=== PATIENT | female | born 1945 | race Caucasian/White ===

== ENCOUNTER 2023-03-08 10:12 | Inpatient (IN) | payer MEDICARE, SELFPAY ==
[2023-03-08] VITALS (10 sets, daily range): BP systolic 118–140; BP diastolic 66–85; PULSE 86–169; RESP 16–35; TEMP 35.9–36.6; O2SAT 93–99; BMI 18.3
--- NOTE | ~2023-03-08 | XR_ITS ---
EXAMINATION: XR_KUBGTUBINS_CR DATE: 03/08/2023 18:40 INDICATION: Nasogastric tube placement TECHNIQUE: AP view of the abdomen and lower chest was obtained for assessment of nasogastric tube rep ositioning COMPARISON: CT dated 03/08/2023 FINDINGS: Nasogastric tube tip in proximal side port in the body of the stomach. Residual oral contrast materia l is seen scattered throughout the visualized colon. The previously noted dilated gas and fluid-fille d loops of small bowel are not appreciated on the current study. Small left pleural effusion with opa [place] at left lung base which could represent atelectasis or pneumonia. Cardiomegaly. Lumbar levorot oscoliosis with moderate to severe spondylosis. IMPRESSION: 1. Nasogastric tube in the stomach. Reviewed, dictated and finalized at location A.
--- NOTE | ~2023-03-08 | XR_ITS ---
EXAMINATION: XR abdomen/kub 1V DATE: 03/20/2023 17:01 INDICATION: Right lower quadrant abdominal pain. TECHNIQUE: A supine view of the abdomen on 2 radiographs was obtained. COMPARISON: 03/17/[address] dated 03/15/2023 FINDINGS: Nasogastric tube tip in proximal side port in the body of the stomach. Midline skin sunil consisten t with interval surgery. Several gas-filled loops of small bowel in the abdomen and pelvis without fr ank dilation and favor postoperative ileus over obstruction. Lumbar levorotoscoliosis with moderate s pondylosis. IMPRESSION: 1. Nonspecific bowel gas pattern with multiple gas-filled loops of small bowel most likely postoperat tex ileus. Reviewed, dictated and finalized at location A. IMPRESSION: 1. Nonspecific bowel gas pattern with multiple gas-filled loops of small bowel most likely postoperative ileus.
--- NOTE | ~2023-03-08 | XR_ITS ---
XR abdomen obstructive series DATE: 03/09/2023 11:48 INDICATION: Abdominal pain. Ileus. TECHNIQUE: Portable supine and upright AP views of the abdomen COMPARISON: 03/08/2023 CT abdomen pelvis FINDINGS: There are persistent dilated gas distended small bowel segments. There is contrast material within the colon. A nasogastric tube is present in the stomach, the distal tip in the lower body of the stomach. No intraperitoneal free air is detected. IMPRESSION: Persistent dilated gas-distended small bowel NG tube in stomach Reviewed, dictated and finalized at Location A. Reviewed, dictated and finalized at location A.
--- NOTE | ~2023-03-08 | XR_ITS ---
Supine and upright views of the abdomen Clinical history: NG tube placement Findings: NG tube is in place, with side-port just below the diaphragm. There are probable multiple d ilated small bowel loops with contrast within small bowel. No definite free air. No abnormal mass les ion or calcification is seen. There is levoscoliosis of the lumbar spine. Impression: NG tube side-port is just below the diaphragm. Consider further advancement into the stomach. Small bowel obstruction versus ileus. Reviewed, dictated and finalized at location M. Impression: NG tube side-port is just below the diaphragm. Consider further advancement int o the stomach. Small bowel obstruction versus ileus.
--- NOTE | ~2023-03-08 | XR_ITS ---
Supine and upright views of the abdomen Clinical history: Dark red output via NG tube COMPARISON: 03/20/2023 Findings: NG tube is in satisfactory position. Multiple dilated bowel loops are similar to prior exam . No definite free air. Surgical sunil are again present. Calcification left upper quadrant could r eflect calcified splenic artery aneurysm.. There is levoscoliosis and degenerative change of the lumb ar spine. Impression: NG tube in satisfactory position. Stable dilated bowel loops with surgical clips present, likely represent postoperative ileus. Reviewed, dictated and finalized at location . Impression: NG tube in satisfactory position. Stable dilated bowel loops with surgical clips present, likely represent postop erative ileus.
--- NOTE | ~2023-03-08 | XR_ITS ---
XR chest 1V portable DATE: 03/17/2023 12:59 INDICATION: Respiratory failure TECHNIQUE: Portable AP chest on 03/17/2023 at 1254 hours COMPARISON: 03/15/2023 portable AP chest at 1222 hours FINDINGS: There is a limited rotated portable single view of the chest. There is increased retrocardiac density consistent with left lower lobe infiltrate or atelectasis. The lungs are hyperinflated, suggesting COPD. Cardiomegaly, thoracic and abdominal aortic atherosclerotic calcification. Right upper extremity PIC catheter tip overlies the superior vena cava near the superior cavoatrial j unction. NG tube in stomach. Diffuse osteopenia. IMPRESSION: Persistent left lower lobe infiltrate or atelectasis Bilateral hyperinflation Reviewed, dictated and finalized at location A.
--- NOTE | ~2023-03-08 | XR_ITS ---
Supine and upright views of the abdomen Clinical history: NG tube placement Findings: NG tube is in satisfactory position. Dilated small bowel loops are noted. No definite free air. No abnormal mass lesion or calcification is seen. Osseous structures are intact. Impression: NG tube in satisfactory position. Dilated small bowel loops, consistent with small bowel obstruction. Reviewed, dictated and finalized at [facility]. Impression: NG tube in satisfactory position. Dilated small bowel loops, consistent with small bowel obstruction.
--- NOTE | ~2023-03-08 | XR_ITS ---
EXAM: XR small bowel follow through DATE: 03/10/2023 15:53 HISTORY: Evaluate for SBO, use water soluble contrast . COMPARISON: CT abdomen pelvis 03/08/2023. FINDINGS: NG tube terminating over the stomach. Multiple loops of significantly dilated small bowel. Mild cecal dilation. Hyperdense intraluminal material present in the ascending and descending colon. Lumbar scoliosis with severe degenerative disc disease. Following contrast administration, contrast fills multiple loops of dilated small bowel, possibly reaching the cecum at the 2 hour manny and defin itely within large bowel by the 3 hour manny. IMPRESSION: Contrast probably reaches the cecum at 2 hours and is definitively within the cecum at 3 hours. Moderate small bowel dilation may represent ileus or partial obstruction. Reviewed, dictated and finalized at location K. IMPRESSION: Contrast probably reaches the cecum at 2 hours and is definitively within the c ecum at 3 hours. Moderate small bowel dilation may represent ileus or partial obstruction.
--- NOTE | ~2023-03-08 | XR_ITS ---
EXAM: XR_KUBGTUBINS_CR DATE: 03/12/2023 18:35 HISTORY: ng tube placement verification . COMPARISON: 03/11/2023. FINDINGS: NG tube tip and side port project over the expected location of the stomach. Diffusely dil ated small bowel loops. Left hemidiaphragm elevation. Groundglass and subsegmental right basilar opac ities. IMPRESSION: NG tube, in good position. Small bowel obstruction/ileus. Possible pulmonary edema and right basilar atelectasis. Reviewed, dictated and finalized at location K.
--- NOTE | ~2023-03-08 | CT_ITS ---
EXAMINATION: CT abdomen pelvis wo con DATE: 03/15/2023 09:38 INDICATION: Colitis. TECHNIQUE: Computed tomography (CT) of the abdomen and pelvis was performed without intravenous contr ast. Automated exposure control and iterative reconstruction technique were employed. The dose-length product was 205.94 mGy-cm. COMPARISON: CT abdomen and pelvis 03/08/2023 FINDINGS: The visualized portions of the lung bases demonstrate small right and moderate-sized left p leural effusions. There is bronchiectasis in right middle lobe. There are groundglass opacities and c entrilobular nodules in right lower lobe and centrilobular nodules in right middle lobe, consistent w ith pneumonia. Calcified left lung nodules are consistent with old granulomatous disease. There is sm ooth septal thickening in the lungs, consistent with pulmonary edema. Cardiomegaly is noted. There ar e coronary artery calcifications. No pericardial effusion. There is a small sliding hiatal hernia. Th e liver, gallbladder, and pancreas are normal. Calcifications in the spleen are consistent with old g ranulomatous disease. The nasogastric tube tip is in the distal stomach. The adrenal glands and right kidney are normal. There is cortical thinning of left kidney. There is no urolithiasis. There is brian cified atherosclerosis of the aorta and many of the other arteries. There is a Reyes catheter in the bladder. There is contrast in the bladder. There is focal wall thickening of the ascending colon. The re is pneumatosis in the right colon proximal to this focal wall thickening. The appendix is not visu alized. There are fluid-filled dilated loops of small bowel. There are no pathologically enlarged lym ph nodes. There is a small volume of ascites in right paracolic gutter. There is thoracolumbar levosc oliosis and severe lumbar spondylosis. IMPRESSION: 1. Persistent focal wall thickening in the ascending colon suspicious for primary malignancy. Pneumat osis in the right colon proximal to this focal wall thickening. 2. Dilated small bowel without focal transition point, likely adynamic ileus. 3. Lung disease, likely a combination of pulmonary edema and pneumonia. 4. Small right and moderate-sized left pleural effusions, worsened from 03/08/2023. 5. Small sliding hiatal hernia. Reviewed, dictated and finalized at location A. IMPRESSION: 1. Persistent focal wall thickening in the ascending colon suspicious for prima ry malignancy. Pneumatosis in the right colon proximal to this focal wall thick ening. 2. Dilated small bowel without focal transition point, likely adynamic ileus. 3. Lung disease, likely a combination of pulmonary edema and pneumonia. 4. Small right and moderate-sized left pleural effusions, worsened from 3. 5. Small sliding hiatal hernia.
--- NOTE | ~2023-03-08 | XR_ITS ---
EXAM: XR_KUBGTUBINS_CR DATE: 03/12/2023 21:20 HISTORY: NG tube replaced after patient removal . COMPARISON: Same date at 6:29 PM. FINDINGS/IMPRESSION: The replaced nasogastric tube is in good position. Persistent small bowel obstru ction/ileus. Persistent likely pulmonary edema and bibasilar atelectasis. Reviewed, dictated and finalized at location K.
--- NOTE | ~2023-03-08 | CT_ITS ---
EXAMINATION: CT abdomen pelvis wo con DATE: 03/08/2023 11:33 INDICATION: Right lower quadrant abdominal pain. TECHNIQUE: Computed tomography (CT) of the abdomen and pelvis was performed without intravenous contr ast. Automated exposure control and iterative reconstruction technique were employed. The dose-length product was 207.83 mGy-cm. COMPARISON: None. FINDINGS: The visualized portions of the lung bases demonstrate widespread septal thickening. There a re peripheral airspace opacities in the lower lobes, right middle lobe, and lingula with volume loss. There are small pleural effusions. Cardiomegaly is noted. There are coronary artery calcifications. No pericardial effusion. There is a small sliding hiatal hernia. The liver and gallbladder are normal . Calcifications in the spleen are consistent with old granulomatous disease. The pancreas and adrena l glands are normal. There is 11 mm cyst in right kidney. There is mild atrophy of left kidney. There is focal wall thickening of the ascending colon with adjacent fat stranding. There are multiple dila enriqueta loops of small bowel without focal transition point. There is contrast in the colon. The proximal colon is distended. There are no pathologically enlarged lymph nodes. There is no free intraperitone al fluid. There is thoracolumbar levoscoliosis. There is severe lumbar spondylosis. IMPRESSION: 1. Dilated small and large bowel, likely adynamic ileus. 2. Focal wall thickening of the ascending colon with adjacent fat stranding, consistent with infectio n versus malignancy. 3. Mild pulmonary edema with small pleural effusions. 4. Peripheral airspace opacities in the inferior lungs, consistent with atelectasis versus pneumonia. Reviewed, dictated and finalized at location A. IMPRESSION: 1. Dilated small and large bowel, likely adynamic ileus. 2. Focal wall thickening of the ascending colon with adjacent fat stranding, co nsistent with infection versus malignancy. 3. Mild pulmonary edema with small pleural effusions. 4. Peripheral airspace opacities in the inferior lungs, consistent with atelect asis versus pneumonia.
--- NOTE | ~2023-03-08 | XR_ITS ---
EXAMINATION: XR chest PICC line DATE: 03/15/2023 12:27 INDICATION: Central line placement. TECHNIQUE: A single frontal view of the chest was obtained. COMPARISON: Chest 2 view 06/14/2006, CT abdomen and pelvis 03/15/2023 FINDINGS: A calcified left lung nodule is consistent with old granulomatous disease. There are airspa ce opacities at left lung base. There is a small left pleural effusion. There is a diffuse interstiti al pattern in the lungs, consistent with pulmonary edema. No pneumothorax. Cardiomegaly is noted. The nasogastric tube tip is in the stomach. A right upper extremity peripherally inserted central venous catheter (PICC) is seen with tip at the superior cavoatrial junction. IMPRESSION: 1. PICC tip at superior cavoatrial junction. 2. Mild pulmonary edema. 3. Airspace opacities at left lung base, consistent with atelectasis versus pneumonia. 4. Small left pleural effusion. 5. Cardiomegaly. Reviewed, dictated and finalized at location A. IMPRESSION: 1. PICC tip at superior cavoatrial junction. 2. Mild pulmonary edema. 3. Airspace opacities at left lung base, consistent with atelectasis versus pne umonia. 4. Small left pleural effusion. 5. Cardiomegaly.
--- NOTE | ~2023-03-08 | XR_ITS ---
Upright portable view of the abdomen Clinical history: NG tube placement Findings: NG tube is in satisfactory position. Several dilated small bowel loops noted in the central abdomen. Moderate pneumoperitoneum is present.. Surgical sunil are noted vertically in the midline . Abnormal mass lesion or calcification is seen. Osseous structures are intact. Impression: NG tube in satisfactory position. Moderate pneumoperitoneum with surgical sunil present. This is therefore likely postoperative in na ture. Correlate clinically for any possibility of bowel perforation. Mildly dilated small bowel loops centrally. Correlate for ileus versus obstruction. Reviewed, dictated and finalized at location M. Impression: NG tube in satisfactory position. Moderate pneumoperitoneum with surgical sunil present. This is therefore like ly postoperative in nature. Correlate clinically for any possibility of bowel p erforation. Mildly dilated small bowel loops centrally. Correlate for ileus versus obstruct ion.
--- NOTE | ~2023-03-08 | XR_ITS ---
XR abdomen/kub 1V DATE: 03/17/2023 06:46 INDICATION: NG tube placement TECHNIQUE: Portable AP view on 03/17/2023 at 0635 hours COMPARISON: None FINDINGS: An NG tube is present, the distal tip overlying the lower body of the stomach. There are some dilated gas distended small bowel segments. Infiltrate and/atelectasis in the lower lung zones, left greater than right. Cardiomegaly. Rotatory levoscoliosis and multilevel degenerative disc disease of the lumbar spine. Osteopenia. IMPRESSION: NG tube in lower body of stomach Reviewed, dictated and finalized at Location A. Reviewed, dictated and finalized at location A.
[2023-03-08 10:38] LABS: Hematocrit 49.8 % (37.0-47.0); Hemoglobin 16.7 g/dL (12.0-15.0); Immature Platelet Fraction Pct 5.8 % (0.9-11.2); Mean Corpuscular HGB Conc 33.5 g/dl (32-36); Mean Corpuscular Volume 89.4 fl (80-100); Mean Platelet Volume 10.3 fl (7.4-10.4); Platelet Count Result 103 k/mm3 (150-375); Red Blood Count 5.57 M/mm3 (4.2-5.4); Red Cell Distribution Width 13.2 % (11.5-14.5); White Blood Count 9.7 K/mm3 (4.5-10.0)
[2023-03-08 10:46] LABS: Alanine Aminotransferase 97 U/L (6-35); Albumin Level 3.7 g/dL (3.5-5.1); Alkaline Phosphatase 73 U/L (38-126); Anion Gap 11 mmol/L (8-16); Aspartate Amino Transferase 79 U/L (14-36); Bilirubin,Total 1.1 mg/dL (0.2-1.3); Blood Urea Nitrogen 50 mg/dL (7-17); Carbon Dioxide 32 mmol/L (22-30); Chloride 87 mmol/L (98-107); Estimated CRCL calculation 18 ml/min; Estimated Glomerular Filt Rate 26; Glucose 138 mg/dL (65-110); Lipase 24 U/L (23-300); Potassium 4.6 mmol/L (3.4-5.0); Sodium 130 mmol/L (137-145)
[2023-03-08 11:05] LABS: Band Neutrophils Percent 19 % (0-6); Lymphocytes Absolute Manual 0.58 K/mm3 (1.1-4.5); Metamyelocytes Percent 2 %; Monocytes Absolute Manual 0.67 K/mm3 (0.1-0.90); Monocytes Percent Manual 7 % (3-9); Neutrophils Absolute Manual 8.24 K/mm3 (1.7-7.2); Neutrophils Percent Manual 66 % (46-73); Platelet Estimate Decreased (Adequate); Schistocytes None Seen (NORMAL); Total Cells Counted 100
[2023-03-08 11:06] LABS: Crenated RBC 1+ (NORMAL)
[2023-03-08 11:32] LABS: Appearance Urine Turbid (Clear); Bacteria Urine 4+ /hpf; Bilirubin Urine Negative (Negative); Blood Urine 3+ (Negative); Color Urine Dark Yellow (Yellow); Glucose Urine UA Negative (Negative); Granular Casts Urine Present /lpf; Ketones Urine Negative (Negative); Leukocyte Esterase Ur Trace LEU/UL (Negative); Nitrate Urine Negative (Negative); Protein Urine 2+ mg/dL (Negative); Specific Grav Ur 1.024 (1.001-1.035); Squamous Epithelial Cell Urine Many /hpf (Few); Urobilinogen Urine 0.2 mg/dL (<2.0)
[2023-03-08 11:41] LABS: Add Urine Microscopic? YES
[2023-03-08] MEDS: MORPHINE SULFATE (*CRX) 2 MG/ML INJ IV PUSH ×2 (12:48→16:43)
[2023-03-08 13:32] LABS: NT Pro B Type Natriuretic Pept > 30000 pg/mL (19.9-100)
--- NOTE | 2023-03-08 13:50 | ED.ABDPAIN ---
HPI - Abdominal Pain General Chief Complaint: Abdominal Pain <Saray Washington APRN - Last Filed: 03/08/23 18:59> Stated Complaint: RLQ abdominal pain - seen in [place] yesterday <Saray Washington APRN - Last Filed: 03/08/23 18:59> Time Seen by Provider: 03/08/23 10:44 <aSray Washington APRN - Last Filed: 03/08/23 18:59> Source: patient <Saray Washington APRN - Last Filed: 03/08/23 18:59> Mode of arrival: ambulatory <Saray Washington APRN - Last Filed: 03/08/23 18:59> Limitations: no limitations <Saray Washington APRN - Last Filed: 03/08/23 18:59> History of Present Illness HPI narrative: 77-year-old female presents today with complaints of nausea and vomiting and abdominal pain that been going on for 1 day. Patient was seen at [facility] in [place] yesterday where a CT and lab work was done. These records are not available at this time. Per patient she did a CT with oral contrast. She was discharged last night and pain continued to today so she arrived here. Patient was able to drink a glass of milk this morning without any nausea or vomiting. Does have a history of hysterectomy but otherwise no significant history per family. Medical records indicates she has a history of dementia, anemia, and CHF. Patient is not on any medications. <Saray Washington APRN - Last Filed: 03/08/23 18:59> MD elicited complaint: abdominal pain <Saray Washington APRN - Last Filed: 03/08/23 18:59> Related Data Home Medications: Home Medications Medication Instructions Recorded Confirmed No Home Medications 03/08/23 03/08/23 <Saray Washington APRN - Last Filed: 03/08/23 18:59> Allergies/Adverse Reactions: Allergies Allergy/AdvReac Type Severity Reaction Status Date / Time No Known Allergies Allergy Verified 03/08/23 10:13 <Saray Washington APRN - Last Filed: 03/08/23 18:59> Review of Systems Review of Systems: All systems reviewed & are unremarkable except as noted in HPI and below <Saray Washington APRN Last Filed: 03/08/23 18:59> [facility] Past Medical History Medical History: Medical History Anemia CHF (congestive heart failure) Dementia GERD (gastroesophageal reflux disease) Hypothyroid <Saray Washington RECESSING MACHINE OPERATOR Last Filed: 03/08/23 18:59> Social History Social History: Social History Smoking packs per day: 0.5 Smoking cigarettes per day: 10.0 Years smoked: 65 Smoking pack-years: 32.50 Smoking status: Current every day smoker Tobacco type: cigarettes Second hand tobacco smoke exposure: No Alcohol intake: never Substance use: unknown Lack of Transportation: No Lack of Food: Never True Current Housing: I Have Housing Concerned About Future Housing: No Difficulty Paying Gas/Electric Bills: No Difficulty Paying for Meds: No Currently Unemployed: No Education: Grade School Difficulty w/ Childcare or Family Care: No Living arrangements: assisted living Spiritual care concerns: No <Saray Washington Last Filed: 03/08/23 18:59> Exam Const: General: cooperative, healthy appearing, comfortable, no acute distress and well developed <Saray Washington Last Filed: 03/08/23 18:59> Orientation/consciousness: patient oriented x3 <Saray Washington Last Filed: 03/08/23 18:59> HENMT: Head: normal to inspection <Saray Washington RECESSING MACHINE OPERATOR - Last Filed: 03/08/23 18:59> Eyes: General: appearance normal, both eyes and all related structures <Saray Washington Last Filed: 03/08/23 18:59> Resp: Effort & Inspection: normal respiratory effort and able to speak in complete sentences <Saray Washington - Last Filed: 03/08/23 18:59> Auscultation: clear to auscultation bilaterally <Saray Washington RECESSING MACHINE OPERATOR - Last Filed: 03/08/23 18:59> Cardio: Rate: regular rate <Saray Washington RECESSING MACHINE OPERATOR - Last Filed: 03/08/23 18:59> Rh
[2023-03-08] MEDS: FUROSEMIDE INJ 40 MG/4 ML VIAL IV PUSH (14:56)
[2023-03-08] MEDS: SODIUM CHLORIDE 0.9% IV 1,000 ML 50 ML IV CONT (14:57)
--- NOTE | 2023-03-08 15:16 | WPDCN ---
Assessment and Plan Assessment and plan (1) Abdominal pain: Code(s): R10.9 - Unspecified abdominal pain Status: Acute Assessment and Plan: Patient has a mildly distended abdomen and abdominal pain. Normal white blood cell count and no fever. CT scan suggests adynamic ileus given dilated small bowel and colon without transition point. Urinalysis suggest possible UTI which could certainly contribute to development of an ileus. Presently she is not nauseated and did tolerate some liquids earlier today. She did have a small bowel movement this morning which was loose. Given the CT findings I do not think she has a surgical abdomen by objective measures and by physical examination. She appears dehydrated with an elevation in her creatinine and elevated hemoglobin suggesting hemoconcentration. I recommend conservative management with IV fluid hydration. Would not start any IV antibiotics at this time for what is going on her abdomen however hospital service may consider empiric treatment for possible UTI. Defer placement of a nasogastric tube for now unless she develops worsening abdominal pain and distension or starts having any nausea or vomiting. Repeat labs in the morning. Given the CT findings on the right ascending colon assuming she resolve this without any surgery would suggest elected colonoscopy in the future to evaluate the right side of the colon for any possible neoplasms. Surgical follow . HPI Data of Consult Date/Time: 03/08/23 15:16 Requesting Physician: Nathan Lu MD Primary Care Provider: PHYSICIAN NOT ON STAFF Consult Narrative Reason for consult: Abdominal pain, nausea/ vomiting. Narrative: Nataliya Mendoza is a 77 year old female who present to the emergency room today complaining of persistent abdominal pain. She went to the hospital in [facility] a yesterday where she was evaluated the emergency room and apparently labs and imaging was performed none of which we have any results available to us for review. She was discharged from the emergency room but she continued to have pain and so she presented [facility]. She states she had a loose bowel movement earlier today. She has not had any nausea or emesis today. Workup in the emergency room shows a normal white blood cell count and she is hemodynamically stable. She states she does feel little bloated. She has never had pain like this in the past. She has never had a colonoscopy. CT scan abdomen pelvis showed dilated small bowel and colon without definite transition point. The right colon had some mild thickening suggestive of possible edema or inflammation versus possible malignancy. No free air perforation was seen. She has significant history of a prior abdominal surgery about 30 years ago when she had a very large benign ovarian tumor removed. Urinalysis reveals many white blood cells and bacteria in the urine suggestive of possible urinary tract infection however many squamous epithelial cells were also seen which made a poor specimen. Review of Systems Review of Systems: The remainder of the review of systems to include constitutional, HEENT, cardiovascular, respiratory, GI, , integumentary, musculoskeletal, endocrine, immunologic, hematologic, psychiatric, and neurologic are all negative except for which is mentioned above in the HPI. [facility] Past Medical History Medical History Anemia CHF (congestive heart failure) Dementia GERD (gastroesophageal reflux disease) Hypothyroid Social History Social History Smoking status: Unknown if ever smoked Alcohol intake: unknown Substance use: unknown Living arrangements: assisted living Meds Home Medications and Allergies Allergies Allergy/AdvReac Type Severity Reaction Status Date / Time No Known Allergies Allergy Verified 03/08
--- NOTE | 2023-03-08 15:34 | ADMGEN ---
This patient, Nataliya Mendoza, was admitted to IMU Room 202-01. Patient/family oriented to hospital policies and general routines including ID bracelet, bed and alarms, visiting hours, pain management, procedures, bathroom and other care routines, personal items, smoking policy, room service/diet, and visiting hours. Information on how to activate the Rapid Response Team has been discussed. Patient/Family are encouraged to report perceived risks to care and to ask questions if they do not understand what they are told or what they should do.
--- NOTE | 2023-03-08 15:42 | PM.IMHP ---
H&P: HPI History of Present Illness Date/Time: 03/08/23 15:42 Chief Complaint: abdominal pain Narrative: This is a 77-year-old female patient who was in a usual state of health until about 5 days ago when she attended an outdoor cook out and became overheated. Patient reports that a few days later she went to work and had a significant headache. Yesterday patient had severe abdominal pain and nausea vomiting so she went to another emergency department where she had a CT scan completed and was ultimately discharged. Patient presents to our facility today with complaints of continued abdominal pain and return of nausea and vomiting after ER discharge yesterday. Workup in the emergency department is significant for CT findings of an ileus and laboratory findings of hyponatremia and SAMMY. Patient and family deny any history of heart problems or kidney problems in the past. Patient states that she has only been able to drink minimal amount of fluid recently. Patient denies difficulty breathing but admits that she is breathing faster than usual. Patient reports that hers abdomen is distended and tender to the touch all over. Patient denies chest pain. Patient reports that she does not take any medications and has no known heart problems or kidney problems. She reports that she has a primary care provider but does not see him very much. Patient reports she does smoke about half pack per day. Review of Systems Review of Systems: All systems reviewed & are unremarkable except as noted in HPI and below PMFSH Past Medical History Medical History (Updated 03/08/23 @ 23:33 by Rogerio Davis APRN) Anemia CHF (congestive heart failure) CVA (cerebral vascular accident) Dementia GERD (gastroesophageal reflux disease) Hypothyroid Social History Social History Smoking packs per day: 0.5 Smoking cigarettes per day: 10.0 Years smoked: 65 Smoking pack-years: 32.50 Smoking status: Current every day smoker Tobacco type: cigarettes Second hand tobacco smoke exposure: No Alcohol intake: never Substance use: unknown Lack of Transportation: No Lack of Food: Never True Current Housing: I Have Housing Concerned About Future Housing: No Difficulty Paying Gas/Electric Bills: No Difficulty Paying for Meds: No Currently Unemployed: No Education: Grade School Difficulty w/ Childcare or Family Care: No Living arrangements: assisted living Spiritual care concerns: No Meds Home Medications and Allergies Home Medications Medication Instructions Recorded Confirmed Type No Home Medications 03/08/23 03/08/23 History Allergies Allergy/AdvReac Type Severity Reaction Status Date / Time No Known Allergies Allergy Verified 03/08/23 10:13 Vital Signs Vital Signs - 24 hr 03/08/23 10:15 03/08/23 12:46 03/08/23 13:31 Temperature 35.9 C L Pulse Rate 96 96 93 Respiratory Rate 16 30 H 35 H Blood Pressure 118/71 140/74 129/85 Pulse Oximetry 99 97 96 Oxygen Delivery Room Air Exam Narrative: GENERAL: Moderately ill-appearing with tachypnea and moderate dyspnea HEENT: Pupils are equally round and briskly reactive to light. Extraocular muscles are intact. Oral mucous membranes very dry and tacky NECK: The patient has no noted JVD. No adenopathy is appreciated. CHEST/LUNGS: Lungs are clear bilaterally without rhonchi, rales, or wheezes. tachypnea noted with moderate dyspnea, no accessory muscle use HEART: The patient has a regular rate and irregular rhythm. Distal pulses are 2+. ABDOMEN: The patient's abdomen is significantly distended and tender to the touch. No guarding or rebound. Minimal bowel sounds. EXTREMITIES: The patient has no peripheral edema. There is no focal long bone tenderness or deformity. SKIN: The patient's skin is warm and dry, without rashes or lesions. PSYCHIATRIC: The patient has normal mental status and has
--- NOTE | 2023-03-08 16:19 | ECG_ITS ---
Measurements Intervals [place] Rate: 90 P: HI: 0 QRS: 71 QRSD: 89 T: 110 QT: 375 QTc: 459 Interpretive Statements ATRIAL FIBRILLATION CANNOT RULE OUT SEPTAL INFARCT, AGE INDETERMINATE CONSIDER HIGH LATERAL INFARCT, AGE INDETERMINATE ABNORMAL ECG NO PREVIOUS ECG AVAILABLE FOR COMPARISON Electronically Signed On 03-08-2023 16:45:34 CDT by Danilo Tian D.O.
[2023-03-08] MEDS: ONDANSETRON INJ 4 MG/2 ML VIAL IV PUSH (16:43)
[2023-03-08] MEDS: ALBUMIN HUMAN 5% 25 GM/500 ML BTL IV CONT (17:25)
--- NOTE | 2023-03-08 17:43 | WPDGICN ---
Assessment and Plan Assessment and plan (1) Abdominal pain: Code(s): R10.9 - Unspecified abdominal pain Status: Acute Assessment and Plan: Abdominal pain with diffuse tenderness. But more so on the right abdomen. CT scan imaging suggest possible ileus. Question of thickening in the right colon. Plan for initial NG tube decompression. Broad-spectrum antibiotics are encouraged. As patient improves may be at some later date a colonoscopy can evaluate abnormalities seen on CT scan. There does not appear to be an obstruction but small-bowel follow-through in colon evaluation may be considered after resolution of symptoms. Will follow lab testing for now. NG tube will be placed and can be removed if symptoms improve hopefully this will take pressure off the lower colon. Patient does have pyuria suggesting possible urinary tract infection. A mild elevation of liver tests that is nonspecific will be monitored. (2) Abnormal CT scan: Code(s): R93.89 - Abnormal findings on diagnostic imaging of other specified body structures Status: Acute GI Consult Note Consult date/time: 03/08/23 17:43 Reason for consult: Ileus, abnormal CT scan. HPI: Nataliya Mendoza is a 77 year old female I am asked to see at the request of the emergency room because of an ileus. Patient presented the emergency room because of abdominal pain. This may have started 1 week ago. Yesterday became more intense. She initially went to the hospital in [facility]. Workup this hospital is not available for review and ultimately patient was allowed to go home. She continued to have pain today and presented to the hospital. CT scan imaging suggest patient has ileus with diffuse distention of the small and large bowel. Patient may have had a loose diarrhea stool after imaging study was performed at the other hospital yesterday. Patient denies any obvious bleeding. She has no fever or pain. In the emergency room white count was normal. Modest elevation of liver tests are noted. She has significant pyuria on urinalysis. CT scan suggest some edema or thickening of the right colon. Review of Systems Review of Systems: Review of systems noncontributory. [facility] Past Medical History Medical History Anemia CHF (congestive heart failure) Dementia GERD (gastroesophageal reflux disease) Hypothyroid Social History Social History Smoking packs per day: 0.5 Smoking cigarettes per day: 10.0 Years smoked: 65 Smoking pack-years: 32.50 Smoking status: Current every day smoker Tobacco type: cigarettes Second hand tobacco smoke exposure: No Alcohol intake: never Substance use: unknown Lack of Transportation: No Lack of Food: Never True Current Housing: I Have Housing Concerned About Future Housing: No Difficulty Paying Gas/Electric Bills: No Difficulty Paying for Meds: No Currently Unemployed: No Education: Grade School Difficulty w/ Childcare or Family Care: No Living arrangements: assisted living Spiritual care concerns: No Meds Home Medications and Allergies Home Medications Medication Instructions Recorded Confirmed Type No Home Medications 03/08/23 03/08/23 History Allergies Allergy/AdvReac Type Severity Reaction Status Date / Time No Known Allergies Allergy Verified 03/08/23 10:13 Vital Signs Vital Signs - 24 hr 03/08/23 10:15 03/08/23 12:46 03/08/23 13:31 Temperature 96.7 F L Pulse Rate 96 96 93 Respiratory Rate 16 30 H 35 H Blood Pressure 118/71 140/74 129/85 Pulse Oximetry 99 97 96 Oxygen Delivery Room Air 03/08/23 15:53 03/08/23 15:59 03/08/23 16:00 Temperature Pulse Rate 99 90 Respiratory Rate Blood Pressure Pulse Oximetry Oxygen Delivery Room Air 03/08/23 16:00 Temperature 97.6 F Pulse Rate 86 Respirat
[2023-03-08 18:19] LABS: Magnesium 2.2 mg/dL (1.6-2.3)
[2023-03-08 18:56] LABS: Troponin I 0.451 ng/mL (0.000-0.034)
[2023-03-08 20:41] LABS: Alanine Aminotransferase 80 U/L (6-35); Albumin Level 3.8 g/dL (3.5-5.1); Alkaline Phosphatase 70 U/L (38-126); Aspartate Amino Transferase 59 U/L (14-36); Bilirubin,Total 0.9 mg/dL (0.2-1.3)
[2023-03-08 21:12] LABS: Troponin I 0.465 ng/mL (0.000-0.034)
[2023-03-08 21:25] LABS: Hepatitis B Surface Antigen Negative (Negative)
[2023-03-08 21:32] LABS: HAV RESULT Negative (Negative); Hepatitis B Core IgM Result Negative (Negative)
[2023-03-08 21:42] LABS: Hepatitis C Virus Antibody Negative (Negative)
[2023-03-09] VITALS (11 sets, daily range): BP systolic 117–124; BP diastolic 57–71; PULSE 65–102; RESP 16–18; TEMP 36.3–36.8; O2SAT 91–96
--- NOTE | 2023-03-09 | ECHO_ITS ---
Patient Info Name: Nataliya Mendoza Age: 77 years : 1945 Gender: Female Ht: 66 in Wt: 133 lbs BSA: 1.68 m2 HR: 98 bpm BP: 121 / 57 mmHg Technical Quality: Fair Exam Date: 03/09/2023 8:08 AM Exam Location: [facility] Pulmonary Exam Room: [facility] Patient Status: Outpatient Admit Date: 03/08/2023 Staff Ordering Physician: Rogerio Davis APRN [employer] Selector: Suzette Dueñas RDCS Attending Provider: Nathan Lu MD Referring Physician: Ryan ESTRELLA; Exam Type: CA echo doppler w bubble study Study Info Indications - new afib Complete two-dimensional, color flow and Doppler transthoracic echocardiogram is performed. Complete two-dimensional, color flow and Doppler transthoracic echocardiogram is performed with contrast to opacify the left ventricle and to improve the deliniation of the left ventricle endocardial borders. Contrast/Agitated Saline Contrast/Ag. Saline: Definity Amount: 1.00 ml Administered By: Suzette Dueñas [facility] Existing IV Access: Yes IV Access Condition: patent with no signs of infiltration Summary 1. Complete two-dimensional, color flow and Doppler transthoracic echocardiogram is performed. 2. Left ventricular systolic function is normal, estimated at 50-55%. 3. The left ventricular diastolic function is abnormal. 4. Hypokinetic anteroseptum, anterior wall, basal inferoseptum. 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 5. Left atrial chamber dimension is mildly enlarged. 6. Right atrial chamber dimension is mildly enlarged. 7. Intact interatrial septum visualized by agitated saline imaging. 8. There is mild mitral valve regurgitation. 9. There is moderate tricuspid valve regurgitation. 10. Mild pulmonary hypertension, estimated pulmonary arterial systolic pressure is 45 mmHg. 11. There is mild pulmonic regurgitation. Left Ventricle Left ventricular chamber dimension is normal. Left ventricular systolic function is normal, estimated at 50-55%. There is no increased left ventricular wall thickness. Left ventricular septal wall motion is normal. The left ventricular diastolic function is abnormal. Right Ventricle Right ventricular chamber dimension is normal. Right ventricular systolic function is normal. Left Atria Left atrial chamber dimension is mildly enlarged. Right Atria Right atrial chamber dimension is mildly enlarged. Atrial Septum Intact interatrial septum visualized by agitated saline imaging. Aortic Valve The aortic valve is trileaflet. There is no aortic valve sclerosis. There is no aortic valve stenosis. There is no aortic valve regurgitation. Pulmonic Valve The pulmonic valve is normal. There is no pulmonic valve stenosis. There is mild pulmonic regurgitation. Mitral Valve The mitral valve has normal leaflets. There is no mitral valve stenosis. There is mild mitral valve regurgitation. Tricuspid Valve The tricuspid valve leaflets are normal. There is no significant tricuspid valve stenosis. There is moderate tricuspid valve regurgitation. Mild pulmonary hypertension, estimated pulmonary arterial systolic pressure is 45 mmHg. Pericardium/Pleural The pericardium appears normal. There is trivial pericardial effusion. Inferior Vena Cava Normal inferior vena cava with >50% collapse upon inspiration consistent with Empty right atrial pressure, 10 mmHg. Aorta The aortic root size at the sinus of Valsalva is normal. The prox ascending aorta size is normal. Left Ventricular Outflow Tract -------
[2023-03-09] MEDS: PIPERACILLIN/TAZ 2.25G/NS 50ML 2.25 GM/50 ML BAG IVPB ×3 (01:03→16:15)
[2023-03-09 02:33] LABS: Troponin I 0.384 ng/mL (0.000-0.034)
[2023-03-09 04:24] LABS: Basophils Percent Auto 0.1 % (0.2-1.2); Eosinophils Percent Auto 0.1 % (0-4.4); Hematocrit 42.8 % (37.0-47.0); Hemoglobin 14.7 g/dL (12.0-15.0); Immature Granulocyte Absolute 0.08 K/mm3 (0.00-0.031); Immature Granulocyte Percent A 1.1 % (0-0.5); Immature Platelet Fraction Pct 5.8 % (0.9-11.2); Lymphocytes Absolute Auto 0.45 K/mm3 (0.9-3.2); Lymphocytes Percent Auto 6.2 % (18.3-44.2); Mean Corpuscular HGB Conc 34.3 g/dl (32-36); Mean Corpuscular Hemoglobin 30.6 pg (26-34); Mean Corpuscular Volume 89.2 fl (80-100); Mean Platelet Volume 11.6 fl (7.4-10.4); Monocytes Absolute Auto 1.2 K/mm3 (0.1-0.6); Neutrophils Absolute Auto 5.5 K/mm3 (1.3-6.7); Neutrophils Percent Auto 75.5 % (45.5-73.1); Platelet Count Result 97 k/mm3 (150-375); White Blood Count 7.3 K/mm3 (4.5-10.0)
[2023-03-09 04:31] LABS: Anion Gap 11 mmol/L (8-16); Blood Urea Nitrogen 57 mg/dL (7-17); Calcium 8.3 mg/dL (8.4-10.2); Carbon Dioxide 34 mmol/L (22-30); Chloride 89 mmol/L (98-107); Estimated CRCL calculation 16 ml/min; Estimated Glomerular Filt Rate 23; Glucose 112 mg/dL (65-110); Sodium 134 mmol/L (137-145)
[2023-03-09] MEDS: PERFLUTREN LIPID MICROSPHERES 1.5 ML VIAL DILUTED TO 10 ML TOTAL VOLUME IV PUSH (08:50)
--- NOTE | 2023-03-09 10:04 | PM.CNCAR ---
Assessment and Plan Assessment and plan (1) Atrial fibrillation: Code(s): I48.91 - Unspecified atrial fibrillation Status: Acute Assessment and Plan: Patient presented to the hospital with abdominal pain, nausea and vomiting, LES was found to have atrial fibrillation. Rate controlled not on AV palmira blocking agents. Unknown duration of the atrial fibrillation. -obtain echocardiogram -I would recommend to hold off starting anticoagulation and this time until acute kidney injury and ileus resolve. She is at high risk of bleeding given body habitus and low platelet count. (2) Adynamic ileus: Code(s): K56.0 - Paralytic ileus Status: Acute Assessment and Plan: Has NG tube. (3) Elevated troponin: Code(s): R77.8 - Other specified abnormalities of plasma proteins Status: Acute Assessment and Plan: Nonspecific troponin elevation with no ischemia on EKG and no chest pain. Likely demand ischemia from ileus, dehydration (4) SAMMY (acute kidney injury): Code(s): N17.9 - Acute kidney failure, unspecified Status: Acute Assessment and Plan: Patient needs volume and not Lasix. CT scan shows vascular congestion however clinically she appears to be dry with very dark urine. She needs volume. Would recommend to increase the fluids 100 cc an hour (5) Thrombocytopenia: Code(s): D69.6 - Thrombocytopenia, unspecified Status: Acute Assessment and Plan: Unknown etiology History of Present Illness History of Present Illness Consult date/time: Date of service 03/09/23 10:04 Requesting physician: Rogerio Davis APRN Reason For Visit: Ileus Narrative: This 77-year-old female with no significant past medical history. Apparently 5 days ago when she attended an outdoor cook out and became overheated.? Patient reports that a few days later she went to work and had a significant headache.? Yesterday patient had severe abdominal pain and nausea vomiting so she went to another emergency department where she had a CT scan completed and was ultimately discharged. ? Patient presents to our facility today with complaints of continued abdominal pain and return of nausea and vomiting after ER discharge yesterday.? Workup in the emergency department is significant for CT findings of an ileus and laboratory findings of hyponatremia and SAMMY.? Patient and family deny any history of heart problems or kidney problems in the past.? Patient states that she has only been able to drink minimal amount of fluid recently.? Patient denies difficulty breathing but admits that she is breathing faster than usual.? Patient reports that hers abdomen is distended and tender to the touch all over.? Patient denies chest pain. Patient reports that she does not take any medications and has no known heart problems or kidney problems.? She reports that she has a primary care provider but does not see him very much.? Patient reports she does smoke about half pack per day.. Currently patient has NG tube. Heart rates 90s. Getting normal saline at 50 cc an hour. The urine in the Reyes catheter is very dark. Denies chest pain, shortness of breath. She complains of right lower quadrant tenderness and discomfort. Platelet count 97, initial hemoglobin 16.7 but came down to 14 today Initial sodium 130 and today 134, creatinine 1.9 and 2.1 today, troponins 0.45, 0.46, 0.38, CT abdomen and pelvis shows coronary calcification, small pleural effusions, mild pulmonary edema, ileus, focal thickening of the ascending colon. EKG reviewed and asthma so shows atrial fibrillation with controlled heart rate. Review of Systems Constitutional: Constitutional: Denies chills and Denies fever(s) Comments: Feels tired Eyes: Eyes: Denies eye discharge, Denies loss of vision and Denies eye pain ENT: Denies dizziness, Denies epistaxis, Denies nasal congestion and Denies sore throat Cardiovascular: Cardiovascular:
--- NOTE | 2023-03-09 10:04 | WPDGIPROGNO ---
Progress Note: A&P Assessment and Plan (1) Adynamic ileus: Code(s): K56.0 - Paralytic ileus Status: Acute Assessment and Plan: Patient with apparent ileus on imaging studies. No obvious obstruction noted. Question of mass in the right colon. This is where her primary tenderness and distention is located will plan to follow with serial obstructive series. Colonoscopy can be done if ileus resolves at a later date. IV rehydration. Will continue NG tube decompression for now. (2) Abnormal CT scan: Code(s): R93.89 - Abnormal findings on diagnostic imaging of other specified body structures Status: Acute Assessment and Plan: CT scan raises the question of infection or mass in the right colon. Will need to evaluate this if ileus resolves at a later date. New supportive care for. (3) Abdominal pain: Code(s): R10.9 - Unspecified abdominal pain Status: Acute Assessment and Plan: Diffuse abdominal pain noted but primarily in the right abdomen where abnormality seen CT scan. (4) UTI (urinary tract infection): Code(s): N39.0 - Urinary tract infection, site not specified Status: Acute Assessment and Plan: Patient with pyuria. Appears to have a urinary tract infection. Cultures pending. On broad-spectrum antibiotics. (5) Elevated LFTs: Code(s): R79.89 - Other specified abnormal findings of blood chemistry Status: Acute Assessment and Plan: Mild elevation of transaminases noted. This may be related to infection. Will need to follow. Subjective Date/time seen: 03/09/23 10:04 Interval history: Patient alert this morning. Remains afebrile. NG tube had a large amount return. Patient states pain has lessened. picker tender primarily right abdomen. No significant bowel action noted. Review of Systems Review of Systems: Review of systems noncontributory. Exam Narrative: Physical exam reveals patient to be alert. Vital signs stable. HEENT exam reveals no icterus. Lungs are clear. Heart without murmur. Abdomen bowel sounds are not appreciated. Patient has mild tympany diffusely. Somewhat more distended and tender on the right abdomen. Objective Data Vital Signs Vital Signs: Vital Signs - 24 hr 03/08/23 10:15 03/08/23 12:46 03/08/23 13:31 Temperature 96.7 F L Pulse Rate 96 96 93 Respiratory Rate 16 30 H 35 H Blood Pressure 118/71 140/74 129/85 Pulse Oximetry 99 97 96 Oxygen Delivery Room Air 03/08/23 15:53 03/08/23 15:59 03/08/23 16:00 Temperature Pulse Rate 99 90 Respiratory Rate Blood Pressure Pulse Oximetry Oxygen Delivery Room Air 03/08/23 16:00 03/08/23 17:41 03/08/23 19:00 Temperature 97.6 F Pulse Rate 86 169 H 93 Respiratory Rate 16 Blood Pressure 137/81 Pulse Oximetry 98 Oxygen Delivery 03/08/23 20:00 03/08/23 20:00 03/08/23 20:00 Temperature 97.8 F Pulse Rate 92 92 Respiratory Rate 16 Blood Pressure 120/66 Pulse Oximetry 96 Oxygen Delivery Room Air 03/08/23 22:00 03/08/23 23:53 03/09/23 00:00 Temperature 97.7 F Pulse Rate 87 95 Respiratory Rate 18 Blood Pressure 131/68 Pulse Oximetry 93 Oxygen Delivery Room Air 03/09/23 00:00 03/09/23 02:00 03/09/23 04:00 Temperature Pulse Rate 99 102 H 94 Respiratory Rate Blood Pressure Pulse Oximetry Oxygen Delivery 03/09/23 04:00 03/09/23 04:00 03/09/23 06:00 Temperature 97.4 F L Pulse Rate 85 97 Respiratory Rate 18 Blood Pressure 121/57 L Pulse Oximetry 95 Oxygen Delivery Room Air 03/09/23 07:48 03/09/23 08:00 03/09/23 08:00 Temperature 98.0 F Pulse Rate 90 91 Respiratory Rate 16 Blood Pressure 117/66 Pulse Oximetry 91 Oxygen Delivery Room Air Intake/Output Intake/Output: Intake & Output 03/06/23 03/07/23 03/08/23 03/09/23 23:59 23:59 23:59 23:59 Intake Total 250 300 Output Total 550
[2023-03-09] MEDS: FAMOTIDINE 20 MG/2 ML VIAL IV PUSH ×2 (10:39→20:10)
--- NOTE | 2023-03-09 11:24 | IVDEFINITY ---
Prior to administration of IV Definity the patient was educated on the risks and benefits of the imaging enhancing agent including potential adverse side effects. The patient verbalized understanding. Allergies were verified. No exclusion criteria were identified and at least one of the following inclusion criteria were met: 1) physician request, 2) patient technically difficult to image (per the [place] [employer]ocardi[employer] guidelines of two or more segments not discernable within the apical view), or 3) questionable left ventricular function. ?
--- NOTE | 2023-03-09 11:29 | PM.IMPN ---
Progress Note: A&P Assessment and Plan (1) Adynamic ileus: Code(s): K56.0 - Paralytic ileus Status: Acute Assessment and Plan: Surgery consulted and NG tube placed. (2) SAMMY (acute kidney injury): Code(s): N17.9 - Acute kidney failure, unspecified Status: Acute Assessment and Plan: Unknown prior values patient reports no renal dysfunction. Current creatinine 1.9 BUN 50 suspected prerenal related to dehydration and decreased oral intake /vomiting. Cautious rehydration given concurrent CHF exacerbation (3) Elevated troponin: Code(s): R77.8 - Other specified abnormalities of plasma proteins Status: Acute Assessment and Plan: New onset atrial fibrillation, and no chest pain but troponin is elevated and stable at this time. EKG cannot exclude [place]. Cardiology consult in the a.m. Echocardiogram ordered. (4) Atrial fibrillation: Code(s): I48.91 - Unspecified atrial fibrillation Status: Acute Assessment and Plan: See 3. (5) CHF (congestive heart failure): Code(s): I50.9 - Heart failure, unspecified Status: Acute Assessment and Plan: Appreciate cardiology consultation, currently recommending IV fluids (6) Colitis: Code(s): K52.9 - Noninfective gastroenteritis and colitis, unspecified Status: Acute Assessment and Plan: Focal wall thickening of the ascending colon with adjacent fat stranding suggestive of infection versus malignancy. Will start IV Zosyn. Gastroenterology was consulted in the emergency department for possible colonoscopy during stay. (7) Thrombocytopenia: Code(s): D69.6 - Thrombocytopenia, unspecified Status: Acute Assessment and Plan: No prior values known, current platelet count 103. Expect value to decrease as this sample appears hemoconcentrated due to significant dehydration. (8) UTI (urinary tract infection): Code(s): N39.0 - Urinary tract infection, site not specified Status: Acute Assessment and Plan: likely contaminated specimen suggestive of UTI. Initially patient received IV ceftriaxone however due to colitis this is changed to Zosyn (9) Hyponatremia: Code(s): E87.1 - Hypo-osmolality and hyponatremia Status: Acute Assessment and Plan: Likely SIADH related to acute illness and significant prerenal azotemia/dehydration. Gentle rehydration with albumin bolus and IV saline at 100 mL/hr Plan diet: NPO with ice chips VT prophylaxis SCDs code status: Full code Subjective Date/time seen: 03/09/23 11:29 Interval history: 77-year-old female history of heart failure, CVA, dementia and GERD is presenting with nausea, vomiting, severe abdominal pain and constipation and currently being treated for an ileus with noted possible new onset rate controlled atrial fibrillation. No overnight events noted. No chest pain or shortness of breath. No nausea, vomiting or diarrhea. No fevers or chills. Abdominal pain improving. Review of Systems Review of Systems: 12 point review of systems was assessed and was negative except as noted in the HPI Exam Narrative: General: No acute distress, alert and oriented per baseline, NG tube in place HEENT: Atraumatic, normocephalic, mucous membranes moist CV: Irregularly irregular, S1, S2 Lungs: Clear to auscultation bilaterally, no rales or crackles noted, no wheezes, good air entry Abdomen: Soft, tender, mildly distended right lower quadrant Extremities: Normal to inspection Skin: No rashes noted, no lesions or wounds seen Psych: Euthymic, normal affect Objective Data Vital Signs Vital Signs: Vital Signs - 24 hr 03/08/23 12:46 03/08/23 13:31 03/08/23 15:53 Temperature Pulse Rate 96 93 Respiratory Rate 30 H 35 H Blood Pressure 140/74 129/85 Pulse Oximetry 97 96 Oxygen Delivery Room Air 03/08/23 15:59 03/08/23 1
--- NOTE | 2023-03-09 12:55 | PM.PNGS ---
Progress Note: A&P Assessment and Plan (1) Colitis: Code(s): K52.9 - Noninfective gastroenteritis and colitis, unspecified Status: Acute Assessment and Plan: Right-sided colitis. Cannot rule out neoplasm. Has been seen by GI and once current functional ileus has resolved then or colonoscopy can be done. (2) Adynamic ileus: Code(s): K56.0 - Paralytic ileus Status: Acute Assessment and Plan: Appears to have a small bowel ileus. This could be due to her UTI. She is being treated with IV antibiotics. Nasogastric tube for now. Might consider getting a small bowel follow-through study tomorrow. Continue supportive management. No acute surgical abdomen at this time Subjective Subjective Date/Time Seen: 03/09/23 12:55 Interval history: Patient admitted for likely small-bowel ileus and nausea vomiting. Peers she may also have right-sided colonic inflammation or colitis versus possible neoplasm. Nasogastric tube was placed yesterday decompression of her GI tract output is mostly non bilious. Denies have any flatus or bowel movements. Only minimal complaints of pain in the right side of her abdomen. Exam Resp: Effort & Inspection: normal respiratory effort Auscultation: clear to auscultation bilaterally Cardio: Rate: regular rate Rhythm: abnormal rhythm irregularly irregular GI: Other: Abdomen is soft and minimally distended. Minimal tenderness to palpation right side of her abdomen. No masses are appreciated. Decreased bowel sounds. Objective Data Vital Signs Vital Signs: Vital Signs - 24 hr 03/08/23 13:31 03/08/23 15:53 03/08/23 15:59 Temperature Pulse Rate 93 99 Respiratory Rate 35 H Blood Pressure 129/85 Pulse Oximetry 96 Oxygen Delivery Room Air 03/08/23 16:00 03/08/23 16:00 03/08/23 17:41 Temperature 36.4 C Pulse Rate 90 86 169 H Respiratory Rate 16 Blood Pressure 137/81 Pulse Oximetry 98 Oxygen Delivery 03/08/23 19:00 03/08/23 20:00 03/08/23 20:00 Temperature Pulse Rate 93 92 Respiratory Rate Blood Pressure Pulse Oximetry Oxygen Delivery Room Air 03/08/23 20:00 03/08/23 22:00 03/08/23 23:53 Temperature 36.6 C 36.5 C Pulse Rate 92 87 95 Respiratory Rate 16 18 Blood Pressure 120/66 131/68 Pulse Oximetry 96 93 Oxygen Delivery 03/09/23 00:00 03/09/23 00:00 03/09/23 02:00 Temperature Pulse Rate 99 102 H Respiratory Rate Blood Pressure Pulse Oximetry Oxygen Delivery Room Air 03/09/23 04:00 03/09/23 04:00 03/09/23 04:00 Temperature 36.3 C L Pulse Rate 94 85 Respiratory Rate 18 Blood Pressure 121/57 L Pulse Oximetry 95 Oxygen Delivery Room Air 03/09/23 06:00 03/09/23 07:48 03/09/23 08:00 Temperature 36.7 C Pulse Rate 97 90 91 Respiratory Rate 16 Blood Pressure 117/66 Pulse Oximetry 91 Oxygen Delivery 03/09/23 08:00 03/09/23 10:00 Temperature Pulse Rate 89 Respiratory Rate Blood Pressure Pulse Oximetry Oxygen Delivery Room Air Intake/Output Intake/Output: Intake & Output 03/06/23 03/07/23 03/08/23 03/09/23 23:59 23:59 23:59 23:59 Intake Total 250 300 Output Total 550 1900 Balance -300 -1600 Meds/Results Medications: Active Medications Generic Name Dose Route Start Last Admin Trade Name Freq PRN Reason Stop Dose Admin Acetaminophen 650 mg 03/08/23 16:34 Acetaminophen 325 Mg Tablet PO Q4H PRN Pain Rated 5 or Less Acetaminophen 650 mg 03/09/23 00:41 Acetaminophen 650 Mg Suppository RECTAL Q6H PRN Pain Rated 5 or Less Famotidine 20 mg 03/09/23 09:00 03/09/23 10:39 Famotidine 20 Mg/2 Ml Vial IV PUSH 20 mg Q12HR VITALIY Administration Piperacillin Sod/Tazobactam Sod 2.25 gm in 50 mls @ 100 mls/hr 03/09/23 09:00 03/09/23 09:25 Zosyn 2.25 Gm/Ns 50 Ml IVPB Infused Q8H VITALIY Infusion Morphine Sulfate 2 mg 03/08/23 16:34 03/08/23 16:43 Morp
[2023-03-09] MEDS: SODIUM CHLORIDE 0.9% IV 1,000 ML 100 ML IV CONT (15:26)
[2023-03-09] MEDS: MORPHINE SULFATE (*CRX) 2 MG/ML INJ IV PUSH (20:04)
[2023-03-10] VITALS (8 sets, daily range): BP systolic 133–147; BP diastolic 66–76; PULSE 79–93; RESP 14–20; TEMP 36.2–36.4; O2SAT 97
[2023-03-10] MEDS: PIPERACILLIN/TAZ 2.25G/NS 50ML 2.25 GM/50 ML BAG IVPB ×3 (00:29→17:06)
[2023-03-10 04:46] LABS: Hematocrit 45.6 % (37.0-47.0); Hemoglobin 15.3 g/dL (12.0-15.0); Immature Platelet Fraction Pct 4.5 % (0.9-11.2); Mean Corpuscular HGB Conc 33.6 g/dl (32-36); Mean Corpuscular Hemoglobin 30.1 pg (26-34); Mean Corpuscular Volume 89.8 fl (80-100); Mean Platelet Volume 10.9 fl (7.4-10.4); Platelet Count Result 103 k/mm3 (150-375); Red Blood Count 5.08 M/mm3 (4.2-5.4); Red Cell Distribution Width 13.2 % (11.5-14.5); White Blood Count 9.7 K/mm3 (4.5-10.0)
[2023-03-10 04:54] LABS: Anion Gap 12 mmol/L (8-16); Blood Urea Nitrogen 64 mg/dL (7-17); Calcium 8.2 mg/dL (8.4-10.2); Carbon Dioxide 31 mmol/L (22-30); Chloride 95 mmol/L (98-107); Estimated CRCL calculation 15 ml/min; Estimated Glomerular Filt Rate 22; Glucose 105 mg/dL (65-110); Potassium 3.6 mmol/L (3.4-5.0); Sodium 138 mmol/L (137-145)
[2023-03-10 05:11] LABS: Band Neutrophils Percent 8 % (0-6); Lymphocytes Absolute Manual 0.48 K/mm3 (1.1-4.5); Monocytes Absolute Manual 0.87 K/mm3 (0.1-0.90); Monocytes Percent Manual 9 % (3-9); Neutrophils Absolute Manual 8.34 K/mm3 (1.7-7.2); Neutrophils Percent Manual 78 % (46-73); Schistocytes None Seen (NORMAL); Total Cells Counted 100
[2023-03-10 05:28] LABS: Magnesium 2.6 mg/dL (1.6-2.3)
--- NOTE | 2023-03-10 06:51 | PC.NURSE ---
Attempted to call critical blood cultures received at 0645. Hospitalist phone went to voicemail. RN will attempt again and pass on to day shift nurse if necessary.
[2023-03-10] MEDS: FAMOTIDINE 20 MG/2 ML VIAL IV PUSH ×2 (09:06→20:45)
--- NOTE | 2023-03-10 09:51 | PM.IMPN ---
Progress Note: A&P Assessment and Plan (1) Adynamic ileus: Code(s): K56.0 - Paralytic ileus Status: Acute Assessment and Plan: Surgery consulted and NG tube placed, still large volume output noted, 2200 ml 03/09 (2) SAMMY (acute kidney injury): Code(s): N17.9 - Acute kidney failure, unspecified Status: Acute Assessment and Plan: Unknown prior values patient reports no renal dysfunction. Current creatinine 1.9 BUN 50 suspected prerenal related to dehydration and decreased oral intake /vomiting. Cautious rehydration given concurrent CHF exacerbation Worsened with IVF o/n, d/c IVF, consider lasix, defer further management to cardiology (3) Elevated troponin: Code(s): R77.8 - Other specified abnormalities of plasma proteins Status: Acute Assessment and Plan: New onset atrial fibrillation, and no chest pain but troponin is elevated and stable at this time. EKG cannot exclude [place]. Cardiology consult in the a.m. Echo 03/09 showed an EF of 50-55% with abnormal diastolic function, mild pulmonary hypertension and mild valvular disease (4) Atrial fibrillation: Code(s): I48.91 - Unspecified atrial fibrillation Status: Acute Assessment and Plan: See above (5) CHF (congestive heart failure): Code(s): I50.9 - Heart failure, unspecified Status: Acute Assessment and Plan: Appreciate cardiology consultation (6) Colitis: Code(s): K52.9 - Noninfective gastroenteritis and colitis, unspecified Status: Acute Assessment and Plan: Focal wall thickening of the ascending colon with adjacent fat stranding suggestive of infection versus malignancy. Appreciate gastrology consultation, consider colonoscopy once ileus resolves Zosyn started 03/09 (7) Thrombocytopenia: Code(s): D69.6 - Thrombocytopenia, unspecified Status: Acute Assessment and Plan: Platelet stable around 100, monitor (8) UTI (urinary tract infection): Code(s): N39.0 - Urinary tract infection, site not specified Status: Acute Assessment and Plan: Zosyn started 03/09, follow-up urine culture (9) Hyponatremia: Code(s): E87.1 - Hypo-osmolality and hyponatremia Status: Acute Assessment and Plan: Resolved, monitor Plan diet: NPO with ice chips VT prophylaxis SCDs code status: Full code Subjective Date/time seen: 03/10/23 09:51 Interval history: 77-year-old female history of heart failure, CVA, dementia and GERD is presenting with nausea, vomiting, severe abdominal pain and constipation and currently being treated for an ileus with noted possible new onset rate controlled atrial fibrillation. No overnight events noted. No chest pain or shortness of breath. No nausea, vomiting or diarrhea. No fevers or chills. Abdominal pain improving. Review of Systems Review of Systems: 12 point review of systems was assessed and was negative except as noted in the HPI Exam Narrative: General: No acute distress, alert and oriented per baseline, NG tube in place HEENT: Atraumatic, normocephalic, mucous membranes moist CV: Irregularly irregular, S1, S2 Lungs: Clear to auscultation bilaterally, no rales or crackles noted, no wheezes, good air entry Abdomen: Soft, tender, mildly distended right lower quadrant Extremities: Normal to inspection Skin: No rashes noted, no lesions or wounds seen Psych: Euthymic, normal affect Objective Data Vital Signs Vital Signs: Vital Signs - 24 hr 03/09/23 10:00 03/09/23 12:00 03/09/23 16:00 Temperature 98.1 F Pulse Rate 89 89 65 Respiratory Rate 18 Blood Pressure 124/71 Pulse Oximetry 96 Oxygen Delivery 03/09/23 16:00 03/09/23 20:01 03/09/23 20:00 Temperature 98.3 F Pulse Rate 89 93 Respiratory Rate 18 Blood Pressure 117/60 Pulse Oximetry 96 Oxygen Delivery Room Air 03/09/23 20:00 09
--- NOTE | 2023-03-10 10:17 | WPDGIPROGNO ---
Progress Note: A&P Assessment and Plan (1) Colitis: Code(s): K52.9 - Noninfective gastroenteritis and colitis, unspecified Status: Acute Assessment and Plan: CT scan suggests some inflammation in the right colon. At tumor cannot be excluded. Continue broad-spectrum antibiotics which should also cover UTI. Colonoscopy suggested after ileus resolves. (2) Adynamic ileus: Code(s): K56.0 - Paralytic ileus Status: Acute Assessment and Plan: patient continues to have abdominal tympany. No significant bowel sounds are noted. We will continue NG tube decompression. Small-bowel follow-through may be beneficial at some point. Surgery also following. (3) UTI (urinary tract infection): Code(s): N39.0 - Urinary tract infection, site not specified Status: Acute Assessment and Plan: Patient with urinary tract infection. Continue antibiotics for this which may help per colon inflammation as well at this point. Subjective Date/time seen: 03/10/23 10:17 Interval history: Patient more comfortable sitting in bed today. NG tube in place continues to drain output. Still no recent bowel movement. Continues to have pain primarily in the right abdomen. Review of Systems Review of Systems: Review of systems noncontributory. Exam Narrative: Physical exam reveals patient be alert. She is afebrile and anicteric. HEENT exam unremarkable NG tube in place. Lungs are clear. Heart without murmur. Abdomen bowel sounds are absent should abdomen is mild a sleep distended somewhat tympanic. Tender primarily in the right mid abdomen. Objective Data Vital Signs Vital Signs: Vital Signs - 24 hr 03/09/23 12:00 03/09/23 16:00 03/09/23 16:00 Temperature 98.1 F Pulse Rate 89 65 89 Respiratory Rate 18 Blood Pressure 124/71 Pulse Oximetry 96 Oxygen Delivery 03/09/23 20:01 03/09/23 20:00 03/09/23 20:00 Temperature 98.3 F Pulse Rate 93 90 Respiratory Rate 18 Blood Pressure 117/60 Pulse Oximetry 96 Oxygen Delivery Room Air 03/10/23 00:00 03/10/23 04:00 03/10/23 08:00 Temperature 97.1 F L Pulse Rate 93 83 80 Respiratory Rate 19 Blood Pressure 133/76 Pulse Oximetry 97 Oxygen Delivery 03/10/23 08:00 Temperature Pulse Rate 79 Respiratory Rate Blood Pressure Pulse Oximetry Oxygen Delivery Intake/Output Intake/Output: Intake & Output 03/07/23 03/08/23 03/09/23 03/10/23 23:59 23:59 23:59 23:59 Intake Total 250 1950 500 Output Total 550 3025 650 Balance -300 -1075 -150 Meds/Results Medications: Active Medications Generic Name Dose Route Start Last Admin Trade Name Freq PRN Reason Stop Dose Admin Acetaminophen 650 mg 03/08/23 16:34 Acetaminophen 325 Mg Tablet PO Q4H PRN Pain Rated 5 or Less Acetaminophen 650 mg 03/09/23 00:41 Acetaminophen 650 Mg Suppository RECTAL Q6H PRN Pain Rated 5 or Less Famotidine 20 mg 03/09/23 09:00 03/10/23 09:06 Famotidine 20 Mg/2 Ml Vial IV PUSH 20 mg Q12HR VITALIY Administration Piperacillin Sod/Tazobactam Sod 2.25 gm in 50 mls @ 100 mls/hr 03/09/23 09:00 03/10/23 09:05 Zosyn 2.25 Gm/Ns 50 Ml IVPB 100 mls/hr Q8H VITALIY Administration Morphine Sulfate 2 mg 03/08/23 16:34 03/09/23 20:04 Morphine Sulfate (*Crx) 2 Mg/Ml Inj IV PUSH 2 mg Q4H PRN Administration Pain Rated 6 or Greater Ondansetron HCl 4 mg 03/08/23 16:36 03/08/23 16:43 Ondansetron Inj 4 Mg/2 Ml Vial IV PUSH 4 mg Q4H PRN Administration Nausea And Vomiting Radiology Results: ITS Impressions Abdomen/Pelvis CT 03/08/23 11:36 IMPRESSION: 1. Dilated small and large bowel, likely adynamic ileus. 2. Focal wall thickening of the ascending colon with adjacent fat stranding, consistent with infection versus malignancy. 3. Mild pulmonary edema with small pleural effusions. 4. Peripheral airspace opacities in the inferior
[2023-03-10 11:11] LABS: Hemoglobin 15.6 g/dL (12.0-15.0); Mean Corpuscular HGB Conc 33.2 g/dl (32-36); Mean Corpuscular Hemoglobin 29.9 pg (26-34); Mean Platelet Volume 10.8 fl (7.4-10.4); Platelet Count Result 113 k/mm3 (150-375); Red Blood Count 5.22 M/mm3 (4.2-5.4); Red Cell Distribution Width 13.6 % (11.5-14.5); White Blood Count 10.6 K/mm3 (4.5-10.0)
[2023-03-10 11:21] LABS: Anion Gap 18 mmol/L (8-16); Blood Urea Nitrogen 64 mg/dL (7-17); Calcium 8.5 mg/dL (8.4-10.2); Carbon Dioxide 30 mmol/L (22-30); Chloride 94 mmol/L (98-107); Estimated CRCL calculation 14 ml/min; Estimated Glomerular Filt Rate 20; Glucose 112 mg/dL (65-110); Potassium 3.4 mmol/L (3.4-5.0); Sodium 142 mmol/L (137-145)
[2023-03-10 11:22] LABS: Alanine Aminotransferase 47 U/L (6-35); Albumin Level 3.6 g/dL (3.5-5.1); Alkaline Phosphatase 69 U/L (38-126); Aspartate Amino Transferase 50 U/L (14-36); Bilirubin,Total 1.3 mg/dL (0.2-1.3)
[2023-03-10 11:36] LABS: Band Neutrophils Percent 22 % (0-6); Eosinophils Percent Manual 1 % (0-4); Lymphocytes Absolute Manual 1.37 K/mm3 (1.1-4.5); Lymphocytes Percent Manual 13 % (18-44); Metamyelocytes Percent 1 %; Monocytes Absolute Manual 1.37 K/mm3 (0.1-0.90); Monocytes Percent Manual 13 % (3-9); Neutrophils Absolute Manual 7.63 K/mm3 (1.7-7.2); Neutrophils Percent Manual 50 % (46-73); Total Cells Counted 100
[2023-03-10 11:37] LABS: Schistocytes None Seen (NORMAL)
--- NOTE | 2023-03-10 11:44 | PM.PNCARD ---
Progress Note: A&P Assessment and Plan (1) Atrial fibrillation: Code(s): I48.91 - Unspecified atrial fibrillation Status: Acute Assessment and Plan: Patient presented to the hospital with abdominal pain, nausea and vomiting, LES was found to have atrial fibrillation. Rate controlled not on AV palmira blocking agents. Unknown duration of the atrial fibrillation. -echocardiogram during this hospitalization normal ejection fraction. -I would recommend to hold off starting anticoagulation and this time until acute kidney injury and ileus resolve. She is at high risk of bleeding given body habitus and low platelet count. (2) Adynamic ileus: Code(s): K56.0 - Paralytic ileus Status: Acute Assessment and Plan: Has NG tube. (3) Elevated troponin: Code(s): R77.8 - Other specified abnormalities of plasma proteins Status: Acute Assessment and Plan: Nonspecific troponin elevation with no ischemia on EKG and no chest pain. Likely demand ischemia from ileus, dehydration (4) SAMMY (acute kidney injury): Code(s): N17.9 - Acute kidney failure, unspecified Status: Acute Assessment and Plan: On physical examination appears to be dry. Would recommend IV fluids normal saline at 100 cc an hour. If the patient develops shortness of breath we can treated with Lasix. But would like to challenge her with fluids to see if renal function improves (5) Thrombocytopenia: Code(s): D69.6 - Thrombocytopenia, unspecified Status: Acute Assessment and Plan: Unknown etiology Subjective Date/time seen: Date of service. 03/10/23 11:44 Interval history: Date of service 03/10/2023-resting comfortably in bed. Denies shortness of breath. Denies lower extremity edema. Still has NG tube in place. AFib controlled. Review of Systems Constitutional: Constitutional: Denies chills and Denies fever(s) Eyes: Eyes: Denies eye discharge, Denies loss of vision, Denies eye pain and Denies photophobia ENT: Denies dizziness, Denies epistaxis, Denies nasal congestion and Denies sore throat Cardiovascular: Cardiovascular: Denies chest pain, Denies syncope, Denies pedal edema, Denies leg edema, Denies palpitations, Denies dyspnea, Denies dyspnea on exertion and Denies orthopnea Respiratory: Respiratory: Denies cough, Denies dyspnea, Denies dyspnea on exertion and Denies wheezing Gastrointestinal: Gastrointestinal: Reports abdominal pain, Reports nausea and Reports vomiting Genitourinary: Genitourinary: Denies hematuria, Denies genital lesions and Denies dysuria Musculoskeletal: Musculoskeletal: Denies arthralgias, Denies joint swelling and Denies numbness Integumentary/Breasts: Skin/Breast: Denies pruritus and Denies rash Neurologic: Denies dizziness, Denies syncope, Denies loss of vision and Denies numbness Psychiatric: Psychiatric: Denies anxiety and Denies depression Endocrine: Endocrine: Denies cold intolerance, Denies heat intolerance and Denies palpitations Hematologic/Lymphatic: Hematologic/Lymphatic: Denies easy bleeding and Denies easy bruising Allergic/Immunologic: Allergic/Immunologic: Denies urticaria and Denies wheezing Exam Const: General: cooperative, comfortable, no acute distress, alert and awake; No well nourished Nutritional Appearance: not well nourished Orientation/consciousness: patient oriented x3 Other: Has NG tube HENMT: Head: normal to inspection, normocephalic and atraumatic Ears: hearing grossly normal bilaterally Face/Nose/Sinus: Normal external nose present, Normal nares present, no nasal discharge noted, normal facial exam and No erythema Face and sinus: normal facial exam and no erythema Mouth: No drooling and No restricted motion Throat: uvula midline Eyes: General: appearance normal, both eyes and all related structures Alignment and Position: position normal Conjunctivae: conjunctivae normal Sclera: sclerae normal Direct Op
--- NOTE | 2023-03-10 12:04 | PM.PNGS ---
Progress Note: A&P Assessment and Plan (1) UTI (urinary tract infection): Code(s): N39.0 - Urinary tract infection, site not specified Status: Acute Assessment and Plan: On appropriate IV antibiotics. (2) Colitis: Code(s): K52.9 - Noninfective gastroenteritis and colitis, unspecified Status: Acute Assessment and Plan: Bowel rest with nasogastric decompression and on IV antibiotics. (3) Adynamic ileus: Code(s): K56.0 - Paralytic ileus Status: Acute Assessment and Plan: This may be due to a colitis or her UTI. We will go ahead and get a small-bowel follow-through series tomorrow with water-soluble contrast. If she does not started having some bowel function in the next 24 to 48 hours then I would recommend placement of a PICC line and starting some TPN. She looks a little dry today. Creatinine has bumped just a little bit. Will give her a 500cc LR bolus today. Subjective Subjective Date/Time Seen: 03/10/23 12:04 Interval history: Patient sitting up in bed without any complaints. Nasogastric tube in place. Output is nonbilious. Denies any nausea or vomiting. Denies any flatus or bowel movements. The last decent male she had was last Saturday which was 4 days ago. Creatinine his slightly increased white blood cell count is now 10,000. She looks a little dry. Exam GI: Other: Abdomen is soft and mildly distended. Will exam from yesterday. Mild tenderness the right side of the abdomen without rebound. No incarcerated hernias. Objective Data Vital Signs Vital Signs: Vital Signs - 24 hr 03/09/23 16:00 03/09/23 16:00 03/09/23 20:01 Temperature 36.7 C 36.8 C Pulse Rate 65 89 93 Respiratory Rate 18 18 Blood Pressure 124/71 117/60 Pulse Oximetry 96 96 Oxygen Delivery 03/09/23 20:00 03/09/23 20:00 03/10/23 00:00 Temperature Pulse Rate 90 93 Respiratory Rate Blood Pressure Pulse Oximetry Oxygen Delivery Room Air 03/10/23 04:00 03/10/23 08:00 03/10/23 08:00 Temperature 36.2 C L Pulse Rate 83 80 79 Respiratory Rate 19 Blood Pressure 133/76 Pulse Oximetry 97 Oxygen Delivery Intake/Output Intake/Output: Intake & Output 03/07/23 03/08/23 03/09/23 03/10/23 23:59 23:59 23:59 23:59 Intake Total 250 1950 550 Output Total 550 3022 650 Balance -300 -9695 -100 Meds/Results Medications: Active Medications Generic Name Dose Route Start Last Admin Trade Name Freq PRN Reason Stop Dose Admin Acetaminophen 650 mg 03/08/23 16:34 Acetaminophen 325 Mg Tablet PO Q4H PRN Pain Rated 5 or Less Acetaminophen 650 mg 03/09/23 00:41 Acetaminophen 650 Mg Suppository RECTAL Q6H PRN Pain Rated 5 or Less Famotidine 20 mg 03/09/23 09:00 03/10/23 09:06 Famotidine 20 Mg/2 Ml Vial IV PUSH 20 mg Q12HR VITALIY Administration Piperacillin Sod/Tazobactam Sod 2.25 gm in 50 mls @ 100 mls/hr 03/09/23 09:00 03/10/23 09:35 Zosyn 2.25 Gm/Ns 50 Ml IVPB Infused Q8H VITALIY Infusion Sodium Chloride 1,000 mls @ 100 mls/hr 03/10/23 12:00 Normal Saline Iv IV CONT .Q10H VITALIY Morphine Sulfate 2 mg 03/08/23 16:34 03/09/23 20:04 Morphine Sulfate (*Crx) 2 Mg/Ml Inj IV PUSH 2 mg Q4H PRN Administration Pain Rated 6 or Greater Ondansetron HCl 4 mg 03/08/23 16:36 03/08/23 16:43 Ondansetron Inj 4 Mg/2 Ml Vial IV PUSH 4 mg Q4H PRN Administration Nausea And Vomiting Radiology Results: ITS Impressions Abdomen/Pelvis CT 03/08/23 11:36 IMPRESSION: 1. Dilated small and large bowel, likely adynamic ileus. 2. Focal wall thickening of the ascending colon with adjacent fat stranding, consistent with infection versus malignancy. 3. Mild pulmonary edema with small pleural effusions. 4. Peripheral airspace opacities in the inferior lungs, consistent with atelectasis versus pneumonia. Abdomen X-Ray 03/09/23 13:21 IMPRESSION: Persistent dilated
[2023-03-10] MEDS: LACTATED RINGERS 500 ML 100 ML IV CONT (15:39)
--- NOTE | 2023-03-10 16:18 | PC.NURSE ---
This patient, Nataliya Mendoza, was received from [facility] on 03/10/23 at 1618. Patient/family oriented to unit policies and routines
--- NOTE | 2023-03-10 16:18 | PC.NURSE ---
This patient, Nataliya Mendoza, was transferred to [facility] on 03/10/23 at 1618. Personal belongings sent with patient. Report given to Jim ROSE. Appropriate documentation sent with patient.
[2023-03-10] MEDS: SODIUM CHLORIDE 0.9% IV 1,000 ML 100 ML IV CONT (17:05)
[2023-03-11] VITALS (9 sets, daily range): BP systolic 150–158; BP diastolic 70–90; PULSE 78–97; RESP 14–18; TEMP 36.4–36.6; O2SAT 97–98; BMI 17.4
--- NOTE | 2023-03-11 01:29 | P.PNCROSS_ITS ---
Event Note Event Note Event Note: Nursing staff called me. They found the patient up and wandering out of her be d. She had pulled out her NG tube, her Reyes catheter and her IVs. The patient when redirected was subsequently alert oriented x3. She does not recall actually pulling out all of these items. When she was found to be ambulating to the bathroom she had bright red blood dribbling on the floor in route to the bathroom. When she actually went to the bathroom is she had a bowel movement that was bloody with some general reddish color to the water in the commode. A stat CBC was obtained which demonstrated about half a g drop in the patient's hemoglobin. The patient appears to have been mostly polycythemic since admission. The patient's labs yesterday did demonstrate marked bandemia and repeat CBC this a.m. demonstrated persistent bandemia. The patient is known to have bacteremia with 1/2 blood cultures growing Gram-negative bacilli. This could be due to infectious colitis versus possible colon mass. Gastroenterology has been consulted but is holding off on colonoscopy until ileus has resolved. The patient's vitals have otherwise remained stable and she is afebrile. 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 She is alert oriented to person, place and year she was confused as to the month at the time of my evaluation. She denied having any abdominal pain but when I went to evaluate her she had marked distention of her abdomen and marked tympany on exam. She did have some high- pitched bowel sounds most notably in the right upper quadrant. The patient had turbid appearing urine on the day of admission but urine culture was negative. Repeat cultures were obtained on the and are pending. Rectal bleeding--possibly due to colon mass versus colitis. Hemoglobin has dropped minimally. Will continue monitor for signs of further bleeding or changes in hemodynamic stability. Continue antibiotic therapy with Zosyn. Delirium--likely secondary to bacteremia, sepsis and hospital stay with some hospital associated delirium as well. Continue treat underlying cause. Adynamic ileus--patient has significant tympanic bowel sounds remaining. NG was replaced and NG tube placement was confirmed with x-ray. X-ray was personally reviewed. Patient remains NPO except for ice chips. General surgery is following. 30 minutes spent in critical care activities. Due to a high probability of clinically significant, life threatening deterioration, the patient required my highest level of preparedness to intervene emergently and I personally spent this critical care time directly and personally managing the patient. This critical care time included obtaining a history; examining the patient; pulse oximetry; ordering and review of studies; arranging urgent treatment with development of a management plan; evaluation of patient's response to treatment; frequent reassessment; and discussions with other providers. It was exclusive of separately billable procedures and treating other patients and teaching time. Please see Assessment and Plan section and the rest of the note for further information on patient assessment and treatment.
[2023-03-11] MEDS: SODIUM CHLORIDE 0.9% IV 1,000 ML 100 ML IV CONT (02:21)
[2023-03-11] MEDS: PIPERACILLIN/TAZ 2.25G/NS 50ML 2.25 GM/50 ML BAG IVPB ×2 (02:39→16:47)
[2023-03-11 03:50] LABS: Hematocrit 45.1 % (37.0-47.0); Mean Corpuscular HGB Conc 33.3 g/dl (32-36); Mean Corpuscular Hemoglobin 30.1 pg (26-34); Mean Corpuscular Volume 90.4 fl (80-100); Platelet Count Result 103 k/mm3 (150-375); Red Blood Count 4.99 M/mm3 (4.2-5.4); Red Cell Distribution Width 13.7 % (11.5-14.5); White Blood Count 11.3 K/mm3 (4.5-10.0)
[2023-03-11 03:59] LABS: Alanine Aminotransferase 35 U/L (6-35); Albumin Level 3.1 g/dL (3.5-5.1); Alkaline Phosphatase 62 U/L (38-126); Anion Gap 14 mmol/L (8-16); Aspartate Amino Transferase 41 U/L (14-36); Bilirubin,Total 1.3 mg/dL (0.2-1.3); Blood Urea Nitrogen 68 mg/dL (7-17); Calcium 8.3 mg/dL (8.4-10.2); Carbon Dioxide 30 mmol/L (22-30); Chloride 102 mmol/L (98-107); Estimated CRCL calculation 16 ml/min; Estimated Glomerular Filt Rate 24; Glucose 130 mg/dL (65-110); Potassium 3.1 mmol/L (3.4-5.0); Sodium 146 mmol/L (137-145)
[2023-03-11 04:33] LABS: Band Neutrophils Percent 14 % (0-6); Lymphocytes Absolute Manual 0.56 K/mm3 (1.1-4.5); Monocytes Absolute Manual 1.01 K/mm3 (0.1-0.90); Monocytes Percent Manual 9 % (3-9); Neutrophils Absolute Manual 9.71 K/mm3 (1.7-7.2); Neutrophils Percent Manual 72 % (46-73); Total Cells Counted 100
[2023-03-11 04:35] LABS: Schistocytes None Seen (NORMAL)
--- NOTE | 2023-03-11 08:11 | WPDGIPROGNO ---
Progress Note: A&P Assessment and Plan (1) UTI (urinary tract infection): Code(s): N39.0 - Urinary tract infection, site not specified Status: Acute Assessment and Plan: Patient with urinary tract infection remains on antibiotics. (2) Colitis: Code(s): K52.9 - Noninfective gastroenteritis and colitis, unspecified Status: Acute Assessment and Plan: CT scan suggested colitis or lesion in the right colon. Patient continues to be tender in this area. Will continue antibiotics. At some point a colonoscopy will need to be done. Ileus appears to be resolving. Will defer this for a few days. Discontinue NG tube. Will defer diet until bowel movements are more certain. Small-bowel follow-through revealed no small bowel obstruction. (3) Elevated LFTs: Code(s): R79.89 - Other specified abnormal findings of blood chemistry Status: Acute Assessment and Plan: Elevated LFTs. Show gradual improvement. Likely resolving along with infection. Subjective Date/time seen: 03/11/23 08:11 Interval history: Patient alert comfortable this morning. Apparently pulled out NG tube last night. Patient states she is passing flatus. No stools yet. Continues to complain of right abdominal pain. Small-bowel follow-through completed yesterday. Review of Systems Review of Systems: Review of systems noncontributory. Exam Narrative: Physical exam reveals patient to be alert. Vital signs stable. HEENT exam is unremarkable. Patient is anicteric. Lungs are clear. Heart without murmur. Abdomen much softer. No tympany noted. Bowel sounds are present at this time. Continues to have right-sided abdominal discomfort on palpation. Objective Data Vital Signs Vital Signs: Vital Signs - 24 hr 03/10/23 12:00 03/10/23 16:00 03/10/23 16:00 Temperature 97.6 F Pulse Rate 80 90 86 Respiratory Rate 20 Blood Pressure 147/68 H Pulse Oximetry 97 Oxygen Delivery 03/10/23 19:59 03/10/23 20:00 03/10/23 21:06 Temperature 97.1 F L Pulse Rate 86 92 90 Respiratory Rate 20 14 Blood Pressure 144/66 H Pulse Oximetry 97 97 Oxygen Delivery Room Air 03/11/23 00:00 03/11/23 04:00 03/11/23 06:00 Temperature 97.5 F L Pulse Rate 95 78 85 Respiratory Rate 14 Blood Pressure 158/89 H Pulse Oximetry 97 Oxygen Delivery Intake/Output Intake/Output: Intake & Output 03/08/23 03/09/23 03/10/23 03/11/23 23:59 23:59 23:59 23:59 Intake Total 250 1950 1100 1050 Output Total 550 3025 2600 200 Balance -300 -1075 -1500 850 Meds/Results Medications: Active Medications Generic Name Dose Route Start Last Admin Trade Name Freq PRN Reason Stop Dose Admin Acetaminophen 650 mg 03/08/23 16:34 Acetaminophen 325 Mg Tablet PO Q4H PRN Pain Rated 5 or Less Acetaminophen 650 mg 03/09/23 00:41 Acetaminophen 650 Mg Suppository RECTAL Q6H PRN Pain Rated 5 or Less Famotidine 20 mg 03/09/23 09:00 03/10/23 20:45 Famotidine 20 Mg/2 Ml Vial IV PUSH 20 mg Q12HR VITALIY Administration Piperacillin Sod/Tazobactam Sod 2.25 gm in 50 mls @ 100 mls/hr 03/09/23 09:00 03/11/23 03:09 Zosyn 2.25 Gm/Ns 50 Ml IVPB Infused Q8H VITALIY Infusion Sodium Chloride 1,000 mls @ 100 mls/hr 03/10/23 12:00 03/11/23 02:21 Normal Saline Iv IV CONT 100 mls/hr .Q10H VITALIY Administration Potassium Chloride 40 meq/ 520 mls @ 130 mls/hr 03/11/23 07:41 Sodium Chloride IVPB 03/11/23 11:40 ONCE ONE Morphine Sulfate 2 mg 03/08/23 16:34 03/09/23 20:04 Morphine Sulfate (*Crx) 2 Mg/Ml Inj IV PUSH 2 mg Q4H PRN Administration Pain Rated 6 or Greater Ondansetron HCl 4 mg 03/08/23 16:36 03/08/23 16:43 Ondansetron Inj 4 Mg/2 Ml Vial IV PUSH 4 mg Q4H PRN Administration Nausea And Vomiting Radiology Results: ITS Impressions Abdomen/Pelvis CT 03/08/23 11:36 IMPRESSION: 1. Dilated small and
[2023-03-11] MEDS: POTASSIUM CHLORIDE INJ 40 MEQ in SODIUM CHLORIDE 0.9% IV 500 ML 130 MEQ IVPB ×2 (09:08→18:21)
[2023-03-11] MEDS: ACETAMINOPHEN 325 MG TABLET 650 MG PO (10:33)
--- NOTE | 2023-03-11 12:26 | PM.PNCARD ---
Progress Note: A&P Assessment and Plan (1) Atrial fibrillation: Code(s): I48.91 - Unspecified atrial fibrillation Status: Acute Assessment and Plan: Patient presented to the hospital with abdominal pain, nausea and vomiting, LES was found to have atrial fibrillation. Rate controlled not on AV palmira blocking agents. Unknown duration of the atrial fibrillation. -echocardiogram during this hospitalization normal ejection fraction. -I would recommend to hold off starting anticoagulation and this time until acute kidney injury and ileus resolve. She is at high risk of bleeding given body habitus and low platelet count. -Cardiology will sign off. Please call with questions (2) Adynamic ileus: Code(s): K56.0 - Paralytic ileus Status: Acute Assessment and Plan: Has NG tube. (3) Elevated troponin: Code(s): R77.8 - Other specified abnormalities of plasma proteins Status: Acute Assessment and Plan: Nonspecific troponin elevation with no ischemia on EKG and no chest pain. Likely demand ischemia from ileus, dehydration (4) SAMMY (acute kidney injury): Code(s): N17.9 - Acute kidney failure, unspecified Status: Acute Assessment and Plan: Improved today after some fluid resuscitation yesterday. (5) Thrombocytopenia: Code(s): D69.6 - Thrombocytopenia, unspecified Status: Acute Assessment and Plan: Unknown etiology Subjective Date/time seen: 03/11/23 12:26 Interval history: Date of service 03/10/2023-resting comfortably in bed. Denies shortness of breath. Denies lower extremity edema. Still has NG tube in place. AFib controlled. Date of service 03/11/2023: Doing a little better today. NG tube removed, diet advanced. No chest pain, edema, palpitations. Review of Systems Constitutional: Constitutional: Denies chills and Denies fever(s) Eyes: Eyes: Denies eye discharge, Denies loss of vision, Denies eye pain and Denies photophobia ENT: Denies dizziness, Denies epistaxis, Denies nasal congestion and Denies sore throat Cardiovascular: Cardiovascular: Denies chest pain, Denies syncope, Denies pedal edema, Denies leg edema, Denies palpitations, Denies dyspnea, Denies dyspnea on exertion and Denies orthopnea Respiratory: Respiratory: Denies cough, Denies dyspnea, Denies dyspnea on exertion and Denies wheezing Gastrointestinal: Gastrointestinal: Reports abdominal pain, Reports nausea and Reports vomiting Genitourinary: Genitourinary: Denies hematuria, Denies genital lesions and Denies dysuria Musculoskeletal: Musculoskeletal: Denies arthralgias, Denies joint swelling and Denies numbness Integumentary/Breasts: Skin/Breast: Denies pruritus and Denies rash Neurologic: Denies dizziness, Denies syncope, Denies loss of vision and Denies numbness Psychiatric: Psychiatric: Denies anxiety and Denies depression Endocrine: Endocrine: Denies cold intolerance, Denies heat intolerance and Denies palpitations Hematologic/Lymphatic: Hematologic/Lymphatic: Denies easy bleeding and Denies easy bruising Allergic/Immunologic: Allergic/Immunologic: Denies urticaria and Denies wheezing Exam Const: General: cooperative, comfortable, no acute distress, alert and awake; No well nourished Nutritional Appearance: not well nourished Orientation/consciousness: patient oriented x3 Other: Has NG tube HENMT: Head: normal to inspection, normocephalic and atraumatic Ears: hearing grossly normal bilaterally Face/Nose/Sinus: Normal external nose present, Normal nares present, no nasal discharge noted, normal facial exam and No erythema Face and sinus: normal facial exam and no erythema Mouth: No drooling and No restricted motion Throat: uvula midline Eyes: General: appearance normal, both eyes and all related structures Alignment and Position: position normal Conjunctivae: conjunctivae normal Sclera: sclerae normal Direct Ophthalmoscopy: No photophobia
--- NOTE | 2023-03-11 16:54 | PM.IMPN ---
Progress Note: A&P Assessment and Plan (1) Adynamic ileus: Code(s): K56.0 - Paralytic ileus Status: Acute Assessment and Plan: Surgery consulted and NG tube placed, still large volume output noted, 2200 ml 03/09 03/11: ngt pulled out and replaced twice, now ok to leave out per surgery, monitor, improving (2) SAMMY (acute kidney injury): Code(s): N17.9 - Acute kidney failure, unspecified Status: Acute Assessment and Plan: Unknown prior values patient reports no renal dysfunction. Current creatinine 1.9 BUN 50 suspected prerenal related to dehydration and decreased oral intake/vomiting. Cautious rehydration given concurrent CHF exacerbation 03/11: Improved, increase IVF to 125 ml/hr (3) Elevated troponin: Code(s): R77.8 - Other specified abnormalities of plasma proteins Status: Acute Assessment and Plan: New onset atrial fibrillation, and no chest pain but troponin is elevated and stable at this time. EKG cannot exclude [place]. Cardiology consult appreciated, no further recs, they have s/o Echo 03/09 showed an EF of 50-55% with abnormal diastolic function, mild pulmonary hypertension and mild valvular disease (4) Atrial fibrillation: Code(s): I48.91 - Unspecified atrial fibrillation Status: Acute Assessment and Plan: See above (5) CHF (congestive heart failure): Code(s): I50.9 - Heart failure, unspecified Status: Acute Assessment and Plan: Appreciate cardiology consultation, appears dry on exam, cont IVF, monitor closely (6) Colitis: Code(s): K52.9 - Noninfective gastroenteritis and colitis, unspecified Status: Acute Assessment and Plan: Focal wall thickening of the ascending colon with adjacent fat stranding suggestive of infection versus malignancy. Appreciate gastrology consultation, consider colonoscopy once ileus resolves Zosyn started 03/09 (7) Thrombocytopenia: Code(s): D69.6 - Thrombocytopenia, unspecified Status: Acute Assessment and Plan: Platelet stable around 100, monitor (8) UTI (urinary tract infection): Code(s): N39.0 - Urinary tract infection, site not specified Status: Acute Assessment and Plan: Zosyn started 03/09, follow-up urine culture (9) Hyponatremia: Code(s): E87.1 - Hypo-osmolality and hyponatremia Status: Acute Assessment and Plan: Resolved, monitor 9/11: now somewhat hypernatremic, increase IVF and monitor Plan diet: NPO with ice chips VT prophylaxis SCDs code status: Full code Subjective Date/time seen: 03/11/23 16:54 Interval history: 77-year-old female history of heart failure, CVA, dementia and GERD is presenting with nausea, vomiting, severe abdominal pain and constipation and currently being treated for an ileus with noted possible new onset rate controlled atrial fibrillation. No overnight events noted. No chest pain or shortness of breath. No nausea, vomiting or diarrhea. No fevers or chills. Abdominal pain improving. Review of Systems Review of Systems: 12 point review of systems was assessed and was negative except as noted in the HPI Exam Narrative: General: No acute distress, alert and oriented per baseline, NG tube in place HEENT: Atraumatic, normocephalic, mucous membranes moist CV: Irregularly irregular, S1, S2 Lungs: Clear to auscultation bilaterally, no rales or crackles noted, no wheezes, good air entry Abdomen: Soft, tender, mildly distended right lower quadrant Extremities: Normal to inspection Skin: No rashes noted, no lesions or wounds seen Psych: Euthymic, normal affect Objective Data Vital Signs Vital Signs: Vital Signs - 24 hr 03/10/23 19:59 03/10/23 20:00 03/10/23 21:06 Temperature 97.1 F L Pulse Rate 86 92 90 Respiratory Rate 20 14 Blood Pressure 144/66 H Pulse Oximetry 97 97 Oxygen Delivery Room Air
--- NOTE | 2023-03-11 16:54 | PM.PNGS ---
Progress Note: A&P Assessment and Plan (1) Adynamic ileus: Code(s): K56.0 - Paralytic ileus Status: Acute Assessment and Plan: Small-bowel follow-through suggests ileus versus partial small bowel obstruction with contrast reaching the colon in 2-3 hours. Okay to start clear liquids tonight. We will advance her diet slowly as this is resolving. She has already removed her NG tube twice due to confusion. Continue to replace potassium as needed, which was slightly low today at 3.1. Will reassess and repeat labs tomorrow and hopefully advance her diet further if she continues to do well. (2) UTI (urinary tract infection): Code(s): N39.0 - Urinary tract infection, site not specified Status: Acute Assessment and Plan: On appropriate IV antibiotics. (3) Colitis: Code(s): K52.9 - Noninfective gastroenteritis and colitis, unspecified Status: Acute Assessment and Plan: CT suggest colitis versus a lesion in the ascending colon. Continue antibiotics. Will keep on clear liquids for tonight. GI following and will plan eventual colonoscopy in the future. Plan I have discussed the patient's case and plan of care with Dr. Croft. Subjective Subjective Date/Time Seen: 03/11/23 16:55 Patient reports: no new complaints, feels better, flatus and bowel movement Interval history: This is a 77-year-old woman who presented with ileus versus small-bowel obstruction. She had NG tube placed and small bowel series yesterday. She removed her NG tube twice overnight due to confusion. She is seen with no NG tube in place now. Small bowel series suggested partial small bowel obstruction with contrast reaching the colon in 2-3 hours. She has had 2 large bowel movements today per her family member. She denies any nausea or vomiting. No other complaints at this time. Review of Systems Review of Systems: ROS unobtainable: Yes unobtainable due to mental status (Confusion) Exam Const: General: comfortable and no acute distress Orientation/consciousness: confusion GI: Inspection: other (Mildly distended) GI Palp: Yes Soft to palpation, Yes Tenderness to palpation present (GI) (Diffusely tender), No Guarding due to palpation present (GI) and No Rebound tenderness present Auscultation: normal bowel sounds Objective Data Vital Signs Vital Signs: Vital Signs - 24 hr 03/10/23 19:59 03/10/23 20:00 03/10/23 21:06 Temperature 97.1 F L Pulse Rate 86 92 90 Respiratory Rate 20 14 Blood Pressure 144/66 H Pulse Oximetry 97 97 Oxygen Delivery Room Air 03/11/23 00:00 03/11/23 04:00 03/11/23 06:00 Temperature 97.5 F L Pulse Rate 95 78 85 Respiratory Rate 14 Blood Pressure 158/89 H Pulse Oximetry 97 Oxygen Delivery 03/11/23 09:08 03/11/23 14:00 Temperature 97.6 F Pulse Rate 78 Respiratory Rate 16 Blood Pressure 156/70 H Pulse Oximetry 98 Oxygen Delivery Room Air Intake/Output Intake/Output: Intake & Output 03/08/23 03/09/23 03/10/23 03/11/23 23:59 23:59 23:59 23:59 Intake Total 250 1950 1100 1050 Output Total 550 3025 2600 200 Balance -300 -1075 -1500 850 Meds/Results Medications: Active Medications Generic Name Dose Route Start Last Admin Trade Name Freq PRN Reason Stop Dose Admin Acetaminophen 650 mg 03/08/23 16:34 03/11/23 10:33 Acetaminophen 325 Mg Tablet PO 650 mg Q4H PRN Administration Pain Rated 5 or Less Acetaminophen 650 mg 03/09/23 00:41 Acetaminophen 650 Mg Suppository RECTAL Q6H PRN Pain Rated 5 or Less Famotidine 20 mg 03/09/23 09:00 03/11/23 10:34 Famotidine 20 Mg/2 Ml Vial IV PUSH Not Given Q12HR VITALIY Piperacillin Sod/Tazobactam Sod 2.25 gm in 50 mls @ 100 mls/hr 03/09/23 09:00 03/11/23 16:47 Zosyn 2.25 Gm/Ns 50 Ml IVPB 100 mls/hr Q8H VITALIY Administration Sodium Chloride 1,000 mls @ 100 mls/hr 03/10/23 12:00 03/11/23 02:21 Normal Saline Iv IV CONT 100 mls/hr
[2023-03-11] MEDS: FAMOTIDINE 20 MG/2 ML VIAL IV PUSH (21:17)
[2023-03-12] VITALS (8 sets, daily range): BP systolic 130–152; BP diastolic 78–113; PULSE 90–103; RESP 16–20; TEMP 36.4–36.9; O2SAT 93–95
[2023-03-12] MEDS: PIPERACILLIN/TAZ 2.25G/NS 50ML 2.25 GM/50 ML BAG IVPB ×2 (01:00→08:59)
[2023-03-12 06:03] LABS: Hematocrit 43.2 % (37.0-47.0); Hemoglobin 14.3 g/dL (12.0-15.0); Mean Corpuscular HGB Conc 33.1 g/dl (32-36); Mean Corpuscular Hemoglobin 30.1 pg (26-34); Mean Corpuscular Volume 90.9 fl (80-100); Mean Platelet Volume 11.4 fl (7.4-10.4); Platelet Count Result 110 k/mm3 (150-375); Red Blood Count 4.75 M/mm3 (4.2-5.4); White Blood Count 16.7 K/mm3 (4.5-10.0)
[2023-03-12 06:22] LABS: Anion Gap 12 mmol/L (8-16); Blood Urea Nitrogen 57 mg/dL (7-17); Calcium 8.6 mg/dL (8.4-10.2); Carbon Dioxide 25 mmol/L (22-30); Chloride 110 mmol/L (98-107); Estimated CRCL calculation 17 ml/min; Estimated Glomerular Filt Rate 27; Glucose 131 mg/dL (65-110); Potassium 3.8 mmol/L (3.4-5.0); Sodium 147 mmol/L (137-145)
[2023-03-12] MEDS: SODIUM CHLORIDE 0.45% 1,000 ML 100 ML IV CONT ×2 (08:35→21:16)
[2023-03-12] MEDS: FAMOTIDINE 20 MG/2 ML VIAL IV PUSH ×2 (08:59→21:17)
[2023-03-12] MEDS: NICOTINE (*PBKC) 14 MG PATCH 1 PATCH TRANSDERM (09:02)
--- NOTE | 2023-03-12 09:37 | WPDGIPROGNO ---
Progress Note: A&P Assessment and Plan (1) Colitis: Code(s): K52.9 - Noninfective gastroenteritis and colitis, unspecified Status: Acute Assessment and Plan: Abnormality seen on CT scan may be colitis mass could not be excluded. Plan to assess with colonoscopy tomorrow after preparation today. Ileus appears to be resolved at present. No obvious obstruction on small bowel series (2) Abdominal pain: Code(s): R10.9 - Unspecified abdominal pain Status: Acute Assessment and Plan: patient continues to have right-sided abdominal pain that correlates with abnormality seen on CT scan imaging. Plan for colonoscopy to assess more thoroughgly (3) UTI (urinary tract infection): Code(s): N39.0 - Urinary tract infection, site not specified Status: Acute Assessment and Plan: Patient with concomitant you would TI. This is being treated with antibiotics which hopefully also helps the colon. (4) Elevated LFTs: Code(s): R79.89 - Other specified abnormal findings of blood chemistry Status: Acute Assessment and Plan: LFTs have resolved along with treatment for her infection. Subjective Date/time seen: 03/12/23 09:37 Interval history: Patient alert this morning. Notes much less pain. Passing flatus and some stool. Review of Systems Review of Systems: Review of systems noncontributory. Exam Narrative: Physical exam reveals patient be alert and oriented. She is currently afebrile and anicteric. Lungs are clear. Heart without murmur. Abdomen bowel sounds present soft mild tenderness right abdomen. No tympany noted. No masses appreciated. Objective Data Vital Signs Vital Signs: Vital Signs - 24 hr 03/11/23 14:00 03/11/23 16:00 03/11/23 12:00 Temperature 97.6 F Pulse Rate 78 87 86 Respiratory Rate 16 Blood Pressure 156/70 H Pulse Oximetry 98 Oxygen Delivery 03/11/23 20:00 03/11/23 20:00 03/11/23 22:00 Temperature 97.8 F Pulse Rate 85 97 97 Respiratory Rate 18 18 Blood Pressure 150/90 H Pulse Oximetry 97 97 Oxygen Delivery Room Air 03/12/23 00:00 03/12/23 06:00 Temperature 98.1 F Pulse Rate 90 95 Respiratory Rate 18 Blood Pressure 152/96 H Pulse Oximetry 95 Oxygen Delivery Intake/Output Intake/Output: Intake & Output 03/09/23 03/10/23 03/11/23 03/12/23 23:59 23:59 23:59 23:59 Intake Total 1950 1100 2120 250 Output Total 3025 2600 700 450 Balance -1075 -1500 1420 -200 Meds/Results Medications: Active Medications Generic Name Dose Route Start Last Admin Trade Name Freq PRN Reason Stop Dose Admin Acetaminophen 650 mg 03/08/23 16:34 03/11/23 10:33 Acetaminophen 325 Mg Tablet PO 650 mg Q4H PRN Administration Pain Rated 5 or Less Acetaminophen 650 mg 03/09/23 00:41 Acetaminophen 650 Mg Suppository RECTAL Q6H PRN Pain Rated 5 or Less Famotidine 20 mg 03/09/23 09:00 03/12/23 08:59 Famotidine 20 Mg/2 Ml Vial IV PUSH 20 mg Q12HR VITALIY Administration Piperacillin Sod/Tazobactam Sod 2.25 gm in 50 mls @ 100 mls/hr 03/09/23 09:00 03/12/23 08:59 Zosyn 2.25 Gm/Ns 50 Ml IVPB 100 mls/hr Q8H VITALIY Administration Sodium Chloride 1,000 mls @ 100 mls/hr 03/12/23 08:15 03/12/23 08:35 Sodium Chloride 0.45% IV CONT 100 mls/hr .Q10H VITALIY Administration Morphine Sulfate 2 mg 03/08/23 16:34 03/09/23 20:04 Morphine Sulfate (*Crx) 2 Mg/Ml Inj IV PUSH 2 mg Q4H PRN Administration Pain Rated 6 or Greater Nicotine 1 patch 03/12/23 09:00 03/12/23 09:02 Nicotine (*Pbkc) 14 Mg Patch TRANSDERM 1 patch QAM VITALIY Administration Ondansetron HCl 4 mg 03/08/23 16:36 03/08/23 16:43 Ondansetron Inj 4 Mg/2 Ml Vial IV PUSH 4 mg Q4H PRN Administration Nausea And Vomiting Radiology Results: ITS Impressions Abdomen/Pelvis CT 03/08/23 11:36 IMPRESSION: 1. Dilated small and large bowel, likely adynami
--- NOTE | 2023-03-12 11:46 | PM.IMPN ---
Progress Note: A&P Assessment and Plan (1) Adynamic ileus: Code(s): K56.0 - Paralytic ileus Status: Acute Assessment and Plan: Surgery consulted and NG tube placed, still large volume output noted, 2200 ml 03/09 03/11: ngt pulled out and replaced twice, now ok to leave out per surgery, SBFT showed ileus vs partial SBO, CLD and ADAT 03/12: Improving slowly, colonoscopy planned for 03/13, now with worsening infection suspected (2) SAMMY (acute kidney injury): Code(s): N17.9 - Acute kidney failure, unspecified Status: Acute Assessment and Plan: Unknown prior values patient reports no renal dysfunction. Current creatinine 1.9 BUN 50 suspected prerenal related to dehydration and decreased oral intake/vomiting. Cautious rehydration given concurrent CHF exacerbation 03/11: Improved, increase IVF to 125 ml/hr 03/12: Continues to improve, monitor, switch to half-normal saline due to hypernatremia (3) Elevated troponin: Code(s): R77.8 - Other specified abnormalities of plasma proteins Status: Acute Assessment and Plan: New onset atrial fibrillation, and no chest pain but troponin is elevated and stable at this time. EKG cannot exclude [place]. Cardiology consult appreciated, no further recs, they have s/o Echo 03/09 showed an EF of 50-55% with abnormal diastolic function, mild pulmonary hypertension and mild valvular disease (4) Atrial fibrillation: Code(s): I48.91 - Unspecified atrial fibrillation Status: Acute Assessment and Plan: See above (5) CHF (congestive heart failure): Code(s): I50.9 - Heart failure, unspecified Status: Acute Assessment and Plan: Appreciate cardiology consultation, appears dry on exam, cont IVF, monitor closely (6) Colitis: Code(s): K52.9 - Noninfective gastroenteritis and colitis, unspecified Status: Acute Assessment and Plan: Focal wall thickening of the ascending colon with adjacent fat stranding suggestive of infection versus malignancy. Appreciate gastrology consultation, consider colonoscopy once ileus resolves Zosyn started 03/09 03/12: leuk cont to rise, d/c zosyn, start vanc, cefepime, flagyl, monitor closely, MRSA swab sent and pending Update: Blood cultures came back positive for ESBL E coli, cefepime and Flagyl discontinued in favor of meropenem, vancomycin continued for now, repeat blood cultures from 03/10 pending, NGTD (7) Thrombocytopenia: Code(s): D69.6 - Thrombocytopenia, unspecified Status: Acute Assessment and Plan: Platelets stable around 100, monitor (8) UTI (urinary tract infection): Code(s): N39.0 - Urinary tract infection, site not specified Status: Acute Assessment and Plan: Urine culture positive for E coli ESBL, meropenem initiated 03/12 (9) Hyponatremia: Code(s): E87.1 - Hypo-osmolality and hyponatremia Status: Acute Assessment and Plan: Resolved, monitor 03/11: now somewhat hypernatremic, increase IVF and monitor 03/12: switch to half normal saline Plan diet: NPO with ice chips VT prophylaxis SCDs code status: Full code Subjective Date/time seen: 03/12/23 11:46 Interval history: 77-year-old female with history of heart failure, CVA, dementia and GERD is presenting with nausea, vomiting, severe abdominal pain and constipation and currently being treated for an ileus with noted possible new onset rate controlled atrial fibrillation. Patient feels worse than yesterday, loss of confusion overnight. She is complaining of some worsening abdominal pain, nausea and vomiting. She did have a few loose stools. No chest pain or shortness of breath. No fevers overnight, but she states she did have intermittent chills. Review of Systems Review of Systems: 12 point review of systems was assessed and was negative except as noted in the HPI Exam Narrative: General: Patien
[2023-03-12] MEDS: metroNIDAZOLE 500 MG/ISO 100ML 500 MG/100 ML BAG 100 MG IVPB (12:36)
[2023-03-12] MEDS: PEG (High)/E-LYTE SOLN 4,000 ML BTL 4000 ML PO (12:36)
[2023-03-12] MEDS: CEFEPIME 2 GM/NS 50 ML 2 GM/50 ML BAG IVPB (13:42)
[2023-03-12] MEDS: ACETAMINOPHEN 325 MG TABLET 650 MG PO (13:50)
[2023-03-12] MEDS: VANCOMYCIN 750 MG/NS 250 ML 750 MG/250 ML BAG 250 MG IVPB (14:25)
[2023-03-12] MEDS: ONDANSETRON INJ 4 MG/2 ML VIAL IV PUSH (14:31)
--- NOTE | 2023-03-12 16:22 | PM.PNGS ---
Progress Note: A&P Assessment and Plan (1) Adynamic ileus: Code(s): K56.0 - Paralytic ileus Status: Acute Assessment and Plan: Patient vomiting after attempting a liquid diet and bowel prep today. Likely has an ileus. Continue antiemetics and will replace an NG tube for decompression if vomiting continues. Potassium replaced yesterday and up to 3.8 this morning. We will recheck labs again tomorrow morning. Encouraged getting up to the chair and trying to ambulate when she is more comfortable in no longer vomiting. (2) UTI (urinary tract infection): Code(s): N39.0 - Urinary tract infection, site not specified Status: Acute Assessment and Plan: On appropriate IV antibiotics. (3) Colitis: Code(s): K52.9 - Noninfective gastroenteritis and colitis, unspecified Status: Acute Assessment and Plan: CT suggest colitis versus a lesion in the ascending colon. Continue antibiotics. GI following and attempted bowel prep today for possible colonoscopy. Bowel prep canceled as she is vomiting. Plan I have discussed the patient's case and plan of care with Dr. Croft. Subjective Subjective Date/Time Seen: 03/12/23 16:22 Patient reports: flatus, nausea and vomiting Interval history: Patient seen today with her daughter at the bedside. She reports trying the bowel prep and after a few sips, she began vomiting. She has vomited multiple times. While I was in the room, she vomited 3 times and it appeared bilious. She feels more bloated. She reports flatus today and per family she had 2 bowel movements overnight. Review of Systems Cardiovascular: Cardiovascular: Reports no additional cardiovascular complaints and Denies chest pain Respiratory: Respiratory: Reports no additional respiratory complaints and Denies dyspnea Gastrointestinal: Gastrointestinal: Reports as per HPI and Reports no additional gastrointestinal complaints Exam Const: General: confusion and uncomfortable (Vomiting) GI: Inspection: distended GI Palp: Yes Soft to palpation, Yes Tenderness to palpation present (GI) (Diffusely tender), Yes Guarding due to palpation present (GI) (Voluntary guarding throughout) and No Rebound tenderness present Auscultation: Hypoactive bowel sounds present Objective Data Vital Signs Vital Signs: Vital Signs - 24 hr 03/11/23 20:00 03/11/23 20:00 03/11/23 22:00 Temperature 97.8 F Pulse Rate 85 97 97 Respiratory Rate 18 18 Blood Pressure 150/90 H Pulse Oximetry 97 97 Oxygen Delivery Room Air 03/12/23 00:00 03/12/23 06:00 03/12/23 14:00 Temperature 98.1 F 97.5 F L Pulse Rate 90 95 103 H Respiratory Rate 18 16 Blood Pressure 152/96 H 150/113 H Pulse Oximetry 95 95 Oxygen Delivery 03/12/23 09:00 Temperature Pulse Rate Respiratory Rate Blood Pressure Pulse Oximetry Oxygen Delivery Room Air Intake/Output Intake/Output: Intake & Output 03/09/23 03/10/23 03/11/23 03/12/23 23:59 23:59 23:59 23:59 Intake Total 1950 1100 2120 411 Output Total 3025 2600 700 450 Balance -1075 -1500 1420 -39 Meds/Results Medications: Active Medications Generic Name Dose Route Start Last Admin Trade Name Freq PRN Reason Stop Dose Admin Acetaminophen 650 mg 03/08/23 16:34 03/12/23 13:50 Acetaminophen 325 Mg Tablet PO 650 mg Q4H PRN Administration Pain Rated 5 or Less Acetaminophen 650 mg 03/09/23 00:41 Acetaminophen 650 Mg Suppository RECTAL Q6H PRN Pain Rated 5 or Less Famotidine 20 mg 03/09/23 09:00 03/12/23 08:59 Famotidine 20 Mg/2 Ml Vial IV PUSH 20 mg Q12HR VITALIY Administration Sodium Chloride 1,000 mls @ 100 mls/hr 03/12/23 08:15 03/12/23 08:35 Sodium Chloride 0.45% IV CONT 100 mls/hr .Q10H VITALIY Administration Meropenem 500 mg/ Sodium 100 mls @ 200 mls/hr 03/12/23 15:00 Chloride IVPB Q12H VITALIY Morphine Sulfate 2 mg 03/08/23 16:34 03/09/23 20:04 Morphine Sulfate (*Cr
[2023-03-12] MEDS: MEROPENEM 500 MG in SODIUM CHLORIDE 0.9% IV 100 ML 200 ML IVPB (16:32)
--- NOTE | 2023-03-12 21:10 | PC.NURSE ---
Call to family to notify that patient had pulled out her NGT after visiting hours had concluded. Intent to determine if there was any availability for someone to stay overnight with patient; no house sitters available. Per patient's daughter, Diana, no one is available to stay with the patient. Option of soft restraints discussed with Diana to prevent further occurrence of patient pulling out NGT, sears catheter, and/or IV lines. Diana in agreement to utilize soft restraints. RN called sewer pipe cleaner to discuss and obtained orders to utilize soft restraints.
--- NOTE | 2023-03-12 21:15 | PC.NURSE ---
Unwitnessed NG removal by patient, new NG placed and KUB ordered.
[2023-03-13] VITALS (10 sets, daily range): BP systolic 118–136; BP diastolic 51–67; PULSE 82–100; RESP 16–20; TEMP 36.1–36.9; O2SAT 92–94
--- NOTE | 2023-03-13 01:24 | PC.NURSE ---
Pt restraints allowed for limited range of motion but prevented pt from reaching NG tube. Patient was able to reach tube between rounding and removed it. A new NG was placed and confirmation xray is pending, pt restraints have been tightened to allow for no range of motion to prevent another removal as well as prevent pulling on catheter and IV.
[2023-03-13] MEDS: MEROPENEM 500 MG in SODIUM CHLORIDE 0.9% IV 100 ML 200 ML IVPB ×2 (03:00→15:18)
[2023-03-13 06:15] LABS: Hematocrit 39.3 % (37.0-47.0); Hemoglobin 13.2 g/dL (12.0-15.0); Immature Platelet Fraction Pct 7.9 % (0.9-11.2); Mean Corpuscular HGB Conc 33.6 g/dl (32-36); Mean Corpuscular Hemoglobin 30.1 pg (26-34); Mean Corpuscular Volume 89.5 fl (80-100); Mean Platelet Volume 12.5 fl (7.4-10.4); Platelet Count Result 73 k/mm3 (150-375); Red Blood Count 4.39 M/mm3 (4.2-5.4); White Blood Count 19.8 K/mm3 (4.5-10.0)
[2023-03-13 06:25] LABS: Anion Gap 7 mmol/L (8-16); Blood Urea Nitrogen 55 mg/dL (7-17); Calcium 7.9 mg/dL (8.4-10.2); Carbon Dioxide 27 mmol/L (22-30); Chloride 109 mmol/L (98-107); Estimated CRCL calculation 17 ml/min; Estimated Glomerular Filt Rate 29; Glucose 125 mg/dL (65-110); Magnesium 2.4 mg/dL (1.6-2.3); Potassium 3.9 mmol/L (3.4-5.0); Sodium 143 mmol/L (137-145)
--- NOTE | 2023-03-13 07:50 | WPDGIPROGNO ---
Progress Note: A&P Assessment and Plan (1) Adynamic ileus: Code(s): K56.0 - Paralytic ileus Status: Acute Assessment and Plan: Patient with ongoing ileus. No evidence for obstruction on small bowel series. Although obstructive series today suggest she may have obstruction. Will continue NG tube decompression. Continue antibiotics for possible colitis. Mass not excluded in the right colon. Continue supportive care for now. Surgery following. (2) Abnormal CT scan: Code(s): R93.89 - Abnormal findings on diagnostic imaging of other specified body structures Status: Acute Assessment and Plan: CT scan suggest colitis and possible mass in the right ascending colon. Colonoscopy remains on hold at this point. (3) UTI (urinary tract infection): Code(s): N39.0 - Urinary tract infection, site not specified Status: Acute Assessment and Plan: Patient on antibiotics for urinary tract infection that may also help possible colitis. (4) Atrial fibrillation: Code(s): I48.91 - Unspecified atrial fibrillation Status: Acute Subjective Date/time seen: 03/13/23 07:50 Interval history: Patient is somewhat confused today. Did not tolerate liquids nor laxatives yesterday. Plan to defer attempts at colonoscopy again for now. NG tube was replaced with a large amount return. Review of Systems Review of Systems: ROS unobtainable: Yes unobtainable due to mental status Exam Narrative: Physical exam reveals patient be alert. Modest abdominal discomfort. HEENT exam unremarkable. NG tube place. Lungs are clear. Heart without murmur. Abdomen is distended. Somewhat tympanic diffusely. Bowel sounds decreased. Not appreciated present. Objective Data Vital Signs Vital Signs: Vital Signs - 24 hr 03/12/23 14:00 03/12/23 09:00 03/12/23 08:00 Temperature 97.5 F L Pulse Rate 103 H 98 Respiratory Rate 16 Blood Pressure 150/113 H Pulse Oximetry 95 Oxygen Delivery Room Air 03/12/23 12:00 03/12/23 16:00 03/12/23 22:00 Temperature 98.5 F Pulse Rate 98 98 99 Respiratory Rate 20 Blood Pressure 130/78 Pulse Oximetry 93 Oxygen Delivery 03/12/23 20:00 03/13/23 00:00 03/13/23 04:00 Temperature Pulse Rate 90 100 87 Respiratory Rate Blood Pressure Pulse Oximetry Oxygen Delivery 03/13/23 06:00 Temperature 96.9 F L Pulse Rate 88 Respiratory Rate 16 Blood Pressure 128/67 Pulse Oximetry 94 Oxygen Delivery Intake/Output Intake/Output: Intake & Output 03/10/23 03/11/23 03/12/23 03/13/23 23:59 23:59 23:59 23:59 Intake Total 1100 2120 1911 50 Output Total 2600 700 650 850 Balance -1500 1420 1261 -800 Meds/Results Medications: Active Medications Generic Name Dose Route Start Last Admin Trade Name Freq PRN Reason Stop Dose Admin Acetaminophen 650 mg 03/08/23 16:34 03/12/23 13:50 Acetaminophen 325 Mg Tablet PO 650 mg Q4H PRN Administration Pain Rated 5 or Less Acetaminophen 650 mg 03/09/23 00:41 Acetaminophen 650 Mg Suppository RECTAL Q6H PRN Pain Rated 5 or Less Famotidine 20 mg 03/09/23 09:00 03/12/23 21:17 Famotidine 20 Mg/2 Ml Vial IV PUSH 20 mg Q12HR VITALIY Administration Sodium Chloride 1,000 mls @ 100 mls/hr 03/12/23 08:15 03/12/23 21:16 Sodium Chloride 0.45% IV CONT 100 mls/hr .Q10H VITALIY Administration Meropenem 500 mg/ Sodium 100 mls @ 200 mls/hr 03/12/23 15:00 03/13/23 03:00 Chloride IVPB 200 mls/hr Q12H VITALIY Administration Morphine Sulfate 2 mg 03/08/23 16:34 03/09/23 20:04 Morphine Sulfate (*Crx) 2 Mg/Ml Inj IV PUSH 2 mg Q4H PRN Administration Pain Rated 6 or Greater Nicotine 1 patch 03/12/23 09:00 03/12/23 09:02 Nicotine (*Pbkc) 14 Mg Patch TRANSDERM 1 patch QAM VITALIY Administration Ondansetron HCl 4 mg 03/08/23 16:36 03/12/23 14:31 Ondansetron Inj 4 Mg/2 Ml Vial IV PUSH 4 mg
[2023-03-13] MEDS: FAMOTIDINE 20 MG/2 ML VIAL IV PUSH ×2 (08:54→21:55)
[2023-03-13] MEDS: NICOTINE (*PBKC) 14 MG PATCH 1 PATCH TRANSDERM (08:55)
[2023-03-13] MEDS: ACETAMINOPHEN 650 MG SUPPOSITORY RECTAL (09:52)
--- NOTE | 2023-03-13 10:09 | P.CDI_ITS ---
CDI Query Clarification Request BMI 17.4 Nutritional Diagnostic Statement Moderate protein calorie malnutrition related to inadequate energy intake as evidenced by Pt and family report intake over a week, noted -6% wt loss with a low BMI 17.4, and NFPE findings for muscle wasting and subcutaneous fat loss. Please refer to the comprehensive nutrition assessment for further information. Please clarify severity of protein calorie malnutrition if known: * Mild * Moderate * Severe * Other/Unspecified
--- NOTE | 2023-03-13 10:16 | P.CDI_ITS ---
CDI Query Clarification Request Documented history of CHF. CHF noted in the assessment and plan. Pulmonary edema noted on the 03/08/23 CT. Elevated BNP on 03/08/23 lab work. Please specify type and acuity of heart failure if known. * Acute * Chronic * Acute on Chronic * Unknown * Systolic * Diastolic * Combined Systolic and Diastolic * Unknown
--- NOTE | 2023-03-13 10:16 | WPDCDIQUERY2 ---
CDI Query Clarification Request Documented history of CHF. CHF noted in the assessment and plan. Pulmonary edema noted on the 03/08/23 CT. Elevated BNP on 03/08/23 lab work. Please specify type and acuity of heart failure if known. Acute Chronic Acute on Chronic Unknown Systolic Diastolic Combined Systolic and Diastolic Unknown
[2023-03-13] MEDS: PHENOL/SOD PHENO SPRAY CHERRY (*BKC) 1 SPRAY MUCOUS MEM (11:00)
[2023-03-13] MEDS: SODIUM CHLORIDE 0.45% 1,000 ML 100 ML IV CONT ×2 (11:00→21:55)
--- NOTE | 2023-03-13 13:30 | PM.PNGS ---
Progress Note: A&P Assessment and Plan (1) Adynamic ileus: Code(s): K56.0 - Paralytic ileus Status: Acute Assessment and Plan: Required NG placement yesterday due to vomiting. Had a high output from NG after placement. WBC count up to 19k today. KUB this morning suggests small bowel obstruction. Continue NG decompression, bowel rest, and IV fluids for now. Repeat labs tomorrow. If no improvement with conservative management and concern for more of a high-grade small bowel obstruction, then she may require exploratory surgery. Will continue to follow. (2) UTI (urinary tract infection): Code(s): N39.0 - Urinary tract infection, site not specified Status: Acute Assessment and Plan: On appropriate IV antibiotics. (3) Colitis: Code(s): K52.9 - Noninfective gastroenteritis and colitis, unspecified Status: Acute Assessment and Plan: CT suggest colitis versus a lesion in the ascending colon. Continue antibiotics. GI following. Colonoscopy was cancelled due to her vomiting after trying to start the bowel prep. Plan I have discussed the patient's case and plan of care with Dr. Croft. Subjective Subjective Date/Time Seen: 03/13/23 10:30 Patient reports: bowel movement (one BM Last night per nursing) and afebrile Interval history: Patient seen this morning with her daughter at the bedside. Her mentation is better today, less confused this morning. She apparently was confused last night during hourly shift manager and had to have her NG tube replaced twice. She reportedly had one small bowel movement overnight. She is complaining of RLQ abdominal pain and bloating. NG tube had over 1 liter out after placement yesterday and had about 550 cc out overnight. Exam Const: General: comfortable, no acute distress and confusion Orientation/consciousness: oriented to person and oriented to place GI: Inspection: distended GI Palp: Yes Soft to palpation, Yes Tenderness to palpation present (GI) (diffusely tender but most focally in the RLQ), Yes Guarding due to palpation present (GI) (voluntary guarding in the RLQ), No Hernia present and No Rebound tenderness present Auscultation: Hypoactive bowel sounds present (very hypoactive) Objective Data Vital Signs Vital Signs: Vital Signs - 24 hr 03/12/23 14:00 03/12/23 16:00 03/12/23 22:00 Temperature 97.5 F L 98.5 F Pulse Rate 103 H 98 99 Respiratory Rate 16 20 Blood Pressure 150/113 H 130/78 Pulse Oximetry 95 93 Oxygen Delivery 03/12/23 20:00 03/13/23 00:00 03/13/23 04:00 Temperature Pulse Rate 90 100 87 Respiratory Rate Blood Pressure Pulse Oximetry Oxygen Delivery 03/13/23 06:00 03/13/23 08:55 Temperature 96.9 F L Pulse Rate 88 Respiratory Rate 16 Blood Pressure 128/67 Pulse Oximetry 94 Oxygen Delivery Room Air Intake/Output Intake/Output: Intake & Output 03/10/23 03/11/23 03/12/23 03/13/23 23:59 23:59 23:59 23:59 Intake Total 1100 2120 1911 1050 Output Total 2600 730 413 9651 Balance -1500 1420 1261 -200 Meds/Results Medications: Active Medications Generic Name Dose Route Start Last Admin Trade Name Freq PRN Reason Stop Dose Admin Acetaminophen 650 mg 03/08/23 16:34 03/12/23 13:50 Acetaminophen 325 Mg Tablet PO 650 mg Q4H PRN Administration Pain Rated 5 or Less Acetaminophen 650 mg 03/09/23 00:41 03/13/23 09:52 Acetaminophen 650 Mg Suppository RECTAL 650 mg Q6H PRN Administration Pain Rated 5 or Less Famotidine 20 mg 03/09/23 09:00 03/13/23 08:54 Famotidine 20 Mg/2 Ml Vial IV PUSH 20 mg Q12HR VITALIY Administration Sodium Chloride 1,000 mls @ 100 mls/hr 03/12/23 08:15 03/13/23 11:00 Sodium Chloride 0.45% IV CONT 100 mls/hr .Q10H VITALIY Administration Meropenem 500 mg/ Sodium 100 mls @ 200 mls/hr 03/12/23 15:00 03/13/23 03:00 Chloride IVPB 200 mls/hr Q12H VITALIY Administration Morphine Sulfate 2 mg 03/08/23 16:34 09
[2023-03-13] MEDS: SALIVA SUBSTITUTE RINSE 473 ML BOTTLE 15 ML PO (15:16)
--- NOTE | 2023-03-13 15:50 | PM.IMPN ---
Progress Note: A&P Assessment and Plan (1) Adynamic ileus: Code(s): K56.0 - Paralytic ileus Status: Acute Assessment and Plan: Surgery consulted and NG tube placed, still large volume output noted, 2200 ml 03/09 03/11: ngt pulled out and replaced twice, now ok to leave out per surgery, SBFT showed ileus vs partial SBO, CLD and ADAT 03/12: NGT replaced with considerable output. NGT removed by patient last night but replaced. Ischemic bowel? No radiographic evidence of perf. Plt count dropping. Continue NG tube to suction. Monitor output. Correct electrolyte abnormalities. Check lactic (2) SAMMY (acute kidney injury): Code(s): N17.9 - Acute kidney failure, unspecified Status: Acute Assessment and Plan: Unknown prior values but patient reports no renal dysfunction. Creatinine peaked at 2.3 suspected prerenal related to dehydration UTI and decreased oral intake/vomiting. 03/11: Improved, increase IVF to 125 ml/hr 03/12: Continues to improve, monitor, switch to half-normal saline due to hypernatremia Sodium better. Cr contiues to improve. (3) Elevated troponin: Code(s): R77.8 - Other specified abnormalities of plasma proteins Status: Acute Assessment and Plan: New onset atrial fibrillation, and no chest pain but troponin is elevated and stable at this time. EKG cannot exclude [place]. Cardiology consult appreciated, no further recs, they have s/o. [place] elevated Trop related to demand ischemia from ileus and dehydration. Echo 03/09 showed an EF of 50-55% with abnormal diastolic function, mild pulmonary hypertension and mild valvular disease (4) Atrial fibrillation: Code(s): I48.91 - Unspecified atrial fibrillation Status: Acute Assessment and Plan: EKG on admission showing AFib that is a new diagnosis. Rate was controlled so it is unknown how long she has been in AFib. Anticoagulation held. Echo as above. Check TSH (5) CHF (congestive heart failure): Code(s): I50.9 - Heart failure, unspecified Status: Acute Assessment and Plan: CT Abd showing widespread septal thickening in the bases with peripheral airspace opacities, small pleural effusions and cardiomegaly. Echo as mentioned BNP greater than 30K. He does not felt patient has acute CHF since she appears dehydrated on admission and she is receiving IV fluids with benefit. Appreciate cardiology consultation (6) Colitis: Code(s): K52.9 - Noninfective gastroenteritis and colitis, unspecified Status: Acute Assessment and Plan: CT scan shows Focal wall thickening of the ascending colon with adjacent fat stranding suggestive of infection versus malignancy. Appreciate gastrology consultation, consider colonoscopy once ileus resolves. Zosyn started 03/09 03/12: leuk cont to rise, d/c zosyn, start vanc, cefepime, flagyl, monitor closely, MRSA swab sent and pending. Blood cultures came back positive for ESBL E coli so cefepime and Flagyl discontinued in favor of meropenem, vancomycin. Source felt to be related to the colitis. He blood cultures are no growth. Urine cultures are negative x2. WBC continues to climb but abx adjusted yesterday so will follow for now. Continue abx. (7) Thrombocytopenia: Code(s): D69.6 - Thrombocytopenia, unspecified Status: Acute Assessment and Plan: Platelet count dropped to 73K today. Related to #1. Follow (8) Hyponatremia: Code(s): E87.1 - Hypo-osmolality and hyponatremia Status: Acute Assessment and Plan: Na 130 on admission felt related to dehydration. Na climbed to 147 and IV fluids adjusted. Follow (9) UTI (urinary tract infection): Code(s): N39.0 - Urinary tract infection, site not specified Status: Acute Assessment and Plan: Urine culture negative on 03/08 and 03/11. UTI ruled out (10) Confusion: Code(s): R41.0 - Disorientation, unspecified Status: Acute
[2023-03-13] MEDS: VANCOMYCIN 750 MG/NS 250 ML 750 MG/250 ML BAG 250 MG IVPB (16:08)
--- NOTE | 2023-03-13 21:13 | PC.NURSE ---
pt does not have restraints on at this time, sitter with patient at bedside
--- NOTE | 2023-03-13 23:17 | PC.NURSE ---
pt continue to have sitter no restrains used this shift
[2023-03-13] MEDS: MORPHINE SULFATE (*CRX) 2 MG/ML INJ IV PUSH (23:32)
[2023-03-14] VITALS (9 sets, daily range): BP systolic 126–136; BP diastolic 47–65; PULSE 73–89; RESP 16–18; TEMP 35.9–36.4; O2SAT 95–99
[2023-03-14] MEDS: MEROPENEM 500 MG in SODIUM CHLORIDE 0.9% IV 100 ML 200 ML IVPB (02:57)
--- NOTE | 2023-03-14 02:57 | PC.NURSE ---
pt still has sitter and is restraint free
[2023-03-14] MEDS: MORPHINE SULFATE (*CRX) 2 MG/ML INJ IV PUSH (05:01)
[2023-03-14 06:26] LABS: Hematocrit 37.6 % (37.0-47.0); Hemoglobin 12.3 g/dL (12.0-15.0); Immature Platelet Fraction Pct 8.1 % (0.9-11.2); Mean Corpuscular HGB Conc 32.7 g/dl (32-36); Mean Corpuscular Hemoglobin 29.7 pg (26-34); Mean Corpuscular Volume 90.8 fl (80-100); Mean Platelet Volume 12.5 fl (7.4-10.4); Platelet Count Result 78 k/mm3 (150-375); Red Blood Count 4.14 M/mm3 (4.2-5.4); Red Cell Distribution Width 14.3 % (11.5-14.5); White Blood Count 14.5 K/mm3 (4.5-10.0)
[2023-03-14 06:33] LABS: Lactic Acid Reflex 1.1 mmol/L (0.7-2.0)
[2023-03-14 06:34] LABS: Alanine Aminotransferase 21 U/L (6-35); Albumin Level 2.7 g/dL (3.5-5.1); Alkaline Phosphatase 49 U/L (38-126); Anion Gap 9 mmol/L (8-16); Aspartate Amino Transferase 41 U/L (14-36); Bilirubin,Total 1.1 mg/dL (0.2-1.3); Blood Urea Nitrogen 56 mg/dL (7-17); Calcium 7.4 mg/dL (8.4-10.2); Carbon Dioxide 25 mmol/L (22-30); Chloride 108 mmol/L (98-107); Estimated CRCL calculation 18 ml/min; Estimated Glomerular Filt Rate 29; Glucose 104 mg/dL (65-110); Magnesium 2.4 mg/dL (1.6-2.3); Potassium 3.4 mmol/L (3.4-5.0); Sodium 142 mmol/L (137-145)
--- NOTE | 2023-03-14 06:48 | PC.NURSE ---
pt remained restraint free all night, did have sitter present, NG remains in place x2 bm over night.
[2023-03-14 07:47] LABS: Folic Acid 7.6 ng/mL (2.76->20); Vitamin B12 > 1000.0 pg/mL (239-931)
[2023-03-14] MEDS: FAMOTIDINE 20 MG/2 ML VIAL IV PUSH ×2 (08:44→21:15)
[2023-03-14] MEDS: NICOTINE (*PBKC) 14 MG PATCH 1 PATCH TRANSDERM (08:44)
--- NOTE | 2023-03-14 09:16 | PM.IMPN ---
Progress Note: A&P Assessment and Plan (1) Adynamic ileus: Code(s): K56.0 - Paralytic ileus Status: Acute Assessment and Plan: Surgery consulted and NG tube placed, still large volume output noted, 2200 ml 03/09 03/11: ngt pulled out and replaced twice, now ok to leave out per surgery, SBFT showed ileus vs partial SBO, CLD and ADAT 03/12: NGT replaced with considerable output. NGT removed by patient last night but replaced. Exam better today. Plt count low but stable and Lactic normal. Continue NG tube to suction. Change IV fluids. May need PPN. Monitor output. Correct electrolyte abnormalities. Increase activity with out of bed and walk in halls. (2) SAMMY (acute kidney injury): Code(s): N17.9 - Acute kidney failure, unspecified Status: Acute Assessment and Plan: Unknown prior values but patient reports no renal dysfunction. Creatinine peaked at 2.3 suspected prerenal related to dehydration UTI and decreased oral intake/vomiting. 03/11: Improved, increase IVF to 125 ml/hr 03/12: Continues to improve, monitor, switch to half-normal saline due to hypernatremia Sodium better. UOP about the same past few days. Cr stable today. Continue IV fluids. (3) Elevated troponin: Code(s): R77.8 - Other specified abnormalities of plasma proteins Status: Acute Assessment and Plan: New onset atrial fibrillation. No chest pain but troponin is elevated and flat at 0.45. EKG cannot exclude ID. Cardiology consulted and appreciate their input. No further recs and they have s/o. [place] elevated Trop related to demand ischemia from ileus and dehydration. Echo 03/09 showed an EF of 50-55% with abnormal diastolic function, mild pulmonary hypertension, mild valvular disease and hypokinetic anteroseptum/ant wall/basal inferoseptum. Also noted with aneurysmal apical septum, apical inferior and apical wall. Repeat EKG. Stop tele (4) Atrial fibrillation: Code(s): I48.91 - Unspecified atrial fibrillation Status: Acute Assessment and Plan: EKG on admission showing AFib that is a new diagnosis. Rate was controlled so it is unknown how long she has been in AFib. Anticoagulation held. Echo as above. TSH normal. HENRY-Vasc at least 4 warrants anticoagulation. (5) CHF (congestive heart failure): Code(s): I50.9 - Heart failure, unspecified Status: Acute Assessment and Plan: CT Abd showing widespread septal thickening in the bases with peripheral airspace opacities, small pleural effusions and cardiomegaly. Echo as mentioned above. BNP greater than 30K. It is not felt patient has acute CHF since she appears dehydrated on admission and she is receiving IV fluids with benefit. Appreciate cardiology consultation. (6) Colitis: Code(s): K52.9 - Noninfective gastroenteritis and colitis, unspecified Status: Acute Assessment and Plan: CT scan shows focal wall thickening of the ascending colon with adjacent fat stranding suggestive of infection versus malignancy. Appreciate gastrology consultation, consider colonoscopy once ileus resolves. Zosyn started 03/09 03/12: leuk cont to rise, d/c zosyn, start vanc, cefepime, flagyl, monitor closely, MRSA swab sent and now is negative. Blood culture 03/08 (1of2) came back positive for ESBL E coli so cefepime and Flagyl discontinued in favor of meropenem, vancomycin. Source felt to be related to the colitis. Her repeat blood cultures (03/10) are no growth. Urine cultures are negative x2. WBC better today so will follow for now. Continue meropenem. Stop Vanco. (7) Thrombocytopenia: Code(s): D69.6 - Thrombocytopenia, unspecified Status: Acute Assessment and Plan: Platelet count low but stable at 78K today. Related to above. Follow (8) Hyponatremia: Code(s): E87.1 - Hypo-osmolality and hyponatremia Status: Acute Assessment and Plan: Na 130 on admission felt related to dehydration. Na
--- NOTE | 2023-03-14 09:35 | ECG_ITS ---
Measurements Intervals [place] Rate: 72 P: [place]: 0 QRS: 61 QRSD: 85 T: 97 QT: 462 QTc: 508 Interpretive Statements ATRIAL FIBRILLATION BORDERLINE T WAVE ABNORMALITY- HIGH LATERAL LEADS PROLONGED QT INTERVAL ABNORMAL ECG COMPARED TO ECG 03/08/2023 16:35:08 PROLONGED QT INTERVAL NOW PRESENT Electronically Signed On 03-14-2023 16:06:43 CDT by Danilo Tian D.O.
--- NOTE | 2023-03-14 09:41 | PM.PNGS ---
Progress Note: A&P Assessment and Plan (1) Adynamic ileus: Code(s): K56.0 - Paralytic ileus Status: Acute Assessment and Plan: Showing some clinical signs of improvement today. WBC trending down. Lactic normal. Continue NG tube decompression, bowel rest, IV fluids for today. If she does not show much improvement tomorrow, then we may place a PICC line and start TPN. Discussed with nursing staff to get patient up to chair today and try to get her moving more. PT/OT ordered. (2) UTI (urinary tract infection): Code(s): N39.0 - Urinary tract infection, site not specified Status: Acute Assessment and Plan: On appropriate IV antibiotics. (3) Colitis: Code(s): K52.9 - Noninfective gastroenteritis and colitis, unspecified Status: Acute Assessment and Plan: CT suggest colitis versus a lesion in the ascending colon. Continue antibiotics. GI following. Colonoscopy on hold due to ileus. Plan I have discussed the patient's case and plan of care with Dr. Croft. Subjective Subjective Date/Time Seen: 03/14/23 09:42 Patient reports: no new complaints, feels better, pain is less, flatus, bowel movement and afebrile Interval history: Patient seen this morning with a sitter at the bedside. Patient had a sitter overnight and did not pull out her NG. She had about 1100 cc out yesterday during day shift and 550 cc out over centrifugal spinner from her NG tube. She had 3 bowel movements documented since yesterday. She states her RLQ abdominal pain is better today. No new complaints. Exam Const: General: comfortable and no acute distress Orientation/consciousness: oriented to person and oriented to place GI: Inspection: distended GI Palp: Yes Soft to palpation (abdomen softer and slightly less distended today), Yes Tenderness to palpation present (GI) (mostly in the RLQ), Yes Guarding due to palpation present (GI) (voluntary guarding in RLQ) and No Rebound tenderness present Auscultation: High-pitched bowel sounds present and Hypoactive bowel sounds present Objective Data Vital Signs Vital Signs: Vital Signs - 24 hr 03/13/23 12:00 03/13/23 14:00 03/13/23 16:00 Temperature 98.5 F Pulse Rate 88 92 90 Respiratory Rate 20 Blood Pressure 118/51 L Pulse Oximetry 92 Oxygen Delivery 03/13/23 19:33 03/13/23 20:00 03/13/23 22:00 Temperature 96.9 F L Pulse Rate 82 84 Respiratory Rate 16 Blood Pressure 136/53 L Pulse Oximetry 92 94 Oxygen Delivery Room Air 03/14/23 00:00 03/14/23 04:00 03/14/23 06:00 Temperature 97.5 F L Pulse Rate 85 89 80 Respiratory Rate 18 Blood Pressure 131/47 L Pulse Oximetry 96 Oxygen Delivery Intake/Output Intake/Output: Intake & Output 03/11/23 03/12/23 03/13/23 03/14/23 23:59 23:59 23:59 23:59 Intake Total 2120 1911 2900 1360 Output Total 624 748 9289 1000 Balance 1420 1261 600 360 Meds/Results Medications: Active Medications Generic Name Dose Route Start Last Admin Trade Name Freq PRN Reason Stop Dose Admin Acetaminophen 650 mg 03/08/23 16:34 03/12/23 13:50 Acetaminophen 325 Mg Tablet PO 650 mg Q4H PRN Administration Pain Rated 5 or Less Acetaminophen 650 mg 03/09/23 00:41 03/13/23 09:52 Acetaminophen 650 Mg Suppository RECTAL 650 mg Q6H PRN Administration Pain Rated 5 or Less Famotidine 20 mg 03/09/23 09:00 03/14/23 08:44 Famotidine 20 Mg/2 Ml Vial IV PUSH 20 mg Q12HR VITALIY Administration Meropenem 500 mg/ Sodium 100 mls @ 200 mls/hr 03/12/23 15:00 03/14/23 02:57 Chloride IVPB 200 mls/hr Q12H VITALIY Administration Potassium Chloride/Dextrose/Sod Cl 1,000 mls @ 70 mls/hr 03/14/23 09:15 Kcl 20 Meq/D5/0.9% Sod Chl IV CONT .[id number] VITALIY Morphine Sulfate 2 mg 03/08/23 16:34 03/14/23 05:01 Morphine Sulfate (*Crx) 2 Mg/Ml Inj IV PUSH 2 mg Q4H PRN Administration Pain Rated 6 or Greater Nicotine 1 patch 03/12/23 09:00
[2023-03-14] MEDS: KCL 20 MEQ/D5/0.9% SOD CHL 1,000 ML 70 ML IV CONT (10:30)
--- NOTE | 2023-03-14 11:51 | PCNFU ---
Nutrition Follow-Up Complete: Moderate protein calorie malnutrition related to inadequate energy intake as evidenced by pt and family report of poor intake over a week, noted -6% wt loss with a low BMI of 17.4, and NFPE findings for muscle wasting and subcutaneous fat loss. Goal: Diet advanced and tolerated Patient has little progress towards goal. We will continue current goal. Pt current nutrition is NPO/clear liquids x 7. Nutrition recommendation: Patient is at high nutritional risk, recommend advancing diet as tolerated or starting TPN. Last recorded weight is 46.9 kg up from 48.9 kg on admit. Bowel Motility:+BM reported 03/13 Labs Reviewed:Mg 2.4, BUN 56, GFR 29, Cr 1.7 Meds Noted:Pepcid Skin: WNL Additional Notes: Patient remains NPO/clear liquids x 7 days. patient with NGT, having output. +BM reported. If diet order does not advance recommend PICC line and TPN starting with Clinimix E at 40 ml/hr. Monitor diet orders, intake, wt, labs. Follow up in 3 days.
--- NOTE | 2023-03-14 12:00 | WPDGIPROGNO ---
Progress Note: A&P Assessment and Plan (1) Adynamic ileus: Code(s): K56.0 - Paralytic ileus Status: Acute Assessment and Plan: Patient with ileus. Some concern over whether there could be a small bowel obstruction. Patient has significant NG tube output in no significant bowel sounds appreciated. Abdominal tympany persists but is diminished today compared to yesterday. Overall somewhat improved. White count has decreased to 14. Less NG tube output noted. Still no significant bowel movements. She may benefit from follow-up CT scan. Surgery is following with this in case exploration is required. (2) Moderate protein-calorie malnutrition: Code(s): E44.0 - Moderate protein-calorie malnutrition Status: Acute Assessment and Plan: Patient may need TPN if NPO status persists. No improvement by tomorrow. (3) Abnormal CT scan: Code(s): R93.89 - Abnormal findings on diagnostic imaging of other specified body structures Status: Acute Assessment and Plan: CT scan initially showed inflammation in the right colon. Right colon mass cannot be excluded. Cannot be evaluated right now patient would not tolerate colonoscopy. Continue antibiotic trial. She may benefit from follow-up CT scan over the next day or 2 if surgery agrees with this. (4) UTI (urinary tract infection): Code(s): N39.0 - Urinary tract infection, site not specified Status: Acute Assessment and Plan: Patient admitted with UTI has been treated with antibiotics this for. Subjective Date/time seen: 03/14/23 12:00 Interval history: Patient alert but remains somewhat confused. She is very weak. Not eating. NG tube continues to show bilious output. However amount has decreased today compared to yesterday. Still no significant flatus. She clinically is somewhat improved today from yesterday. Review of Systems Review of Systems: ROS unobtainable: Yes unobtainable due to medical condition Exam Narrative: Physical exam reveals patient be weak and lethargic. Somewhat cachectic in appearance. NG tube in place with bilious output. Lungs are clear. Heart without murmur. Abdomen bowel sounds absent. Abdomen softer today compared to yesterday. Still diffuse tympany. Extremities without clubbing cyanosis or edema. Objective Data Vital Signs Vital Signs: Vital Signs - 24 hr 03/13/23 14:00 03/13/23 16:00 03/13/23 19:33 Temperature 98.5 F Pulse Rate 92 90 Respiratory Rate 20 Blood Pressure 118/51 L Pulse Oximetry 92 92 Oxygen Delivery Room Air 03/13/23 20:00 03/13/23 22:00 03/14/23 00:00 Temperature 96.9 F L Pulse Rate 82 84 85 Respiratory Rate 16 Blood Pressure 136/53 L Pulse Oximetry 94 Oxygen Delivery 03/14/23 04:00 03/14/23 06:00 03/14/23 08:00 Temperature 97.5 F L Pulse Rate 89 80 Respiratory Rate 18 Blood Pressure 131/47 L Pulse Oximetry 96 95 Oxygen Delivery Room Air Intake/Output Intake/Output: Intake & Output 03/11/23 03/12/23 03/13/23 03/14/23 23:59 23:59 23:59 23:59 Intake Total 2120 1911 2900 1360 Output Total 453 088 8855 1000 Balance 1420 1261 600 360 Meds/Results Medications: Active Medications Generic Name Dose Route Start Last Admin Trade Name Freq PRN Reason Stop Dose Admin Acetaminophen 650 mg 03/08/23 16:34 03/12/23 13:50 Acetaminophen 325 Mg Tablet PO 650 mg Q4H PRN Administration Pain Rated 5 or Less Acetaminophen 650 mg 03/09/23 00:41 03/13/23 09:52 Acetaminophen 650 Mg Suppository RECTAL 650 mg Q6H PRN Administration Pain Rated 5 or Less Famotidine 20 mg 03/09/23 09:00 03/14/23 08:44 Famotidine 20 Mg/2 Ml Vial IV PUSH 20 mg Q12HR VITALIY Administration Meropenem 500 mg/ Sodium 100 mls @ 200 mls/hr 03/12/23 15:00 03/14/23 02:57 Chloride IVPB 200 mls/hr Q12H VITALIY Administration Potassium Chloride/Dextrose/Sod Cl 1,000 mls @
[2023-03-14] MEDS: ERTAPENEM SODIUM 0.5 GM in SODIUM CHLORIDE 0.9% IV 50 ML IVPB (15:09)
[2023-03-15] VITALS (9 sets, daily range): BP systolic 140–160; BP diastolic 60–72; PULSE 70–84; RESP 16; TEMP 35.9–37; O2SAT 96–98
[2023-03-15 02:53] LABS: Hematocrit 37.2 % (37.0-47.0); Hemoglobin 12.4 g/dL (12.0-15.0); Mean Corpuscular HGB Conc 33.3 g/dl (32-36); Mean Corpuscular Volume 90.1 fl (80-100); Mean Platelet Volume 12.4 fl (7.4-10.4); Platelet Count Result 103 k/mm3 (150-375); Red Blood Count 4.13 M/mm3 (4.2-5.4); Red Cell Distribution Width 14.1 % (11.5-14.5); White Blood Count 12.3 K/mm3 (4.5-10.0)
[2023-03-15 03:22] LABS: Anion Gap 7 mmol/L (8-16); Blood Urea Nitrogen 54 mg/dL (7-17); Calcium 7.7 mg/dL (8.4-10.2); Carbon Dioxide 28 mmol/L (22-30); Chloride 110 mmol/L (98-107); Estimated CRCL calculation 19 ml/min; Estimated Glomerular Filt Rate 31; Glucose 129 mg/dL (65-110); Potassium 3.6 mmol/L (3.4-5.0); Sodium 145 mmol/L (137-145)
[2023-03-15 03:28] LABS: Band Neutrophils Percent 23 % (0-6); Hypochromasia 1+ (NORMAL); Lymphocytes Absolute Manual 0.24 K/mm3 (1.1-4.5); Lymphocytes Percent Manual 2 % (18-44); Monocytes Absolute Manual 1.23 K/mm3 (0.1-0.90); Monocytes Percent Manual 10 % (3-9); Neutrophils Absolute Manual 10.57 K/mm3 (1.7-7.2); Neutrophils Percent Manual 63 % (46-73); Poikilocytosis 1+ (NORMAL); Smudge Cells PRESENT; Total Cells Counted 100
[2023-03-15 03:29] LABS: Schistocytes None Seen (NORMAL); Target Cells 1+ (NORMAL)
--- NOTE | 2023-03-15 06:50 | WPDGIPROGNO ---
Progress Note: A&P Assessment and Plan (1) Adynamic ileus: Code(s): K56.0 - Paralytic ileus Status: Acute Assessment and Plan: NG tube draining bilious material. The volume of the output has decreased. she feels her abdomen is definitely softer today. Surgery is following. (2) Abnormal CT scan: Code(s): R93.89 - Abnormal findings on diagnostic imaging of other specified body structures Status: Acute Assessment and Plan: CT scan showed probable colitis in the right colon. Given the fact that she is now passing bloody stools I am the cut mid concerned about ischemic colitis. Will repeat CT scan (3) Moderate protein-calorie malnutrition: Code(s): E44.0 - Moderate protein-calorie malnutrition Status: Acute Assessment and Plan: She has had virtually nothing to eat for the past week. TPN is being considered and would be advisable. (4) Hematochezia: Code(s): K92.1 - Melena Status: Acute Assessment and Plan: hemoglobin today 12.3 after a passing a bloody stool. Her H&H have been all over the place, as high as 19 a couple of days ago but higher than when she came in. Subjective Date/time seen: 03/15/23 06:50 the patient is resting comfortably. She remains on NG tube suction. Output is decreasing. Unfortunately she had a large stool which was bloody earlier this morning. Hemoglobin is stable but will need to be checked again later. my concern is that she may have ischemic colitis Exam Const: General: alert Nutritional Appearance: cachectic Orientation/consciousness: patient oriented x3 Resp: Auscultation: clear to auscultation bilaterally Cardio: Rhythm: regular rhythm GI: Inspection: distended GI Palp: Yes Soft to palpation, Yes Tenderness to palpation present (GI) ( Mild, diffuse tenderness) and Yes No hepatosplenomegaly present Auscultation: High-pitched bowel sounds present ( tinkling in nature) Neuro: General: patient oriented x3 Objective Data Vital Signs Vital Signs: Vital Signs - 24 hr 03/14/23 08:00 03/14/23 14:00 03/14/23 08:00 Temperature 35.9 C L Pulse Rate 77 75 Respiratory Rate 18 Blood Pressure 136/56 L Pulse Oximetry 95 99 Oxygen Delivery Room Air 03/14/23 12:00 03/14/23 16:00 03/14/23 21:08 Temperature 36.2 C L Pulse Rate 73 79 80 Respiratory Rate 16 Blood Pressure 126/65 Pulse Oximetry 96 Oxygen Delivery 03/14/23 20:00 03/15/23 00:00 03/15/23 04:00 Temperature Pulse Rate 80 83 83 Respiratory Rate Blood Pressure Pulse Oximetry Oxygen Delivery 03/15/23 04:56 Temperature 35.9 C L Pulse Rate 78 Respiratory Rate 16 Blood Pressure 140/60 Pulse Oximetry 96 Oxygen Delivery Intake/Output Intake/Output: Intake & Output 03/12/23 03/13/23 03/14/23 03/15/23 23:59 23:59 23:59 23:59 Intake Total 1911 2900 1360 100 Output Total 650 2300 2150 1000 Balance 1261 179 -249 -900 Meds/Results Medications: Active Medications Generic Name Dose Route Start Last Admin Trade Name Freq PRN Reason Stop Dose Admin Acetaminophen 650 mg 03/08/23 16:34 03/12/23 13:50 Acetaminophen 325 Mg Tablet PO 650 mg Q4H PRN Administration Pain Rated 5 or Less Acetaminophen 650 mg 03/09/23 00:41 03/13/23 09:52 Acetaminophen 650 Mg Suppository RECTAL 650 mg Q6H PRN Administration Pain Rated 5 or Less Famotidine 20 mg 03/09/23 09:00 03/14/23 21:15 Famotidine 20 Mg/2 Ml Vial IV PUSH 20 mg Q12HR VITALIY Administration Potassium Chloride/Dextrose/Sod Cl 1,000 mls @ 70 mls/hr 03/14/23 09:15 03/14/23 10:30 Kcl 20 Meq/D5/0.9% Sod Chl IV CONT 70 mls/hr .[id number] VITALIY Administration Ertapenem 0.5 gm/ Sodium 50 mls @ 100 mls/hr 03/14/23 14:00 03/14/23 15:09 Chloride IVPB 100 mls/hr Q24H VITALIY Administration Morphine Sulfate 2 mg 03/08/23 16:34 03/14/23 05:01 Morphine Sulfate (*Crx) 2 Mg/Ml Inj IV PUSH 2 mg
[2023-03-15] MEDS: KCL 20 MEQ/D5/0.9% SOD CHL 1,000 ML 70 ML IV CONT (09:05)
[2023-03-15] MEDS: NICOTINE (*PBKC) 14 MG PATCH 1 PATCH TRANSDERM (09:06)
[2023-03-15] MEDS: FAMOTIDINE 20 MG/2 ML VIAL IV PUSH ×2 (09:06→21:54)
--- NOTE | 2023-03-15 10:50 | PM.PNGS ---
Progress Note: A&P Assessment and Plan (1) Colitis: Code(s): K52.9 - Noninfective gastroenteritis and colitis, unspecified Status: Acute Assessment and Plan: Patient had some pancreatic easy overnight. CT scan today still suggest at least right-sided colitis with possible ischemic changes and small amount of air within the wall the colon. No free air is noted and no pelvic abscess or feculent fluid is noted in the pelvis. White blood cell count did decrease down to 12,000 today. Continue NG tube decompression. She will need placement of PICC line and TPN started. May need to consider exploratory laparotomy and right colon resection. Infectious colitis with ischemia is likely and neoplasm cannot be excluded. Subjective Subjective Date/Time Seen: 03/15/23 10:50 Interval history: Patient had large bowel movement yesterday which was bloody. Abdomen is stable in terms of tenderness and maybe a little less distended. She continues have bilious output from her nasogastric tube. Exam GI: Other: Abdomen is soft and slightly less distended. Very mild generalized tenderness with a little worse tenderness on the right side. No peritoneal signs and guarding. Objective Data Vital Signs Vital Signs: Vital Signs - 24 hr 03/14/23 14:00 03/14/23 12:00 03/14/23 16:00 Temperature 35.9 C L Pulse Rate 77 73 79 Respiratory Rate 18 Blood Pressure 136/56 L Pulse Oximetry 99 Oxygen Delivery 03/14/23 21:08 03/14/23 20:00 03/15/23 00:00 Temperature 36.2 C L Pulse Rate 80 80 83 Respiratory Rate 16 Blood Pressure 126/65 Pulse Oximetry 96 Oxygen Delivery 03/15/23 04:00 03/15/23 04:56 03/15/23 09:09 Temperature 35.9 C L Pulse Rate 83 78 Respiratory Rate 16 Blood Pressure 140/60 Pulse Oximetry 96 Oxygen Delivery Room Air Intake/Output Intake/Output: Intake & Output 03/12/23 03/13/23 03/14/23 03/15/23 23:59 23:59 23:59 23:59 Intake Total 1911 2900 1360 1100 Output Total 650 2300 2150 1000 Balance 1261 600 -790 100 Meds/Results Medications: Active Medications Generic Name Dose Route Start Last Admin Trade Name Freq PRN Reason Stop Dose Admin Acetaminophen 650 mg 03/08/23 16:34 03/12/23 13:50 Acetaminophen 325 Mg Tablet PO 650 mg Q4H PRN Administration Pain Rated 5 or Less Acetaminophen 650 mg 03/09/23 00:41 03/13/23 09:52 Acetaminophen 650 Mg Suppository RECTAL 650 mg Q6H PRN Administration Pain Rated 5 or Less Famotidine 20 mg 03/09/23 09:00 03/15/23 09:06 Famotidine 20 Mg/2 Ml Vial IV PUSH 20 mg Q12HR VITALIY Administration Potassium Chloride/Dextrose/Sod Cl 1,000 mls @ 70 mls/hr 03/14/23 09:15 03/15/23 09:05 Kcl 20 Meq/D5/0.9% Sod Chl IV CONT 70 mls/hr .[id number] VITALIY Administration Ertapenem 0.5 gm/ Sodium 50 mls @ 100 mls/hr 03/14/23 14:00 03/14/23 15:09 Chloride IVPB 100 mls/hr Q24H VITALIY Administration Morphine Sulfate 2 mg 03/08/23 16:34 03/14/23 05:01 Morphine Sulfate (*Crx) 2 Mg/Ml Inj IV PUSH 2 mg Q4H PRN Administration Pain Rated 6 or Greater Nicotine 1 patch 03/12/23 09:00 03/15/23 09:06 Nicotine (*Pbkc) 14 Mg Patch TRANSDERM 1 patch QAM VITALIY Administration Ondansetron HCl 4 mg 03/08/23 16:36 03/12/23 14:31 Ondansetron Inj 4 Mg/2 Ml Vial IV PUSH 4 mg Q4H PRN Administration Nausea And Vomiting Phenol 1 spray 03/13/23 09:45 03/13/23 11:00 Phenol/Sod Pheno [place] (*Bkc) MUCOUS MEM 1 spray PRN PRN Administration Sore Throat Saliva Substitute 15 ml 03/13/23 14:36 03/13/23 15:16 Saliva Substitute Rinse 473 Ml Bottle PO 15 ml QID PRN Administration Dry Mouth Radiology Results: ITS Impressions Upper GI and Small Bowel X-Ray 03/10/23 21:05 IMPRESSION: Contrast probably reaches the cecum at 2 hours and is definitively within the cecum at 3 hours. Moderate small bowel dilatio
[2023-03-15 11:20] LABS: Hematocrit 40.8 % (37.0-47.0); Hemoglobin 12.6 g/dL (12.0-15.0); Mean Corpuscular HGB Conc 30.9 g/dl (32-36); Mean Corpuscular Hemoglobin 29.9 pg (26-34); Mean Corpuscular Volume 96.7 fl (80-100); Mean Platelet Volume 12.1 fl (7.4-10.4); Platelet Count Result 108 k/mm3 (150-375); Red Blood Count 4.22 M/mm3 (4.2-5.4); Red Cell Distribution Width 14.7 % (11.5-14.5); White Blood Count 10.9 K/mm3 (4.5-10.0)
[2023-03-15 11:32] LABS: Partial Thromboplastin Time 33.6 SECONDS (22.3-36.8)
--- NOTE | 2023-03-15 11:54 | PCNFU ---
Nutrition Follow-Up Complete: Moderate protein calorie malnutrition related to inadequate energy intake as evidenced by pt and family report of poor intake over a week, noted -6% wt loss with a low BMI of 17.4, and NFPE findings for muscle wasting and subcutaneous fat loss. Diet advanced and tolerated - Goal not being met. Goal: Pt current nutrition is NPO with sips. Nutrition recommendation: TPN Clinmix with lipids @ 40 ml/h to provide: 1182 kcal, 48 g protein, 1210 ml total volume. Last recorded weight is 47 kg. Bowel Motility: LBM yesterday 03/15/23 Labs Reviewed: Alb 2.7, BUN 54, Cre 1.6, Mag 2.4 Meds Noted: Zofran, ertapenem Skin: WNL Additional Notes: PICC is ordered to start TPN today. Per notes pt may need bowel resection. Monitor Tuesdays and Fridays Monitor diet orders, intake, wt, labs. Follow up in 3 days.
[2023-03-15 12:00] LABS: Band Neutrophils Percent 1 % (0-6); Lymphocytes Absolute Manual 0.76 K/mm3 (1.1-4.5); Monocytes Absolute Manual 0.65 K/mm3 (0.1-0.90); Monocytes Percent Manual 6 % (3-9); Neutrophils Absolute Manual 9.48 K/mm3 (1.7-7.2); Neutrophils Percent Manual 86 % (46-73); Platelet Estimate Decreased (Adequate); Schistocytes None Seen (NORMAL); Total Cells Counted 100
[2023-03-15 12:01] LABS: Atypical Lymphocytes Present; Crenated RBC 1+ (NORMAL)
[2023-03-15] MEDS: LIDOCAINE HCL 1% PF INJ 5 ML VIAL INFILTRATE (12:36)
[2023-03-15] MEDS: ERTAPENEM SODIUM 0.5 GM in SODIUM CHLORIDE 0.9% IV 50 ML IVPB (13:35)
[2023-03-15] MEDS: AMINO ACIDS 5%/D15W/E-LYTES/CA 2,000 ML with MULTIVITAMINS-12 INJ VIAL 1 2.5 ML, MULTIV... 40 ML IV CONT (13:39)
[2023-03-15 14:15] LABS: Alanine Aminotransferase 22 U/L (6-35); Albumin Level 2.6 g/dL (3.5-5.1); Alkaline Phosphatase 61 U/L (38-126); Anion Gap 3 mmol/L (8-16); Aspartate Amino Transferase 41 U/L (14-36); Bilirubin,Total 1.1 mg/dL (0.2-1.3); Blood Urea Nitrogen 48 mg/dL (7-17); Calcium 7.6 mg/dL (8.4-10.2); Carbon Dioxide 31 mmol/L (22-30); Chloride 112 mmol/L (98-107); Estimated CRCL calculation 20 ml/min; Estimated Glomerular Filt Rate 33; Glucose 133 mg/dL (65-110); Magnesium 2.5 mg/dL (1.6-2.3); Potassium 3.5 mmol/L (3.4-5.0); Sodium 146 mmol/L (137-145)
[2023-03-15 14:23] LABS: Transferrin 102 mg/dL (206-381)
--- NOTE | 2023-03-15 15:33 | PM.IMPN ---
Progress Note: A&P Assessment and Plan (1) Adynamic ileus: Code(s): K56.0 - Paralytic ileus Status: Acute Assessment and Plan: Surgery consulted and NG tube placed, still large volume output noted, 2200 ml 03/09 03/11: ngt pulled out and replaced twice, now ok to leave out per surgery, SBFT showed ileus vs partial SBO, CLD and ADAT 03/12: NGT replaced with considerable output. NGT removed by patient last night but replaced. NGT output decreased. Now having bloody BMs. CT Abd/pelvis showing persistent focal ascending colon wall thickening suspicious for malignancy with pneumoatosis right colon more proximal to the focal wall thickening. Dilated SB without focal transition point. WBC decreased. [place] to have infectious colitis with ischemia. Continue NG tube to suction. PICC line placed and TPN started. Monitor electrolyte abnormalities. (2) SAMMY (acute kidney injury): Code(s): N17.9 - Acute kidney failure, unspecified Status: Acute Assessment and Plan: Unknown prior values but patient reports no renal dysfunction. Creatinine peaked at 2.3 suspected prerenal related to dehydration UTI and decreased oral intake/vomiting. Sodium stable. UOP was increased yesteday. Cr down to 1.6. TPN started. (3) Colitis: Code(s): K52.9 - Noninfective gastroenteritis and colitis, unspecified Status: Acute Assessment and Plan: CT scan shows focal wall thickening of the ascending colon with adjacent fat stranding suggestive of infection versus malignancy. Appreciate gastrology consultation, consider colonoscopy once ileus resolves. Zosyn started 03/09 03/12: leuk cont to rise, d/c zosyn, start vanc, cefepime, flagyl, monitor closely, MRSA swab sent and now is negative. Blood culture 03/08 (1of2) came back positive for ESBL E coli so cefepime and Flagyl discontinued in favor of meropenem, vancomycin. Source felt to be related to the colitis. Her repeat blood cultures (03/10) are no growth. Urine cultures are negative x2. WBC better today. Repeat CT as mentioned above. Continue meropenem. (4) Elevated troponin: Code(s): R77.8 - Other specified abnormalities of plasma proteins Status: Acute Assessment and Plan: New onset atrial fibrillation. No chest pain but troponin is elevated and flat at 0.45. EKG cannot exclude MS. Cardiology consulted and appreciate their input. No further recs and they have s/o. [place] elevated Trop related to demand ischemia from ileus and dehydration. Echo 03/09 showed an EF of 50-55% with abnormal diastolic function, mild pulmonary hypertension, mild valvular disease and hypokinetic anteroseptum/ant wall/basal inferoseptum. Also noted with aneurysmal apical septum, apical inferior and apical wall. Repeat EKG showing AFib with controlled rate and prolonged QT but otherwise no change. Stop Zofran. (5) Atrial fibrillation: Code(s): I48.91 - Unspecified atrial fibrillation Status: Acute Assessment and Plan: EKG on admission showing AFib that is a new diagnosis. Rate was controlled so it is unknown how long she has been in AFib. Anticoagulation held. Echo as above. TSH normal. HENRY-Vasc at least 4 warrants anticoagulation. (6) CHF (congestive heart failure): Code(s): I50.9 - Heart failure, unspecified Status: Acute Assessment and Plan: CT Abd on admisison showing widespread septal thickening in the bases with peripheral airspace opacities, small pleural effusions and cardiomegaly. Echo as mentioned above. BNP greater than 30K. It is not felt patient has acute CHF since she appears dehydrated on admission and she is receiving IV fluids with benefit. Chest x-ray today shows mild pulmonary edema airspace opacities in left lung base consistent with atelectasis versus pneumonia. CT the abdomen today shows small right and moderate size left pleural effusions and bronchiectasis in the right middle lobe with ground-glass opacities and
[2023-03-15 18:14] LABS: Glucose Point of Care 171 mg/dl (65-105)
--- NOTE | 2023-03-15 21:40 | PC.NURSE ---
PT said her family was to bring in her home CPAP and her settings are 15.
[2023-03-15] MEDS: CENTRAL LINE FLUSH 10 ML IV PUSH (21:54)
[2023-03-15 21:57] LABS: Glucose Point of Care 182 mg/dl (65-105)
[2023-03-16] VITALS (10 sets, daily range): BP systolic 166–181; BP diastolic 67–87; PULSE 77–92; RESP 18–26; TEMP 36–37.2; O2SAT 96–99
[2023-03-16 00:15] LABS: Glucose Point of Care 181 mg/dl (65-105)
[2023-03-16] MEDS: KCL 20 MEQ/D5/0.9% SOD CHL 1,000 ML 70 ML IV CONT (03:40)
[2023-03-16 05:49] LABS: Glucose Point of Care 172 mg/dl (65-105)
[2023-03-16] MEDS: CENTRAL LINE FLUSH 10 ML IV PUSH ×3 (06:28→21:27)
[2023-03-16 06:59] LABS: Anion Gap 4 mmol/L (8-16); Blood Urea Nitrogen 44 mg/dL (7-17); Calcium 7.8 mg/dL (8.4-10.2); Carbon Dioxide 29 mmol/L (22-30); Chloride 116 mmol/L (98-107); Estimated CRCL calculation 23 ml/min; Estimated Glomerular Filt Rate 40; Glucose 185 mg/dL (65-110); Phosphorus 2.6 mg/dL (2.5-4.5); Potassium 3.7 mmol/L (3.4-5.0); Sodium 149 mmol/L (137-145)
[2023-03-16 09:21] LABS: Hematocrit 36.8 % (37.0-47.0); Hemoglobin 11.7 g/dL (12.0-15.0); Mean Corpuscular HGB Conc 31.8 g/dl (32-36); Mean Corpuscular Hemoglobin 29.6 pg (26-34); Mean Corpuscular Volume 93.2 fl (80-100); Mean Platelet Volume 12.8 fl (7.4-10.4); Platelet Count Result 137 k/mm3 (150-375); Red Blood Count 3.95 M/mm3 (4.2-5.4); Red Cell Distribution Width 14.6 % (11.5-14.5); White Blood Count 9.3 K/mm3 (4.5-10.0)
[2023-03-16 09:31] LABS: Magnesium 2.5 mg/dL (1.6-2.3)
--- NOTE | 2023-03-16 09:42 | WPDGIPROGNO ---
Progress Note: A&P Assessment and Plan (1) Adynamic ileus: Code(s): K56.0 - Paralytic ileus Status: Acute Assessment and Plan: NG tube draining bilious material. The volume of the output has decreased. she feels her abdomen is definitely softer today. Surgery is following. CT Abd/pelvis showing persistent focal ascending colon wall thickening? suspicious for malignancy with pneumoatosis right colon more proximal to the focal wall thickening. Dilated SB without focal transition point. WBC decreased. [place] to have infectious colitis with ischemia.? (2) Abnormal CT scan: Code(s): R93.89 - Abnormal findings on diagnostic imaging of other specified body structures Status: Acute Assessment and Plan: CT scan showed probable colitis in the right colon. Given the fact that she is now passing bloody stools I am the cut mid concerned about ischemic colitis. Will repeat CT scan (3) Moderate protein-calorie malnutrition: Code(s): E44.0 - Moderate protein-calorie malnutrition Status: Acute Assessment and Plan: TPN has been started. I discussed with the patient and her son the fact that she is getting adequate nutrition now parenterally and there is no clarke to have surgery. Nevertheless it appears that she will up some point need a right colectomy and or diverting ostomy of some sort. (4) Hematochezia: Code(s): K92.1 - Melena Status: Acute Assessment and Plan: hemoglobin today 12.3 after a passing a bloody stool. Her H&H have been all over the place, as high as 19 a couple of days ago but higher than when she came in. Plan For now continue NG suction and TPN. Dr. Foster will resume her care on Saturday. Subjective Date/time seen: 03/16/23 09:42 the patient is awake and comfortable. She states that her belly feels much softer. She is not having any discomfort. Her NG continues to put out dark bilious material. She has not had a bowel movement l this morning. She has been started on TPN Exam Const: General: alert Nutritional Appearance: cachectic Orientation/consciousness: patient oriented x3 Resp: Auscultation: clear to auscultation bilaterally Cardio: Rhythm: regular rhythm GI: Inspection: distended GI Palp: Yes Soft to palpation, Yes Tenderness to palpation present (GI) ( only in right lower quadrant), Yes No hepatosplenomegaly present and Yes Palpable mass present ( definite fullness in the right lower quadrant) Auscultation: High-pitched bowel sounds present ( tinkling in nature) Neuro: General: patient oriented x3 Objective Data Vital Signs Vital Signs: Vital Signs - 24 hr 03/15/23 13:53 03/15/23 12:00 03/15/23 16:00 Temperature 37.0 C Pulse Rate 70 83 71 Respiratory Rate 16 Blood Pressure 145/66 H Pulse Oximetry 98 03/15/23 22:00 03/15/23 20:50 03/16/23 00:00 Temperature 36.4 C Pulse Rate 75 82 78 Respiratory Rate 16 Blood Pressure 160/72 H Pulse Oximetry 96 03/16/23 04:00 03/16/23 06:00 Temperature 37.2 C Pulse Rate 81 80 Respiratory Rate 18 Blood Pressure 167/67 H Pulse Oximetry 98 Intake/Output Intake/Output: Intake & Output 03/13/23 03/14/23 03/15/23 03/16/23 23:59 23:59 23:59 23:59 Intake Total 2900 1410 2950 50 Output Total 2300 2150 2650 550 Balance 600 -740 300 -500 Meds/Results Medications: Active Medications Generic Name Dose Route Start Last Admin Trade Name Gilmarq PRN Reason Stop Dose Admin Acetaminophen 650 mg 03/08/23 16:34 03/12/23 13:50 Acetaminophen 325 Mg Tablet PO 650 mg Q4H PRN Administration Pain Rated 5 or Less Acetaminophen 650 mg 03/09/23 00:41 03/13/23 09:52 Acetaminophen 650 Mg Suppository RECTAL 650 mg Q6H PRN Administration Pain Rated 5 or Less Famotidine 20 mg 03/09/23 09:00 03/15/23 21:54 Famotidine 20 Mg/2 Ml Vial IV PUSH 20 mg Q12HR VITALIY Administration Ertapenem 0.5 gm/ Sodium 50 mls @ 1
[2023-03-16 11:08] LABS: Band Neutrophils Percent 26 % (0-6); Burr Cells 1+ (NORMAL); Eosinophils Absolute Manual 0.18 K/mm3 (0.02-0.5); Eosinophils Percent Manual 2 % (0-4); Lymphocytes Absolute Manual 0.93 K/mm3 (1.1-4.5); Monocytes Absolute Manual 1.39 K/mm3 (0.1-0.90); Monocytes Percent Manual 15 % (3-9); Neutrophils Absolute Manual 6.69 K/mm3 (1.7-7.2); Neutrophils Percent Manual 46 % (46-73); Plasma Cells 1; Schistocytes None Seen (NORMAL); Total Cells Counted 100
[2023-03-16 11:18] LABS: Glucose Point of Care 172 mg/dl (65-105)
[2023-03-16] MEDS: NICOTINE (*PBKC) 14 MG PATCH 1 PATCH TRANSDERM (11:23)
[2023-03-16] MEDS: FAMOTIDINE 20 MG/2 ML VIAL IV PUSH ×2 (11:23→21:26)
[2023-03-16] MEDS: KCL 20 MEQ/D5/0.45% SOD CHL 1,000 ML 100 ML IV CONT (11:46)
[2023-03-16 11:49] LABS: Hematocrit 34.9 % (37.0-47.0); Hemoglobin 11.3 g/dL (12.0-15.0)
[2023-03-16 12:04] LABS: Triglycerides 173 mg/dL (<150)
--- NOTE | 2023-03-16 13:39 | PM.PNGS ---
Progress Note: A&P Assessment and Plan (1) Colitis: Code(s): K52.9 - Noninfective gastroenteritis and colitis, unspecified Status: Acute Assessment and Plan: CT yesterday showing persistent colitis and new finding of pneumatosis. Concerning for worsened findings and eventual perforation without surgery. Discussed that surgery will be higher risk given her weakness, frailty, and other medical conditions. Eventual right hemicolectomy will be recommended. Will discuss with Anesthesiology and nursing cement finishing supervisor about timing. (2) Adynamic ileus: Code(s): K56.0 - Paralytic ileus Status: Acute Assessment and Plan: NG in place, likely related to #1. (3) SAMMY (acute kidney injury): Code(s): N17.9 - Acute kidney failure, unspecified Status: Acute Assessment and Plan: Cr slowly improving (4) Elevated troponin: Code(s): R77.8 - Other specified abnormalities of plasma proteins Status: Acute Assessment and Plan: Cardiology consulted. No further recs and they have s/o. [place] elevated Trop related to demand ischemia from ileus and dehydration. Echo 03/09 showed an EF of 50-55% with abnormal diastolic function, mild pulmonary hypertension, mild valvular disease and hypokinetic anteroseptum/ant wall/basal inferoseptum. Also noted with aneurysmal apical septum, apical inferior and apical wall. Repeat EKG showing AFib with controlled rate and prolonged QT but otherwise no change. (5) Atrial fibrillation: Code(s): I48.91 - Unspecified atrial fibrillation Status: Acute (6) CHF (congestive heart failure): Code(s): I50.9 - Heart failure, unspecified Status: Acute Assessment and Plan: CT Abd on admisison showing widespread septal thickening in the bases with peripheral airspace opacities, small pleural effusions and cardiomegaly. Echo as mentioned above. BNP greater than 30K. It is not felt patient has acute CHF since she appears dehydrated on admission and she is receiving IV fluids with benefit. Chest x-ray today shows mild pulmonary edema airspace opacities in left lung base consistent with atelectasis versus pneumonia. (7) Thrombocytopenia: Code(s): D69.6 - Thrombocytopenia, unspecified Status: Acute Assessment and Plan: improving since admission (8) Moderate protein-calorie malnutrition: Code(s): E44.0 - Moderate protein-calorie malnutrition Status: Acute Assessment and Plan: On TPN, continue until tolerating enteral diet Subjective Subjective Date/Time Seen: 03/16/23 13:39 Interval history: Still having abdominal pain. Pain is about the same as previous days. No fevers. Exam GI: Inspection: non-distended GI Palp: Yes Soft to palpation and Yes Tenderness to palpation present (GI) (RLQ and mild diffuse) Objective Data Vital Signs Vital Signs: Vital Signs - 24 hr 03/15/23 13:53 03/15/23 16:00 03/15/23 22:00 Temperature 37.0 C 36.4 C Pulse Rate 70 71 75 Respiratory Rate 16 16 Blood Pressure 145/66 H 160/72 H Pulse Oximetry 98 96 Oxygen Delivery 03/15/23 20:50 03/16/23 00:00 03/16/23 04:00 Temperature Pulse Rate 82 78 81 Respiratory Rate Blood Pressure Pulse Oximetry Oxygen Delivery 03/16/23 06:00 03/16/23 08:00 03/16/23 12:14 Temperature 37.2 C Pulse Rate 80 83 Respiratory Rate 18 Blood Pressure 167/67 H Pulse Oximetry 98 96 Oxygen Delivery Room Air 03/16/23 12:00 Temperature Pulse Rate 78 Respiratory Rate Blood Pressure Pulse Oximetry Oxygen Delivery Intake/Output Intake/Output: Intake & Output 03/13/23 03/14/23 03/15/23 03/16/23 23:59 23:59 23:59 23:59 Intake Total 2900 1410 2950 50 Output Total 2300 2150 2650 550 Balance 600 -740 300 -500 Meds/Results Medications: Active Medications Generic Name Dose Route Start Last Admin Trade Name Freq PRN Reason Stop Dose Admin Acetaminophen
[2023-03-16] MEDS: AMINO ACIDS 5%/D15W/E-LYTES/CA 2,000 ML with MULTIVITAMINS-12 INJ VIAL 1 2.5 ML, MULTIV... 40 ML IV CONT (14:46)
[2023-03-16] MEDS: ERTAPENEM SODIUM 0.5 GM in SODIUM CHLORIDE 0.9% IV 50 ML IVPB (14:47)
--- NOTE | 2023-03-16 17:17 | PM.IMPN ---
Progress Note: A&P Assessment and Plan (1) Adynamic ileus: Code(s): K56.0 - Paralytic ileus Status: Acute Assessment and Plan: Patient presents with n/v and severe abdominal pain. CT Abd/Pelvis showing dilated large and small bowel likely adynamic ileus. Focal wall thickening of the ascending colon with adjacent fat stranding. Surgery consulted and NG tube placed. NGT pulled out by by patient requiring restraints. UGI-SBS showing contrast to cecum in 2-3 hours with moderate SB dilation. Patient continued to have symptoms so NGT replaced. She had bloody BM on 03/[address] Abd/pelvis showing persistent focal ascending colon wall thickening suspicious for malignancy with pneumatosis in the right colon more proximal to the focal wall thickening. Dilated SB without focal transition point. She remains on IV abx. WBC normal now. Plt count trending up. [place] to have infectious colitis with ischemia. Continue NG tube to suction. PICC line placed and TPN started. Monitor electrolyte abnormalities. Discussed with surgery with plans for possible right cole-colectomy tomorrow. (2) SAMMY (acute kidney injury): Code(s): N17.9 - Acute kidney failure, unspecified Status: Acute Assessment and Plan: Unknown prior values but patient reports no renal dysfunction. Creatinine peaked at 2.3 suspected prerenal related to dehydration, UTI and decreased oral intake/vomiting. Cr down today to 1.3 UOP 1150mL yesterday TPN started. Continue to monitor electrolytes, renal function and UOP (3) Colitis: Code(s): K52.9 - Noninfective gastroenteritis and colitis, unspecified Status: Acute Assessment and Plan: CT scan shows focal wall thickening of the ascending colon with adjacent fat stranding suggestive of infection versus malignancy. Zosyn started 03/09. 03/12: WBC climbing so Zosyn stopped. Vanc, cefepime, Flagyl started. UCx 03/08 and 03/11: Negative BCx 03/08: (1of2) growing ESBL EColi. BCx 03/10: Negative MRSA swab 03/12: Negative. Blood culture positive for ESBL E coli so cefepime and Flagyl discontinued in favor of meropenem, vancomycin. Source felt to be related to the colitis. Vancomycin stopped and changed to Ertapenem. WBC normal. Plt count better. No fevers. (4) Elevated troponin: Code(s): R77.8 - Other specified abnormalities of plasma proteins Status: Acute Assessment and Plan: New onset atrial fibrillation. No chest pain but troponin is elevated and flat at 0.45. EKG cannot exclude [place]. Cardiology consulted and appreciate their input. No further recs and they have s/o. [place] elevated Trop related to demand ischemia from ileus and dehydration. Echo 03/09 showed an EF of 50-55% with abnormal diastolic function, mild pulmonary hypertension, mild valvular disease and hypokinetic anteroseptum/ant wall/basal inferoseptum. Also noted with aneurysmal apical septum, apical inferior and apical wall. Repeat EKG showing AFib with controlled rate and prolonged QT but otherwise no change. Zofran stopped. (5) Atrial fibrillation: Code(s): I48.91 - Unspecified atrial fibrillation Status: Acute Assessment and Plan: EKG on admission showing AFib that is a new diagnosis. Rate was controlled so it is unknown how long she has been in AFib. Anticoagulation held. Echo as above. TSH normal. HENRY-Vasc at least 4 warrants anticoagulation. Tele showing episode of NSVT. Potassium better with potassium in fluids. Sodium higher so fluids change to D51/2NS with 20 KCl. Mag at 2.6. Will repeat EKG to assess QT. (6) CHF (congestive heart failure): Code(s): I50.9 - Heart failure, unspecified Status: Acute Assessment and Plan: CT Abd on admisison showing widespread septal thickening in the bases with peripheral airspace opacities, small pleural effusions and cardiomegaly. Echo as mentioned above. BNP greater than 30K. It is not felt patient has acute CHF since she appears dehydrated on
[2023-03-17] VITALS (28 sets, daily range): BP systolic 98–164; BP diastolic 49–76; PULSE 77–101; RESP 16–39; TEMP 35.6–37.3; O2SAT 98–100
[2023-03-17] MEDS: KCL 20 MEQ/D5/0.45% SOD CHL 1,000 ML 100 ML IV CONT (02:22)
[2023-03-17] MEDS: CENTRAL LINE FLUSH 10 ML IV PUSH ×3 (06:02→22:00)
[2023-03-17 06:35] LABS: Hematocrit 34.6 % (37.0-47.0); Hemoglobin 11.1 g/dL (12.0-15.0); Mean Corpuscular HGB Conc 32.1 g/dl (32-36); Mean Corpuscular Hemoglobin 29.6 pg (26-34); Mean Corpuscular Volume 92.3 fl (80-100); Mean Platelet Volume 11.9 fl (7.4-10.4); Platelet Count Result 129 k/mm3 (150-375); Red Blood Count 3.75 M/mm3 (4.2-5.4); Red Cell Distribution Width 14.6 % (11.5-14.5); White Blood Count 9.4 K/mm3 (4.5-10.0)
[2023-03-17 06:36] LABS: INR 1.2; Prothrombin Time 15.6 Seconds (11.1-14.7)
[2023-03-17 06:42] LABS: Alanine Aminotransferase 32 U/L (6-35); Albumin Level 2.5 g/dL (3.5-5.1); Alkaline Phosphatase 67 U/L (38-126); Anion Gap 3 mmol/L (8-16); Aspartate Amino Transferase 60 U/L (14-36); Bilirubin,Total 1.5 mg/dL (0.2-1.3); Blood Urea Nitrogen 39 mg/dL (7-17); Calcium 7.9 mg/dL (8.4-10.2); Carbon Dioxide 28 mmol/L (22-30); Chloride 117 mmol/L (98-107); Estimated CRCL calculation 22 ml/min; Estimated Glomerular Filt Rate 40; Glucose 146 mg/dL (65-110); Magnesium 2.3 mg/dL (1.6-2.3); Phosphorus 2.6 mg/dL (2.5-4.5); Potassium 4.1 mmol/L (3.4-5.0); Sodium 148 mmol/L (137-145)
[2023-03-17 06:42] LABS: Lactic Acid Reflex 1.5 mmol/L (0.7-2.0)
[2023-03-17 06:56] LABS: Glucose Point of Care 147 mg/dl (65-105)
--- NOTE | 2023-03-17 07:00 | ECG_ITS ---
Measurements Intervals [place] Rate: 78 P: GA: 0 QRS: 53 QRSD: 71 T: 84 QT: 453 QTc: 517 Interpretive Statements ATRIAL FIBRILLATION ANTEROSEPTAL INFARCT, AGE INDETERMINATE BORDERLINE ST-T WAVE ABNORMALITY- HIGH LATERAL LEADS BASELINE ARTIFACT- V5-V6 ABNORMAL ECG COMPARED TO ECG 03/14/2023 15:38:52 Electronically Signed On 03-17-2023 7:59:38 CDT by Danilo Tian D.O.
--- NOTE | 2023-03-17 07:05 | PC.NURSE ---
PT pulled out NG tube called Misti and was told to place a new one.
[2023-03-17 07:30] LABS: Band Neutrophils Percent 40 % (0-6); Lymphocytes Absolute Manual 0.65 K/mm3 (1.1-4.5); Monocytes Percent Manual 16 % (3-9); Neutrophils Absolute Manual 7.23 K/mm3 (1.7-7.2); Neutrophils Percent Manual 37 % (46-73); Total Cells Counted 100
[2023-03-17 07:31] LABS: Schistocytes None Seen (NORMAL)
--- NOTE | 2023-03-17 07:46 | WPDHPUPDATE1 ---
History and Physical Update Update Date/Time: 03/17/23 07:46 History and Physical has been reviewed, including an updated exam of the patient. There are NO changes in the patient's condition. Risks, benefits, and alternatives have been discussed and questions answered. Patient agrees to proceed with procedure.
--- NOTE | 2023-03-17 07:49 | WPDANESEPPF ---
Anes - Initial Pre Proc Eval Procedure: Operation Date: 03/13/23 12:00 Proposed Procedures p Colonoscopy - Chance Foster MD Operation Date: 03/17/23 07:30 Proposed Procedures p Right Colon Resection Hemicolectomy - Viktor Chappell DO Date/Time: 03/17/23 07:49 Surgeon: Nathan Lu MD Pre Op Diagnosis: Ileus Patient Data Age: 77 Gender: F Height: 1.68 m Weight: 44.3 kg Last Vital Signs Temp 36.1 C L 03/17/23 06:00 Pulse 80 03/17/23 06:00 Resp 16 03/17/23 06:00 BP 164/76 H 03/17/23 06:00 Pulse Ox 98 03/17/23 06:00 O2 Del Method Room Air 03/16/23 12:14 Allergies Allergy/AdvReac Type Severity Reaction Status Date / Time No Known Allergies Allergy Verified 03/08/23 10:13 Home Medications Medication Instructions Recorded Confirmed Type No Home Medications 03/08/23 03/08/23 History Laboratory Tests 03/16/23 03/16/23 03/16/23 06:23 11:15 11:37 WBC 9.3 K/mm3 (4.5-10.0) RBC 3.95 L M/mm3 (4.2-5.4) Hgb 11.7 L g/dL 11.3 L g/dL (12.0-15.0) (12.0-15.0) Hct 36.8 L % 34.9 L % (37.0-47.0) (37.0-47.0) MCV 93.2 fl (80-100) MCH 29.6 pg (26-34) MCHC 31.8 L g/dl (32-36) RDW 14.6 H % (11.5-14.5) Plt Count 137 L k/mm3 (150-375) MPV 12.8 H fl (7.4-10.4) Immature Gran % (Auto) Not Reportable Neut % (Auto) Not Reportable Lymph % (Auto) Not Reportable [place] % (Auto) Not Reportable Eos % (Auto) Not Reportable Baso % (Auto) Not Reportable Lymph # (Auto) Not Reportable [place] # (Auto) Not Reportable Eos # (Auto) Not Reportable Baso # (Auto) Not Reportable Abs Immat Gran (auto) Not Reportable Absolute Neuts (auto) Not Reportable Absolute Nucleated RBC Not Reportable Total Counted 100 Neutrophils % (Manual) 46 % (46-73) Band Neutrophils % 26 H % (0-6) Lymphocytes % (Manual) 10.0 L % (18-44) Monocytes % (Manual) 15 H % (3-9) Eosinophils % (Manual) 2 % (0-4) Nucleated RBC % Not Reportable Abs Neuts (Manual) 6.69 K/mm3 (1.7-7.2) Abs Lymphs (Manual) 0.93 L K/mm3 (1.1-4.5) Abs Monocytes (Manual) 1.39 H K/mm3 (0.1-0.90) Absolute Eos (Manual) 0.18 K/mm3 (0.02-0.5) Plasma Cells 1 Platelet Estimate Slightly decreased (Adequate) [place] Cells 1+ (NORMAL) Schistocytes None seen (NORMAL) PT INR Sodium Potassium Chloride Carbon Dioxide Anion Gap BUN Creatinine Estim Creat Clear Calc Estimated GFR Glucose POC Capillary Glucose 172 H mg/dl (65-105) Lactic Acid Calcium Phosphorus Magnesium 2.5 H mg/dL (1.6-2.3) Total Bilirubin AST ALT Alkaline Phosphatase Total Protein Albumin Triglycerides 173 H mg/dL (<150) 03/17/23 03/17/23 03/17/23 06:20 06:21 06:52 WBC 9.4 K/mm3 (4.5-10.0) RBC 3.75 L M/mm3 (4.2-5.4) Hgb 11.1 L g/dL (12.0-15.0) Hct 34.6 L % (37.0-47.0) MCV 92.3 fl (80-100) MCH 29.6 pg (26-34) MCHC 32.1 g/dl (32-36) RDW 14.6 H % (11.5-14.5) Plt Count 129 L k/mm3 (150-375) MPV 11.9 H fl (7.4-10.4) Immature Gran % (Auto) Not Reportable Neut % (Auto) Not Reportable Lymph % (Auto) Not Reportable [place] % (Auto) Not Reportable Eos % (Auto) Not Reportable Baso % (Auto) Not Reporta
--- NOTE | 2023-03-17 09:08 | PM.IMPN ---
Progress Note: A&P Assessment and Plan (1) Necrosis of intestine: Code(s): K55.069 - Acute infarction of intestine, part and extent unspecified Status: Acute Assessment and Plan: Patient presents with n/v and severe abdominal pain. CT Abd/Pelvis showing dilated large and small bowel likely adynamic ileus. Focal wall thickening of the ascending colon with adjacent fat stranding. She was started on IV abx. Surgery consulted and NG tube placed. Symptoms improved and UGI-SBS showing contrast to cecum in 2-3 hours with moderate SB dilation. Diet started but symptoms worsened again so NGT replaced. She had bloody BM and CT Abd/pelvis showing persistent focal ascending colon wall thickening suspicious for malignancy with pneumatosis in the right colon more proximal to the focal wall thickening. Dilated SB without focal transition point. PICC line placed and TPN started. Patient went for surgery 9. and found to have significant segment of necrotic bowel involving the ileum and ascending colon. About 4 ft of distal small bowel and ascending colon were resected. There were 2 small areas of perforation on the distal ileum and the cecum appeared very thin and near perforation. There was not much spillage into the abdominal cavity as the perforation appeared to be walled off. Patient underwent a side to side enterocolonic anastomosis from the jejunum to the transverse colon. She tolerated procedure well but had some respiratory difficulties in the PACU. She was admitted to the ICU for this reason. Discussed with surgery. Surgery felt that patient may have had an embolic event from her AFib resulting in the necrotic bowel. Continue IV antibiotics. Continue supportive care. Continue dressing changes per surgery. (2) Acute respiratory failure: Code(s): J96.00 - Acute respiratory failure, unspecified whether with hypoxia or hypercapnia Status: Acute Assessment and Plan: Patient developed respiratory difficulties in the PACU was placed on BiPAP. Patient was admitted to the ICU. ABG shows 7.42/36/149 on BiPAP. Wean FiO2. Tub Mender has been consulted. Appreciate their input. Discussed with communications assistant. (3) SAMMY (acute kidney injury): Code(s): N17.9 - Acute kidney failure, unspecified Status: Acute Assessment and Plan: Unknown prior values but patient reports no renal dysfunction. Creatinine peaked at 2.3 suspected prerenal related to dehydration, UTI and decreased oral intake/vomiting. Cr down to 1.3 UOP 1300mL yesterday Continue TPN Continue to monitor electrolytes, renal function and UOP (4) Colitis: Code(s): K52.9 - Noninfective gastroenteritis and colitis, unspecified Status: Acute Assessment and Plan: CT scan shows focal wall thickening of the ascending colon with adjacent fat stranding suggestive of infection versus malignancy. Zosyn started 03/09. 03/12: WBC climbing so Zosyn stopped. Vanc, cefepime, Flagyl started. UCx 03/08 and 03/11: Negative BCx 03/08: (1of2) growing ESBL EColi. BCx 03/10: Negative MRSA swab 03/12: Negative. Blood culture positive for ESBL E coli so cefepime and Flagyl discontinued in favor of meropenem, vancomycin. Source felt to be necrotic bowel. Vancomycin stopped and changed to Ertapenem. WBC normal. Plt count better. No fevers. (5) Elevated troponin: Code(s): R77.8 - Other specified abnormalities of plasma proteins Status: Acute Assessment and Plan: New onset atrial fibrillation. No chest pain but troponin is elevated and flat at 0.45. EKG cannot exclude [place]. Cardiology consulted and appreciate their input. [place] elevated Trop related to demand ischemia from ileus and dehydration. Echo 03/09 showed an EF of 50-55% with abnormal diastolic function, mild pulmonary hypertension, mild valvular disease and hypokinetic anteroseptum/ant wall/basal inferoseptum. Also noted with aneurysmal apical septum, apical inferior and apical wall. Ap
--- NOTE | 2023-03-17 09:39 | W.PM.PROC2 ---
Procedure Note - Detailed Date of Procedure 03/17/23 Pre-op Diagnosis Small-bowel obstruction, colitis Post-op Diagnosis Other (Acute mesenteric ischemia, perforated ileum) Procedure Performed 1. Exploratory laparotomy 2. Right hemicolectomy with enterocolic anastomosis Surgeon Viktor Chappell, DO Anesthesia General Indications This is a 77-year-old woman who presented with abdominal pain and distension. She presented to the emergency department on 03/08/[address] at that time showed small bowel and large bowel dilation suggesting ileus or bowel obstruction without transition. Was also some signs of colitis involving the ascending colon or possible malignancy. She was admitted for further treatment. Over the next week she still was not showing any signs of complete resolution of her symptoms. She had an NG tube in place and small-bowel follow-through did show eventual contrast making it to the colon after about 3 hours. She had a repeat CT on 03/15/2023 which showed evidence of worsening colitis with findings of pneumatosis. She still remained hemodynamically stable and was not showing any signs of perforation. Discussions were made with the patient and family about risks of perforation and decision was made to proceed with open right hemicolectomy. Findings Exploratory laparotomy was performed. The patient was found to have a significant segment of necrotic bowel involving the ileum and ascending colon. The transverse colon appeared healthy and viable and the proximal 150 cm jejunum appeared healthy and viable. The remainder of the bowel appeared necrotic. There were 2 small areas of perforation on the distal ileum, and the cecum appeared very thin and near perforation. There did not appear to be much spillage into the abdominal cavity as the perforation appeared to be walled off by another loop of ileum. I resected about 4 ft of distal small bowel and the ascending colon. I used the Doppler to confirm adequate pulsations along the anti mesenteric border of the proximal small bowel. A [id number] enterocolonic anastomosis was performed from the jejunum to the transverse colon. Description of Procedure Procedure as well as risks, benefits, and alternatives were discussed with the patient and her family. Written consent was obtained and placed in chart prior to procedure. Patient was brought back to surgical suite. She was placed supine on operating table. Time-out was done to confirm patient and procedure. She was then intubated by the anesthesia department. Her abdomen was then prepped and draped in sterile fashion using chlorhexidine prep. A 20 cm vertical midline incision was made using a 10 blade scalpel. Electrocautery was used for hemostasis and for dissection through the subcutaneous tissue. The linea alba was then incised using electrocautery. The abdominal cavity was then entered through the peritoneum with electrocautery. I then extended the fascia and peritoneal incision throughout the length of the skin incision using electrocautery. There was 1 area of omentum adherent to the left side of the abdominal wall. This was taken down using electrocautery. The remainder of the abdominal wall appeared relatively free of adhesions. I then placed an [place] wound protector and carefully began inspecting the abdominal cavity. Necrotic bowel was identified and carefully traced back proximally to the area where it began appearing healthy. I then also traced the small bowel distally to the ascending colon and there 2 small areas of perforation the ileum. A bowel clamp was placed proximal and distal to the perforation to help prevent spillage. The remainder of the small bowel was then inspected to the terminal ileum. The ascending colon appeared necrotic as well but there were no other signs perforation. The lateral peritoneal reflections of the ascending colon were taken down using electrocautery. LigaSure bipolar cautery was used to take
[2023-03-17] MEDS: LACTATED RINGERS 1,000 ML 30 ML IV CONT ×2 (09:50)
--- NOTE | 2023-03-17 10:23 | SUR.PHASEI ---
1021 - RT at bedside placing patient on bipap. Dr. Gamboa in PACU
--- NOTE | 2023-03-17 11:41 | WPDCNINT ---
Assessment and Plan Assessment and plan (1) Acute respiratory failure: Code(s): J96.00 - Acute respiratory failure, unspecified whether with hypoxia or hypercapnia Status: Acute Assessment and Plan: Acute hypoxic Respiratory failure secondary to general anesthesia, congestive heart failure, pulmonary edema, pleural effusion, atelectasis Patient currently on BiPAP Check aBG and PCXR Hold IV fluids Lasix IV Bronchodilators (2) Colitis: Code(s): K52.9 - Noninfective gastroenteritis and colitis, unspecified Status: Acute Assessment and Plan: Ischemic colitis status post ex flow rate 3 laparotomy and right hemicolectomy with anterior colic anastomosis NG tube in place IV Invanz Blood culture growing E coli ESBL (3) CHF (congestive heart failure): Code(s): I50.9 - Heart failure, unspecified Status: Acute Assessment and Plan: Echo reviewed will give Lasix (4) SAMMY (acute kidney injury): Code(s): N17.9 - Acute kidney failure, unspecified Status: Acute Assessment and Plan: Patient presented with elevated creatinine of 1.9 which increased and peaked at 2.3 and is now down to 1.3 SAMMY likely multifactorial and baseline creatinine Patient now overall volume overloaded with third-spacing and intravascularly dry CT scan negative for any hydronephrosis or obstruction Monitor urine output electrolytes and creatinine Recheck labs now Hold further IV fluids (5) Atrial fibrillation: Code(s): I48.91 - Unspecified atrial fibrillation Status: Acute Assessment and Plan: Patient in atrial fibrillation with controlled ventricular rate at this time Hold anticoagulation since patient is postop Add aspirin (6) Thrombocytopenia: Code(s): D69.6 - Thrombocytopenia, unspecified Status: Acute Assessment and Plan: Although patient presented with thrombocytopenia this could be secondary to sepsis. Monitor (7) UTI (urinary tract infection): Code(s): N39.0 - Urinary tract infection, site not specified Status: Acute Assessment and Plan: UA suggestive of UTI. Urine culture negative Patient on Invanz Plan DVT prophylaxis -Lovenox Stress ulcer prophylaxis -PPI Nutrition -patient was on TPN. Code Status - DNR. I spoke to patient's daughter Diana at bedside and updated her with patient's current status including respiratory failure, ischemic colitis coags approximately and resection, acute kidney injury, congestive heart failure and sepsis. We discussed goals of care and code status. She requested the patient be made DNR DNI as per her wishes. She states she would not want to go on a ventilator or want resuscitation if her 'heart stops'. Total Critical Care Time - 35 minutes Due to a high probability of clinically significant, life threatening deterioration, the patient required my highest level of preparedness to intervene emergently and I personally spent this critical care time directly and personally managing the patient. This critical care time included obtaining a history; examining the patient; pulse oximetry; ordering and review of studies; arranging urgent treatment with development of a management plan; evaluation of patient's response to treatment; frequent reassessment; and discussions with other providers. It was exclusive of separately billable procedures and treating other patients and teaching time. Please see Assessment and Plan section and the rest of the note for further information on patient assessment and treatment [facility] Consult Note Consult date: 03/17/23 Reason for consult: Acute Resp Failure HPI: Nataliya Mendoza is a 77 year old female with history of dementia GERD CVA hypothyroidism CHF presented on 03/08 with chief complaint of abdominal pain. CT abdomen at that time showed IMPRESSION: 1. Dilated small and large bowel, likely adynamic ileus. 2. Focal wall thickening of the ascending co
[2023-03-17 12:52] LABS: Alveolar/Arterial O2 Gradient 130.4 mmHg; Base Excess ABG -0.9 mEq/l (+/-2.0); Fractional Inspired Oxygen 45 %; HCO3 ABG 23.2 mEq/l (22.0-26.0); Oxygen Content ABG 17.2 %vol (16.0-22.0); Oxyhemoglobin 97.1 % THb (90.0-100.0); PCO2 ABG 36.4 mmHg (35.0-45.0); PO2 FiO2 Ratio Arterial Blood 3.31 %; Total Hemoglobin 12.4 g/dL (12.0-18.0); pH ABG 7.422 (7.350-7.450)
[2023-03-17 12:53] LABS: Modified Allen's Test Pass; Site Drawn RIGHT RADIAL
[2023-03-17] MEDS: PANTOPRAZOLE SODIUM IV 40 MG VIAL IV PUSH (12:53)
[2023-03-17] MEDS: FUROSEMIDE INJ 40 MG/4 ML VIAL 80 MG IV PUSH (12:53)
[2023-03-17 12:54] LABS: Device BIPAP; Inspiratory Pressure 14 cmH2O
[2023-03-17] MEDS: FAMOTIDINE 20 MG/2 ML VIAL IV PUSH (12:54)
[2023-03-17 12:55] LABS: Expiratory Pressure 8 cmH2O
[2023-03-17 13:34] LABS: Glucose Point of Care 121 mg/dl (65-105)
--- NOTE | 2023-03-17 14:17 | PCOTNOTE ---
Patient moved to ICU due to change in status, on bipap. Will follow for re-evaluation.
[2023-03-17] MEDS: AMINO ACIDS 5%/D15W/E-LYTES/CA 2,000 ML with MULTIVITAMINS-12 INJ VIAL 1 2.5 ML, MULTIV... 40 ML IV CONT (14:53)
[2023-03-17] MEDS: ERTAPENEM SODIUM 0.5 GM in SODIUM CHLORIDE 0.9% IV 50 ML IVPB (14:56)
[2023-03-17] MEDS: ASPIRIN 300 MG SUPPOSITORY RECTAL (15:16)
[2023-03-17 17:41] LABS: Glucose Point of Care 152 mg/dl (65-105)
[2023-03-17] MEDS: MORPHINE SULFATE (*CRX) 2 MG/ML INJ IV PUSH (19:41)
[2023-03-18] VITALS (17 sets, daily range): BP systolic 102–121; BP diastolic 50–74; PULSE 76–87; RESP 17–26; TEMP 35.7–36.4; O2SAT 98–100
[2023-03-18] MEDS: MORPHINE SULFATE (*CRX) 2 MG/ML INJ IV PUSH ×3 (00:56→20:48)
[2023-03-18 01:16] LABS: Glucose Point of Care 155 mg/dl (65-105)
[2023-03-18 04:47] LABS: Hematocrit 32.8 % (37.0-47.0); Hemoglobin 10.3 g/dL (12.0-15.0); Mean Corpuscular HGB Conc 31.4 g/dl (32-36); Mean Corpuscular Hemoglobin 29.9 pg (26-34); Mean Corpuscular Volume 95.3 fl (80-100); Mean Platelet Volume 12.1 fl (7.4-10.4); Platelet Count Result 114 k/mm3 (150-375); Red Blood Count 3.44 M/mm3 (4.2-5.4); Red Cell Distribution Width 14.6 % (11.5-14.5); White Blood Count 12.2 K/mm3 (4.5-10.0)
[2023-03-18 04:58] LABS: INR 1.3; Partial Thromboplastin Time 29.5 SECONDS (22.3-36.8); Prothrombin Time 16.5 Seconds (11.1-14.7)
[2023-03-18 05:02] LABS: Alanine Aminotransferase 24 U/L (6-35); Albumin Level 2.2 g/dL (3.5-5.1); Alkaline Phosphatase 49 U/L (38-126); Anion Gap 3 mmol/L (8-16); Aspartate Amino Transferase 27 U/L (14-36); Bilirubin,Total 1.4 mg/dL (0.2-1.3); Blood Urea Nitrogen 50 mg/dL (7-17); Calcium 7.2 mg/dL (8.4-10.2); Carbon Dioxide 28 mmol/L (22-30); Chloride 115 mmol/L (98-107); Estimated CRCL calculation 18 ml/min; Estimated Glomerular Filt Rate 31; Glucose 155 mg/dL (65-110); Magnesium 2.2 mg/dL (1.6-2.3); Potassium 4.3 mmol/L (3.4-5.0); Sodium 146 mmol/L (137-145); Triglycerides 199 mg/dL (<150)
[2023-03-18 05:04] LABS: Transferrin 93 mg/dL (206-381)
[2023-03-18 05:16] LABS: Band Neutrophils Percent 10 % (0-6); Eosinophils Absolute Manual 0.12 K/mm3 (0.02-0.5); Eosinophils Percent Manual 1 % (0-4); Lymphocytes Absolute Manual 0.97 K/mm3 (1.1-4.5); Monocytes Absolute Manual 0.97 K/mm3 (0.1-0.90); Monocytes Percent Manual 8 % (3-9); Neutrophils Absolute Manual 10.12 K/mm3 (1.7-7.2); Neutrophils Percent Manual 73 % (46-73); Total Cells Counted 100
[2023-03-18 05:17] LABS: Schistocytes Rare (NORMAL)
[2023-03-18] MEDS: CENTRAL LINE FLUSH 10 ML IV PUSH ×3 (06:00→21:00)
--- NOTE | 2023-03-18 07:20 | WPDANESPN ---
Anes - Prog Note Post-Op Date/Time: 03/18/23 07:20 Cardiovascular status: normal Respiratory status: normal and other (bipap while sleeping. 14. FiO2 30%) Airway patency: baseline Mental status: baseline Post-Op hydration status: normal Vital Signs: Last Vital Signs Temp 35.7 C L 03/18/23 04:00 Pulse 77 03/18/23 06:00 Resp 24 H 03/18/23 06:00 BP 116/58 L 03/18/23 06:00 Pulse Ox 99 03/18/23 06:00 O2 Del Method BiPAP 03/18/23 04:00 O2 Flow Rate 8 03/17/23 10:05 FiO2 30 03/18/23 04:00 Pain Score (VAS): 07/10 I/O: Intake & Output 03/17/23 03/17/23 03/18/23 15:59 23:59 07:59 Intake Total 1127.9 727 Output Total 005 614 3440 Balance 847.9 92979 Laboratory Tests 03/18/23 04:36 03/18/23 04:36 03/17/23 03/17/23 03/17/23 06:20 12:45 13:28 WBC 9.4 RBC 3.75 L Hgb 11.1 L Hct 34.6 L MCV 92.3 MCH 29.6 MCHC 32.1 RDW 14.6 H Plt Count 129 L MPV 11.9 H Immature Gran % (Auto) Not Reportable Neut % (Auto) Not Reportable Lymph % (Auto) Not Reportable [place] % (Auto) Not Reportable Eos % (Auto) Not Reportable Baso % (Auto) Not Reportable Lymph # (Auto) Not Reportable [place] # (Auto) Not Reportable Eos # (Auto) Not Reportable Baso # (Auto) Not Reportable Abs Immat Gran (auto) Not Reportable Absolute Neuts (auto) Not Reportable Absolute Nucleated RBC Not Reportable Total Counted 100 Neutrophils % (Manual) 37 L Band Neutrophils % 40 H Lymphocytes % (Manual) 7.0 L Monocytes % (Manual) 16 H Eosinophils % (Manual) Nucleated RBC % Not Reportable Abs Neuts (Manual) 7.23 H Abs Lymphs (Manual) 0.65 L Abs Monocytes (Manual) 1.50 H Absolute Eos (Manual) Platelet Estimate Slightly decreased Schistocytes None seen PT INR APTT Puncture Site Right radial ABG pH 7.422 ABG pCO2 36.4 ABG pO2 149.0 H ABG PO2/FiO2 Ratio 3.31 ABG HCO3 23.2 ABG O2 Saturation 99.0 ABG O2 Content 17.2 ABG Base Excess -0.9 A-a Gradient 130.4 Oxyhemoglobin 97.1 Total Hemoglobin 12.4 O2 Delivery Device Bipap O2 Liters/Min FiO2 45 Expiratory Pressure 8 Inspiratory Pressure 14 Sodium Potassium Chloride Carbon Dioxide Anion Gap BUN Creatinine Estim Creat Clear Calc Estimated GFR Glucose POC Capillary Glucose 121 H Calcium Phosphorus Magnesium Transferrin Total Bilirubin AST ALT Alkaline Phosphatase Total Protein Albumin Triglycerides 03/17/23 03/18/23 03/18/23 17:38 01:14 04:36 WBC 12.2 H RBC 3.44 L Hgb 10.3 L Hct 32.8 L MCV 95.3 MCH 29.9 MCHC 31.4 L RDW 14.6 H Plt Count 114 L MPV 12.1 H Immature Gran % (Auto) Not Reportable Neut % (Auto) Not Reportable Lymph % (Auto) Not Reportable [place] % (Auto) Not Reportable Eos % (Auto) Not Reportable Baso % (Auto) Not Reportable Lymph # (Auto) Not Reportable [place] # (Auto) Not Reportable Eos # (Auto) Not Reportable Baso # (Auto) Not Reportable Abs Immat Gran (auto) Not Reportable Absolute Neuts (auto) Not Reportable Absolute Nucleated RBC Not Reportable Total Counted 100 Neutrophils % (Manual) 73 Band Neutrophils % 10 H Lymphocytes % (Manual) 8.0 L Monocytes % (Manual) 8 Eosinophils % (Manual) 1 Nucleated RBC % Not Reportable Abs Neuts (Manual) 10.12 H Abs Lymphs (Manual) 0.97 L Abs Monocytes (Manual) 0.97 H Absolute Eos (Manual) 0.12 Platelet Estimate Slightly decreased Schistocytes Rare PT 16.5 H INR 1.3 APTT 29.5 Puncture Site ABG pH ABG pCO2 ABG pO2 ABG PO2/FiO2 Ratio ABG HCO3 ABG O2 Saturation ABG O2 Content ABG Base Excess A-a Gradient Oxyhemoglobin Total Hemoglobin O2 Delivery Device O2 Liters/Min FiO2 Expiratory Pressure Inspirat
[2023-03-18] MEDS: ENOXAPARIN 30 MG/0.3 ML SYRINGE SUB-Q (08:48)
[2023-03-18] MEDS: PANTOPRAZOLE SODIUM IV 40 MG VIAL IV PUSH (08:48)
--- NOTE | 2023-03-18 10:23 | PCFNICU ---
ICU Rounding Note: Pt current nutrition is TPN Clinmix @ 40 ml/h: 1182 kcal, 48 g protein, 1210 ml total volume. NPO with ice chips. Nutrition recommendation: Last recorded weight is 50.1 kg. Bowel Motility: Last BM recorded 03/15/23 Labs Reviewed: Hgb 10.3, Hct 32.8, Alb 2.2, Na 146, GFR 31, BUN 50, Cre 1.6, Glu 155, TRIG 199. Meds Noted: Ertapenem, protonix Skin: Blanchable redness to sacrum. Surgical incision to abdomen Additional Notes: S/P R hemicolectomy with 5 feet of large intestine removed s/t ischemic colitis. Tolerating TPN. May need to decrease lipids to every other day if TRIG increased at next lab result. Following daily in ICU rounds. Monitor diet orders, intake, wt, labs. Follow up in 3 days. .
--- NOTE | 2023-03-18 10:27 | WPDINTPN ---
Progress Note: A&P Assessment and Plan (1) Acute respiratory failure: Code(s): J96.00 - Acute respiratory failure, unspecified whether with hypoxia or hypercapnia Status: Acute Assessment and Plan: Acute hypoxic Respiratory failure secondary to general anesthesia, congestive heart failure, pulmonary edema, pleural effusion, atelectasis Patient was on BiPAP through the night and now on nasal cannula. No respiratory distress maintaining adequate vaccination Chest x-ray reviewed Hold IV fluids Hold further diuretics Patient has heavy history of smoking and does have hyperinflation on chest x-ray suggestive of COPD. She also has occasional wheezing on exam. Continue bronchodilators. Will consider short course of steroids if okay with General surgery. (2) Colitis: Code(s): K52.9 - Noninfective gastroenteritis and colitis, unspecified Status: Acute Assessment and Plan: Ischemic colitis status post ex flow rate 3 laparotomy and right hemicolectomy with anterior colic anastomosis NG tube in place IV Invanz Blood culture growing E coli ESBL (3) CHF (congestive heart failure): Code(s): I50.9 - Heart failure, unspecified Status: Acute Assessment and Plan: Echo reviewed Received Lasix on admission to ICU (4) SAMMY (acute kidney injury): Code(s): N17.9 - Acute kidney failure, unspecified Status: Acute Assessment and Plan: Patient presented with elevated creatinine of 1.9 which increased and peaked at 2.3 and is now down to 1.3 SAMMY likely multifactorial and baseline creatinine Patient received Lasix yesterday after admission to ICU due to respiratory failure CT scan negative for any hydronephrosis or obstruction Monitor urine output electrolytes and creatinine Continue TPN (5) Atrial fibrillation: Code(s): I48.91 - Unspecified atrial fibrillation Status: Acute Assessment and Plan: Patient in atrial fibrillation with controlled ventricular rate at this time Hold starting any anticoagulation since patient is postop. Continue aspirin (6) Thrombocytopenia: Code(s): D69.6 - Thrombocytopenia, unspecified Status: Acute Assessment and Plan: Although patient presented with thrombocytopenia this could be secondary to sepsis. Monitor (7) UTI (urinary tract infection): Code(s): N39.0 - Urinary tract infection, site not specified Status: Acute Assessment and Plan: UA suggestive of UTI. Urine culture negative Patient on Invanz Plan DVT prophylaxis -Lovenox Stress ulcer prophylaxis -PPI Nutrition -patient was on TPN. Code Status - DNR. 03/17 I spoke to patient's daughter Diana at bedside and updated her with patient's current status including respiratory failure, ischemic colitis coags approximately and resection, acute kidney injury, congestive heart failure and sepsis. We discussed goals of care and code status. She requested the patient be made DNR DNI as per her wishes. She states she would not want to go on a ventilator or want resuscitation if her 'heart stops'. Incentive spirometry Transfer out of ICU today Subjective Date/time seen: 03/18/23 Overnight events reviewed. Patient off BiPAP this morning and states she feels much better. She does admit to having pain in her but abdomen on the right side. Rates it at 8/10. Denies any nausea vomiting chest pain or shortness of breath. afebrile overnight. Good urine output in response to Lasix On TPN Other Vitals acceptable Review of Systems Review of Systems: ROS unobtainable: Yes unobtainable due to medical condition and unobtainable due to mental status Exam Narrative: General: Pt is awake alert and in no distress Lungs/Chest: Trachea central Clear BS B/L anterior. Decreased breath sounds at bases on both sides., bilateral occasional wheezing Cardiac: Irregular rate and rhythm. Normal S1 S2. No murmurs Circulation: Both feet are warm Ab
--- NOTE | 2023-03-18 11:51 | PM.PNGS ---
Progress Note: A&P Assessment and Plan (1) Colitis: Code(s): K52.9 - Noninfective gastroenteritis and colitis, unspecified Status: Acute Assessment and Plan: S/p right hemicolectomy. There was necrotic bowel involving the ileum and ascending colon with two small areas of walled off perforation of the distal ileum. She required BiPAP after extubation post-operatively and was transferred to ICU for close monitoring. She did not require re-intubation. Her respiratory status has improved and she is now off the BiPAP. Plan to transfer out of ICU to IMU today. Continue IV antibiotics. Continue NG tube, TPN, and bowel rest (2) Acute respiratory failure: Code(s): J96.00 - Acute respiratory failure, unspecified whether with hypoxia or hypercapnia Status: Acute Assessment and Plan: Following surgery/anesthesia. Improved. Currently off BiPAP and plan to transfer out of ICU today. (3) Adynamic ileus: Code(s): K56.0 - Paralytic ileus Status: Acute Assessment and Plan: Continue NG tube decompression, TPN, and bowel rest. (4) Atrial fibrillation: Code(s): I48.91 - Unspecified atrial fibrillation Status: Acute Assessment and Plan: She is rate-controlled. Currently on prophylactic Lovenox post-operatively. Okay from our standpoint to start anticoagulation tonight or tomorrow, discussed with Hospitalist. (5) CHF (congestive heart failure): Code(s): I50.9 - Heart failure, unspecified Status: Acute Assessment and Plan: Received Lasix yesterday (6) SAMMY (acute kidney injury): Code(s): N17.9 - Acute kidney failure, unspecified Status: Acute (7) Elevated troponin: Code(s): R77.8 - Other specified abnormalities of plasma proteins Status: Acute (8) Thrombocytopenia: Code(s): D69.6 - Thrombocytopenia, unspecified Status: Acute Assessment and Plan: Platelets 114k today, continue to monitor. Overall improving (9) Moderate protein-calorie malnutrition: Code(s): E44.0 - Moderate protein-calorie malnutrition Status: Acute Assessment and Plan: Continue TPN Plan I have discussed the patient's case and plan of care with Dr. Chappell. Subjective Subjective Date/Time Seen: 03/18/23 11:51 Patient reports: feels better, no flatus, no bowel movement and afebrile Interval history: Patient seen in the ICU today with her daughter at the bedside. She is currently off BiPAP. 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 this morning. She is oxygenating well on room air. She is sitting up in the chair and feels tired and wishes to go back to bed. No abdominal pain at this time. NG tube with 250 cc documented out overnight shift. Review of Systems Review of Systems: All systems reviewed & are unremarkable except as noted in HPI and below Exam Const: General: comfortable and no acute distress Orientation/consciousness: oriented to person and oriented to place GI: Inspection: non-distended and incision (Dressing dry and intact) GI Palp: Yes Soft to palpation and Yes Tenderness to palpation present (GI) (Diffusely tender) Auscultation: Hypoactive bowel sounds present Extrem: General: normal to inspection Objective Data Vital Signs Vital Signs: Vital Signs - 24 hr 03/17/23 12:00 03/17/23 12:00 03/17/23 12:14 Temperature Pulse Rate 96 93 Respiratory Rate 36 H 29 H Blood Pressure 132/68 117/67 Pulse Oximetry 100 100 100 Oxygen Delivery BiPAP Oxygen Flow Rate Fraction of Inspired Oxygen 50 03/17/23 12:45 03/17/23 13:34 03/17/23 12:30 Temperature 97.3 F L Pulse Rate 90 93 Respiratory Rate 32 H 31 H Blood Pressure 129/70 132/64 Pulse Oximetry 100 100 Oxygen Delivery Oxygen Flow Rate Fraction of Inspired Oxygen 03/17/23 13:00 03/17/23 13:30 03/17/23 12:00 Temperature Pulse Rate 90 84 98 Respiratory Rate 32 H 38 H Blood
[2023-03-18 12:09] LABS: Glucose Point of Care 137 mg/dl (65-105)
[2023-03-18] MEDS: ASPIRIN 300 MG SUPPOSITORY RECTAL (12:26)
[2023-03-18] MEDS: AMINO ACIDS 5%/D15W/E-LYTES/CA 2,000 ML with MULTIVITAMINS-12 INJ VIAL 1 2.5 ML, MULTIV... 40 ML IV CONT (13:20)
--- NOTE | 2023-03-18 13:45 | PM.IMPN ---
Progress Note: A&P Assessment and Plan (1) Necrosis of intestine: Code(s): K55.069 - Acute infarction of intestine, part and extent unspecified Status: Acute Assessment and Plan: Patient presents with n/v and severe abdominal pain. CT Abd/Pelvis showing dilated large and small bowel likely adynamic ileus. Focal wall thickening of the ascending colon with adjacent fat stranding. She was started on IV abx. Surgery consulted and NG tube placed. Symptoms improved and UGI-SBS showing contrast to cecum in 2-3 hours with moderate SB dilation. Diet started but symptoms worsened again so NGT replaced. She had bloody BM and repeat CT Abd/pelvis showing persistent focal ascending colon wall thickening suspicious for malignancy with pneumatosis in the right colon more proximal to the focal wall thickening. Dilated SB without focal transition point. PICC line placed and TPN started. Patient went for surgery 03/17 and found to have significant segment of necrotic bowel involving the ileum and ascending colon. About 4 ft of distal small bowel and ascending colon were resected. There were 2 small areas of perforation on the distal ileum and the cecum appeared very thin and near perforation. There was not much spillage into the abdominal cavity as the perforation appeared to be walled off. Patient underwent a side to side enterocolonic anastomosis from the jejunum to the transverse colon. Surgery felt that patient may have had an embolic event from her AFib resulting in the necrotic bowel. She tolerated procedure well but had some respiratory difficulties in the PACU so was placed on BiPAP and admitted to the ICU for this reason. Continue IV antibiotics. Continue supportive care. Continue dressing changes per surgery. Discussed with boilermaking supervisor. (2) Acute respiratory failure: Code(s): J96.00 - Acute respiratory failure, unspecified whether with hypoxia or hypercapnia Status: Acute Assessment and Plan: Patient developed respiratory difficulties in the PACU was placed on BiPAP. Patient was admitted to the ICU. ABG shows 7.42/36/149 on BiPAP. IV fluids stopped and Lasix given. Able to wean to room air. Resolved Discussed with boilermaking supervisor. (3) SAMMY (acute kidney injury): Code(s): N17.9 - Acute kidney failure, unspecified Status: Acute Assessment and Plan: Unknown prior values but patient reports no renal dysfunction. Creatinine peaked at 2.3 suspected prerenal related to dehydration, UTI and decreased oral intake/vomiting. Cr up again to 1.6 probably related to above UOP 1480mL yesterday Continue TPN Continue to monitor electrolytes, renal function and UOP (4) Colitis: Code(s): K52.9 - Noninfective gastroenteritis and colitis, unspecified Status: Acute Assessment and Plan: CT scan shows focal wall thickening of the ascending colon with adjacent fat stranding suggestive of infection versus malignancy. Zosyn started 03/09. 03/12: WBC climbing so Zosyn stopped. Vanc, cefepime, Flagyl started. UCx 03/08 and 03/11: Negative BCx 03/08: (1of2) growing ESBL EColi. BCx 03/10: Negative MRSA swab 03/12: Negative. Blood culture positive for ESBL E coli so cefepime and Flagyl discontinued in favor of meropenem, vancomycin. Source felt to be necrotic bowel. Vancomycin stopped and changed to Ertapenem. Continue current abx (5) Elevated troponin: Code(s): R77.8 - Other specified abnormalities of plasma proteins Status: Acute Assessment and Plan: New onset atrial fibrillation. No chest pain but troponin is elevated and flat at 0.45. EKG cannot exclude [place]. Cardiology consulted and appreciate their input. [place] elevated Trop related to demand ischemia from ileus and dehydration. Echo 03/09 showed an EF of 50-55% with abnormal diastolic function, mild pulmonary hypertension, mild valvular disease and hypokinetic anteroseptum/ant wall/basal inferoseptum. Also noted with aneurysmal apical se
[2023-03-18] MEDS: ERTAPENEM SODIUM 0.5 GM in SODIUM CHLORIDE 0.9% IV 50 ML IVPB (14:28)
--- NOTE | 2023-03-18 15:29 | WPDGIPROGNO ---
Progress Note: A&P Assessment and Plan (1) Necrosis of intestine: Code(s): K55.069 - Acute infarction of intestine, part and extent unspecified Status: Acute Assessment and Plan: Patient found to have ischemic ileum and right colon. Now status post resection with right hemicolectomy and portions of distal small bowel. Postoperative ileus is present. Patient remains on NG tube, bowel rest. Supportive care and antibiotics. Currently on TPN. (2) CHF (congestive heart failure): Code(s): I50.9 - Heart failure, unspecified Status: Acute Assessment and Plan: Patient with atrial fibrillation some component of congestive heart failure. Atrial fibrillation now has reverted to sinus rhythm. Congestive heart failure appears to be more well controlled. Has required intermittent Lasix which may be required intermittently. Continue to monitor. (3) Moderate protein-calorie malnutrition: Code(s): E44.0 - Moderate protein-calorie malnutrition Status: Acute Assessment and Plan: Significant weight loss noted time of presentation. Will continue supportive care nutritional supplementation will be necessary until she can resume intake. Patient currently on TPN which will continue. (4) Adynamic ileus: Code(s): K56.0 - Paralytic ileus Status: Acute Assessment and Plan: Postoperative ileus. Continue supportive care for. Subjective Date/time seen: 03/18/23 15:29 Interval history: Patient alert although somewhat sedated and somnolent on visit today. She now is in the ICU after right hemicolectomy. Over the weekend patient found to have necrotic ischemic terminal ileum and right colon. Small perforation was identified. Patient currently alert but comfortable. NG tube is in place. She does notice some vague diffuse abdominal discomfort. Review of Systems Review of Systems: ROS unobtainable: Yes unobtainable due to medical condition Exam Narrative: Physical exam reveals patient be alert but sedated vital signs stable. HEENT exam reveals no icterus. Lungs reveal scattered rhonchi. Heart without murmur. NG tube place. Abdomen bowel sounds are absent. She has mild tenderness predominantly in the right abdomen. Left abdomen appears soft. No bowel sounds present. Objective Data Vital Signs Vital Signs: Vital Signs - 24 hr 03/17/23 16:00 03/17/23 16:00 03/17/23 17:01 Temperature 96.1 F L Pulse Rate 89 87 Respiratory Rate 35 H 37 H Blood Pressure 122/65 Pulse Oximetry 100 100 100 Oxygen Delivery BiPAP BiPAP Oxygen Flow Rate Fraction of Inspired Oxygen 30 03/17/23 16:00 03/17/23 18:00 03/17/23 18:00 Temperature Pulse Rate 89 92 92 Respiratory Rate 32 H Blood Pressure 119/57 L Pulse Oximetry 100 Oxygen Delivery Oxygen Flow Rate Fraction of Inspired Oxygen 03/17/23 20:17 03/17/23 20:37 03/17/23 20:37 Temperature Pulse Rate 86 87 87 Respiratory Rate 32 H 32 H Blood Pressure Pulse Oximetry 100 100 Oxygen Delivery BiPAP BiPAP Oxygen Flow Rate Fraction of Inspired Oxygen 30 03/17/23 20:00 03/17/23 22:00 03/17/23 22:00 Temperature 96.3 F L Pulse Rate 87 78 84 Respiratory Rate 32 H 27 H Blood Pressure 98/49 L 111/69 Pulse Oximetry 100 99 Oxygen Delivery Oxygen Flow Rate Fraction of Inspired Oxygen 03/17/23 23:09 03/18/23 01:08 03/18/23 01:08 Temperature Pulse Rate 77 87 81 Respiratory Rate 27 H 26 H Blood Pressure Pulse Oximetry 100 100 Oxygen Delivery BiPAP BiPAP Oxygen Flow Rate Fraction of Inspired Oxygen 30 03/18/23 01:18 03/18/23 02:00 03/18/23 02:00 Temperature 96.2 F L Pulse Rate 81 78 78 Respiratory Rate 26 H 22 H Blood Pressure 113/58 L 107/60 Pulse Oximetry 100 100 Oxygen Delivery Oxygen Flow Rate Fraction of Inspired Oxygen 03/18/23 04:00 03/18/23 04:00 03/18/23 04:00 Temperature 96.3 F L Pulse Rate 85 85
[2023-03-19] VITALS (17 sets, daily range): BP systolic 114–138; BP diastolic 51–68; PULSE 58–88; RESP 16–20; TEMP 35.8–36.6; O2SAT 91–100
[2023-03-19 00:31] LABS: Glucose Point of Care 123 mg/dl (65-105)
[2023-03-19] MEDS: MORPHINE SULFATE (*CRX) 2 MG/ML INJ IV PUSH ×3 (04:55→21:04)
[2023-03-19] MEDS: CENTRAL LINE FLUSH 20 ML IV PUSH (04:55)
[2023-03-19 05:06] LABS: Hematocrit 27.9 % (37.0-47.0); Hemoglobin 8.8 g/dL (12.0-15.0); Mean Corpuscular HGB Conc 31.5 g/dl (32-36); Mean Corpuscular Hemoglobin 30.2 pg (26-34); Mean Corpuscular Volume 95.9 fl (80-100); Mean Platelet Volume 12.4 fl (7.4-10.4); Platelet Count Result 134 k/mm3 (150-375); Red Blood Count 2.91 M/mm3 (4.2-5.4); Red Cell Distribution Width 15.2 % (11.5-14.5); White Blood Count 11.5 K/mm3 (4.5-10.0)
[2023-03-19 05:23] LABS: Alanine Aminotransferase 21 U/L (6-35); Albumin Level 2.2 g/dL (3.5-5.1); Alkaline Phosphatase 46 U/L (38-126); Anion Gap 6 mmol/L (8-16); Aspartate Amino Transferase 31 U/L (14-36); Bilirubin,Total 1.7 mg/dL (0.2-1.3); Blood Urea Nitrogen 56 mg/dL (7-17); Calcium 7.6 mg/dL (8.4-10.2); Carbon Dioxide 27 mmol/L (22-30); Chloride 111 mmol/L (98-107); Estimated CRCL calculation 18 ml/min; Estimated Glomerular Filt Rate 26; Glucose 491 mg/dL (65-110); Magnesium 2.6 mg/dL (1.6-2.3); Potassium 5.1 mmol/L (3.4-5.0); Sodium 144 mmol/L (137-145)
[2023-03-19 06:08] LABS: Glucose Point of Care 118 mg/dl (65-105)
[2023-03-19] MEDS: CENTRAL LINE FLUSH 10 ML IV PUSH ×2 (06:15→17:04)
[2023-03-19] MEDS: PANTOPRAZOLE SODIUM IV 40 MG VIAL IV PUSH (08:57)
[2023-03-19] MEDS: ENOXAPARIN 60 MG/0.6 ML SYRINGE 50 MG SUB-Q (08:58)
--- NOTE | 2023-03-19 10:45 | PCNFU ---
Nutrition Follow-Up Complete: Moderate protein calorie malnutrition related to inadequate energy intake as evidenced by pt and family report of poor intake over a week, noted -6% wt loss with a low BMI of 17.4, and NFPE findings for muscle wasting and subcutaneous fat loss. Goal:Diet advanced and tolerated Pt is not meeting goal, NPO with alternative nutrition support. New Goal: Meet estimated needs Pt current nutrition is NPO, TPN Clinimix E / @ 40ml/hr. Nutrition recommendation: Continue with current plan of care. Last recorded weight is 52.5 kg. Bowel Motility: +BM 03/15 Labs Reviewed: Hgb:8.8, HCT:27.9, Alb:2.2, K:5.1, GFR:56, Cr:1.9, Glu:491, Phos:6.0 Meds Noted: lovenox, protonix Skin: no skin issues noted. Additional Notes: TPN running Clinmix /15/E @ 40 ml/h: 1182 kcal, 48 g protein, 1210 ml total volume. Monitor triglycerides on next round of labs, not on today's labs. Monitor diet orders, intake, wt, labs. Follow up every Saturday and Saturday.
[2023-03-19 12:31] LABS: Glucose Point of Care 96 mg/dl (65-105)
--- NOTE | 2023-03-19 14:26 | PM.IMPN ---
Progress Note: A&P Assessment and Plan (1) Necrosis of intestine: Code(s): K55.069 - Acute infarction of intestine, part and extent unspecified Status: Acute Assessment and Plan: Patient presents with n/v and severe abdominal pain. CT Abd/Pelvis showing dilated large and small bowel likely adynamic ileus. Focal wall thickening of the ascending colon with adjacent fat stranding. She was started on IV abx. Surgery consulted and NG tube placed. Symptoms improved and UGI-SBS showing contrast to cecum in 2-3 hours with moderate SB dilation. Diet started but symptoms worsened again so NGT replaced. She had bloody BM and repeat CT Abd/pelvis showing persistent focal ascending colon wall thickening suspicious for malignancy with pneumatosis in the right colon more proximal to the focal wall thickening. Dilated SB without focal transition point. PICC line placed and TPN started. Patient went for surgery 03/17 and found to have significant segment of necrotic bowel involving the ileum and ascending colon. About 4 ft of distal small bowel and ascending colon were resected. There were 2 small areas of perforation on the distal ileum and the cecum appeared very thin and near perforation. There was not much spillage into the abdominal cavity as the perforation appeared to be walled off. Patient underwent a side to side enterocolonic anastomosis from the jejunum to the transverse colon. Surgery felt that patient may have had an embolic event from her AFib resulting in the necrotic bowel. She tolerated procedure well but had some respiratory difficulties in the PACU so was placed on BiPAP and admitted to the ICU for this reason. Tolerating NGT clamping. Old blood in tubing? Check serial HH today. Continue IV antibiotics. Continue supportive care. Continue dressing changes per surgery. (2) Acute respiratory failure: Code(s): J96.00 - Acute respiratory failure, unspecified whether with hypoxia or hypercapnia Status: Acute Assessment and Plan: Patient developed respiratory difficulties in the PACU was placed on BiPAP. Patient was admitted to the ICU. ABG shows 7.42/36/149 on BiPAP. IV fluids stopped and Lasix given. Able to wean to room air. Resolved Moved to IMU 03/18 (3) SAMMY (acute kidney injury): Code(s): N17.9 - Acute kidney failure, unspecified Status: Acute Assessment and Plan: Unknown prior values but patient reports no renal dysfunction. Creatinine peaked at 2.3 suspected prerenal related to dehydration, UTI and decreased oral intake/vomiting. Cr up again to 1.9 probably related to recent surgery UOP 1625mL yesterday Continue TPN Continue to monitor electrolytes, renal function and UOP (4) Colitis: Code(s): K52.9 - Noninfective gastroenteritis and colitis, unspecified Status: Acute Assessment and Plan: CT scan shows focal wall thickening of the ascending colon with adjacent fat stranding suggestive of infection versus malignancy. Zosyn started 03/09. 03/12: WBC climbing so Zosyn stopped. Vanc, cefepime, Flagyl started. UCx 03/08 and 03/11: Negative BCx 03/08: (1of2) growing ESBL EColi. BCx 03/10: Negative MRSA swab 03/12: Negative. Blood culture positive for ESBL E coli so cefepime and Flagyl discontinued in favor of meropenem, vancomycin. Source felt to be necrotic bowel. Vancomycin stopped and changed to Ertapenem. Continue current abx (5) Elevated troponin: Code(s): R77.8 - Other specified abnormalities of plasma proteins Status: Acute Assessment and Plan: New onset atrial fibrillation. No chest pain but troponin is elevated and flat at 0.45. EKG cannot exclude [place]. Cardiology consulted and appreciate their input. [place] elevated Trop related to demand ischemia from ileus and dehydration. Echo 03/09 showed an EF of 50-55% with abnormal diastolic function, mild pulmonary hypertension, mild valvular disease and hypokinetic anteroseptum/ant wall/basal inferose
--- NOTE | 2023-03-19 14:45 | PM.PNGS ---
Progress Note: A&P Assessment and Plan (1) Colitis: Code(s): K52.9 - Noninfective gastroenteritis and colitis, unspecified Status: Acute Assessment and Plan: Post-op day 2 s/p right hemicolectomy. Awaiting return of bowel function Continue NG tube, TPN, and bowel rest Continue IV antibiotics Encouraged getting up to the chair and slowly increasing activity as tolerated Hgb dropped from 10.3 to 8.8, repeat today was 9.7. No signs of active bleeding, continue to monitor H/H. (2) Adynamic ileus: Code(s): K56.0 - Paralytic ileus Status: Acute Assessment and Plan: Continue NG tube decompression, TPN, and bowel rest. (3) Acute respiratory failure: Code(s): J96.00 - Acute respiratory failure, unspecified whether with hypoxia or hypercapnia Status: Acute Assessment and Plan: Following surgery/anesthesia. Resolved. (4) Atrial fibrillation: Code(s): I48.91 - Unspecified atrial fibrillation Status: Acute Assessment and Plan: She is rate-controlled. Started on Lovenox 1 mg/kg Q24 hr due to her renal disease. Management per Hospitalist. (5) CHF (congestive heart failure): Code(s): I50.9 - Heart failure, unspecified Status: Acute (6) SAMMY (acute kidney injury): Code(s): N17.9 - Acute kidney failure, unspecified Status: Acute Assessment and Plan: Creatinine up slightly today, increased rate of TPN to 50mL/hr, continue to monitor labs (7) Elevated troponin: Code(s): R77.8 - Other specified abnormalities of plasma proteins Status: Acute (8) Thrombocytopenia: Code(s): D69.6 - Thrombocytopenia, unspecified Status: Acute Assessment and Plan: Overall improved since admission (9) Moderate protein-calorie malnutrition: Code(s): E44.0 - Moderate protein-calorie malnutrition Status: Acute Assessment and Plan: Continue TPN, lipids appear to be on hold for now, last triglycerides were 199 Plan I have discussed the patient's case and plan of care with Dr. Chappell. Subjective Subjective Date/Time Seen: 03/19/23 14:45 Post Op day: 2 (Ex lap, Right hemicolectomy with enterocolic anastomosis) Patient reports: no flatus, no bowel movement and afebrile Interval history: Patient seen today. No new complaints. Three daughters are at the bedside. She did get confused last night and pulled out her NG tube, which has since been replaced. There is minimal out of the NG since placement. Nursing feels there may be an issue with the suction canister. Denies flatus or BM. Still on TPN. Urine output adequate, sears in place. Exam Const: General: comfortable and no acute distress Orientation/consciousness: oriented to person and oriented to place GI: Inspection: non-distended and incision (dry and sunil intact, no erythema) GI Palp: Yes Soft to palpation, Yes Tenderness to palpation present (GI) (diffusely tender) and No Guarding due to palpation present (GI) Auscultation: normal bowel sounds Extrem: General: normal to inspection Objective Data Vital Signs Vital Signs: Vital Signs - 24 hr 03/18/23 16:00 03/18/23 16:00 03/18/23 16:00 Temperature 97.6 F Pulse Rate 87 87 86 Respiratory Rate 23 H 23 H Blood Pressure 121/58 L Pulse Oximetry 99 99 Oxygen Delivery Room Air Fraction of Inspired Oxygen 03/18/23 18:00 03/18/23 19:56 03/18/23 19:56 Temperature Pulse Rate 78 81 78 Respiratory Rate 23 H Blood Pressure Pulse Oximetry 99 Oxygen Delivery Room Air Fraction of Inspired Oxygen 21 03/18/23 19:56 03/18/23 22:00 03/19/23 00:00 Temperature 97.4 F L Pulse Rate 77 79 Respiratory Rate 22 H Blood Pressure 118/57 L Pulse Oximetry 100 Oxygen Delivery Room Air Fraction of Inspired Oxygen 03/19/23 00:00 03/19/23 02:00 03/19/23 00:00 Temperature 97.5 F L Pulse Rate 81 83 88 Respiratory Rate 20 Blood Pressure 138/6
[2023-03-19 15:46] LABS: Hematocrit 31.8 % (37.0-47.0); Hemoglobin 9.7 g/dL (12.0-15.0)
[2023-03-19 15:57] LABS: Anion Gap 6 mmol/L (8-16); Blood Urea Nitrogen 64 mg/dL (7-17); Calcium 7.7 mg/dL (8.4-10.2); Carbon Dioxide 26 mmol/L (22-30); Chloride 116 mmol/L (98-107); Estimated CRCL calculation 18 ml/min; Estimated Glomerular Filt Rate 26; Glucose 120 mg/dL (65-110); Potassium 4.3 mmol/L (3.4-5.0); Sodium 148 mmol/L (137-145)
[2023-03-19] MEDS: AMINO ACIDS 5%/D15W/E-LYTES/CA 2,000 ML with MULTIVITAMINS-12 INJ VIAL 1 2.5 ML, MULTIV... 40 ML IV CONT (17:03)
[2023-03-19] MEDS: ERTAPENEM SODIUM 0.5 GM in SODIUM CHLORIDE 0.9% IV 50 ML IVPB (17:04)
[2023-03-19 18:09] LABS: Glucose Point of Care 109 mg/dl (65-105)
[2023-03-19 22:45] LABS: Hematocrit 25.5 % (37.0-47.0); Hemoglobin 8.1 g/dL (12.0-15.0)
[2023-03-20] VITALS (11 sets, daily range): BP systolic 129–143; BP diastolic 47–63; PULSE 68–83; RESP 16–20; TEMP 36.3–36.4; O2SAT 93–100
[2023-03-20 00:02] LABS: Glucose Point of Care 95 mg/dl (65-105)
[2023-03-20] MEDS: CENTRAL LINE FLUSH 10 ML IV PUSH ×4 (00:28→20:42)
[2023-03-20] MEDS: MORPHINE SULFATE (*CRX) 2 MG/ML INJ IV PUSH ×3 (05:06→20:41)
[2023-03-20 05:18] LABS: Hematocrit 25.2 % (37.0-47.0); Hemoglobin 8.3 g/dL (12.0-15.0); Mean Corpuscular HGB Conc 32.9 g/dl (32-36); Mean Corpuscular Hemoglobin 30.2 pg (26-34); Mean Corpuscular Volume 91.6 fl (80-100); Mean Platelet Volume 12.3 fl (7.4-10.4); Platelet Count Result 157 k/mm3 (150-375); Red Blood Count 2.75 M/mm3 (4.2-5.4)
[2023-03-20 05:31] LABS: Alanine Aminotransferase 30 U/L (6-35); Albumin Level 2.3 g/dL (3.5-5.1); Alkaline Phosphatase 87 U/L (38-126); Anion Gap 2 mmol/L (8-16); Aspartate Amino Transferase 44 U/L (14-36); Blood Urea Nitrogen 61 mg/dL (7-17); Calcium 7.7 mg/dL (8.4-10.2); Carbon Dioxide 28 mmol/L (22-30); Chloride 116 mmol/L (98-107); Estimated CRCL calculation 18 ml/min; Estimated Glomerular Filt Rate 26; Glucose 116 mg/dL (65-110); Magnesium 2.6 mg/dL (1.6-2.3); Phosphorus 4.3 mg/dL (2.5-4.5); Sodium 146 mmol/L (137-145)
--- NOTE | 2023-03-20 08:03 | WPDGIPROGNO ---
Progress Note: A&P Assessment and Plan (1) Necrosis of intestine: Code(s): K55.069 - Acute infarction of intestine, part and extent unspecified Status: Acute Assessment and Plan: Patient with ischemic bowel status post right hemicolectomy along with portions of the ileum. Currently awaiting resolution of ileus. NG tube remains in place. Patient more oriented today. Continue supportive care. Surgery following. Patient remains on TPN for nutritional support at present (2) Atrial fibrillation: Code(s): I48.91 - Unspecified atrial fibrillation Status: Acute (3) Elevated troponin: Code(s): R77.8 - Other specified abnormalities of plasma proteins Status: Acute Subjective Date/time seen: 03/20/23 08:03 Interval history: Patient alert but very weak this morning. She denies any flatus or bowel movements. Much more comfortable in oriented at present. NG tube in place with significant output noted. Review of Systems Review of Systems: Review of systems noncontributory. Exam Narrative: Physical exam reveals patient to be alert. Vital signs stable. NG tube is in place. Lungs reveal a few rhonchi. Heart without murmur. Abdomen quiet. Bowel sounds absent. Soft abdomen noted. Still with significant tenderness primarily right abdomen. Objective Data Vital Signs Vital Signs: Vital Signs - 24 hr 03/19/23 11:27 03/19/23 15:22 03/19/23 10:00 Temperature 96.5 F L 96.9 F L Pulse Rate 88 74 86 Respiratory Rate 16 18 Blood Pressure 114/54 L 132/57 L Pulse Oximetry 98 100 Oxygen Delivery Fraction of Inspired Oxygen 03/19/23 12:00 03/19/23 18:00 03/19/23 12:00 Temperature Pulse Rate 84 87 Respiratory Rate Blood Pressure Pulse Oximetry Oxygen Delivery Room Air Fraction of Inspired Oxygen 03/19/23 14:00 03/19/23 16:00 03/19/23 16:00 Temperature Pulse Rate 79 72 Respiratory Rate Blood Pressure Pulse Oximetry Oxygen Delivery Room Air Fraction of Inspired Oxygen 03/19/23 19:46 03/19/23 20:00 03/19/23 20:00 Temperature 97.3 F L Pulse Rate 81 82 82 Respiratory Rate 18 18 Blood Pressure 126/62 Pulse Oximetry 99 99 Oxygen Delivery Room Air Fraction of Inspired Oxygen 21 03/19/23 22:00 03/19/23 23:55 03/20/23 00:00 Temperature 97.4 F L Pulse Rate 74 74 68 Respiratory Rate 18 Blood Pressure 131/62 Pulse Oximetry 98 Oxygen Delivery Fraction of Inspired Oxygen 03/20/23 00:00 03/20/23 02:00 03/20/23 04:00 Temperature 97.5 F L Pulse Rate 68 78 69 Respiratory Rate 18 18 Blood Pressure 129/59 L Pulse Oximetry 98 99 Oxygen Delivery Room Air Fraction of Inspired Oxygen 03/20/23 04:00 03/20/23 04:00 03/20/23 05:33 Temperature Pulse Rate 83 83 78 Respiratory Rate 18 Blood Pressure Pulse Oximetry 99 Oxygen Delivery Room Air Fraction of Inspired Oxygen 03/20/23 07:23 Temperature 97.5 F L Pulse Rate 75 Respiratory Rate 18 Blood Pressure 143/47 H Pulse Oximetry 100 Oxygen Delivery Fraction of Inspired Oxygen Intake/Output Intake/Output: Intake & Output 03/17/23 03/18/23 03/19/23 03/20/23 23:59 23:59 23:59 23:59 Intake Total 1177.9 2575 2014 Output Total 2280 9555 950 850 [facility] -1102.1 230 1065 -850 Meds/Results Medications: Active Medications Generic Name Dose Route Start Last Admin Trade Name Freq PRN Reason Stop Dose Admin Acetaminophen 650 mg 03/08/23 16:34 03/12/23 13:50 Acetaminophen 325 Mg Tablet PO 650 mg Q4H PRN Administration Pain Rated 5 or Less Acetaminophen 650 mg 03/09/23 00:41 03/13/23 09:52 Acetaminophen 650 Mg Suppository RECTAL 650 mg Q6H PRN Administration Pain Rated 5 or Less Enoxaparin Sodium 50 mg 03/19/23 09:00 03/19/23 08:58 Enoxaparin 60 Mg/0.6 Ml Syringe SUB-Q 50 mg DAILY VITALIY Administration Ertapenem 0.5 gm/ Sodium 50 mls @
[2023-03-20] MEDS: PANTOPRAZOLE SODIUM IV 40 MG VIAL IV PUSH (08:16)
[2023-03-20] MEDS: ENOXAPARIN 60 MG/0.6 ML SYRINGE 50 MG SUB-Q (08:17)
--- NOTE | 2023-03-20 08:29 | PM.IMPN ---
Progress Note: A&P Assessment and Plan (1) Necrosis of intestine: Code(s): K55.069 - Acute infarction of intestine, part and extent unspecified Status: Acute Assessment and Plan: Patient presents with n/v and severe abdominal pain. CT Abd/Pelvis showing dilated large and small bowel likely adynamic ileus. Focal wall thickening of the ascending colon with adjacent fat stranding. She was started on IV abx. Surgery consulted and NG tube placed. Symptoms improved and UGI-SBS showing contrast to cecum in 2-3 hours with moderate SB dilation. Diet started but symptoms worsened again so NGT replaced. She had bloody BM and repeat CT Abd/pelvis showing persistent focal ascending colon wall thickening suspicious for malignancy with pneumatosis in the right colon more proximal to the focal wall thickening. Dilated SB without focal transition point. PICC line placed and TPN started. Patient went for surgery 03/17 and found to have significant segment of necrotic bowel involving the ileum and ascending colon. About 4 ft of distal small bowel and ascending colon were resected. There were 2 small areas of perforation on the distal ileum and the cecum appeared very thin and near perforation. There was not much spillage into the abdominal cavity as the perforation appeared to be walled off. Patient underwent a side to side enterocolonic anastomosis from the jejunum to the transverse colon. Surgery felt that patient may have had an embolic event from her AFib resulting in the necrotic bowel. She tolerated procedure well but had some respiratory difficulties in the PACU so was placed on BiPAP and admitted to the ICU for this reason. Continue IV antibiotics. Continue supportive care. Continue dressing changes per surgery. (2) Acute respiratory failure: Code(s): J96.00 - Acute respiratory failure, unspecified whether with hypoxia or hypercapnia Status: Acute Assessment and Plan: Patient developed respiratory difficulties in the PACU was placed on BiPAP. Patient was admitted to the ICU. ABG shows 7.42/36/149 on BiPAP. IV fluids stopped and Lasix given. Able to wean to room air. Resolved Moved to IMU 03/18 (3) SAMMY (acute kidney injury): Code(s): N17.9 - Acute kidney failure, unspecified Status: Acute Assessment and Plan: Unknown prior values but patient reports no renal dysfunction. Creatinine peaked at 2.3 suspected prerenal related to dehydration, UTI and decreased oral intake/vomiting. Cr up again to 1.9 probably related to recent surgery UOP 1625mL yesterday Continue TPN Continue to monitor electrolytes, renal function and UOP (4) Colitis: Code(s): K52.9 - Noninfective gastroenteritis and colitis, unspecified Status: Acute Assessment and Plan: CT scan shows focal wall thickening of the ascending colon with adjacent fat stranding suggestive of infection versus malignancy. Zosyn started 03/09. 03/12: WBC climbing so Zosyn stopped. Vanc, cefepime, Flagyl started. UCx 03/08 and 03/11: Negative BCx 03/08: (1of2) growing ESBL EColi. BCx 03/10: Negative MRSA swab 03/12: Negative. Blood culture positive for ESBL E coli so cefepime and Flagyl discontinued in favor of meropenem, vancomycin. Source felt to be necrotic bowel. Vancomycin stopped and changed to Ertapenem. Continue current abx (5) Elevated troponin: Code(s): R77.8 - Other specified abnormalities of plasma proteins Status: Acute Assessment and Plan: New onset atrial fibrillation. No chest pain but troponin is elevated and flat at 0.45. EKG cannot exclude [place]. Cardiology consulted and appreciate their input. [place] elevated Trop related to demand ischemia from ileus and dehydration. Echo 03/09 showed an EF of 50-55% with abnormal diastolic function, mild pulmonary hypertension, mild valvular disease and hypokinetic anteroseptum/ant wall/basal inferoseptum. Also noted with aneurysmal apical septum, apical inferior and api
[2023-03-20 11:00] LABS: Triglycerides 183 mg/dL (<150)
[2023-03-20 11:34] LABS: Glucose Point of Care 106 mg/dl (65-105)
--- NOTE | 2023-03-20 12:08 | PM.PNGS ---
Progress Note: A&P Assessment and Plan (1) Colitis: Code(s): K52.9 - Noninfective gastroenteritis and colitis, unspecified Status: Acute Assessment and Plan: Post-op day 3 s/p right hemicolectomy. Awaiting return of bowel function Continue NG tube, TPN, and bowel rest Continue IV antibiotics Encouraged getting up to the chair and slowly increasing activity as tolerated (2) Adynamic ileus: Code(s): K56.0 - Paralytic ileus Status: Acute Assessment and Plan: Continue NG tube decompression, TPN, and bowel rest. (3) Acute respiratory failure: Code(s): J96.00 - Acute respiratory failure, unspecified whether with hypoxia or hypercapnia Status: Acute Assessment and Plan: Following surgery/anesthesia. Resolved. (4) Atrial fibrillation: Code(s): I48.91 - Unspecified atrial fibrillation Status: Acute Assessment and Plan: Management per Hospitalist. Currently on Lovenox 1 mg/kg Q24 hrs (5) CHF (congestive heart failure): Code(s): I50.9 - Heart failure, unspecified Status: Acute (6) SAMMY (acute kidney injury): Code(s): N17.9 - Acute kidney failure, unspecified Status: Acute Assessment and Plan: Cr same today, continue to monitor labs (7) Elevated troponin: Code(s): R77.8 - Other specified abnormalities of plasma proteins Status: Acute (8) Thrombocytopenia: Code(s): D69.6 - Thrombocytopenia, unspecified Status: Acute Assessment and Plan: Overall improved since admission (9) Moderate protein-calorie malnutrition: Code(s): E44.0 - Moderate protein-calorie malnutrition Status: Acute Plan I have discussed the patient's case and plan of care with Dr. Chappell. Subjective Subjective Date/Time Seen: 03/20/23 12:08 Post Op day: 3 (Ex lap, Right hemicolectomy with enterocolic anastomosis) Patient reports: no new complaints, no flatus, no bowel movement and afebrile Interval history: Patient seen today with no new complaints. She denies flatus or BM. Nursing also denies any BM. She has not had any output from NG documented, but there is now about 500-600 cc in the canister from yesterday when I evaluated her. Denies any abdominal pain, nausea, or other complaints at this time. Exam Const: General: comfortable and no acute distress Orientation/consciousness: oriented to person and oriented to place GI: Inspection: non-distended and incision (dry and sunil intact, no erythema) GI Palp: Yes Soft to palpation, Yes Tenderness to palpation present (GI) (incisional and RLQ), No Guarding due to palpation present (GI) and No Rebound tenderness present Auscultation: normal bowel sounds Urinary Catheter: Urinary Catheter: patent and draining Extrem: General: normal to inspection, no calf tenderness and no edema Objective Data Vital Signs Vital Signs: Vital Signs - 24 hr 03/19/23 15:22 03/19/23 18:00 03/19/23 14:00 Temperature 96.9 F L Pulse Rate 74 84 79 Respiratory Rate 18 Blood Pressure 132/57 L Pulse Oximetry 100 Oxygen Delivery Fraction of Inspired Oxygen 03/19/23 16:00 03/19/23 16:00 03/19/23 19:46 Temperature 97.3 F L Pulse Rate 72 81 Respiratory Rate 18 Blood Pressure 126/62 Pulse Oximetry 99 Oxygen Delivery Room Air Fraction of Inspired Oxygen 03/19/23 20:00 03/19/23 20:00 03/19/23 22:00 Temperature Pulse Rate 82 82 74 Respiratory Rate 18 Blood Pressure Pulse Oximetry 99 Oxygen Delivery Room Air Fraction of Inspired Oxygen 03/19/23 23:55 03/20/23 00:00 03/20/23 00:00 Temperature 97.4 F L Pulse Rate 74 68 68 Respiratory Rate 18 18 Blood Pressure 131/62 Pulse Oximetry 98 98 Oxygen Delivery Room Air Fraction of Inspired Oxygen 03/20/23 02:00 03/20/23 04:00 03/20/23 04:00 Temperature 97.5 F L Pulse Rate 78 69 83 Respiratory Rate 18 Blood Pressure 129/59 L Pulse O
[2023-03-20] MEDS: AMINO ACIDS 5%/D15W/E-LYTES/CA 2,000 ML with MULTIVITAMINS-12 INJ VIAL 1 2.5 ML, MULTIV... 40 ML IV CONT (14:32)
[2023-03-20] MEDS: ERTAPENEM SODIUM 0.5 GM in SODIUM CHLORIDE 0.9% IV 50 ML IVPB (14:32)
[2023-03-20 23:56] LABS: Glucose Point of Care 116 mg/dl (65-105)
[2023-03-21] VITALS (7 sets, daily range): BP systolic 117–137; BP diastolic 43–67; PULSE 70–87; RESP 16–24; TEMP 36.4–36.7; O2SAT 96–100
[2023-03-21] MEDS: CENTRAL LINE FLUSH 10 ML IV PUSH ×3 (05:26→20:29)
[2023-03-21 05:39] LABS: Basophils Percent Auto 0.3 % (0.2-1.2); Eosinophils Absolute Auto 0.1 K/mm3 (0-0.3); Eosinophils Percent Auto 0.6 % (0-4.4); Hematocrit 25.9 % (37.0-47.0); Hemoglobin 8.2 g/dL (12.0-15.0); Immature Granulocyte Absolute 0.08 K/mm3 (0.00-0.031); Immature Granulocyte Percent A 0.9 % (0-0.5); Lymphocytes Percent Auto 7.8 % (18.3-44.2); Mean Corpuscular HGB Conc 31.7 g/dl (32-36); Mean Corpuscular Hemoglobin 29.3 pg (26-34); Mean Corpuscular Volume 92.5 fl (80-100); Mean Platelet Volume 11.9 fl (7.4-10.4); Monocytes Absolute Auto 0.8 K/mm3 (0.1-0.6); Neutrophils Absolute Auto 7.3 K/mm3 (1.3-6.7); Neutrophils Percent Auto 81.4 % (45.5-73.1); Platelet Count Result 170 k/mm3 (150-375); Red Cell Distribution Width 14.6 % (11.5-14.5); White Blood Count 8.9 K/mm3 (4.5-10.0)
[2023-03-21 05:49] LABS: Alanine Aminotransferase 32 U/L (6-35); Albumin Level 2.4 g/dL (3.5-5.1); Alkaline Phosphatase 92 U/L (38-126); Anion Gap 2 mmol/L (8-16); Aspartate Amino Transferase 39 U/L (14-36); Bilirubin,Total 2.3 mg/dL (0.2-1.3); Blood Urea Nitrogen 61 mg/dL (7-17); Calcium 7.8 mg/dL (8.4-10.2); Carbon Dioxide 28 mmol/L (22-30); Chloride 116 mmol/L (98-107); Estimated CRCL calculation 20 ml/min; Estimated Glomerular Filt Rate 29; Glucose 133 mg/dL (65-110); Magnesium 2.5 mg/dL (1.6-2.3); Phosphorus 3.8 mg/dL (2.5-4.5); Potassium 3.8 mmol/L (3.4-5.0); Sodium 146 mmol/L (137-145)
[2023-03-21] MEDS: PANTOPRAZOLE SODIUM IV 40 MG VIAL IV PUSH ×2 (08:24→20:30)
[2023-03-21] MEDS: ENOXAPARIN 60 MG/0.6 ML SYRINGE 50 MG SUB-Q (08:24)
--- NOTE | 2023-03-21 09:00 | PM.IMPN ---
Progress Note: A&P Assessment and Plan (1) Necrosis of intestine: Code(s): K55.069 - Acute infarction of intestine, part and extent unspecified Status: Acute Assessment and Plan: Patient presents with n/v and severe abdominal pain. CT Abd/Pelvis showing dilated large and small bowel likely adynamic ileus. Focal wall thickening of the ascending colon with adjacent fat stranding. She was started on IV abx. Surgery consulted and NG tube placed. Symptoms improved and UGI-SBS showing contrast to cecum in 2-3 hours with moderate SB dilation. Diet started but symptoms worsened again so NGT replaced. She had bloody BM and repeat CT Abd/pelvis showing persistent focal ascending colon wall thickening suspicious for malignancy with pneumatosis in the right colon more proximal to the focal wall thickening. Dilated SB without focal transition point. PICC line placed and TPN started. Patient went for surgery 03/17 and found to have significant segment of necrotic bowel involving the ileum and ascending colon. About 4 ft of distal small bowel and ascending colon were resected. There were 2 small areas of perforation on the distal ileum and the cecum appeared very thin and near perforation. There was not much spillage into the abdominal cavity as the perforation appeared to be walled off. Patient underwent a side to side enterocolonic anastomosis from the jejunum to the transverse colon. Surgery felt that patient may have had an embolic event from her AFib resulting in the necrotic bowel. She tolerated procedure well but had some respiratory difficulties in the PACU so was placed on BiPAP and admitted to the ICU for this reason. Continue IV antibiotics. Continue supportive care. Continue dressing changes per surgery. 03/21: NGT decompression, TPN, bowel rest, monitor, POD#4 (2) Acute respiratory failure: Code(s): J96.00 - Acute respiratory failure, unspecified whether with hypoxia or hypercapnia Status: Acute Assessment and Plan: Patient developed respiratory difficulties in the PACU was placed on BiPAP. Patient was admitted to the ICU. ABG shows 7.42/36/149 on BiPAP. IV fluids stopped and Lasix given. Able to wean to room air. Resolved Moved to IMU 03/18 resolved (3) SAMMY (acute kidney injury): Code(s): N17.9 - Acute kidney failure, unspecified Status: Acute Assessment and Plan: Unknown prior values but patient reports no renal dysfunction. Creatinine peaked at 2.3 suspected prerenal related to dehydration, UTI and decreased oral intake/vomiting. Cr up again to 1.9 probably related to recent surgery UOP 1625mL yesterday Continue TPN Continue to monitor electrolytes, renal function and UOP 03/21: still hypernatremic, may need more free water flushes (4) Colitis: Code(s): K52.9 - Noninfective gastroenteritis and colitis, unspecified Status: Acute Assessment and Plan: CT scan shows focal wall thickening of the ascending colon with adjacent fat stranding suggestive of infection versus malignancy. Zosyn started 03/09. 03/12: WBC climbing so Zosyn stopped. Vanc, cefepime, Flagyl started. UCx 03/08 and 03/11: Negative BCx 03/08: (1of2) growing ESBL EColi. BCx 03/10: Negative MRSA swab 03/12: Negative. Blood culture positive for ESBL E coli so cefepime and Flagyl discontinued in favor of meropenem, vancomycin. Source felt to be necrotic bowel. Vancomycin stopped and changed to Ertapenem. 03/21: Continue current abx, ertapenem since 03/14, day 8 (5) Elevated troponin: Code(s): R77.8 - Other specified abnormalities of plasma proteins Status: Acute Assessment and Plan: New onset atrial fibrillation. No chest pain but troponin is elevated and flat at 0.45. EKG cannot exclude [place]. Cardiology consulted and appreciate their input. [place] elevated Trop related to demand ischemia from ileus and dehydration. Echo 03/09 showed an EF of 50-55% with abnormal diastolic function, mi
[2023-03-21] MEDS: MORPHINE SULFATE (*CRX) 2 MG/ML INJ IV PUSH ×2 (11:00→15:11)
[2023-03-21 11:59] LABS: Glucose Point of Care 89 mg/dl (65-105)
[2023-03-21] MEDS: AMINO ACIDS 5%/D15W/E-LYTES/CA 2,000 ML with MULTIVITAMINS-12 INJ VIAL 1 2.5 ML, MULTIV... 40 ML IV CONT (14:32)
[2023-03-21] MEDS: ERTAPENEM SODIUM 0.5 GM in SODIUM CHLORIDE 0.9% IV 50 ML IVPB (14:32)
--- NOTE | 2023-03-21 15:10 | WPDGIPROGNO ---
Progress Note: A&P Assessment and Plan (1) Necrosis of intestine: Code(s): K55.069 - Acute infarction of intestine, part and extent unspecified Status: Acute Assessment and Plan: Patient with ischemic bowel status post resection of with right hemicolectomy and portion of the small bowel. Clinically improving. NG tube remains in place. There is some suggestion that ileus may be resolving as her abdomen is much less distended. Much softer much less tender. She may have begun to pass stool. Will leave NG tube in place until surgery agrees to clamp it. (2) Moderate protein-calorie malnutrition: Code(s): E44.0 - Moderate protein-calorie malnutrition Status: Acute Assessment and Plan: Patient remains on TPN for nutritional support. (3) Atrial fibrillation: Code(s): I48.91 - Unspecified atrial fibrillation Status: Acute Subjective Date/time seen: 03/21/23 15:10 Interval history: Patient very weak and somnolent. NG tube with dark drainage. Patient denies significant pain today. She denies bowel movements but nursing staff reports 1 being passed. Review of Systems Review of Systems: ROS unobtainable: Yes unobtainable due to mental status Exam Narrative: Patient is somnolent but arousable. Vital signs stable. HEENT exam reveals no icterus. Lungs are clear. Heart without murmur. Abdomen much softer. Much less tender. NG tube remains in place. She has questionable orally bowel sounds. Objective Data Vital Signs Vital Signs: Vital Signs - 24 hr 03/20/23 15:58 03/20/23 19:45 03/20/23 20:00 Temperature 97.4 F L 97.5 F L Pulse Rate 73 79 74 Respiratory Rate 20 18 18 Blood Pressure 136/56 L 129/52 L Pulse Oximetry 98 98 98 Oxygen Delivery Room Air Fraction of Inspired Oxygen 21 03/21/23 00:00 03/21/23 05:59 03/21/23 08:00 Temperature 97.5 F L 97.8 F Pulse Rate 87 82 87 Respiratory Rate 18 24 H Blood Pressure 137/47 L 131/51 L Pulse Oximetry 100 100 Oxygen Delivery Fraction of Inspired Oxygen 03/21/23 08:00 03/21/23 12:00 Temperature 97.6 F Pulse Rate 78 Respiratory Rate 20 Blood Pressure 133/67 Pulse Oximetry 97 Oxygen Delivery Room Air Fraction of Inspired Oxygen Intake/Output Intake/Output: Intake & Output 03/18/23 03/19/23 03/20/23 03/21/23 23:59 23:59 23:59 23:59 Intake Total 2574 2014 2064 Output Total 2346 950 2300 1500 Balance 230 7087 -097 -8276 Meds/Results Medications: Active Medications Generic Name Dose Route Start Last Admin Trade Name Freq PRN Reason Stop Dose Admin Acetaminophen 650 mg 03/08/23 16:34 03/12/23 13:50 Acetaminophen 325 Mg Tablet PO 650 mg Q4H PRN Administration Pain Rated 5 or Less Acetaminophen 650 mg 03/09/23 00:41 03/13/23 09:52 Acetaminophen 650 Mg Suppository RECTAL 650 mg Q6H PRN Administration Pain Rated 5 or Less Enoxaparin Sodium 50 mg 03/19/23 09:00 03/21/23 08:24 Enoxaparin 60 Mg/0.6 Ml Syringe SUB-Q 50 mg DAILY VITALIY Administration Ertapenem 0.5 gm/ Sodium 50 mls @ 100 mls/hr 03/14/23 14:00 03/20/23 19:00 Chloride IVPB Infused Q24H VITALIY Infusion Dextrose 1,000 mls @ 50 mls/hr 03/15/23 10:54 Dextrose 10% IV CONT .Q20H PRN if PN is interrupted Multivitamins 2.5 ml/ 2,005 mls @ 50 mls/hr 03/15/23 13:00 03/20/23 14:32 Multivitamins 2.5 ml/ Amino IV CONT 40 mls/hr Acids/Electrolytes/Dextrose .Q24H VITALIY Administration Protocol Morphine Sulfate 2 mg 03/08/23 16:34 03/21/23 11:00 Morphine Sulfate (*Crx) 2 Mg/Ml Inj IV PUSH 2 mg Q4H PRN Administration Pain Rated 6 or Greater Pantoprazole Sodium 40 mg 03/21/23 21:00 Pantoprazole Sodium Iv 40 Mg Vial IV PUSH Q12HR VITALIY Phenol 1 spray 03/13/23 09:45 03/13/23 11:00 Phenol/Sod Pheno Scott Paz (*Bkc) MUCOUS MEM 1 spray PRN PRN Administration Sore Throat Promethazine HCl 12.5 mg
--- NOTE | 2023-03-21 15:57 | PM.PNGS ---
Progress Note: A&P Assessment and Plan (1) Colitis: Code(s): K52.9 - Noninfective gastroenteritis and colitis, unspecified Status: Acute Assessment and Plan: Post-op day 4 s/p right hemicolectomy. Bowel function starting to show signs of return NG with some dark blood-tinged output. Continue PPI, hemoglobin stable this am, monitor serial H/H tonight. If more signs of bleeding, may need to hold Lovenox. Continue NG tube, TPN, and bowel rest Continue IV antibiotics Encouraged getting up to the chair and slowly increasing activity as tolerated (2) Adynamic ileus: Code(s): K56.0 - Paralytic ileus Status: Acute Assessment and Plan: Continue NG tube decompression, TPN, and bowel rest. (3) Acute respiratory failure: Code(s): J96.00 - Acute respiratory failure, unspecified whether with hypoxia or hypercapnia Status: Acute Assessment and Plan: Following surgery/anesthesia. Resolved. (4) Atrial fibrillation: Code(s): I48.91 - Unspecified atrial fibrillation Status: Acute Assessment and Plan: Management per Hospitalist. May need to consider holding Lovenox if signs of GI bleeding. (5) CHF (congestive heart failure): Code(s): I50.9 - Heart failure, unspecified Status: Acute (6) SAMMY (acute kidney injury): Code(s): N17.9 - Acute kidney failure, unspecified Status: Acute (7) Elevated troponin: Code(s): R77.8 - Other specified abnormalities of plasma proteins Status: Acute (8) Thrombocytopenia: Code(s): D69.6 - Thrombocytopenia, unspecified Status: Acute Assessment and Plan: Overall improved since admission (9) Moderate protein-calorie malnutrition: Code(s): E44.0 - Moderate protein-calorie malnutrition Status: Acute Plan I have discussed the patient's case and plan of care with Dr. Chappell. Subjective Subjective Date/Time Seen: 03/21/23 13:57 Post Op day: 4 (Ex lap, Right hemicolectomy with enterocolic anastomosis) Patient reports: no new complaints, pain is less, flatus, bowel movement (one small bowel movement), blood in stool and afebrile Interval history: Patient seen today with her daughter at the bedside. She denies any abdominal pain at this time. She denies any nausea. Per nursing, she had 1 small liquid dark bloody bowel movement. She had a little flatus this afternoon. Her NG tube also has started to have more of a dark bloody output. No other acute events overnight. No other complaints. Exam Const: General: comfortable and no acute distress Orientation/consciousness: oriented to person and oriented to place GI: Inspection: non-distended and incision (dry and sunil intact, no erythema) GI Palp: Yes Soft to palpation, Yes Tenderness to palpation present (GI) (Mostly tender in the right lower pelvis), Yes Guarding due to palpation present (GI) (Right lower quadrant) and No Rebound tenderness present Auscultation: normal bowel sounds Other: NG tube with dark red/green output Urinary Catheter: Urinary Catheter: patent and draining Extrem: General: no calf tenderness and no edema Objective Data Vital Signs Vital Signs: Vital Signs - 24 hr 03/20/23 15:58 03/20/23 19:45 03/20/23 20:00 Temperature 97.4 F L 97.5 F L Pulse Rate 73 79 74 Respiratory Rate 20 18 18 Blood Pressure 136/56 L 129/52 L Pulse Oximetry 98 98 98 Oxygen Delivery Room Air Fraction of Inspired Oxygen 21 03/21/23 00:00 03/21/23 05:59 03/21/23 08:00 Temperature 97.5 F L 97.8 F Pulse Rate 87 82 87 Respiratory Rate 18 24 H Blood Pressure 137/47 L 131/51 L Pulse Oximetry 100 100 Oxygen Delivery Fraction of Inspired Oxygen 03/21/23 08:00 03/21/23 12:00 Temperature 97.6 F Pulse Rate 78 Respiratory Rate 20 Blood Pressure 133/67 Pulse Oximetry 97 Oxygen Delivery Room Air Fraction of Inspired Oxygen Intake/Output Intake/Output: Intake &
[2023-03-21 16:17] LABS: Glucose Point of Care 120 mg/dl (65-105)
[2023-03-21 17:08] LABS: Hematocrit 24.5 % (37.0-47.0); Hemoglobin 7.3 g/dL (12.0-15.0)
[2023-03-21 20:59] LABS: Glucose Point of Care 130 mg/dl (65-105)
[2023-03-22] VITALS (8 sets, daily range): BP systolic 124–150; BP diastolic 49–67; PULSE 54–87; RESP 16–22; TEMP 35.9–37.1; O2SAT 98–100
[2023-03-22 02:00] LABS: Gastric Negative Control Negative; Gastric Positive Control Positive; Occult Blood Gastric Fluid Positive; pH Gastric Fluid > 7 (1-8)
[2023-03-22 03:48] LABS: Basophils Percent Auto 0.3 % (0.2-1.2); Eosinophils Absolute Auto 0.1 K/mm3 (0-0.3); Eosinophils Percent Auto 0.8 % (0-4.4); Hematocrit 24.3 % (37.0-47.0); Hemoglobin 7.7 g/dL (12.0-15.0); Immature Granulocyte Absolute 0.07 K/mm3 (0.00-0.031); Immature Granulocyte Percent A 0.9 % (0-0.5); Lymphocytes Absolute Auto 0.76 K/mm3 (0.9-3.2); Lymphocytes Percent Auto 9.6 % (18.3-44.2); Mean Corpuscular HGB Conc 31.7 g/dl (32-36); Mean Corpuscular Hemoglobin 29.5 pg (26-34); Mean Corpuscular Volume 93.1 fl (80-100); Mean Platelet Volume 11.7 fl (7.4-10.4); Monocytes Absolute Auto 0.8 K/mm3 (0.1-0.6); Monocytes Percent Auto 9.8 % (2.6-8.5); Neutrophils Absolute Auto 6.3 K/mm3 (1.3-6.7); Neutrophils Percent Auto 78.6 % (45.5-73.1); Platelet Count Result 167 k/mm3 (150-375); Red Blood Count 2.61 M/mm3 (4.2-5.4); Red Cell Distribution Width 14.8 % (11.5-14.5); White Blood Count 7.9 K/mm3 (4.5-10.0)
[2023-03-22 04:01] LABS: Alanine Aminotransferase 33 U/L (6-35); Albumin Level 2.3 g/dL (3.5-5.1); Alkaline Phosphatase 89 U/L (38-126); Anion Gap 3 mmol/L (8-16); Aspartate Amino Transferase 37 U/L (14-36); Bilirubin,Total 2.2 mg/dL (0.2-1.3); Blood Urea Nitrogen 60 mg/dL (7-17); Calcium 7.8 mg/dL (8.4-10.2); Carbon Dioxide 26 mmol/L (22-30); Chloride 116 mmol/L (98-107); Estimated CRCL calculation 18 ml/min; Estimated Glomerular Filt Rate 27; Glucose 135 mg/dL (65-110); Magnesium 2.5 mg/dL (1.6-2.3); Phosphorus 3.7 mg/dL (2.5-4.5); Potassium 3.7 mmol/L (3.4-5.0); Sodium 145 mmol/L (137-145)
[2023-03-22] MEDS: CENTRAL LINE FLUSH 10 ML IV PUSH ×3 (06:19→20:57)
[2023-03-22] MEDS: ENOXAPARIN 60 MG/0.6 ML SYRINGE 50 MG SUB-Q (09:26)
[2023-03-22] MEDS: PANTOPRAZOLE SODIUM IV 40 MG VIAL IV PUSH ×2 (09:26→20:57)
[2023-03-22 09:53] LABS: Hematocrit 24.8 % (37.0-47.0); Hemoglobin 7.8 g/dL (12.0-15.0)
[2023-03-22 10:37] LABS: Triglycerides 190 mg/dL (<150)
[2023-03-22 12:01] LABS: Glucose Point of Care 126 mg/dl (65-105)
--- NOTE | 2023-03-22 12:43 | PM.IMPN ---
Progress Note: A&P Assessment and Plan (1) Necrosis of intestine: Code(s): K55.069 - Acute infarction of intestine, part and extent unspecified Status: Acute Assessment and Plan: Patient presents with n/v and severe abdominal pain. CT Abd/Pelvis showing dilated large and small bowel likely adynamic ileus. Focal wall thickening of the ascending colon with adjacent fat stranding. She was started on IV abx. Surgery consulted and NG tube placed. Symptoms improved and UGI-SBS showing contrast to cecum in 2-3 hours with moderate SB dilation. Diet started but symptoms worsened again so NGT replaced. She had bloody BM and repeat CT Abd/pelvis showing persistent focal ascending colon wall thickening suspicious for malignancy with pneumatosis in the right colon more proximal to the focal wall thickening. Dilated SB without focal transition point. PICC line placed and TPN started. Patient went for surgery 03/17 and found to have significant segment of necrotic bowel involving the ileum and ascending colon. About 4 ft of distal small bowel and ascending colon were resected. There were 2 small areas of perforation on the distal ileum and the cecum appeared very thin and near perforation. There was not much spillage into the abdominal cavity as the perforation appeared to be walled off. Patient underwent a side to side enterocolonic anastomosis from the jejunum to the transverse colon. Surgery felt that patient may have had an embolic event from her AFib resulting in the necrotic bowel. She tolerated procedure well but had some respiratory difficulties in the PACU so was placed on BiPAP and admitted to the ICU for this reason. Continue IV antibiotics. Continue supportive care. Continue dressing changes per surgery. 03/21: NGT decompression, TPN, bowel rest, monitor, POD#4 03/22: cont ng for now, output decreasing, pull out later today or tomorrow, defer management to surgery (2) Acute respiratory failure: Code(s): J96.00 - Acute respiratory failure, unspecified whether with hypoxia or hypercapnia Status: Acute Assessment and Plan: Patient developed respiratory difficulties in the PACU was placed on BiPAP. Patient was admitted to the ICU. ABG shows 7.42/36/149 on BiPAP. IV fluids stopped and Lasix given. Able to wean to room air. Resolved Moved to IMU 03/18 resolved (3) SAMMY (acute kidney injury): Code(s): N17.9 - Acute kidney failure, unspecified Status: Acute Assessment and Plan: Unknown prior values but patient reports no renal dysfunction. Creatinine peaked at 2.3 suspected prerenal related to dehydration, UTI and decreased oral intake/vomiting. Cr up again to 1.9 probably related to recent surgery UOP 1625mL yesterday Continue TPN Continue to monitor electrolytes, renal function and UOP 03/21: still hypernatremic, may need more free water flushes 03/22: slightly improved (4) Colitis: Code(s): K52.9 - Noninfective gastroenteritis and colitis, unspecified Status: Acute Assessment and Plan: CT scan shows focal wall thickening of the ascending colon with adjacent fat stranding suggestive of infection versus malignancy. Zosyn started 03/09. 03/12: WBC climbing so Zosyn stopped. Vanc, cefepime, Flagyl started. UCx 03/08 and 03/11: Negative BCx 03/08: (1of2) growing ESBL EColi. BCx 03/10: Negative MRSA swab 03/12: Negative. Blood culture positive for ESBL E coli so cefepime and Flagyl discontinued in favor of meropenem, vancomycin. Source felt to be necrotic bowel. Vancomycin stopped and changed to Ertapenem. 03/21: Continue current abx, ertapenem since 03/14, day 8 03/22: Cont current abx, ertapenem day 9 today, likely complete 14 day course (5) Elevated troponin: Code(s): R77.8 - Other specified abnormalities of plasma proteins Status: Acute Assessment and Plan: New onset atrial fibrillation. No chest pain but troponin is elevated and flat at 0.45. EKG veronica
--- NOTE | 2023-03-22 13:30 | WPDGIPROGNO ---
Progress Note: A&P Assessment and Plan (1) Necrosis of intestine: Code(s): K55.069 - Acute infarction of intestine, part and extent unspecified Status: Acute Assessment and Plan: Patient is status post resection with right hemicolectomy and also resection of portion of ileum. Appears to be improving clinically. Appears to be initially ischemic bowel as the etiology. Ileus appears to have resolved present. NG tube still in place. Plan for removal of NG tube in surgery allows. Start initially with liquid diet and advance as tolerated. Will leave this to the discretion of surgical service. (2) Moderate protein-calorie malnutrition: Code(s): E44.0 - Moderate protein-calorie malnutrition Status: Acute Assessment and Plan: Patient remains on TPN. she should remain on this until tolerating adequate oral nutrition. Subjective Date/time seen: 03/22/23 13:30 Interval history: Patient alert. More alert today. States she has passed some bowel movements. Denies abdominal pain. NG tube remains in place. Less NG tube output noted. Review of Systems Review of Systems: Review of systems noncontributory. Exam Narrative: Physical exam reveals patient to be alert. Vital signs stable. HEENT exam reveals no icterus. Lungs are clear. Heart without murmur. Abdomen bowel sounds are present abdomen is softer. No significant tenderness appreciated present. No masses noted. Some incisional tenderness remains. Objective Data Vital Signs Vital Signs: Vital Signs - 24 hr 03/21/23 16:00 03/21/23 19:34 03/21/23 23:21 Temperature 98.0 F 97.9 F 98.1 F Pulse Rate 74 70 73 Respiratory Rate 20 16 18 Blood Pressure 120/52 L 125/48 L 117/43 L Pulse Oximetry 100 96 100 Oxygen Delivery Fraction of Inspired Oxygen 03/22/23 03:46 03/22/23 08:08 03/22/23 08:00 Temperature 97.8 F 96.8 F L Pulse Rate 87 72 72 Respiratory Rate 20 22 H 22 H Blood Pressure 146/55 H 124/64 Pulse Oximetry 98 99 99 Oxygen Delivery Room Air Fraction of Inspired Oxygen 21 03/22/23 12:35 Temperature 97.2 F L Pulse Rate 54 L Respiratory Rate 20 Blood Pressure 150/62 H Pulse Oximetry 98 Oxygen Delivery Fraction of Inspired Oxygen Intake/Output Intake/Output: Intake & Output 09/03/20/23 03/21/23 03/22/23 23:59 23:59 23:59 23:59 Intake Total 2014 2064 2004 250 Output Total 950 2300 3000 1325 Balance 5529 -743 -995 -8965 Meds/Results Medications: Active Medications Generic Name Dose Route Start Last Admin Trade Name Freq PRN Reason Stop Dose Admin Acetaminophen 650 mg 03/08/23 16:34 03/12/23 13:50 Acetaminophen 325 Mg Tablet PO 650 mg Q4H PRN Administration Pain Rated 5 or Less Acetaminophen 650 mg 03/09/23 00:41 03/13/23 09:52 Acetaminophen 650 Mg Suppository RECTAL 650 mg Q6H PRN Administration Pain Rated 5 or Less Enoxaparin Sodium 50 mg 03/19/23 09:00 03/22/23 09:26 Enoxaparin 60 Mg/0.6 Ml Syringe SUB-Q 50 mg DAILY VITALIY Administration Ertapenem 0.5 gm/ Sodium 50 mls @ 100 mls/hr 03/14/23 14:00 03/21/23 14:32 Chloride IVPB 100 mls/hr Q24H VITALIY Administration Dextrose 1,000 mls @ 50 mls/hr 03/15/23 10:54 Dextrose 10% IV CONT .Q20H PRN if PN is interrupted Multivitamins 2.5 ml/ 2,005 mls @ 50 mls/hr 03/15/23 13:00 03/21/23 14:32 Multivitamins 2.5 ml/ Amino IV CONT 40 mls/hr Acids/Electrolytes/Dextrose .Q24H VITALIY Administration Protocol Morphine Sulfate 2 mg 03/08/23 16:34 03/21/23 15:11 Morphine Sulfate (*Crx) 2 Mg/Ml Inj IV PUSH 2 mg Q4H PRN Administration Pain Rated 6 or Greater Pantoprazole Sodium 40 mg 03/21/23 21:00 03/22/23 09:26 Pantoprazole Sodium Iv 40 Mg Vial IV PUSH 40 mg Q12HR VITALIY Administration Phenol 1 spray 03/13/23 09:45 03/13/23 11:00 Phenol/Sod Pheno [place] Paz (*Bkc) MUCOUS MEM 1 spray PRN PRN Administration
--- NOTE | 2023-03-22 13:34 | PM.PNGS ---
Progress Note: A&P Assessment and Plan (1) Colitis: Code(s): K52.9 - Noninfective gastroenteritis and colitis, unspecified Status: Acute Assessment and Plan: Remove NG and start clear liquids Await return of bowel function, advance slowly (2) Adynamic ileus: Code(s): K56.0 - Paralytic ileus Status: Acute Assessment and Plan: resolving (3) Acute respiratory failure: Code(s): J96.00 - Acute respiratory failure, unspecified whether with hypoxia or hypercapnia Status: Acute Assessment and Plan: Following surgery/anesthesia. Resolved. (4) Atrial fibrillation: Code(s): I48.91 - Unspecified atrial fibrillation Status: Acute Assessment and Plan: Management per Hospitalist. May need to consider holding Lovenox if signs of GI bleeding. (5) CHF (congestive heart failure): Code(s): I50.9 - Heart failure, unspecified Status: Acute (6) SAMMY (acute kidney injury): Code(s): N17.9 - Acute kidney failure, unspecified Status: Acute (7) Elevated troponin: Code(s): R77.8 - Other specified abnormalities of plasma proteins Status: Acute (8) Thrombocytopenia: Code(s): D69.6 - Thrombocytopenia, unspecified Status: Acute Assessment and Plan: Overall improved since admission (9) Moderate protein-calorie malnutrition: Code(s): E44.0 - Moderate protein-calorie malnutrition Status: Acute Assessment and Plan: Continue TPN until tolerating PO Subjective Subjective Date/Time Seen: 03/22/23 13:34 Interval history: NG output appears clear today. H/H stable. +BM yesterday. Good bowel sounds and passing flatus. Exam GI: Inspection: non-distended and incision (intact with sunil) GI Palp: Yes Soft to palpation and Yes Tenderness to palpation present (GI) (RLQ) Auscultation: normal bowel sounds Objective Data Vital Signs Vital Signs: Vital Signs - 24 hr 03/21/23 16:00 03/21/23 19:34 03/21/23 23:21 Temperature 36.7 C 36.6 C 36.7 C Pulse Rate 74 70 73 Respiratory Rate 20 16 18 Blood Pressure 120/52 L 125/48 L 117/43 L Pulse Oximetry 100 96 100 Oxygen Delivery Fraction of Inspired Oxygen 03/22/23 03:46 03/22/23 08:08 03/22/23 08:00 Temperature 36.6 C 36.0 C L Pulse Rate 87 72 72 Respiratory Rate 20 22 H 22 H Blood Pressure 146/55 H 124/64 Pulse Oximetry 98 99 99 Oxygen Delivery Room Air Fraction of Inspired Oxygen 03/22/23 12:35 Temperature 36.2 C L Pulse Rate 54 L Respiratory Rate 20 Blood Pressure 150/62 H Pulse Oximetry 98 Oxygen Delivery Fraction of Inspired Oxygen Intake/Output Intake/Output: Intake & Output 03/19/23 03/20/23 03/21/23 03/22/23 23:59 23:59 23:59 23:59 Intake Total 2014 2064 2004 250 Output Total 2300 3000 1325 Balance 9654 -098 -995 -7185 Meds/Results Medications: Active Medications Generic Name Dose Route Start Last Admin Trade Name Freq PRN Reason Stop Dose Admin Acetaminophen 650 mg 03/08/23 16:34 03/12/23 13:50 Acetaminophen 325 Mg Tablet PO 650 mg Q4H PRN Administration Pain Rated 5 or Less Acetaminophen 650 mg 03/09/23 00:41 03/13/23 09:52 Acetaminophen 650 Mg Suppository RECTAL 650 mg Q6H PRN Administration Pain Rated 5 or Less Enoxaparin Sodium 50 mg 03/19/23 09:00 03/22/23 09:26 Enoxaparin 60 Mg/0.6 Ml Syringe SUB-Q 50 mg DAILY VITALIY Administration Ertapenem 0.5 gm/ Sodium 50 mls @ 100 mls/hr 03/14/23 14:00 03/21/23 14:32 Chloride IVPB 100 mls/hr Q24H VITALIY Administration Dextrose 1,000 mls @ 50 mls/hr 03/15/23 10:54 Dextrose 10% IV CONT .Q20H PRN if PN is interrupted Multivitamins 2.5 ml/ 2,005 mls @ 50 mls/hr 03/15/23 13:00 03/21/23 14:32 Multivitamins 2.5 ml/ Amino IV CONT 40 mls/hr Acids/Electrolytes/Dextrose .Q24H VITALIY Administration Protocol Morphine Sulfate 2 mg 03/08/23 16:34 03/21/23 15:11
--- NOTE | 2023-03-22 14:28 | PCNFU ---
Nutrition Follow-Up Complete: Moderate protein calorie malnutrition related to inadequate energy intake as evidenced by pt and family report of poor intake over a week, noted -6% wt loss with a low BMI of 17.4, and NFPE findings for muscle wasting and subcutaneous fat loss. Diet advanced and tolerated - Progressing. Clear liquids Goal: Pt current nutrition is TPN Clinmix 11/12/E @ 40 ml/h provides 1182 kcal, 48 g protein, 1210 ml total volume. +lipids. Nutrition recommendation: Continue with current nutrition care plan and orders. May need to cut back lipids to every other day if TRIG get any higher. Last recorded weight is 49.8 kg. Bowel Motility: Small BM today 03/22/23 Labs Reviewed:Hgb 7.8, Hct 24.8, Na 146, GFR 27, BUN 60, Cre 1.8, glu 135, TRIG 190 (down from 199 03/18/23) Meds Noted: Protonix, lovenox Skin: No pressure related skin breakdown Additional Notes: Pt was advanced to clear liquids, family member said she had 5 cups of ice chips today. NG tube to come out today. Pt very weak and sleepy when seen. Monitor diet orders, intake, wt, labs. Follow up in 3 days.
[2023-03-22] MEDS: ERTAPENEM SODIUM 0.5 GM in SODIUM CHLORIDE 0.9% IV 50 ML IVPB (15:22)
[2023-03-22] MEDS: AMINO ACIDS 5%/D15W/E-LYTES/CA 2,000 ML with MULTIVITAMINS-12 INJ VIAL 1 2.5 ML, MULTIV... 40 ML IV CONT (15:23)
[2023-03-22 16:41] LABS: Glucose Point of Care 121 mg/dl (65-105)
--- NOTE | 2023-03-22 16:53 | PC.NURSE ---
NG removed at 1600. Patient tolerated well, no complaints of n/v. Clear liquid diet ordered. Will continue to monitor closely.
--- NOTE | 2023-03-22 17:24 | PC.NURSE ---
This patient, Nataliya Mendoza, was transferred to [[id number] ] on 03/22/23 at 1725. Personal belongings sent with patient. Report given to [ ROSE Barriga]. Appropriate documentation sent with patient.
--- NOTE | 2023-03-22 18:10 | ADMGEN ---
This patient, Nataliya Mendoza, was admitted to 3 [facility] Surg Room 312-01 from IMU @ 1730. Patient/family oriented to hospital policies and general routines including ID bracelet, bed and alarms, visiting hours, pain management, procedures, bathroom and other care routines, personal items, smoking policy, room service/diet, and visiting hours. Information on how to activate the Rapid Response Team has been discussed. Patient/Family are encouraged to report perceived risks to care and to ask questions if they do not understand what they are told or what they should do.
[2023-03-22 18:16] LABS: Glucose Point of Care 127 mg/dl (65-105)
[2023-03-23 00:18] LABS: Glucose Point of Care 100 mg/dl (65-105)
--- NOTE | 2023-03-23 00:57 | ADMGEN ---
This patient, Nataliya Mendoza, was admitted to [facility] Surg Room 312-01. Patient/family oriented to hospital policies and general routines including ID bracelet, bed and alarms, visiting hours, pain management, procedures, bathroom and other care routines, personal items, smoking policy, room service/diet, and visiting hours. Information on how to activate the Rapid Response Team has been discussed. Patient/Family are encouraged to report perceived risks to care and to ask questions if they do not understand what they are told or what they should do.
--- NOTE | 2023-03-23 02:40 | PCRCNOTE ---
Pt refused to wear Cpap at night. Pt states she doesn't need it.
[2023-03-23] MEDS: CENTRAL LINE FLUSH 10 ML IV PUSH ×4 (05:04→20:35)
[2023-03-23 05:52] LABS: Eosinophils Absolute Auto 0.1 K/mm3 (0-0.3); Eosinophils Percent Auto 1.7 % (0-4.4); Hematocrit 24.8 % (37.0-47.0); Hemoglobin 7.8 g/dL (12.0-15.0); Immature Granulocyte Absolute 0.05 K/mm3 (0.00-0.031); Immature Granulocyte Percent A 0.7 % (0-0.5); Lymphocytes Absolute Auto 0.74 K/mm3 (0.9-3.2); Lymphocytes Percent Auto 10.4 % (18.3-44.2); Mean Corpuscular HGB Conc 31.5 g/dl (32-36); Mean Corpuscular Hemoglobin 29.3 pg (26-34); Mean Corpuscular Volume 93.2 fl (80-100); Mean Platelet Volume 12.7 fl (7.4-10.4); Monocytes Absolute Auto 0.6 K/mm3 (0.1-0.6); Neutrophils Absolute Auto 5.6 K/mm3 (1.3-6.7); Neutrophils Percent Auto 78.2 % (45.5-73.1); Platelet Count Result 186 k/mm3 (150-375); Red Blood Count 2.66 M/mm3 (4.2-5.4); Red Cell Distribution Width 15.2 % (11.5-14.5); White Blood Count 7.1 K/mm3 (4.5-10.0)
[2023-03-23 06:00] LABS: Alanine Aminotransferase 33 U/L (6-35); Albumin Level 2.4 g/dL (3.5-5.1); Alkaline Phosphatase 101 U/L (38-126); Anion Gap 7 mmol/L (8-16); Aspartate Amino Transferase 36 U/L (14-36); Bilirubin,Total 1.8 mg/dL (0.2-1.3); Blood Urea Nitrogen 54 mg/dL (7-17); Calcium 7.7 mg/dL (8.4-10.2); Carbon Dioxide 23 mmol/L (22-30); Chloride 115 mmol/L (98-107); Estimated CRCL calculation 19 ml/min; Estimated Glomerular Filt Rate 29; Glucose 121 mg/dL (65-110); Potassium 3.5 mmol/L (3.4-5.0); Sodium 145 mmol/L (137-145)
[2023-03-23 06:45] LABS: Glucose Point of Care 118 mg/dl (65-105)
[2023-03-23 06:49] VITALS: BP 140/68; PULSE 78; RESP 16; TEMP 36.2; O2SAT 100
--- NOTE | 2023-03-23 11:37 | WPDGIPROGNO ---
Progress Note: A&P Assessment and Plan (1) Necrosis of intestine: Code(s): K55.069 - Acute infarction of intestine, part and extent unspecified Status: Acute Assessment and Plan: Patient is status post resection with right hemicolectomy and also resection of portion of ileum. she is improving and now tolerating liquid diet, also had BM diet per surgery (2) Colitis: Code(s): K52.9 - Noninfective gastroenteritis and colitis, unspecified Status: Acute Assessment and Plan: treated with surgery clinically better (3) Moderate protein-calorie malnutrition: Code(s): E44.0 - Moderate protein-calorie malnutrition Status: Acute Assessment and Plan: Patient remains on TPN. she should remain on this until tolerating adequate oral nutrition. (4) Adynamic ileus: Code(s): K56.0 - Paralytic ileus Status: Acute Assessment and Plan: regaining function now Subjective Date/time seen: 03/23/23 11:37 Interval history: better, tolerating liquid diet she had BM more comfortable Review of Systems Review of Systems: All systems reviewed & are unremarkable except as noted in HPI and below Exam Const: General: comfortable HENMT: Face/Nose/Sinus: Normal nares present Eyes: Sclera: sclerae normal Neck: Neck: supple Resp: Effort & Inspection: normal respiratory effort Cardio: Rate: regular rate GI: Inspection: non-distended and incision (intact with sunil) GI Palp: Yes Soft to palpation and Yes Tenderness to palpation present (GI) (RLQ) Auscultation: normal bowel sounds Skin: General skin exam: normal color Neuro: Speech: normal speech Motor exam (neuro): 5/5 motor strength present throughout Extrem: General: normal to inspection Psych: Mental Status: mental status grossly normal Objective Data Vital Signs Vital Signs: Vital Signs - 24 hr 03/22/23 12:35 03/22/23 16:30 03/22/23 17:40 Temperature 97.2 F L 98.7 F Pulse Rate 54 L 74 Respiratory Rate 20 18 Blood Pressure 150/62 H 132/67 Pulse Oximetry 98 100 Oxygen Delivery Room Air Fraction of Inspired Oxygen 03/22/23 18:00 03/22/23 20:00 03/22/23 23:19 Temperature 98.1 F 96.6 F L Pulse Rate 69 69 73 Respiratory Rate 18 18 16 Blood Pressure 137/49 L 126/60 Pulse Oximetry 99 99 98 Oxygen Delivery Room Air Fraction of Inspired Oxygen 03/23/23 06:49 Temperature 97.1 F L Pulse Rate 78 Respiratory Rate 16 Blood Pressure 140/68 Pulse Oximetry 100 Oxygen Delivery Fraction of Inspired Oxygen Intake/Output Intake/Output: Intake & Output 03/20/23 03/21/23 03/22/23 03/23/23 23:59 23:59 23:59 23:59 Intake Total 2063 2055 2785 Output Total 2300 7763 2770 550 Balance -235 -807 10 -550 Meds/Results Medications: Active Medications Generic Name Dose Route Start Last Admin Trade Name Freq PRN Reason Stop Dose Admin Acetaminophen 650 mg 03/08/23 16:34 03/12/23 13:50 Acetaminophen 325 Mg Tablet PO 650 mg Q4H PRN Administration Pain Rated 5 or Less Acetaminophen 650 mg 03/09/23 00:41 03/13/23 09:52 Acetaminophen 650 Mg Suppository RECTAL 650 mg Q6H PRN Administration Pain Rated 5 or Less Enoxaparin Sodium 50 mg 03/19/23 09:00 03/22/23 09:26 Enoxaparin 60 Mg/0.6 Ml Syringe SUB-Q 50 mg DAILY VITALIY Administration Ertapenem 0.5 gm/ Sodium 50 mls @ 100 mls/hr 03/14/23 14:00 03/22/23 17:17 Chloride IVPB Infused Q24H VITALIY Infusion Dextrose 1,000 mls @ 50 mls/hr 03/15/23 10:54 Dextrose 10% IV CONT .Q20H PRN if PN is interrupted Multivitamins 2.5 ml/ 2,005 mls @ 50 mls/hr 03/15/23 13:00 03/22/23 15:23 Multivitamins 2.5 ml/ Amino IV CONT 40 mls/hr Acids/Electrolytes/Dextrose .Q24H VITALIY Administration Protocol Morphine Sulfate 2 mg 03/08/23 16:34 03/21/23 15:11 Morphine Sulfate (*Crx) 2 Mg/Ml Inj IV PUSH 2 mg Q4H PRN Administration Pain Rated 6 or Greater
[2023-03-23] MEDS: ENOXAPARIN 60 MG/0.6 ML SYRINGE 50 MG SUB-Q (11:49)
[2023-03-23] MEDS: PANTOPRAZOLE SODIUM IV 40 MG VIAL IV PUSH (11:49)
[2023-03-23 13:08] VITALS: O2SAT 95
[2023-03-23] MEDS: ERTAPENEM SODIUM 0.5 GM in SODIUM CHLORIDE 0.9% IV 50 ML IVPB (14:17)
[2023-03-23] MEDS: AMINO ACIDS 5%/D15W/E-LYTES/CA 2,000 ML with MULTIVITAMINS-12 INJ VIAL 1 2.5 ML, MULTIV... 40 ML IV CONT (14:19)
[2023-03-23 16:00] VITALS: BP 126/62; PULSE 105; RESP 16; TEMP 36.1; O2SAT 100
--- NOTE | 2023-03-23 17:43 | PM.PNGS ---
Progress Note: A&P Assessment and Plan (1) History of partial colectomy: Code(s): Z90.49 - Acquired absence of other specified parts of digestive tract Status: Acute Assessment and Plan: Doing well. Having bowel movements and wounds are healing nicely. She is tolerating clear liquids well but would like some soft solid food. Will go ahead and advance her diet. TPN has been renewed. Remains on ertapenem, now day 9. 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 (3) Atrial fibrillation: Qualifiers: Atrial fibrillation type: unspecified chronic Qualified Code(s): I48.20 - Chronic atrial fibrillation, unspecified Code(s): I48.91 - Unspecified atrial fibrillation Status: Chronic Assessment and Plan: Continue therapeutic dose of Lovenox Subjective Subjective Date/Time Seen: 03/23/23 17:43 Post Op day: #6 Patient reports: no new complaints, feels better, tolerating liquids well, bowel movement and afebrile Exam Const: General: comfortable and no acute distress GI: Inspection: non-distended and incision (Dry and healing well) GI Palp: Yes Soft to palpation, Yes Tenderness to palpation present (GI) (Minimal tenderness), No Guarding due to palpation present (GI) and No Rebound tenderness present Auscultation: normal bowel sounds Neuro: General: no focal motor deficits Extrem: General: no calf tenderness and no edema Psych: Affect: normal affect Insight: Good insight present (Psych) Judgement: Good judgement present (Psych) Objective Data Vital Signs Vital Signs: Vital Signs - 24 hr 03/22/23 18:00 03/22/23 20:00 03/22/23 23:19 Temperature 36.7 C 35.9 C L Pulse Rate 69 69 73 Respiratory Rate 18 18 16 Blood Pressure 137/49 L 126/60 Pulse Oximetry 99 99 98 Oxygen Delivery Room Air Fraction of Inspired Oxygen 21 03/23/23 06:49 03/23/23 13:08 03/23/23 08:00 Temperature 36.2 C L Pulse Rate 78 Respiratory Rate 16 Blood Pressure 140/68 Pulse Oximetry 100 95 Oxygen Delivery Room Air Fraction of Inspired Oxygen 03/23/23 16:00 Temperature 36.1 C L Pulse Rate 105 H Respiratory Rate 16 Blood Pressure 126/62 Pulse Oximetry 100 Oxygen Delivery Fraction of Inspired Oxygen Intake/Output Intake/Output: Intake & Output 03/20/23 03/21/23 03/22/23 03/23/23 23:59 23:59 23:59 23:59 Intake Total 2064 2054 2785 2004 Output Total 0 3000 2775 550 Balance -235 -152502 32 2414 Meds/Results Medications: Active Medications Generic Name Dose Route Start Last Admin Trade Name Freq PRN Reason Stop Dose Admin Acetaminophen 650 mg 03/08/23 16:34 03/12/23 13:50 Acetaminophen 325 Mg Tablet PO 650 mg Q4H PRN Administration Pain Rated 5 or Less Acetaminophen 650 mg 03/09/23 00:41 03/13/23 09:52 Acetaminophen 650 Mg Suppository RECTAL 650 mg Q6H PRN Administration Pain Rated 5 or Less Enoxaparin Sodium 50 mg 03/19/23 09:00 03/23/23 11:49 Enoxaparin 60 Mg/0.6 Ml Syringe SUB-Q 50 mg DAILY VITALIY Administration Ertapenem 0.5 gm/ Sodium 50 mls @ 100 mls/hr 03/14/23 14:00 03/23/23 14:17 Chloride IVPB 100 mls/hr Q24H VITALIY Administration Dextrose 1,000 mls @ 50 mls/hr 03/15/23 10:54 Dextrose 10% IV CONT .Q20H PRN if PN is interrupted Multivitamins 2.5 ml/ 2,005 mls @ 50 mls/hr 03/15/23 13:00 03/23/23 14:19 Multivitamins 2.5 ml/ Amino IV CONT 40 mls/hr Acids/Electrolytes/Dextrose .Q24H VITALIY Administration Protocol Miscellaneous Information 1 each 03/24/23 00:01 Ertapenem Needs To Be Renewed Or It Will Automatically Discontinue. XX 04/23/23 00:00 CLARIFY VITALIY Morphine Sulfate 2 mg 03/08/23 16:34 03/21/23 15:11 Morphine Sulfate (*Crx) 2 Mg/Ml Inj IV PUSH 2 mg
--- NOTE | 2023-03-23 19:01 | PM.IMPN ---
Progress Note: A&P Assessment and Plan (1) Necrosis of intestine: Code(s): K55.069 - Acute infarction of intestine, part and extent unspecified Status: Acute Assessment and Plan: Patient presents with n/v and severe abdominal pain. CT Abd/Pelvis showing dilated large and small bowel likely adynamic ileus. Focal wall thickening of the ascending colon with adjacent fat stranding. She was started on IV abx. Surgery consulted and NG tube placed. Symptoms improved and UGI-SBS showing contrast to cecum in 2-3 hours with moderate SB dilation. Diet started but symptoms worsened again so NGT replaced. She had bloody BM and repeat CT Abd/pelvis showing persistent focal ascending colon wall thickening suspicious for malignancy with pneumatosis in the right colon more proximal to the focal wall thickening. Dilated SB without focal transition point. PICC line placed and TPN started. Patient went for surgery 03/17 and found to have significant segment of necrotic bowel involving the ileum and ascending colon. About 4 ft of distal small bowel and ascending colon were resected. There were 2 small areas of perforation on the distal ileum and the cecum appeared very thin and near perforation. There was not much spillage into the abdominal cavity as the perforation appeared to be walled off. Patient underwent a side to side enterocolonic anastomosis from the jejunum to the transverse colon. Surgery felt that patient may have had an embolic event from her AFib resulting in the necrotic bowel. She tolerated procedure well but had some respiratory difficulties in the PACU so was placed on BiPAP and admitted to the ICU for this reason. Continue IV antibiotics. Continue supportive care. Continue dressing changes per surgery. 03/21: NGT decompression, TPN, bowel rest, monitor, POD#4 03/22: cont ng for now, output decreasing, pull out later today or tomorrow, defer management to surgery 03/23: NG removed, tolerating liquids, advance diet as tolerated (2) Acute respiratory failure: Code(s): J96.00 - Acute respiratory failure, unspecified whether with hypoxia or hypercapnia Status: Acute Assessment and Plan: Patient developed respiratory difficulties in the PACU was placed on BiPAP. Patient was admitted to the ICU. ABG shows 7.42/36/149 on BiPAP. IV fluids stopped and Lasix given. Able to wean to room air. Resolved Moved to IMU 03/18 resolved (3) SAMMY (acute kidney injury): Code(s): N17.9 - Acute kidney failure, unspecified Status: Acute Assessment and Plan: Unknown prior values but patient reports no renal dysfunction. Creatinine peaked at 2.3 suspected prerenal related to dehydration, UTI and decreased oral intake/vomiting. Cr up again to 1.9 probably related to recent surgery UOP 1625mL yesterday Continue TPN Continue to monitor electrolytes, renal function and UOP 03/21: still hypernatremic, may need more free water flushes 03/22: slightly improved 03/23: Continues to improve (4) Colitis: Code(s): K52.9 - Noninfective gastroenteritis and colitis, unspecified Status: Acute Assessment and Plan: CT scan shows focal wall thickening of the ascending colon with adjacent fat stranding suggestive of infection versus malignancy. Zosyn started 03/09. 03/12: WBC climbing so Zosyn stopped. Vanc, cefepime, Flagyl started. UCx 03/08 and 03/11: Negative BCx 03/08: (1of2) growing ESBL EColi. BCx 03/10: Negative MRSA swab 03/12: Negative. Blood culture positive for ESBL E coli so cefepime and Flagyl discontinued in favor of meropenem, vancomycin. Source felt to be necrotic bowel. Vancomycin stopped and changed to Ertapenem. 03/21: Continue current abx, ertapenem since 03/14, day 8 03/22: Cont current abx, ertapenem day 9 today, likely complete 14 day course 03/23: Day 10 of antibiotics (5) Elevated troponin: Code(s): R77.8 - Other specified abnormalities of plasma proteins Status: Acute
[2023-03-23] MEDS: FAMOTIDINE 20 MG TABLET PO (20:34)
[2023-03-24 00:06] VITALS: BP 131/59; PULSE 76; RESP 21; TEMP 36.1; O2SAT 100
[2023-03-24 06:01] VITALS: BP 153/70; PULSE 70; RESP 20; TEMP 36.5; O2SAT 99
[2023-03-24] MEDS: CENTRAL LINE FLUSH 10 ML IV PUSH ×4 (06:14→21:44)
[2023-03-24 06:33] LABS: Glucose Point of Care 119 mg/dl (65-105)
[2023-03-24] MEDS: ENOXAPARIN 60 MG/0.6 ML SYRINGE 50 MG SUB-Q (08:14)
[2023-03-24] MEDS: FAMOTIDINE 20 MG TABLET PO ×2 (08:16→21:43)
[2023-03-24 08:37] LABS: Basophils Percent Auto 0.1 % (0.2-1.2); Eosinophils Absolute Auto 0.1 K/mm3 (0-0.3); Eosinophils Percent Auto 2.1 % (0-4.4); Hematocrit 26.2 % (37.0-47.0); Hemoglobin 8.1 g/dL (12.0-15.0); Immature Granulocyte Absolute 0.05 K/mm3 (0.00-0.031); Immature Granulocyte Percent A 0.7 % (0-0.5); Lymphocytes Absolute Auto 0.72 K/mm3 (0.9-3.2); Lymphocytes Percent Auto 10.7 % (18.3-44.2); Mean Corpuscular HGB Conc 30.9 g/dl (32-36); Mean Corpuscular Hemoglobin 29.2 pg (26-34); Mean Corpuscular Volume 94.6 fl (80-100); Mean Platelet Volume 12.1 fl (7.4-10.4); Monocytes Absolute Auto 0.5 K/mm3 (0.1-0.6); Monocytes Percent Auto 7.7 % (2.6-8.5); Neutrophils Absolute Auto 5.3 K/mm3 (1.3-6.7); Neutrophils Percent Auto 78.7 % (45.5-73.1); Platelet Count Result 190 k/mm3 (150-375); Red Blood Count 2.77 M/mm3 (4.2-5.4); Red Cell Distribution Width 15.3 % (11.5-14.5); White Blood Count 6.8 K/mm3 (4.5-10.0)
[2023-03-24 08:46] LABS: Alanine Aminotransferase 34 U/L (6-35); Albumin Level 2.6 g/dL (3.5-5.1); Alkaline Phosphatase 108 U/L (38-126); Anion Gap 6 mmol/L (8-16); Aspartate Amino Transferase 35 U/L (14-36); Bilirubin,Total 1.4 mg/dL (0.2-1.3); Blood Urea Nitrogen 47 mg/dL (7-17); Calcium 7.6 mg/dL (8.4-10.2); Carbon Dioxide 22 mmol/L (22-30); Chloride 111 mmol/L (98-107); Estimated CRCL calculation 23 ml/min; Estimated Glomerular Filt Rate 36; Glucose 122 mg/dL (65-110); Potassium 3.8 mmol/L (3.4-5.0); Sodium 139 mmol/L (137-145); Triglycerides 193 mg/dL (<150)
[2023-03-24 09:15] VITALS: BP 130/54; PULSE 73; RESP 18; TEMP 36.3; O2SAT 100
--- NOTE | 2023-03-24 11:57 | WPDGIPROGNO ---
Progress Note: A&P Assessment and Plan (1) Necrosis of intestine: Code(s): K55.069 - Acute infarction of intestine, part and extent unspecified Status: Acute Assessment and Plan: Patient is status post resection with right hemicolectomy and also resection of portion of ileum. she is improving, tolerating diet but still poor appetite diet per surgery (2) Colitis: Code(s): K52.9 - Noninfective gastroenteritis and colitis, unspecified Status: Acute Assessment and Plan: treated with surgery clinically better (3) Moderate protein-calorie malnutrition: Code(s): E44.0 - Moderate protein-calorie malnutrition Status: Acute Assessment and Plan: Patient remains on TPN. she should remain on this until tolerating adequate oral nutrition. (4) Adynamic ileus: Code(s): K56.0 - Paralytic ileus Status: Acute Assessment and Plan: + BM, no nausea Subjective Date/time seen: 03/24/23 11:57 Interval history: still poor appetite but eating, had couple of bites eggs for breakfast she is having BM but with accidents Review of Systems Review of Systems: All systems reviewed & are unremarkable except as noted in HPI and below Exam Const: General: comfortable HENMT: Face/Nose/Sinus: Normal nares present Eyes: Sclera: sclerae normal Neck: Neck: supple Resp: Effort & Inspection: normal respiratory effort Cardio: Rhythm: abnormal rhythm irregularly irregular GI: Inspection: non-distended and incision (intact with sunil) GI Palp: Yes Soft to palpation and Yes Tenderness to palpation present (GI) (RLQ) Auscultation: normal bowel sounds Skin: General skin exam: normal color Neuro: Speech: normal speech Motor exam (neuro): 5/5 motor strength present throughout Extrem: General: normal to inspection Psych: Mental Status: mental status grossly normal Objective Data Vital Signs Vital Signs: Vital Signs - 24 hr 03/23/23 13:08 03/23/23 16:00 03/23/23 20:00 Temperature 96.9 F L Pulse Rate 105 H Respiratory Rate 16 Blood Pressure 126/62 Pulse Oximetry 95 100 Oxygen Delivery Room Air 03/24/23 00:06 03/24/23 06:01 03/24/23 09:15 Temperature 97.0 F L 97.7 F 97.4 F L Pulse Rate 76 70 73 Respiratory Rate 21 H 20 18 Blood Pressure 131/59 L 153/70 H 130/54 L Pulse Oximetry 100 99 100 Oxygen Delivery 03/24/23 08:15 Temperature Pulse Rate Respiratory Rate Blood Pressure Pulse Oximetry Oxygen Delivery Room Air Intake/Output Intake/Output: Intake & Output 03/21/23 03/22/23 03/23/23 03/24/23 23:59 23:59 23:59 23:59 Intake Total 2053 2785 2355 400 Output Total 3000 2775 1150 800 Balance -800 14 3040 -400 Meds/Results Medications: Active Medications Generic Name Dose Route Start Last Admin Trade Name Freq PRN Reason Stop Dose Admin Acetaminophen 650 mg 03/08/23 16:34 03/12/23 13:50 Acetaminophen 325 Mg Tablet PO 650 mg Q4H PRN Administration Pain Rated 5 or Less Acetaminophen 650 mg 03/09/23 00:41 03/13/23 09:52 Acetaminophen 650 Mg Suppository RECTAL 650 mg Q6H PRN Administration Pain Rated 5 or Less Enoxaparin Sodium 50 mg 03/19/23 09:00 03/24/23 08:14 Enoxaparin 60 Mg/0.6 Ml Syringe SUB-Q 50 mg DAILY VITALIY Administration Famotidine 20 mg 03/23/23 21:00 03/24/23 08:16 Famotidine 20 Mg Tablet PO 20 mg Q12HR VITALIY Administration Ertapenem 0.5 gm/ Sodium 50 mls @ 100 mls/hr 03/14/23 14:00 03/23/23 14:47 Chloride IVPB Infused Q24H VITALIY Infusion Dextrose 1,000 mls @ 50 mls/hr 03/15/23 10:54 Dextrose 10% IV CONT .Q20H PRN if PN is interrupted Multivitamins 2.5 ml/ 2,005 mls @ 50 mls/hr 03/15/23 13:00 03/23/23 14:19 Multivitamins 2.5 ml/ Amino IV CONT 40 mls/hr Acids/Electrolytes/Dextrose .Q24H VITALIY Administration Protocol Miscellaneous Information 1 each 03/24/23 00:01 Ertapenem Needs To Be Renewed Or It Wi
--- NOTE | 2023-03-24 12:51 | PM.PNGS ---
Progress Note: A&P Assessment and Plan (1) History of partial colectomy: Code(s): Z90.49 - Acquired absence of other specified parts of digestive tract Status: Acute Assessment and Plan: I explained to patient that diarrhea following removal of small intestine and ascending colon is actually very common. I will go ahead and order her some Imodium. Mostly she is not eating. Despite the multiple bowel movements she is slightly distended. Wound is healing well. (2) Necrosis of intestine: Code(s): K55.069 - Acute infarction of intestine, part and extent unspecified Status: Acute Assessment and Plan: Resected and doing well (3) Moderate protein-calorie malnutrition: Code(s): E44.0 - Moderate protein-calorie malnutrition Status: Acute Assessment and Plan: Patient has no appetite and even some mild nausea. Continue TPN for malnutrition. (4) Atrial fibrillation: Qualifiers: Atrial fibrillation type: unspecified chronic Qualified Code(s): I48.20 - Chronic atrial fibrillation, unspecified Code(s): I48.91 - Unspecified atrial fibrillation Status: Chronic Assessment and Plan: Continue therapeutic dose of Lovenox. Subjective Subjective Date/Time Seen: 03/24/23 12:52 Post Op day: #7 Patient reports: feels better, diarrhea and afebrile Interval history: Still not eating. Patient has poor appetite. Feels better overall. Would like something for the multiple stools she is having. On low-fiber or soft diet. Review of Systems Review of Systems: All systems reviewed & are unremarkable except as noted in HPI and below (HPI) Exam Const: General: cooperative, comfortable, no acute distress, alert, awake, tired appearing and underweight Nutritional Appearance: thin and underweight Orientation/consciousness: patient oriented x3 and No confusion GI: Inspection: distended, incision (Dry and healing well) and scaphoid GI Palp: Yes Soft to palpation, Yes Tenderness to palpation present (GI) (Mildly tender), No Guarding due to palpation present (GI) and No Rebound tenderness present Neuro: General: patient oriented x3 and no focal motor deficits Extrem: General: no calf tenderness and no edema Psych: Speech and movement: Clear speech present Affect: normal affect Attitude: cooperative Insight: Good insight present (Psych) Judgement: Good judgement present (Psych) Objective Data Vital Signs Vital Signs: Vital Signs - 24 hr 03/23/23 13:08 03/23/23 16:00 03/23/23 20:00 Temperature 36.1 C L Pulse Rate 105 H Respiratory Rate 16 Blood Pressure 126/62 Pulse Oximetry 95 100 Oxygen Delivery Room Air 03/24/23 00:06 03/24/23 06:01 03/24/23 09:15 Temperature 36.1 C L 36.5 C 36.3 C L Pulse Rate 76 70 73 Respiratory Rate 21 H 20 18 Blood Pressure 131/59 L 153/70 H 130/54 L Pulse Oximetry 100 99 100 Oxygen Delivery 03/24/23 08:15 Temperature Pulse Rate Respiratory Rate Blood Pressure Pulse Oximetry Oxygen Delivery Room Air Intake/Output Intake/Output: Intake & Output 03/21/23 03/22/23 03/23/23 03/24/23 23:59 23:59 23:59 23:59 Intake Total 2055 2785 2355 400 Output Total 3000 2775 1150 800 Balance -367 69 9878 -400 Meds/Results Medications: Active Medications Generic Name Dose Route Start Last Admin Trade Name Debra PRN Reason Stop Dose Admin Acetaminophen 650 mg 03/08/23 16:34 03/12/23 13:50 Acetaminophen 325 Mg Tablet PO 650 mg Q4H PRN Administration Pain Rated 5 or Less Acetaminophen 650 mg 03/09/23 00:41 03/13/23 09:52 Acetaminophen 650 Mg Suppository RECTAL 650 mg Q6H PRN Administration Pain Rated 5 or Less Enoxaparin Sodium 50 mg 03/19/23 09:00 03/24/23 08:14 Enoxaparin 60 Mg/0.6 Ml Syringe SUB-Q 50 mg DAILY VITALIY Administration Famotidine 20 mg 03/23/23 21:00 03/24/23 08:16 Famotidine 20 Mg Tablet PO 20 mg Q12HR [facility] Administratio
[2023-03-24] MEDS: AMINO ACIDS 5%/D15W/E-LYTES/CA 2,000 ML with MULTIVITAMINS-12 INJ VIAL 1 2.5 ML, MULTIV... 40 ML IV CONT (13:23)
[2023-03-24] MEDS: ERTAPENEM SODIUM 0.5 GM in SODIUM CHLORIDE 0.9% IV 50 ML IVPB (13:23)
[2023-03-24 14:13] LABS: Glucose Point of Care 102 mg/dl (65-105)
--- NOTE | 2023-03-24 15:15 | PM.IMPN ---
Progress Note: A&P Assessment and Plan (1) Necrosis of intestine: Code(s): K55.069 - Acute infarction of intestine, part and extent unspecified Status: Acute Assessment and Plan: Patient presents with n/v and severe abdominal pain. CT Abd/Pelvis showing dilated large and small bowel likely adynamic ileus. Focal wall thickening of the ascending colon with adjacent fat stranding. She was started on IV abx. Surgery consulted and NG tube placed. Symptoms improved and UGI-SBS showing contrast to cecum in 2-3 hours with moderate SB dilation. Diet started but symptoms worsened again so NGT replaced. She had bloody BM and repeat CT Abd/pelvis showing persistent focal ascending colon wall thickening suspicious for malignancy with pneumatosis in the right colon more proximal to the focal wall thickening. Dilated SB without focal transition point. PICC line placed and TPN started. Patient went for surgery 03/17 and found to have significant segment of necrotic bowel involving the ileum and ascending colon. About 4 ft of distal small bowel and ascending colon were resected. There were 2 small areas of perforation on the distal ileum and the cecum appeared very thin and near perforation. There was not much spillage into the abdominal cavity as the perforation appeared to be walled off. Patient underwent a side to side enterocolonic anastomosis from the jejunum to the transverse colon. Surgery felt that patient may have had an embolic event from her AFib resulting in the necrotic bowel. She tolerated procedure well but had some respiratory difficulties in the PACU so was placed on BiPAP and admitted to the ICU for this reason. Continue IV antibiotics. Continue supportive care. Continue dressing changes per surgery. 03/21: NGT decompression, TPN, bowel rest, monitor, POD#4 03/22: cont ng for now, output decreasing, pull out later today or tomorrow, defer management to surgery 03/23: NG removed, tolerating liquids, advance diet as tolerated 03/24: Some diarrhea likely secondary to TPN, Imodium initiated, monitor (2) Acute respiratory failure: Code(s): J96.00 - Acute respiratory failure, unspecified whether with hypoxia or hypercapnia Status: Acute Assessment and Plan: Patient developed respiratory difficulties in the PACU was placed on BiPAP. Patient was admitted to the ICU. ABG shows 7.42/36/149 on BiPAP. IV fluids stopped and Lasix given. Able to wean to room air. Resolved Moved to IMU 03/18 resolved (3) SAMMY (acute kidney injury): Code(s): N17.9 - Acute kidney failure, unspecified Status: Acute Assessment and Plan: Unknown prior values but patient reports no renal dysfunction. Creatinine peaked at 2.3 suspected prerenal related to dehydration, UTI and decreased oral intake/vomiting. Cr up again to 1.9 probably related to recent surgery UOP 1625mL yesterday Continue TPN Continue to monitor electrolytes, renal function and UOP 03/21: Still hypernatremic, may need more free water flushes 03/22: Slightly improved 03/23: Continues to improve 03/24: improving, monitor (4) Colitis: Code(s): K52.9 - Noninfective gastroenteritis and colitis, unspecified Status: Acute Assessment and Plan: CT scan shows focal wall thickening of the ascending colon with adjacent fat stranding suggestive of infection versus malignancy. Zosyn started 03/09. 03/12: WBC climbing so Zosyn stopped. Vanc, cefepime, Flagyl started. UCx 03/08 and 03/11: Negative BCx 03/08: (1of2) growing ESBL EColi. BCx 03/10: Negative MRSA swab 03/12: Negative. Blood culture positive for ESBL E coli so cefepime and Flagyl discontinued in favor of meropenem, vancomycin. Source felt to be necrotic bowel. Vancomycin stopped and changed to Ertapenem. 03/21: Continue current abx, ertapenem since 03/14, day 8 03/22: Cont current abx, ertapenem day 9 today, likely complete 14 day course 03/23: Day 10 of antibiotics 03/24: day 11 (5) Elevated
[2023-03-24 16:00] VITALS: BP 134/53; PULSE 72; RESP 16; TEMP 37.3; O2SAT 100
[2023-03-24] MEDS: LOPERAMIDE HCL 2 MG CAPSULE PO (16:03)
[2023-03-24 19:58] VITALS: BP 132/59; PULSE 78; RESP 18; TEMP 36.6; O2SAT 99
[2023-03-25 04:34] VITALS: BP 129/53; PULSE 81; RESP 18; TEMP 36.2; O2SAT 99
[2023-03-25 06:23] LABS: Basophils Percent Auto 0.2 % (0.2-1.2); Eosinophils Absolute Auto 0.1 K/mm3 (0-0.3); Eosinophils Percent Auto 1.4 % (0-4.4); Hematocrit 22.6 % (37.0-47.0); Hemoglobin 7.1 g/dL (12.0-15.0); Immature Granulocyte Absolute 0.05 K/mm3 (0.00-0.031); Immature Granulocyte Percent A 0.8 % (0-0.5); Lymphocytes Percent Auto 10.6 % (18.3-44.2); Mean Corpuscular HGB Conc 31.4 g/dl (32-36); Mean Corpuscular Hemoglobin 29.6 pg (26-34); Mean Corpuscular Volume 94.2 fl (80-100); Mean Platelet Volume 11.7 fl (7.4-10.4); Monocytes Absolute Auto 0.6 K/mm3 (0.1-0.6); Monocytes Percent Auto 8.5 % (2.6-8.5); Neutrophils Absolute Auto 5.2 K/mm3 (1.3-6.7); Neutrophils Percent Auto 78.5 % (45.5-73.1); Platelet Count Result 179 k/mm3 (150-375); Red Cell Distribution Width 15.1 % (11.5-14.5); White Blood Count 6.6 K/mm3 (4.5-10.0)
[2023-03-25 06:32] LABS: Alanine Aminotransferase 34 U/L (6-35); Albumin Level 2.2 g/dL (3.5-5.1); Alkaline Phosphatase 104 U/L (38-126); Anion Gap 5 mmol/L (8-16); Aspartate Amino Transferase 37 U/L (14-36); Bilirubin,Total 1.2 mg/dL (0.2-1.3); Blood Urea Nitrogen 47 mg/dL (7-17); Calcium 7.2 mg/dL (8.4-10.2); Carbon Dioxide 20 mmol/L (22-30); Chloride 109 mmol/L (98-107); Estimated CRCL calculation 23 ml/min; Estimated Glomerular Filt Rate 40; Glucose 114 mg/dL (65-110); Magnesium 2.1 mg/dL (1.6-2.3); Potassium 3.8 mmol/L (3.4-5.0); Sodium 134 mmol/L (137-145)
[2023-03-25 06:40] LABS: Transferrin 151 mg/dL (206-381)
[2023-03-25 07:13] LABS: INR 1.2; Prothrombin Time 15.5 Seconds (11.1-14.7)
[2023-03-25 07:14] LABS: Partial Thromboplastin Time 28.7 SECONDS (22.3-36.8)
[2023-03-25] MEDS: FAMOTIDINE 20 MG TABLET PO ×2 (08:30→22:27)
[2023-03-25] MEDS: ENOXAPARIN 60 MG/0.6 ML SYRINGE 50 MG SUB-Q (08:30)
[2023-03-25] MEDS: CENTRAL LINE FLUSH 10 ML IV PUSH ×4 (08:30→22:27)
--- NOTE | 2023-03-25 13:02 | PM.PNGS ---
Progress Note: A&P Assessment and Plan (1) History of partial colectomy: Code(s): Z90.49 - Acquired absence of other specified parts of digestive tract Status: Acute Assessment and Plan: Continues to slowly improve. Incision healing well. Encouraged oral intake. Continue PT/OT, increasing activity. (2) Necrosis of intestine: Code(s): K55.069 - Acute infarction of intestine, part and extent unspecified Status: Acute (3) Moderate protein-calorie malnutrition: Code(s): E44.0 - Moderate protein-calorie malnutrition Status: Acute Assessment and Plan: Poor appetite but intake improved some this morning. Will initiate a calorie count and continue TPN for now. Hopefully TPN can be discontinued in the next 1-2 days if intake improves. Encouraged oral intake, patient refuses supplements. (4) Atrial fibrillation: Qualifiers: Atrial fibrillation type: unspecified chronic Qualified Code(s): I48.20 - Chronic atrial fibrillation, unspecified Code(s): I48.91 - Unspecified atrial fibrillation Status: Chronic Assessment and Plan: Continue therapeutic dose of Lovenox. Plan I have discussed the patient's case and plan of care with Dr. Chappell. Subjective Subjective Date/Time Seen: 03/25/23 13:02 Post Op day: 8 (Ex lap, right hemicolectomy) Patient reports: no new complaints, feels better, tolerating a regular diet and afebrile Interval history: Chart reviewed since last seen. Patient seen with PT and her daughter at the bedside. Physician therapy stated her strength is improving and she was able to ambulate to the bathroom and back. She is now sitting in her chair. She has had a poor appetite with minimal oral intake over the weekend. The patient states she ate better this morning for breakfast, but still only few bites of her food. She refuses to drink any supplements, which were offered to her today. She denies nausea, vomiting, or abdominal pain. Still has some mild tenderness in the RLQ, but continues to improve. Exam Const: General: comfortable and no acute distress Orientation/consciousness: patient oriented x3 GI: Inspection: incision (Dry and healing well) and other (Mildly distended) Auscultation: normal bowel sounds Objective Data Vital Signs Vital Signs: Vital Signs - 24 hr 03/24/23 16:00 03/24/23 19:58 03/25/23 04:34 Temperature 99.2 F 97.9 F 97.2 F L Pulse Rate 72 78 81 Respiratory Rate 16 18 18 Blood Pressure 134/53 L 132/59 L 129/53 L Pulse Oximetry 100 99 99 Oxygen Delivery 03/25/23 08:00 Temperature Pulse Rate Respiratory Rate Blood Pressure Pulse Oximetry Oxygen Delivery Room Air Intake/Output Intake/Output: Intake & Output 03/22/23 03/23/23 03/24/23 03/25/23 23:59 23:59 23:59 23:59 Intake Total 2785 2355 2855 436 Output Total 2775 1150 800 50 Balance 10 1205 2055 386 Meds/Results Medications: Active Medications Generic Name Dose Route Start Last Admin Trade Name Freq PRN Reason Stop Dose Admin Acetaminophen 650 mg 03/08/23 16:34 03/12/23 13:50 Acetaminophen 325 Mg Tablet PO 650 mg Q4H PRN Administration Pain Rated 5 or Less Acetaminophen 650 mg 03/09/23 00:41 03/13/23 09:52 Acetaminophen 650 Mg Suppository RECTAL 650 mg Q6H PRN Administration Pain Rated 5 or Less Enoxaparin Sodium 50 mg 03/19/23 09:00 03/25/23 08:30 Enoxaparin 60 Mg/0.6 Ml Syringe SUB-Q 50 mg DAILY VITALIY Administration Famotidine 20 mg 03/23/23 21:00 03/25/23 08:30 Famotidine 20 Mg Tablet PO 20 mg Q12HR VITALIY Administration Ertapenem 0.5 gm/ Sodium 50 mls @ 100 mls/hr 03/14/23 14:00 03/24/23 16:56 Chloride IVPB 03/27/23 17:00 Infused Q24H VITALIY Infusion Dextrose 1,000 mls @ 50 mls/hr 03/15/23 10:54 Dextrose 10% IV CONT .Q20H PRN if PN is interrupted Multivitamins 2.5 ml/ 2,005 mls @ 40 mls/hr 03/15/23 13:00 03/25/23 09:00 Multivita
[2023-03-25] MEDS: AMINO ACIDS 5%/D15W/E-LYTES/CA 2,000 ML with MULTIVITAMINS-12 INJ VIAL 1 2.5 ML, MULTIV... 40 ML IV CONT (13:45)
[2023-03-25] MEDS: ERTAPENEM SODIUM 0.5 GM in SODIUM CHLORIDE 0.9% IV 50 ML IVPB (13:45)
--- NOTE | 2023-03-25 13:48 | PM.IMPN ---
Progress Note: A&P Assessment and Plan (1) Necrosis of intestine: Code(s): K55.069 - Acute infarction of intestine, part and extent unspecified Status: Acute Assessment and Plan: Patient presents with n/v and severe abdominal pain. CT Abd/Pelvis showing dilated large and small bowel likely adynamic ileus. Focal wall thickening of the ascending colon with adjacent fat stranding. She was started on IV abx. Surgery consulted and NG tube placed. Symptoms improved and UGI-SBS showing contrast to cecum in 2-3 hours with moderate SB dilation. Diet started but symptoms worsened again so NGT replaced. She had bloody BM and repeat CT Abd/pelvis showing persistent focal ascending colon wall thickening suspicious for malignancy with pneumatosis in the right colon more proximal to the focal wall thickening. Dilated SB without focal transition point. PICC line placed and TPN started. Patient went for surgery 03/17 and found to have significant segment of necrotic bowel involving the ileum and ascending colon. About 4 ft of distal small bowel and ascending colon were resected. There were 2 small areas of perforation on the distal ileum and the cecum appeared very thin and near perforation. There was not much spillage into the abdominal cavity as the perforation appeared to be walled off. Patient underwent a side to side enterocolonic anastomosis from the jejunum to the transverse colon. Surgery felt that patient may have had an embolic event from her AFib resulting in the necrotic bowel. She tolerated procedure well but had some respiratory difficulties in the PACU so was placed on BiPAP and admitted to the ICU for this reason. Continue IV antibiotics. Continue supportive care. Continue dressing changes per surgery. 03/21: NGT decompression, TPN, bowel rest, monitor, POD#4 03/22: cont ng for now, output decreasing, pull out later today or tomorrow, defer management to surgery 03/23: NG removed, tolerating liquids, advance diet as tolerated 03/24: Some diarrhea likely secondary to TPN, Imodium initiated, monitor 03/25: Much improved, no complaints, continuing to advance diet (2) Acute respiratory failure: Code(s): J96.00 - Acute respiratory failure, unspecified whether with hypoxia or hypercapnia Status: Acute Assessment and Plan: Patient developed respiratory difficulties in the PACU was placed on BiPAP. Patient was admitted to the ICU. ABG shows 7.42/36/149 on BiPAP. IV fluids stopped and Lasix given. Able to wean to room air. Resolved Moved to IMU 03/18 resolved (3) SAMMY (acute kidney injury): Code(s): N17.9 - Acute kidney failure, unspecified Status: Acute Assessment and Plan: Unknown prior values but patient reports no renal dysfunction. Creatinine peaked at 2.3 suspected prerenal related to dehydration, UTI and decreased oral intake/vomiting. Cr up again to 1.9 probably related to recent surgery UOP 1625mL yesterday Continue TPN Continue to monitor electrolytes, renal function and UOP 03/21: Still hypernatremic, may need more free water flushes 03/22: Slightly improved 03/23: Continues to improve 03/24: improving, monitor 03/24: Slowly continuing to improve, monitor (4) Colitis: Code(s): K52.9 - Noninfective gastroenteritis and colitis, unspecified Status: Acute Assessment and Plan: CT scan shows focal wall thickening of the ascending colon with adjacent fat stranding suggestive of infection versus malignancy. Zosyn started 03/09. 03/12: WBC climbing so Zosyn stopped. Vanc, cefepime, Flagyl started. UCx 03/08 and 03/11: Negative BCx 03/08: (1of2) growing ESBL EColi. BCx 03/10: Negative MRSA swab 03/12: Negative. Blood culture positive for ESBL E coli so cefepime and Flagyl discontinued in favor of meropenem, vancomycin. Source felt to be necrotic bowel. Vancomycin stopped and changed to Ertapenem. 03/21: Continue current abx, ertapenem since 03/14, day 8 03/22: Cont current abx, er
[2023-03-25 14:00] VITALS: BP 125/51; PULSE 77; RESP 28; TEMP 36.1; O2SAT 100
[2023-03-25] MEDS: LOPERAMIDE HCL 2 MG CAPSULE PO (16:47)
[2023-03-25 21:34] LABS: Glucose Point of Care 107 mg/dl (65-105)
[2023-03-25 21:48] VITALS: BP 119/50; PULSE 68; RESP 18; TEMP 37.4; O2SAT 99
[2023-03-26 04:30] LABS: Basophils Percent Auto 0.2 % (0.2-1.2); Eosinophils Absolute Auto 0.1 K/mm3 (0-0.3); Eosinophils Percent Auto 1.2 % (0-4.4); Hematocrit 22.6 % (37.0-47.0); Hemoglobin 7.1 g/dL (12.0-15.0); Immature Granulocyte Absolute 0.05 K/mm3 (0.00-0.031); Immature Granulocyte Percent A 0.8 % (0-0.5); Lymphocytes Percent Auto 10.5 % (18.3-44.2); Mean Corpuscular HGB Conc 31.4 g/dl (32-36); Mean Corpuscular Hemoglobin 29.7 pg (26-34); Mean Corpuscular Volume 94.6 fl (80-100); Mean Platelet Volume 11.7 fl (7.4-10.4); Monocytes Absolute Auto 0.7 K/mm3 (0.1-0.6); Monocytes Percent Auto 9.9 % (2.6-8.5); Neutrophils Absolute Auto 5.2 K/mm3 (1.3-6.7); Neutrophils Percent Auto 77.4 % (45.5-73.1); Platelet Count Result 167 k/mm3 (150-375); Red Blood Count 2.39 M/mm3 (4.2-5.4); Red Cell Distribution Width 15.6 % (11.5-14.5); White Blood Count 6.7 K/mm3 (4.5-10.0)
[2023-03-26 04:40] LABS: Alanine Aminotransferase 42 U/L (6-35); Albumin Level 2.3 g/dL (3.5-5.1); Alkaline Phosphatase 117 U/L (38-126); Anion Gap 7 mmol/L (8-16); Aspartate Amino Transferase 43 U/L (14-36); Bilirubin,Total 0.9 mg/dL (0.2-1.3); Blood Urea Nitrogen 46 mg/dL (7-17); Calcium 7.4 mg/dL (8.4-10.2); Carbon Dioxide 18 mmol/L (22-30); Chloride 110 mmol/L (98-107); Estimated CRCL calculation 23 ml/min; Estimated Glomerular Filt Rate 40; Glucose 109 mg/dL (65-110); Potassium 3.7 mmol/L (3.4-5.0); Sodium 135 mmol/L (137-145)
[2023-03-26] MEDS: ENOXAPARIN 60 MG/0.6 ML SYRINGE 50 MG SUB-Q (09:25)
[2023-03-26] MEDS: FAMOTIDINE 20 MG TABLET PO ×2 (09:27→20:57)
--- NOTE | 2023-03-26 09:55 | PM.IMPN ---
Progress Note: A&P Assessment and Plan (1) Necrosis of intestine: Code(s): K55.069 - Acute infarction of intestine, part and extent unspecified Status: Acute Assessment and Plan: Patient presents with n/v and severe abdominal pain. CT Abd/Pelvis showing dilated large and small bowel likely adynamic ileus. Focal wall thickening of the ascending colon with adjacent fat stranding. She was started on IV abx. Surgery consulted and NG tube placed. Symptoms improved and UGI-SBS showing contrast to cecum in 2-3 hours with moderate SB dilation. Diet started but symptoms worsened again so NGT replaced. She had bloody BM and repeat CT Abd/pelvis showing persistent focal ascending colon wall thickening suspicious for malignancy with pneumatosis in the right colon more proximal to the focal wall thickening. Dilated SB without focal transition point. PICC line placed and TPN started. Patient went for surgery 03/17 and found to have significant segment of necrotic bowel involving the ileum and ascending colon. About 4 ft of distal small bowel and ascending colon were resected. There were 2 small areas of perforation on the distal ileum and the cecum appeared very thin and near perforation. There was not much spillage into the abdominal cavity as the perforation appeared to be walled off. Patient underwent a side to side enterocolonic anastomosis from the jejunum to the transverse colon. Surgery felt that patient may have had an embolic event from her AFib resulting in the necrotic bowel. She tolerated procedure well but had some respiratory difficulties in the PACU so was placed on BiPAP and admitted to the ICU for this reason. Continue IV antibiotics. Continue supportive care. Continue dressing changes per surgery. 03/23: NG removed, tolerating liquids, advance diet as tolerated cont to improve, good po intake (2) Acute respiratory failure: Code(s): J96.00 - Acute respiratory failure, unspecified whether with hypoxia or hypercapnia Status: Acute Assessment and Plan: Patient developed respiratory difficulties in the PACU was placed on BiPAP. Patient was admitted to the ICU. ABG shows 7.42/36/149 on BiPAP. IV fluids stopped and Lasix given. Able to wean to room air. Resolved Moved to IMU 03/18 resolved (3) SAMMY (acute kidney injury): Code(s): N17.9 - Acute kidney failure, unspecified Status: Acute Assessment and Plan: Unknown prior values but patient reports no renal dysfunction. Creatinine peaked at 2.3 suspected prerenal related to dehydration, UTI and decreased oral intake/vomiting. Cr up again to 1.9 probably related to recent surgery UOP 1625mL yesterday Continue TPN Continue to monitor electrolytes, renal function and UOP appears nearly resolved, monitor (4) Colitis: Code(s): K52.9 - Noninfective gastroenteritis and colitis, unspecified Status: Acute Assessment and Plan: CT scan shows focal wall thickening of the ascending colon with adjacent fat stranding suggestive of infection versus malignancy. Zosyn started 03/09. 03/12: WBC climbing so Zosyn stopped. Vanc, cefepime, Flagyl started. UCx 03/08 and 03/11: Negative BCx 03/08: (1of2) growing ESBL EColi. BCx 03/10: Negative MRSA swab 03/12: Negative. Blood culture positive for ESBL E coli so cefepime and Flagyl discontinued in favor of meropenem, vancomycin. Source felt to be necrotic bowel. Vancomycin stopped and changed to Ertapenem. completed full course of abx for ESBL ecoli with carbapenem (5) Elevated troponin: Code(s): R77.8 - Other specified abnormalities of plasma proteins Status: Acute Assessment and Plan: New onset atrial fibrillation. No chest pain but troponin is elevated and flat at 0.45. EKG cannot exclude [place]. Cardiology consulted and appreciate their input. [place] elevated Trop related to demand ischemia from ileus and dehydration. Echo 03/09 showed an EF of 50-55% with abnormal diast
--- NOTE | 2023-03-26 10:08 | PM.PNGS ---
Progress Note: A&P Assessment and Plan (1) History of partial colectomy: Code(s): Z90.49 - Acquired absence of other specified parts of digestive tract Status: Acute Assessment and Plan: Continues to slowly improve. Incision healing well. Her current issues is eating, poor appetite. Encouraged increasing her oral intake, stop TPN. Continue PT/OT, increasing activity. (2) Necrosis of intestine: Code(s): K55.069 - Acute infarction of intestine, part and extent unspecified Status: Acute Assessment and Plan: S/p right hemicolectomy due to segment of necrotic bowel involving the ileum and ascending colon. Still on IV antibiotics, primary service planning a total of 14 days (3) Moderate protein-calorie malnutrition: Code(s): E44.0 - Moderate protein-calorie malnutrition Status: Acute Assessment and Plan: Stop TPN today. Encourage increased intake, small frequent meals. Dietitian consulted and added ice cream supplement, calorie count. Also encouraged family to bring in food she would like. (4) Atrial fibrillation: Qualifiers: Atrial fibrillation type: unspecified chronic Qualified Code(s): I48.20 - Chronic atrial fibrillation, unspecified Code(s): I48.91 - Unspecified atrial fibrillation Status: Chronic Assessment and Plan: Continue therapeutic dose of Lovenox. Plan I have discussed the patient's case and plan of care with Dr. Chappell. Subjective Subjective Date/Time Seen: 03/26/23 08:38 Post Op day: 9 (Ex lap, right hemicolectomy) Patient reports: no new complaints, flatus, diarrhea (Imodium taken last night.) and afebrile Interval history: Patient doing well today. Denies any specific complaints at this time. Denies abdominal pain, nausea, or vomiting. Still not much oral intake. Only at about 30% of her dinner tray last night. Has her breakfast in front of her this morning. Exam Const: General: comfortable and no acute distress Orientation/consciousness: patient oriented x3 GI: Inspection: non-distended and incision (Dry and healing well) GI Palp: Yes Soft to palpation, No Tenderness to palpation present (GI), No Guarding due to palpation present (GI) and No Rebound tenderness present Auscultation: normal bowel sounds Extrem: General: no calf tenderness and no edema Objective Data Vital Signs Vital Signs: Vital Signs - 24 hr 03/25/23 14:00 03/25/23 15:45 03/25/23 21:48 Temperature 97.0 F L 99.3 F Pulse Rate 77 68 Respiratory Rate 28 H 18 Blood Pressure 125/51 L 119/50 L Pulse Oximetry 100 99 Oxygen Delivery Room Air Intake/Output Intake/Output: Intake & Output 03/23/23 03/24/23 03/25/23 03/26/23 23:59 23:59 23:59 23:59 Intake Total 2355 2855 2611 0 Output Total 1150 800 50 Balance 1205 2055 2561 0 Meds/Results Medications: Active Medications Generic Name Dose Route Start Last Admin Trade Name Freq PRN Reason Stop Dose Admin Acetaminophen 650 mg 03/08/23 16:34 03/12/23 13:50 Acetaminophen 325 Mg Tablet PO 650 mg Q4H PRN Administration Pain Rated 5 or Less Acetaminophen 650 mg 03/09/23 00:41 03/13/23 09:52 Acetaminophen 650 Mg Suppository RECTAL 650 mg Q6H PRN Administration Pain Rated 5 or Less Enoxaparin Sodium 50 mg 03/19/23 09:00 03/26/23 09:25 Enoxaparin 60 Mg/0.6 Ml Syringe SUB-Q 50 mg DAILY VITALIY Administration Famotidine 20 mg 03/23/23 21:00 03/26/23 09:27 Famotidine 20 Mg Tablet PO 20 mg Q12HR VITALIY Administration Ertapenem 0.5 gm/ Sodium 50 mls @ 100 mls/hr 03/14/23 14:00 03/25/23 14:15 Chloride IVPB 03/26/23 23:59 Infused Q24H VITALIY Infusion Dextrose 1,000 mls @ 50 mls/hr 03/15/23 10:54 Dextrose 10% IV CONT .Q20H PRN if PN is interrupted Loperamide HCl 2 mg 03/24/23 13:02 03/25/23 16:47 Loperamide Hcl 2 Mg Capsule PO 2 mg PRN PRN Administration Diarrhea Morphine Sulfate
--- NOTE | 2023-03-26 11:01 | PCDIET ---
Calorie count initiated. 35% of dinner reported-grilled cheese, ice cream and 2% milk. Discussed with patient today increasing intake. She is willing to add a diet supplement of nutritional ice cream providing an additional 300 kcals and 9 gms protein. Spoke with TANVI Roper today regarding TPN-plans to discontinue TPN and po intake encouraged. Will continue with calorie count and monitor every 3 days.
[2023-03-26 14:00] VITALS: BP 114/56; PULSE 80; RESP 30; O2SAT 100
[2023-03-26] MEDS: ERTAPENEM SODIUM 0.5 GM in SODIUM CHLORIDE 0.9% IV 50 ML IVPB (14:53)
[2023-03-26] MEDS: CENTRAL LINE FLUSH 10 ML IV PUSH ×2 (14:54→20:57)
[2023-03-26 20:00] VITALS: PULSE 80; RESP 30; O2SAT 100
[2023-03-26 22:00] VITALS: BP 117/51; PULSE 69; RESP 12; TEMP 37.1; O2SAT 98
[2023-03-27 00:49] VITALS: O2SAT 99
[2023-03-27 06:24] LABS: Basophils Percent Auto 0.3 % (0.2-1.2); Eosinophils Absolute Auto 0.1 K/mm3 (0-0.3); Eosinophils Percent Auto 1.6 % (0-4.4); Hematocrit 23.7 % (37.0-47.0); Hemoglobin 7.4 g/dL (12.0-15.0); Immature Granulocyte Absolute 0.04 K/mm3 (0.00-0.031); Immature Granulocyte Percent A 0.7 % (0-0.5); Lymphocytes Absolute Auto 0.77 K/mm3 (0.9-3.2); Lymphocytes Percent Auto 13.4 % (18.3-44.2); Mean Corpuscular HGB Conc 31.2 g/dl (32-36); Mean Corpuscular Hemoglobin 29.6 pg (26-34); Mean Corpuscular Volume 94.8 fl (80-100); Mean Platelet Volume 11.7 fl (7.4-10.4); Monocytes Absolute Auto 0.7 K/mm3 (0.1-0.6); Monocytes Percent Auto 12.2 % (2.6-8.5); Neutrophils Absolute Auto 4.1 K/mm3 (1.3-6.7); Neutrophils Percent Auto 71.8 % (45.5-73.1); Platelet Count Result 220 k/mm3 (150-375); Red Cell Distribution Width 16.2 % (11.5-14.5); White Blood Count 5.8 K/mm3 (4.5-10.0)
[2023-03-27 06:34] LABS: Alanine Aminotransferase 60 U/L (6-35); Albumin Level 2.4 g/dL (3.5-5.1); Alkaline Phosphatase 147 U/L (38-126); Anion Gap 7 mmol/L (8-16); Aspartate Amino Transferase 52 U/L (14-36); Bilirubin,Total 0.9 mg/dL (0.2-1.3); Blood Urea Nitrogen 40 mg/dL (7-17); Calcium 7.5 mg/dL (8.4-10.2); Carbon Dioxide 17 mmol/L (22-30); Chloride 113 mmol/L (98-107); Estimated CRCL calculation 20 ml/min; Estimated Glomerular Filt Rate 33; Glucose 89 mg/dL (65-110); Sodium 137 mmol/L (137-145)
[2023-03-27] MEDS: CENTRAL LINE FLUSH 10 ML IV PUSH ×3 (06:42→20:17)
[2023-03-27 08:00] VITALS: BP 125/74; PULSE 81; RESP 16; TEMP 36.7; O2SAT 100
[2023-03-27] MEDS: FAMOTIDINE 20 MG TABLET PO ×2 (08:19→20:16)
[2023-03-27] MEDS: ENOXAPARIN 60 MG/0.6 ML SYRINGE 50 MG SUB-Q (08:19)
--- NOTE | 2023-03-27 10:49 | PCDIET ---
Addendum entered by Aye Khan RD, LDN 03/27/23 11:01: Amend: Found record for breakfast yesterday 03/26/23. Pt ate 7 bites of Cheerios. No significant calories to add to total. Original Note: CALORIE COUNT DAY 2: No record for breakfast Lunch 03/26/23: Pt's family brought in chicken and dumplings. Pt did like this and ate more of this than anything so far. Estimated: 1 cup chicken dumplings ~ 100-200 kcals. 8 oz fruit ~ 100 kcals. 1 cup milk: 100 kcals. Total: 300-400 kcals Dinner: 5% mashed potatoes: About 10-20 kcals. 1 cup orange sherbet: ~ 100 kcals. Total ~ 120 kcals Total for day 03/26/23: ~400-500 kcals (excluding breakfast as it was not recorded.)
--- NOTE | 2023-03-27 11:01 | PM.PNGS ---
Progress Note: A&P Assessment and Plan (1) History of partial colectomy: Code(s): Z90.49 - Acquired absence of other specified parts of digestive tract Status: Acute Assessment and Plan: Continues to slowly improve. Incision healing well. Her current issues is eating, poor appetite. Encouraged increasing her oral intake. Continue PT/OT, increasing activity. Will remove sunil today OK to discharge from surgical standpoint. (2) Necrosis of intestine: Code(s): K55.069 - Acute infarction of intestine, part and extent unspecified Status: Acute Assessment and Plan: S/p right hemicolectomy due to segment of necrotic bowel involving the ileum and ascending colon. (3) Moderate protein-calorie malnutrition: Code(s): E44.0 - Moderate protein-calorie malnutrition Status: Acute Assessment and Plan: Encourage increased intake, small frequent meals. Dietitian consulted and added ice cream supplement, calorie count. Also encouraged family to bring in food she would like. (4) Atrial fibrillation: Qualifiers: Atrial fibrillation type: unspecified chronic Qualified Code(s): I48.20 - Chronic atrial fibrillation, unspecified Code(s): I48.91 - Unspecified atrial fibrillation Status: Chronic Assessment and Plan: Continue therapeutic dose of Lovenox. OK to transition to oral anticoagulation. Subjective Subjective Date/Time Seen: 03/27/23 11:01 Interval history: Doing well. Tolerating diet but still not eating much. Bowels moving. No new complaints. Just no appetite. Exam GI: Inspection: non-distended and incision (Dry and healing well) GI Palp: Yes Soft to palpation, No Tenderness to palpation present (GI), No Guarding due to palpation present (GI) and No Rebound tenderness present Auscultation: normal bowel sounds Extrem: General: no calf tenderness and no edema Objective Data Vital Signs Vital Signs: Vital Signs - 24 hr 03/26/23 14:00 03/26/23 20:00 03/27/23 00:49 Temperature Pulse Rate 80 80 Respiratory Rate 30 H 30 H Blood Pressure 114/56 L Pulse Oximetry 100 100 99 Oxygen Delivery Room Air Room Air Fraction of Inspired Oxygen 21 03/26/23 22:00 03/27/23 08:00 03/27/23 08:00 Temperature 37.1 C 36.7 C Pulse Rate 69 81 Respiratory Rate 12 16 Blood Pressure 117/51 L 125/74 Pulse Oximetry 98 100 Oxygen Delivery Room Air Fraction of Inspired Oxygen Intake/Output Intake/Output: Intake & Output 03/24/23 03/25/23 03/26/23 03/27/23 23:59 23:59 23:59 23:59 Intake Total 2855 2611 240 390 Output Total 800 50 Balance 2054 2561 240 390 Meds/Results Medications: Active Medications Generic Name Dose Route Start Last Admin Trade Name Freq PRN Reason Stop Dose Admin Acetaminophen 650 mg 03/08/23 16:34 03/12/23 13:50 Acetaminophen 325 Mg Tablet PO 650 mg Q4H PRN Administration Pain Rated 5 or Less Acetaminophen 650 mg 03/09/23 00:41 03/13/23 09:52 Acetaminophen 650 Mg Suppository RECTAL 650 mg Q6H PRN Administration Pain Rated 5 or Less Enoxaparin Sodium 50 mg 03/19/23 09:00 03/27/23 08:19 Enoxaparin 60 Mg/0.6 Ml Syringe SUB-Q 50 mg DAILY VITALIY Administration Famotidine 20 mg 03/23/23 21:00 03/27/23 08:19 Famotidine 20 Mg Tablet PO 20 mg Q12HR VITALIY Administration Dextrose 1,000 mls @ 50 mls/hr 03/15/23 10:54 Dextrose 10% IV CONT .Q20H PRN if PN is interrupted Loperamide HCl 2 mg 03/24/23 13:02 03/25/23 16:47 Loperamide Hcl 2 Mg Capsule PO 2 mg PRN PRN Administration Diarrhea Miscellaneous Information 0 each 03/26/23 00:01 Morphine Order Will Auto Around Noon 03/27. Order Will Need To Be Renewed If This I XX 04/25/23 00:00 CLARIFY VITALIY Morphine Sulfate 2 mg 03/08/23 16:34 03/21/23 15:11 Morphine Sulfate (*Crx) 2 Mg/Ml Inj IV PUSH 2 mg Q4H PRN Administration Pain Rated 6
--- NOTE | 2023-03-27 14:07 | PM.IMPN ---
Progress Note: A&P Assessment and Plan (1) Necrosis of intestine: Code(s): K55.069 - Acute infarction of intestine, part and extent unspecified Status: Acute Assessment and Plan: Patient presents with n/v and severe abdominal pain. CT Abd/Pelvis showing dilated large and small bowel likely adynamic ileus. Focal wall thickening of the ascending colon with adjacent fat stranding. She was started on IV abx. Surgery consulted and NG tube placed. Symptoms improved and UGI-SBS showing contrast to cecum in 2-3 hours with moderate SB dilation. Diet started but symptoms worsened again so NGT replaced. She had bloody BM and repeat CT Abd/pelvis showing persistent focal ascending colon wall thickening suspicious for malignancy with pneumatosis in the right colon more proximal to the focal wall thickening. Dilated SB without focal transition point. PICC line placed and TPN started. Patient went for surgery 03/17 and found to have significant segment of necrotic bowel involving the ileum and ascending colon. About 4 ft of distal small bowel and ascending colon were resected. There were 2 small areas of perforation on the distal ileum and the cecum appeared very thin and near perforation. There was not much spillage into the abdominal cavity as the perforation appeared to be walled off. Patient underwent a side to side enterocolonic anastomosis from the jejunum to the transverse colon. Surgery felt that patient may have had an embolic event from her AFib resulting in the necrotic bowel. She tolerated procedure well but had some respiratory difficulties in the PACU so was placed on BiPAP and admitted to the ICU for this reason. Tolerating oral intake. Pain controlled. Plan for discharge home with family. Okay to change to oral anticoagulation. (2) Acute respiratory failure: Code(s): J96.00 - Acute respiratory failure, unspecified whether with hypoxia or hypercapnia Status: Acute Assessment and Plan: Patient developed respiratory difficulties in the PACU was placed on BiPAP. Patient was admitted to the ICU. ABG shows 7.42/36/149 on BiPAP. IV fluids stopped and Lasix given. Able to wean to room air. Resolved Moved to IMU 03/18 On room air. Resolved. (3) SAMMY (acute kidney injury): Code(s): N17.9 - Acute kidney failure, unspecified Status: Acute Assessment and Plan: Unknown prior values but patient reports no renal dysfunction. Creatinine peaked at 2.3 suspected prerenal related to dehydration, UTI and decreased oral intake/vomiting. Cr had improved to 1.3 But Cr 1.5 today and with metabolic acidosis with serum bicarb 17 (nml gap). Related to diarrhea? Had 7 BMs yesterday. Also with poor oral intake. Continue to monitor electrolytes, renal function and UOP IVF x 1 liter. Contineu supplements. (4) Colitis: Code(s): K52.9 - Noninfective gastroenteritis and colitis, unspecified Status: Acute Assessment and Plan: CT scan shows focal wall thickening of the ascending colon with adjacent fat stranding suggestive of infection versus malignancy. Zosyn started 03/09. 03/12: WBC climbing so Zosyn stopped. Vanc, cefepime, Flagyl started. UCx 03/08 and 03/11: Negative BCx 03/08: (1of2) growing ESBL EColi. BCx 03/10: Negative MRSA swab 03/12: Negative. Blood culture positive for ESBL E coli so cefepime and Flagyl discontinued in favor of meropenem, vancomycin. Source felt to be necrotic bowel. Vancomycin stopped and changed to Ertapenem. She has completed full course of abx for ESBL ecoli (5) Elevated troponin: Code(s): R77.8 - Other specified abnormalities of plasma proteins Status: Acute Assessment and Plan: New onset atrial fibrillation. No chest pain but troponin is elevated and flat at 0.45. EKG cannot exclude [place]. Cardiology consulted and appreciate their input. [place] elevated Trop related to demand ischemia from ileus and dehydration. Echo 03/09 showed an EF of 50-55% with a
[2023-03-27 16:00] VITALS: BP 132/68; PULSE 71; RESP 16; TEMP 36.6; O2SAT 99
[2023-03-27] MEDS: SODIUM CHLORIDE 0.9% IV 1,000 ML 80 ML IV CONT (17:03)
[2023-03-27 20:00] VITALS: PULSE 66; RESP 16; O2SAT 100
[2023-03-27 20:31] VITALS: BP 131/65; PULSE 66; RESP 16; TEMP 36.7; O2SAT 100
[2023-03-28 05:17] VITALS: BP 157/80; PULSE 75; RESP 16; TEMP 36.7; O2SAT 98
[2023-03-28 05:55] LABS: Basophils Percent Auto 0.3 % (0.2-1.2); Eosinophils Absolute Auto 0.1 K/mm3 (0-0.3); Eosinophils Percent Auto 0.9 % (0-4.4); Hemoglobin 7.5 g/dL (12.0-15.0); Immature Granulocyte Absolute 0.04 K/mm3 (0.00-0.031); Immature Granulocyte Percent A 0.6 % (0-0.5); Lymphocytes Absolute Auto 0.66 K/mm3 (0.9-3.2); Lymphocytes Percent Auto 9.7 % (18.3-44.2); Mean Corpuscular HGB Conc 31.3 g/dl (32-36); Mean Corpuscular Hemoglobin 29.4 pg (26-34); Mean Corpuscular Volume 94.1 fl (80-100); Monocytes Absolute Auto 0.9 K/mm3 (0.1-0.6); Monocytes Percent Auto 12.9 % (2.6-8.5); Neutrophils Absolute Auto 5.2 K/mm3 (1.3-6.7); Neutrophils Percent Auto 75.6 % (45.5-73.1); Platelet Count Result 248 k/mm3 (150-375); Red Blood Count 2.55 M/mm3 (4.2-5.4); Red Cell Distribution Width 16.4 % (11.5-14.5); White Blood Count 6.8 K/mm3 (4.5-10.0)
[2023-03-28] MEDS: CENTRAL LINE FLUSH 10 ML IV PUSH (06:02)
[2023-03-28 06:07] LABS: Alanine Aminotransferase 49 U/L (6-35); Albumin Level 2.4 g/dL (3.5-5.1); Alkaline Phosphatase 138 U/L (38-126); Anion Gap 7 mmol/L (8-16); Aspartate Amino Transferase 33 U/L (14-36); Bilirubin,Total 0.8 mg/dL (0.2-1.3); Blood Urea Nitrogen 38 mg/dL (7-17); Calcium 7.6 mg/dL (8.4-10.2); Carbon Dioxide 17 mmol/L (22-30); Chloride 114 mmol/L (98-107); Estimated CRCL calculation 17 ml/min; Estimated Glomerular Filt Rate 27; Glucose 100 mg/dL (65-110); Potassium 3.7 mmol/L (3.4-5.0); Sodium 138 mmol/L (137-145)
[2023-03-28 08:25] VITALS: O2SAT 98
[2023-03-28] MEDS: FAMOTIDINE 20 MG TABLET PO (08:28)
[2023-03-28] MEDS: APIXABAN 2.5 MG TABLET PO (08:28)
--- NOTE | 2023-03-28 12:50 | PM.DS ---
DS: Admitting Diagnosis Discharge Date 03/28/23 Admitting Diagnosis Abdominal pain DS: Discharge Diagnosis Discharge Diagnosis (1) Necrosis of intestine: Code(s): K55.069 - Acute infarction of intestine, part and extent unspecified Status: Acute (2) Acute respiratory failure: Code(s): J96.00 - Acute respiratory failure, unspecified whether with hypoxia or hypercapnia Status: Acute (3) SAMMY (acute kidney injury): Code(s): N17.9 - Acute kidney failure, unspecified Status: Acute (4) Colitis: Code(s): K52.9 - Noninfective gastroenteritis and colitis, unspecified Status: Acute (5) Elevated troponin: Code(s): R77.8 - Other specified abnormalities of plasma proteins Status: Acute (6) Atrial fibrillation: Qualifiers: Atrial fibrillation type: unspecified chronic Qualified Code(s): I48.20 - Chronic atrial fibrillation, unspecified Code(s): I48.91 - Unspecified atrial fibrillation Status: Chronic (7) CHF (congestive heart failure): Code(s): I50.9 - Heart failure, unspecified Status: Acute (8) Thrombocytopenia: Code(s): D69.6 - Thrombocytopenia, unspecified Status: Acute (9) Confusion: Code(s): R41.0 - Disorientation, unspecified Status: Acute (10) Moderate protein-calorie malnutrition: Code(s): E44.0 - Moderate protein-calorie malnutrition Status: Acute (11) Hyponatremia: Code(s): E87.1 - Hypo-osmolality and hyponatremia Status: Acute DS: Summary Hospital Course Reason for hospitalization: 77-year-old female with history of CHF, CVA and dementia who presents with n/v and severe abdominal pain and found to have necrotic bowel. Also noted to have new onset rate controlled AFib. Pleae see H&P for details. Hospital Course: Patient presents with n/v and severe abdominal pain. CT Abd/Pelvis showing dilated large and small bowel likely adynamic ileus. Also with focal wall thickening of the ascending colon with adjacent fat stranding. She was started on IV abx. Surgery consulted and NG tube placed. Symptoms improved and UGI-SBS showing contrast to cecum in 2-3 hours with moderate SB dilation. Diet started but symptoms worsened again so NGT replaced. She had bloody BM and repeat CT Abd/pelvis showing persistent focal ascending colon wall thickening suspicious for malignancy with pneumatosis in the right colon more proximal to the focal wall thickening. Dilated SB without focal transition point. PICC line placed and TPN started. Patient went for surgery 03/17 and found to have significant segment of necrotic bowel involving the ileum and ascending colon.? About 4 ft of distal small bowel and ascending colon were resected.? There were 2 small areas of perforation on the distal ileum and the cecum appeared very thin and near perforation.? There was not much spillage into the abdominal cavity as the perforation appeared to be walled off.? Patient underwent a side to side enterocolonic anastomosis from the jejunum to the transverse colon. Surgery felt that patient may have had an embolic event from her AFib resulting in the necrotic bowel. She tolerated procedure well but had some respiratory difficulties in the PACU so was placed on BiPAP and admitted to the ICU for this reason. Pathology showed no malignancy. ABG shows 7.42/36/149 on BiPAP. IV fluids stopped and Lasix given. She improved and was able to be weaned to room air. She had return of bowel function. Diet started and advanced. All cultures were negative except BCx 03/08:?(1of2) growing ESBL EColi. Source felt to be necrotic bowel. She has completed full course of abx for ESBL Ecoli. She also had renal failure. Unknown prior values but patient reports no renal dysfunction. Creatinine peaked at 2.3 suspected prerenal related to dehydration and decreased oral intake/vomiting.?Cr had improved to 1.3 but climbed to 1.8 and with metabolic acidosis with
--- NOTE | 2023-03-28 16:44 | PC.NURSE ---
Pt had this nurse send medications to [facility] pharmacy. At this time the pharmacy is without power. Family will pickle solution maker when available. MD aware. Family given informational paperwork on hospice choices.
== END 2023-03-28 16:00 | disposition home or self-care (01) | DRG 853 ==
LOC: ANHED 10:57 → ANHIMU 14:45 → ANH3MEDSUR 03-10 16:24 → ANHICU 03-17 12:41 → ANHIMU 03-18 21:37 → ANH3MEDSUR 03-22 17:22
PROVIDERS: General Practice; Internal Medicine; Internal Medicine Cardiovascular Disease; Internal Medicine Gastroenterology; Nurse Practitioner; Nurse Practitioner Family; Student in an Organized Health Care Education/Training Program; Surgery; Admitting Provider Internal Medicine; Emergency Provider Nurse Practitioner Family; Visit Provider Internal Medicine
PROC: 0DTF0ZZ Resection of Right Large Intestine, Open Approach (ICD-10-PCS; CPT 44160; principal; 2023-03-17 07:30)
DX: A41.9 Sepsis, unspecified organism (principal); I50.31 Acute diastolic (congestive) heart failure; K55.049 Acute infarction of large intestine, extent unspecified; K63.1 Perforation of intestine (nontraumatic); J95.821 Acute postprocedural respiratory failure; K55.019 Acute (reversible) ischemia of small intestine, extent unspecified; K55.029 Acute infarction of small intestine, extent unspecified; K56.0 Paralytic ileus; A09 Infectious gastroenteritis and colitis, unspecified; E44.0 Moderate protein-calorie malnutrition; E87.0 Hyperosmolality and hypernatremia; E87.1 Hypo-osmolality and hyponatremia; I47.20 Ventricular tachycardia, unspecified; N17.9 Acute kidney failure, unspecified; I24.8 Other forms of acute ischemic heart disease; F05 Delirium due to known physiological condition; Z68.1 Body mass index [BMI] 19.9 or less, adult; Z16.12 Extended spectrum beta lactamase (ESBL) resistance; J98.11 Atelectasis; T41.205A Adverse effect of unspecified general anesthetics, initial encounter; K63.89 Other specified diseases of intestine; D64.9 Anemia, unspecified; I48.91 Unspecified atrial fibrillation; K21.9 Gastro-esophageal reflux disease without esophagitis; E86.0 Dehydration; E03.9 Hypothyroidism, unspecified; F03.90 Unspecified dementia, unspecified severity, without behavioral disturbance, psychotic disturbance, mood disturbance, and anxiety; F17.210 Nicotine dependence, cigarettes, uncomplicated; Z90.710 Acquired absence of both cervix and uterus; D69.6 Thrombocytopenia, unspecified; Z86.73 Personal history of transient ischemic attack (TIA), and cerebral infarction without residual deficits; B96.20 Unspecified Escherichia coli [E. coli] as the cause of diseases classified elsewhere; Z66 Do not resuscitate; J44.9 Chronic obstructive pulmonary disease, unspecified
CPT/HCPCS: 36415; 36569; 36600; 71045; 74018; 74019; 74176; 74250; 80048; 80053; 80074; 80076; 80202; 81001; 82271; 82607; 82746; 82805; 82948; 83605; 83690; 83735; 83880; 83986; 84100; 84443; 84466; 84478; 84484; 85014; 85018; 85025; 85027; 85055; 85610; 85730; 86850; 86900; 86901; 87040; 87077; 87081; 87086; 87088; 87186; 88309; 93005; 93306; 94002; 96365; 96375; 97110; 97161; 97164; 97166; 97530; 97535; 99285; A9270; C8929; C9113; G0378; J0330; J0692; J0696; J1170; J1335; J1650; J1836; J1940; J2185; J2270; J2371; J2405; J2543; J2704; J3010; J3370; J3480; J7030; J7040; J7120; P9045; Q9957

== ENCOUNTER 2023-04-03 12:19 | Inpatient (IN) | payer MEDICARE, SELFPAY ==
--- NOTE | ~2023-04-03 | CT_ITS ---
Non-contrast CT scan of the Abdomen and Pelvis Clinical indication: Abdominal pain Technique: 2.5 mm axial scans were obtained through the abdomen and pelvis without intravenous or or al contrast. Dose reduction technique was used on this scan by utilizing automated exposure control a nd iterative reconstruction technique. The dose-length product (DLP) was 217.95 mGy-cm. COMPARISON: 03/15/2023 Findings: Images through the lung bases reveal small left pleural effusion and minimal right pleural effusion. There is mild left basilar atelectatic change. There is severe bilateral hydroureteronephrosis. No radiopaque stones identified. The liver, spleen, pancreas, gallbladder, and adrenals appear normal. There are atherosclerotic calci fications of the aorta. There is no evidence of bowel obstruction. Bowel wall thickening seen on prior exam is nearly complet nneka resolved. There is a suture line with probable prior partial right colectomy. There is a probable extrarenal fluid collection in the right paracolic gutter/right lower quadrant measuring approximate ly 3.5 x 1.5 cm x 4.7 (axial image 102 for example, coronal image 30), suspicious for abscess. Images through the pelvis were performed. There is no evidence of ascites or lymphadenopathy. Urinary bladder is markedly distended. No definite pelvic mass seen. Patient appears to be post hysterectomy . Impression: Probable abscess in the right paracolic gutter region/right lower quadrant, as detailed above. Interval development of severe hydroureteronephrosis with markedly distended urinary bladder. Correla te for acute urinary retention, versus bladder outlet obstruction. Small left pleural effusion and minimal right pleural effusion. Effusions are decreased from prior ex am. Reviewed, dictated and finalized at location . Impression: Probable abscess in the right paracolic gutter region/right lower quadrant, as detailed above. Interval development of severe hydroureteronephrosis with markedly distended ur inary bladder. Correlate for acute urinary retention, versus bladder outlet obs truction. Small left pleural effusion and minimal right pleural effusion. Effusions are d ecreased from prior exam.
[2023-04-03 12:34] VITALS: BP 125/51; PULSE 67; RESP 14; TEMP 36.6; O2SAT 100
[2023-04-03 13:13] LABS: Basophils Percent Auto 0.4 % (0.2-1.2); Eosinophils Absolute Auto 0.1 K/mm3 (0-0.3); Eosinophils Percent Auto 1.3 % (0-4.4); Hematocrit 28.1 % (37.0-47.0); Hemoglobin 8.8 g/dL (12.0-15.0); Immature Granulocyte Absolute 0.03 K/mm3 (0.00-0.031); Immature Granulocyte Percent A 0.6 % (0-0.5); Lymphocytes Absolute Auto 0.93 K/mm3 (0.9-3.2); Lymphocytes Percent Auto 17.5 % (18.3-44.2); Mean Corpuscular HGB Conc 31.3 g/dl (32-36); Mean Corpuscular Hemoglobin 29.3 pg (26-34); Mean Corpuscular Volume 93.7 fl (80-100); Mean Platelet Volume 10.2 fl (7.4-10.4); Monocytes Absolute Auto 0.7 K/mm3 (0.1-0.6); Monocytes Percent Auto 12.4 % (2.6-8.5); Neutrophils Absolute Auto 3.6 K/mm3 (1.3-6.7); Neutrophils Percent Auto 67.8 % (45.5-73.1); Platelet Count Result 293 k/mm3 (150-375); Red Cell Distribution Width 16.4 % (11.5-14.5); White Blood Count 5.3 K/mm3 (4.5-10.0)
[2023-04-03 13:33] LABS: Alanine Aminotransferase 26 U/L (6-35); Albumin Level 2.6 g/dL (3.5-5.1); Alkaline Phosphatase 93 U/L (38-126); Anion Gap 10 mmol/L (8-16); Aspartate Amino Transferase 20 U/L (14-36); Bilirubin,Total 0.6 mg/dL (0.2-1.3); Blood Urea Nitrogen 40 mg/dL (7-17); Calcium 7.6 mg/dL (8.4-10.2); Carbon Dioxide 12 mmol/L (22-30); Chloride 107 mmol/L (98-107); Estimated CRCL calculation 13 ml/min; Estimated Glomerular Filt Rate 20; Glucose 117 mg/dL (65-110); Sodium 129 mmol/L (137-145)
--- NOTE | 2023-04-03 13:41 | ED.RECABL ---
HPI - Recheck/Abnormal Lab/Rx General Chief Complaint: Recheck/Abnormal Lab/Rx Stated Complaint: kidney failure Time Seen by Provider: 04/03/23 13:28 History of Present Illness HPI narrative: Patient is a 77 year old female with recent history of bowel infarction s/p resection, afib, recently started on eliquis here with abnormal outpatient labs. Patient had a follow-up visit from her recent hospitalization with her primary care doctor yesterday. Lab work was performed at that visit. They called family today noting that she was severely dehydrated and told her she should come to the hospital for admission. Patient and daughter note that she has had poor p.o. intake since she was hospitalized. She had initially been on TPN during her hospitalization but was discharged on a diet and tolerating p.o. at discharge. She is reportedly only having sips of water throughout the day and some small food like pudding throughout each day. She notes generalized weakness. She denies fever, has had chronic chills since being discharged on blood thinners. She denies cough or congestion. She denies dysuria or hematuria. She has had chronic diarrhea since discharge. Related Data Allergies Allergy/AdvReac Type Severity Reaction Status Date / Time No Known Allergies Allergy Verified 04/03/23 13:40 Review of Systems Review of Systems: All systems reviewed & are unremarkable except as noted in HPI and below PMFSH Past Medical History Medical History Anemia CHF (congestive heart failure) CVA (cerebral vascular accident) Dementia GERD (gastroesophageal reflux disease) Hypothyroid Social History Social History Smoking packs per day: 0.5 Smoking cigarettes per day: 10.0 Years smoked: 65 Smoking pack-years: 32.50 Smoking status: Current every day smoker Tobacco type: cigarettes Second hand tobacco smoke exposure: No Alcohol intake: never Substance use: unknown Lack of Transportation: No Lack of Food: Never True Current Housing: I Have Housing Concerned About Future Housing: No Difficulty Paying Gas/Electric Bills: No Difficulty Paying for Meds: No Currently Unemployed: No Education: Grade School Difficulty w/ Childcare or Family Care: No Living arrangements: assisted living Spiritual care concerns: No Exam Narrative: GENERAL: Well-appearing, and in no acute distress. HEAD: Normocephalic, atraumatic. EYES: PERRLA and EOMI. ENT: Nares clear. Mucous membranes moist. NECK: Supple. CHEST: Clear to auscultation. No respiratory distress. HEART: Regular rate and rhythm. Normal peripheral pulses. ABDOMEN: Some mild tenderness in the right lower quadrant, no rebound or guarding. Midline surgical incision looks clean and dry with steri strips in place. EXTREMITIES: Normal range of motion. No lower extremity edema. SKIN: Warm, dry, no rash. NEURO: No focal deficits. Alert and oriented x3. PSYCH: Normal mood and affect. Course Course Emergency Course: Chart review performed. Patient her with abnormal outpatient labs. Results were faxed from outside lab performed on 04/02/23. BUN 43, Creatinine 2.54, potassium 4.0, anion gap 16 hgb 9.5. Her discharge summary on 03/09/23 notes she was admitted for bowel infarct and new onset afib. She went for surgery on 03/[address] Singleton. Patient seen evaluated, nontoxic appearing. She does appear to be cachectic with dry mucous membranes. No lower extremity swelling, no history of CHF. Will do basic lab work, repeat abdominal CT given continued pain. IVF ordered. Patient has no history of CAD or CHF, should be able to tolerate IV hydration. Lab work today shows Hgb of 8.8, sodium of 129, BUN of 40, creatinine of 2.30. Pending imaging. Anticipate admission. CT shows probable abscess in right paracolic gutter/RLQ measuring 3.5 x 1.5 x 4.7 cm. She addition
[2023-04-03] MEDS: SODIUM CHLORIDE 0.9% IV 1,000 ML 999 ML IV CONT (14:06)
[2023-04-03 14:47] LABS: Appearance Urine Clear (Clear); Bilirubin Urine Negative (Negative); Blood Urine Negative (Negative); Color Urine Yellow (Yellow); Glucose Urine UA Negative (Negative); Ketones Urine Negative (Negative); Leukocyte Esterase Ur Negative LEU/UL (Negative); Nitrate Urine Negative (Negative); Protein Urine Negative (Negative); Specific Grav Ur 1.011 (1.001-1.035); Urobilinogen Urine 0.2 mg/dL (<2.0)
[2023-04-03 14:48] LABS: Add Urine Microscopic? NO
[2023-04-03 14:49] VITALS: BP 143/68; PULSE 61; RESP 16; O2SAT 97
[2023-04-03 17:05] VITALS: BP 124/64; PULSE 67; RESP 18; O2SAT 71
--- NOTE | 2023-04-03 17:18 | ADMGEN ---
This patient, Nataliya Mendoza, was admitted to [facility] Surg Room 317-01. Patient/family oriented to hospital policies and general routines including ID bracelet, bed and alarms, visiting hours, pain management, procedures, bathroom and other care routines, personal items, smoking policy, room service/diet, and visiting hours. Information on how to activate the Rapid Response Team has been discussed. Patient/Family are encouraged to report perceived risks to care and to ask questions if they do not understand what they are told or what they should do.
[2023-04-03 20:00] VITALS: PULSE 71
[2023-04-03 21:16] VITALS: BP 149/63; PULSE 69; RESP 17; TEMP 36.1; O2SAT 100
[2023-04-03] MEDS: SODIUM CHLORIDE 0.9% IV 1,000 ML 100 ML IV CONT (22:38)
[2023-04-04] VITALS (8 sets, daily range): BP systolic 136–137; BP diastolic 53–62; PULSE 60–71; RESP 16–18; TEMP 36.2–36.6; O2SAT 99–100; BMI 17.2
--- NOTE | 2023-04-04 04:01 | PM.IMHP ---
H&P: HPI History of Present Illness Date/Time: 04/04/23 04:01 Chief Complaint: ?severe dehydration? Narrative: 77-year-old female with a past medical history of CHF, CVA, dementia, GERD, hypothyroidism and recent hospitalization 03/09/2023 through 03/20/2023 for ischemic bowel an exploratory laparotomy with bowel resection, ESBL E coli bacteremia and atrial fibrillation who presented back to the ER due to outpatient labs suggesting significant dehydration. The patient herself does not complain of anything significant. However on exam she did have some mild right mid abdominal pain. She has been having intermittent a diarrheal stools. Nursing staff reports that she had a large amount of stool that they thought was suspicious for C diff. She was incontinent of stool. She denies any nausea or vomiting. Her mouth appears quite dry. She does report some sensation of incomplete bladder emptying. She is not the best historian due to her history of dementia. Review of Systems Review of Systems: Review of systems limited due to the patient's history of dementia. [facility] Past Medical History Medical History Anemia CHF (congestive heart failure) CKD (chronic kidney disease) stage 3, GFR 30-59 ml/min CVA (cerebral vascular accident) Dementia GERD (gastroesophageal reflux disease) Hypothyroid Paroxysmal A-fib Surgical History Surgical History (Updated 04/04/23 @ 04:12 by Janneth Fuentes DO) History of right hemicolectomy (03/17/23) S/P exploratory laparotomy (03/17/23) Family History Family History Other Unknown family medical history Social History Social History (Updated 04/04/23 @ 08:25 by Janneth Fuentes DO) Social History: The she is a lifelong smoker and smokes about 5 cigarettes a day currently. Patient reports that she lives with her daughter. She has 5 children. 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 Code status: DNR/DNI Smoking packs per day: 0.5 Smoking cigarettes per day: 10.0 Years smoked: 65 Smoking pack-years: 32.50 Smoking status: Current every day smoker Tobacco type: cigarettes Second hand tobacco smoke exposure: Yes Alcohol intake: never Substance use: never Lack of Transportation: No Lack of Food: Never True Current Housing: I Have Housing Concerned About Future Housing: No Difficulty Paying Gas/Electric Bills: No Difficulty Paying for Meds: No Currently Unemployed: No Education: Grade School Difficulty w/ Childcare or Family Care: No Living arrangements: assisted living Spiritual care concerns: No Meds Home Medications and Allergies Home Medications Medication Instructions Recorded Confirmed Type apixaban 2.5 mg tablet (Eliquis) 2.5 mg PO Q12HR #60 tabs 03/28/23 04/03/23 Rx famotidine 20 mg tablet 20 mg PO Q12HR #60 tabs 03/28/23 04/03/23 Rx Allergies Allergy/AdvReac Type Severity Reaction Status Date / Time No Known Allergies Allergy Verified 04/03/23 13:40 Vital Signs Vital Signs - 24 hr 04/03/23 12:34 04/03/23 14:49 04/03/23 17:05 Temperature 97.9 F Pulse Rate 67 61 67 Respiratory Rate 14 16 18 Blood Pressure 125/51 L 143/68 H 124/64 Pulse Oximetry 100 97 71 L Oxygen Delivery Room Air 04/03/23 21:16 04/03/23 20:00 Temperature 97.0 F L Pulse Rate 69 Respiratory Rate 17 Blood Pressure 149/63 H Pulse Oximetry 100 Oxygen Delivery Room Air Exam Narrative: Weight 47 kilos BMI 17.2 Const: Other: Mildly ill-appearing, no acute distress HENMT: Other: Mucous membranes are dry, no oral pharyngeal erythema, edentulous in upper and lower jaw Eyes: Other: Pupils are equal and reactive, no scleral icterus, evidence of prior cataract extraction Neck: Other: No JVD, trachea midline, nontender Resp: Other: Clear to auscultation bi
[2023-04-04 06:28] LABS: Basophils Percent Auto 0.2 % (0.2-1.2); Eosinophils Absolute Auto 0.1 K/mm3 (0-0.3); Eosinophils Percent Auto 1.9 % (0-4.4); Hematocrit 27.1 % (37.0-47.0); Hemoglobin 8.3 g/dL (12.0-15.0); Immature Granulocyte Absolute 0.03 K/mm3 (0.00-0.031); Immature Granulocyte Percent A 0.6 % (0-0.5); Lymphocytes Absolute Auto 0.81 K/mm3 (0.9-3.2); Lymphocytes Percent Auto 15.4 % (18.3-44.2); Mean Corpuscular HGB Conc 30.6 g/dl (32-36); Mean Corpuscular Hemoglobin 29.1 pg (26-34); Mean Corpuscular Volume 95.1 fl (80-100); Mean Platelet Volume 10.3 fl (7.4-10.4); Monocytes Absolute Auto 0.5 K/mm3 (0.1-0.6); Monocytes Percent Auto 9.9 % (2.6-8.5); Neutrophils Absolute Auto 3.8 K/mm3 (1.3-6.7); Platelet Count Result 269 k/mm3 (150-375); Red Blood Count 2.85 M/mm3 (4.2-5.4); Red Cell Distribution Width 16.4 % (11.5-14.5); White Blood Count 5.3 K/mm3 (4.5-10.0)
[2023-04-04 06:45] LABS: Alanine Aminotransferase 22 U/L (6-35); Albumin Level 2.3 g/dL (3.5-5.1); Alkaline Phosphatase 86 U/L (38-126); Anion Gap 9 mmol/L (8-16); Aspartate Amino Transferase 17 U/L (14-36); Bilirubin,Total 0.5 mg/dL (0.2-1.3); Blood Urea Nitrogen 33 mg/dL (7-17); CRP 2.7 mg/dL (<1.0); Calcium 7.4 mg/dL (8.4-10.2); Carbon Dioxide 13 mmol/L (22-30); Chloride 110 mmol/L (98-107); Estimated CRCL calculation 16 ml/min; Estimated Glomerular Filt Rate 26; Glucose 87 mg/dL (65-110); Potassium 3.4 mmol/L (3.4-5.0); Sodium 132 mmol/L (137-145)
[2023-04-04 07:07] LABS: Procalcitonin 0.3 ng/mL
[2023-04-04 07:35] LABS: Erythrocyte Sedimentation Rate 86 mm/hr (0-20)
--- NOTE | 2023-04-04 08:02 | PM.IMPN ---
Progress Note: A&P Assessment and Plan (1) Acute urinary retention: Code(s): R33.8 - Other retention of urine Status: Acute Assessment and Plan: Bilateral hydronephrosis seen on imaging and PVR with 1000 ml Reyes catheter placed U/A clear flomax once Cr elevated from baseline but improving with fluids and decompression. Unsure why she is having difficulty with emptying. (2) History of partial colectomy: Code(s): Z90.49 - Acquired absence of other specified parts of digestive tract Status: Acute Assessment and Plan: Recent surgery on 03/17 with general surgery Reports chills at home CT abdomen and pelvis shows possible abscess in the right paracolic gutter region/right lower quadrant Surgery consulted, rec's appreciated. No leukocytosis, afebrile. Seroma? Surgery does not need to intervene at this time and will sign off. (3) Moderate protein-calorie malnutrition: Code(s): E44.0 - Moderate protein-calorie malnutrition Status: Acute Assessment and Plan: Poor intake since discharge. Mostly having sips of water but no real caloric intake. Admission labs indicate dehydration NPO for now. Will place on regular diet when appropriate with nutritional supplements Dietitian referral Speech referral Pre-albumin ordered for tomorrow morning Watch electrolytes closely (4) Acute kidney injury superimposed on CKD: Code(s): N17.9 - Acute kidney failure, unspecified; N18.9 - Chronic kidney disease, unspecified Status: Acute Assessment and Plan: CKD with Cr ranging from 1.3-1.6 at baseline Cr 2.30 on admission, decreased to 1.90 after fluids in the ED likely related to dehydration and retention Continue with IV fluids at 100 ml per hour Electrolyte replacement as warranted. I&O's (5) Paroxysmal A-fib: Code(s): I48.0 - Paroxysmal atrial fibrillation Status: Acute Assessment and Plan: Paroxysmal a-fib. Surgery felt ischemic bowel was likely from emobli 2/2 a-fib. Started on eliquis during last admission Restarted since no intervention necessary SCDs for DVT prohpylaxis. Plan Feeding:general diet with clear ensure and hi calorie ice cream Analgesia:Tylenol Thromboembolic prophylaxis: SCDs Ulcer prophylaxis: Pepcid Glycemic control: N/A Bowel regimen: N/A, having diarrhea. C-diff ordered Lines: PIV, Reyes Antibiotics: N/A at this time Subjective Date/time seen: 04/04/23 08:02 Interval history: HPI obtained from the chart, 77-year-old female with a past medical history of CHF, CVA, dementia, GERD, hypothyroidism and recent hospitalization 03/09/2023 through 03/20/2023 for ischemic bowel an exploratory laparotomy with bowel resection, ESBL E coli bacteremia and atrial fibrillation who presented back to the ER due to outpatient labs suggesting significant dehydration. 04/04-patient is seen at bedside with her daughter Diana present. According to the daughter the patient has not been eating or drinking much of anything since discharge from hospital. She says she may be is 5 bites of food and mostly drinks water throughout the day. They recently saw her PCP on Saturday to prescribe Megace but the prescription has not been filled yet due to the patient coming to the hospital. PCP had also wrote for PT, OT, and speech therapy with home health. The primary care provider was concerned that maybe there is a structural abnormality that is causing the patient to not want to eat. Apparently during her last stay and Manny the patient had removed 5-7 NG tubes. She has also been having chronic diarrhea at home. Her SAMMY has improved this morning after IV fluids and sodium is normalized. She remains afebrile and her blood cell count is normal so less concerned about abscess and rather feel a seroma may be present to right lower quadrant. Surgery is seeing her for this. She has right lower quadrant tenderness to pa
[2023-04-04] MEDS: FAMOTIDINE 20 MG TABLET PO ×2 (09:07→21:52)
--- NOTE | 2023-04-04 10:09 | PM.CNGS ---
Assessment and Plan Assessment and plan (1) Intraabdominal fluid collection: Code(s): R18.8 - Other ascites Status: Acute Assessment and Plan: Patient returned one week after discharge due to abnormal outpatient labs. She has issues with acute urinary retention and acute renal failure. The CT of her abdomen and pelvis showed a small fluid collection in the right paracolic gutter, as well as the bladder distention with severe hydroureteronephrosis. She does report very mild intermittent RLQ abdominal pain, but this has been ongoing since surgery. They have placed an indwelling urinary catheter prior to my arrival. She continues to have very mild RLQ abdominal pain and tenderness that has not changed even with bladder decompression. She presented with a normal white blood cell count and has been afebrile. She does not present with any other signs of an ongoing infection. I reviewed the CT scan with the Radiologist and the fluid collection does not obviously appear to be an abscess without any additional inflammatory stranding around the fluid collection. Given her normal white count and being afebrile, this is more likely a small sterile fluid collection following surgery. We would not recommend any further treatment of this unless she develops more signs of infection such as leukocytosis, fever, or increased abdominal pain. We will sign off at this point. She can follow-up with Dr. Chappell as an outpatient in a few weeks when her other medical issues have resolved. (2) Acute urinary retention: Code(s): R33.8 - Other retention of urine Status: Acute Assessment and Plan: Currently with an indwelling urinary catheter, management per primary service. (3) Acute kidney injury superimposed on CKD: Code(s): N17.9 - Acute kidney failure, unspecified; N18.9 - Chronic kidney disease, unspecified Status: Acute (4) Paroxysmal A-fib: Code(s): I48.0 - Paroxysmal atrial fibrillation Status: Acute (5) History of partial colectomy: Code(s): Z90.49 - Acquired absence of other specified parts of digestive tract Status: Acute Assessment and Plan: 03/17/23 exploratory laparotomy, right hemicolectomy by Dr. Chappell. Incision healing well. See plan above regarding intraabdominal fluid collection. (6) Moderate protein-calorie malnutrition: Code(s): E44.0 - Moderate protein-calorie malnutrition Status: Acute Assessment and Plan: This has been an ongoing problem for weeks. She did require TPN for some time postoperatively. Family did have a conversation with the Hospitalist regarding possible Hospice care prior to discharge given her failure to thrive. Encourage oral intake. Management per primary service. Plan I have discussed the patient's case and plan of care with Dr. Chappell. Thank you for allowing us to see the patient in consultation and we will continue to follow along with you. History of Present Illness Consult details Consult date: 04/04/23 Reason for consult: other (Intra-abdominal fluid collection) Requesting physician: Tonia Posada MD Narrative: This is a 77-year-old female who is known to our service from a recent hospitalization for colitis and small-bowel obstruction with findings of acute mesenteric ischemia and perforated ileum. She underwent an exploratory laparotomy with right hemicolectomy by Dr. Chappell on 03/17/2023. Her hospitalization was complicated by new onset atrial fibrillation, acute renal failure, malnutrition, failure to thrive, and ESBL E coli bacteremia that was treated with a full course of IV antibiotics. She was started on anticoagulation for the atrial fibrillation, and discharged on Eliquis. Prior to discharge, there was a conversation about hospice with her daughters and they chose to hold off for now and see how she does at home. The patient was discharged 1 week ago. She continued to have failure to thrive issues at home. She was only
--- NOTE | 2023-04-04 12:39 | PCDIET ---
Pt diet ordered as regular, Ensure Clear and nutrition ice cream cups ordered TID for supplements
--- NOTE | 2023-04-04 12:52 | WPDCDIQUERY2 ---
CDI Query Clarification Request BMI 17.2 Moderate Protein calorie malnutrition noted in the documentation. Nutritional diagnostic statement Severe protein calorie malnutrition related to inadequate energy intake as evidenced by low BMI of 17.2, significant weight loss of -8% x 1 month, and NFPE findings for muscle wasting and subcutaneous fat loss. Please refer to the comprehensive nutrition assessment for further information. Please clarify severity of protein calorie malnutrition if known: Mild Moderate Severe Other/ Unspecified <Alannah Ramos RN - Last Filed: 04/04/23 13:00> Clarified Diagnosis Clarified Diagnosis: Severe protein calorie malnutrition <Sara Perez, [employer] - Last Filed: 04/04/23 13:09>
--- NOTE | 2023-04-04 13:17 | PCSTNOTE ---
Please refer to the Bedside Swallow Evaluation in the EMR. Please note, silent aspiration cannot be ruled out at bedside.
[2023-04-04 14:01] LABS: Magnesium 1.6 mg/dL (1.6-2.3)
[2023-04-04] MEDS: TAMSULOSIN HCL 0.4 MG CAPSULE PO (15:13)
[2023-04-04] MEDS: MEGESTROL ACETATE (*CHEMO) 40 MG TABLET PO ×3 (15:13→21:52)
[2023-04-04] MEDS: APIXABAN 2.5 MG TABLET PO (21:52)
[2023-04-04] MEDS: SODIUM CHLORIDE 0.9% IV 1,000 ML 100 ML IV CONT (21:52)
[2023-04-05 06:00] VITALS: BP 138/59; PULSE 63; RESP 16; TEMP 36.1; O2SAT 100
[2023-04-05 06:47] LABS: Hematocrit 27.4 % (37.0-47.0); Hemoglobin 8.7 g/dL (12.0-15.0); Mean Corpuscular HGB Conc 31.8 g/dl (32-36); Mean Corpuscular Hemoglobin 29.4 pg (26-34); Mean Corpuscular Volume 92.6 fl (80-100); Mean Platelet Volume 9.7 fl (7.4-10.4); Platelet Count Result 247 k/mm3 (150-375); Red Blood Count 2.96 M/mm3 (4.2-5.4); Red Cell Distribution Width 16.4 % (11.5-14.5)
[2023-04-05 06:51] LABS: Magnesium 1.4 mg/dL (1.6-2.3); Phosphorus 3.5 mg/dL (2.5-4.5)
[2023-04-05 06:58] LABS: Prealbumin 10.3 mg/dL (17.6-36.0)
[2023-04-05] MEDS: MEGESTROL ACETATE (*CHEMO) 40 MG TABLET PO ×4 (08:28→20:43)
[2023-04-05] MEDS: ACETAMINOPHEN 500 MG TABLET PO (08:28)
[2023-04-05] MEDS: APIXABAN 2.5 MG TABLET PO ×2 (08:29→20:43)
[2023-04-05] MEDS: FAMOTIDINE 20 MG TABLET PO ×2 (08:29→20:43)
[2023-04-05] MEDS: SODIUM CHLORIDE 0.9% IV 1,000 ML 100 ML IV CONT ×2 (08:29→17:08)
--- NOTE | 2023-04-05 10:04 | PC.NURSE ---
Pt's sister, Carmen, called wanting an update. I informed her of pt's current status and answered her questions. Carmen stated that the family cancelled hospice because they though they could take care of pt but now realize that they cannot.
[2023-04-05 10:26] LABS: Toxigenic C. Diff NEGATIVE (NEGATIVE)
--- NOTE | 2023-04-05 11:30 | PM.IMPN ---
Progress Note: A&P Assessment and Plan (1) Acute urinary retention: Code(s): R33.8 - Other retention of urine Status: Acute Assessment and Plan: sears monitor output (2) Abnormal CT of the abdomen: Code(s): R93.5 - Abnormal findings on diagnostic imaging of other abdominal regions, including retroperitoneum Status: Acute Assessment and Plan: await surgical eval (3) History of partial colectomy: Code(s): Z90.49 - Acquired absence of other specified parts of digestive tract Status: Acute (4) Moderate protein-calorie malnutrition: Code(s): E44.0 - Moderate protein-calorie malnutrition Status: Acute (5) Acute hyponatremia: Code(s): E87.1 - Hypo-osmolality and hyponatremia Status: Acute Assessment and Plan: monitor na level improving (6) Acute kidney injury superimposed on CKD: Code(s): N17.9 - Acute kidney failure, unspecified; N18.9 - Chronic kidney disease, unspecified Status: Acute Assessment and Plan: monitor kidney function improving w ivf (7) Paroxysmal A-fib: Code(s): I48.0 - Paroxysmal atrial fibrillation Status: Acute Assessment and Plan: monitor Subjective Date/time seen: 04/05/23 11:30 Interval history: complaining of abd pain RLQ no new complaints NO NVD Exam Narrative: General: cachectic, frail, appears stated age. HEENT: normocephalic, atraumatic. Mucous membranes tacky. EOMI, PERRLA, bilateral sclera anicteric, no conjunctival injection. Neck supple without JVD, lymphadenopathy, or bruit. Respiratory: clear to auscultation bilaterally. No rales/rhonic/wheezes. Cardiovascular: Regular rate and rhythm, normal S1-S2 upon auscultation. No murmurs, rubs, or clicks. PMI is nondisplaced, capillary re-fill less than 3 second. Abdomen: Soft, flat, no pulsatile masses, non-distended and moderately tender to RLQ. No rebound, no guarding. No CVA tenderness, no hepatosplenomegaly. Bowel sounds present to all four quadrants. No high pitch or tinkling sounds, resonant to percussion. Extremities: No cyanosis, clubbing, or edema present. Pulses are palpable 2/2. Active ROM to all four extremities. Neuro: Alert and orientated x 4. PERRLA. Cranial nerves 2-12 intact without focal deficit. Skin: Warm, dry, and intact, without rash, erythema, or lesion. Lines: PIV, sears Incisions: healed midline incision Psych: normal speech, normal affect, no hallucinations, no dysarthria Objective Data Vital Signs Vital Signs: Vital Signs - 24 hr 04/04/23 13:57 04/04/23 12:00 04/04/23 20:00 Temperature 97.1 F L Pulse Rate 67 70 Respiratory Rate 18 Blood Pressure 137/60 Pulse Oximetry 100 99 Oxygen Delivery Room Air 04/04/23 21:52 04/05/23 06:00 04/05/23 08:30 Temperature 97.2 F L 96.9 F L Pulse Rate 65 63 Respiratory Rate 16 16 Blood Pressure 136/62 138/59 L Pulse Oximetry 99 100 Oxygen Delivery Room Air Intake/Output Intake/Output: Intake & Output 04/02/23 04/03/23 04/04/23 04/05/23 23:59 23:59 23:59 23:59 Intake Total 1060 1480 1536 Output Total 1700 2150 1650 [facility] -640 -670 -114 Meds/Results Medications: Active Medications Generic Name Dose Route Start Last Admin Trade Name Freq PRN Reason Stop Dose Admin Acetaminophen 500 mg 04/04/23 08:17 04/05/23 08:28 Acetaminophen 500 Mg Tablet PO 500 mg Q4H PRN Administration Mild Pain (1-3) or Fever Apixaban 2.5 mg 04/04/23 21:00 04/05/23 08:29 Apixaban 2.5 Mg Tablet PO 2.5 mg Q12HR VITALIY Administration Famotidine 20 mg 04/04/23 09:00 04/05/23 08:29 Famotidine 20 Mg Tablet PO 20 mg Q12HR VITALIY Administration Sodium Chloride 1,000 mls @ 100 mls/hr 04/03/23 22:15 04/05/23 08:29 Normal Saline Iv IV CONT 100 mls/hr .Q10H VITALIY Administration Megestrol Acetate 40 mg 04/04/23 13:00 04/05/23 08:28 Megestrol Acetate (*Chemo) 40 Mg Tablet PO
[2023-04-05 14:00] VITALS: BP 138/72; PULSE 69; RESP 22; TEMP 36.1; O2SAT 100
--- NOTE | 2023-04-05 18:59 | PM.PNGS ---
Progress Note: A&P Assessment and Plan (1) Intraabdominal fluid collection: Code(s): R18.8 - Other ascites Status: Acute Assessment and Plan: Patient likely has a sterile fluid collection seen on CT on re-admission. She has no WBC, no fever, and no current pain. It would be typical to have some pain related to her surgery but in the absence of any other infectious findings, I would not recommend holding anticoagulation and draining this fluid collection. Could consider repeat CT if infectious symptoms develop. Will follow as needed. (2) Abnormal CT of the abdomen: Code(s): R93.5 - Abnormal findings on diagnostic imaging of other abdominal regions, including retroperitoneum Status: Acute (3) Acute urinary retention: Code(s): R33.8 - Other retention of urine Status: Acute (4) History of partial colectomy: Code(s): Z90.49 - Acquired absence of other specified parts of digestive tract Status: Acute Subjective Subjective Date/Time Seen: 04/05/23 18:59 Interval history: No complaints of abdominal pain. No fevers. Patient says she is eating a little better. Bowels moving. Exam GI: Inspection: non-distended and incision (healing well) GI Palp: Yes Soft to palpation, No Tenderness to palpation present (GI) and No Guarding due to palpation present (GI) Percussion: Yes normal to percussion Auscultation: normal bowel sounds Objective Data Vital Signs Vital Signs: Vital Signs - 24 hr 04/04/23 20:00 04/04/23 21:52 04/05/23 06:00 Temperature 36.2 C L 36.1 C L Pulse Rate 65 63 Respiratory Rate 16 16 Blood Pressure 136/62 138/59 L Pulse Oximetry 99 99 100 Oxygen Delivery Room Air 04/05/23 08:30 04/05/23 14:00 Temperature 36.1 C L Pulse Rate 69 Respiratory Rate 22 H Blood Pressure 138/72 Pulse Oximetry 100 Oxygen Delivery Room Air Intake/Output Intake/Output: Intake & Output 04/02/23 04/03/23 04/04/23 04/05/23 23:59 23:59 23:59 23:59 Intake Total 1060 1480 2908 Output Total 1700 2150 1850 Balance -640 -670 1058 Meds/Results Medications: Active Medications Generic Name Dose Route Start Last Admin Trade Name Freq PRN Reason Stop Dose Admin Acetaminophen 500 mg 04/04/23 08:17 04/05/23 08:28 Acetaminophen 500 Mg Tablet PO 500 mg Q4H PRN Administration Mild Pain (1-3) or Fever Apixaban 2.5 mg 04/04/23 21:00 04/05/23 08:29 Apixaban 2.5 Mg Tablet PO 2.5 mg Q12HR VITALIY Administration Famotidine 20 mg 04/04/23 09:00 04/05/23 08:29 Famotidine 20 Mg Tablet PO 20 mg Q12HR VITALIY Administration Sodium Chloride 1,000 mls @ 100 mls/hr 04/03/23 22:15 04/05/23 17:08 Normal Saline Iv IV CONT 100 mls/hr .Q10H VITALIY Administration Megestrol Acetate 40 mg 04/04/23 13:00 04/05/23 17:09 Megestrol Acetate (*Chemo) 40 Mg Tablet PO 40 mg QID VITALIY Administration Radiology Results: ITS Impressions Abdomen/Pelvis CT 04/03/23 14:22 Impression: Probable abscess in the right paracolic gutter region/right lower quadrant, as detailed above. Interval development of severe hydroureteronephrosis with markedly distended urinary bladder. Correlate for acute urinary retention, versus bladder outlet obstruction. Small left pleural effusion and minimal right pleural effusion. Effusions are decreased from prior exam. Labs Labs: Laboratory Results - last 24 hr 04/05/23 04/05/23 06:10 09:12 WBC 6.0 RBC 2.96 L Hgb 8.7 L Hct 27.4 L MCV 92.6 MCH 29.4 MCHC 31.8 L RDW 16.4 H Plt Count 247 MPV 9.7 Phosphorus 3.5 Magnesium 1.4 L Prealbumin 10.3 L C. difficile (PCR) Negative
[2023-04-05 19:39] VITALS: BP 149/62; PULSE 76; RESP 16; TEMP 36.6; O2SAT 99
[2023-04-05 20:00] VITALS: O2SAT 99
--- NOTE | 2023-04-05 23:24 | PC.NURSE ---
Spoke with Dr. Mullins r/t patient having multiple liquid stools. C-Diff neg. New order imodium 2mg PRN.
[2023-04-06] MEDS: LOPERAMIDE HCL 2 MG CAPSULE PO (00:10)
[2023-04-06 00:21] VITALS: O2SAT 99
[2023-04-06] MEDS: SODIUM CHLORIDE 0.9% IV 1,000 ML 100 ML IV CONT ×2 (03:17→11:57)
[2023-04-06 06:51] VITALS: BP 137/66; PULSE 73; RESP 16; TEMP 36.7; O2SAT 99
[2023-04-06 07:25] LABS: Basophils Percent Auto 0.1 % (0.2-1.2); Eosinophils Percent Auto 0.4 % (0-4.4); Hematocrit 25.9 % (37.0-47.0); Hemoglobin 8.3 g/dL (12.0-15.0); Immature Granulocyte Absolute 0.05 K/mm3 (0.00-0.031); Immature Granulocyte Percent A 0.6 % (0-0.5); Lymphocytes Absolute Auto 0.83 K/mm3 (0.9-3.2); Lymphocytes Percent Auto 10.6 % (18.3-44.2); Mean Corpuscular Hemoglobin 29.4 pg (26-34); Mean Corpuscular Volume 91.8 fl (80-100); Mean Platelet Volume 9.2 fl (7.4-10.4); Monocytes Absolute Auto 0.6 K/mm3 (0.1-0.6); Monocytes Percent Auto 7.2 % (2.6-8.5); Neutrophils Absolute Auto 6.4 K/mm3 (1.3-6.7); Neutrophils Percent Auto 81.1 % (45.5-73.1); Platelet Count Result 202 k/mm3 (150-375); Red Blood Count 2.82 M/mm3 (4.2-5.4); Red Cell Distribution Width 16.3 % (11.5-14.5); White Blood Count 7.8 K/mm3 (4.5-10.0)
[2023-04-06 07:47] LABS: Anion Gap 7 mmol/L (8-16); Blood Urea Nitrogen 17 mg/dL (7-17); Calcium 6.9 mg/dL (8.4-10.2); Carbon Dioxide 15 mmol/L (22-30); Chloride 110 mmol/L (98-107); Estimated CRCL calculation 23 ml/min; Estimated Glomerular Filt Rate 40; Glucose 92 mg/dL (65-110); Sodium 132 mmol/L (137-145)
[2023-04-06] MEDS: APIXABAN 2.5 MG TABLET PO (08:36)
[2023-04-06] MEDS: FAMOTIDINE 20 MG TABLET PO (08:36)
[2023-04-06] MEDS: POTASSIUM CHLORIDE 20 MEQ ER TABLET 40 MEQ PO (08:36)
[2023-04-06] MEDS: MEGESTROL ACETATE (*CHEMO) 40 MG TABLET PO ×2 (08:36→11:57)
--- NOTE | 2023-04-06 11:23 | PC.NURSE ---
Pt's daughter, Radha, called wanting an update. I answered her questions including that the hospitalist stated that he was planning on discharging pt sometime today. I explained that the DC was not in yet and I don't have a time frame other than sometime today. She stated that she was going to come up to the hospital to pick pt up now anyway.
--- NOTE | 2023-04-06 12:12 | PM.DS ---
DS: Admitting Diagnosis Discharge Date April 06, 2023 Admitting Diagnosis Fluid collection in the abdomen DS: Discharge Diagnosis Discharge Diagnosis (1) Acute urinary retention: Code(s): R33.8 - Other retention of urine Status: Acute Assessment and Plan: sears monitor output (2) Abnormal CT of the abdomen: Code(s): R93.5 - Abnormal findings on diagnostic imaging of other abdominal regions, including retroperitoneum Status: Acute Assessment and Plan: await surgical eval (3) History of partial colectomy: Code(s): Z90.49 - Acquired absence of other specified parts of digestive tract Status: Acute (4) Moderate protein-calorie malnutrition: Code(s): E44.0 - Moderate protein-calorie malnutrition Status: Acute (5) Acute hyponatremia: Code(s): E87.1 - Hypo-osmolality and hyponatremia Status: Acute Assessment and Plan: monitor na level improving (6) Acute kidney injury superimposed on CKD: Code(s): N17.9 - Acute kidney failure, unspecified; N18.9 - Chronic kidney disease, unspecified Status: Acute Assessment and Plan: monitor kidney function improving w ivf (7) Paroxysmal A-fib: Code(s): I48.0 - Paroxysmal atrial fibrillation Status: Acute Assessment and Plan: monitor DS: Summary Hospital Course Hospital Course: Patient is 77-year-old female came in with abdominal pain found have some urinary retention and some fluid collection in the abdomen. Surgery was consulted and no further recommendations for surgery were given and patient is not needed drain or anything like that. Otherwise she is stable and can be discharged. Time Spent with Patient Time attestation: Total time spent providing and/or coordinating discharge services: Exam Narrative: General: cachectic, frail, appears stated age. HEENT: normocephalic, atraumatic. Mucous membranes tacky. EOMI, PERRLA, bilateral sclera anicteric, no conjunctival injection. Neck supple without JVD, lymphadenopathy, or bruit. Respiratory: clear to auscultation bilaterally. No rales/rhonic/wheezes. Cardiovascular: Regular rate and rhythm, normal S1-S2 upon auscultation. No murmurs, rubs, or clicks. PMI is nondisplaced, capillary re-fill less than 3 second. Abdomen: Soft, flat, no pulsatile masses, non-distended and moderately tender to RLQ. No rebound, no guarding. No CVA tenderness, no hepatosplenomegaly. Bowel sounds present to all four quadrants. No high pitch or tinkling sounds, resonant to percussion. Extremities: No cyanosis, clubbing, or edema present. Pulses are palpable 2/2. Active ROM to all four extremities. Neuro: Alert and orientated x 4. PERRLA. Cranial nerves 2-12 intact without focal deficit. Skin: Warm, dry, and intact, without rash, erythema, or lesion. Lines: PIV, sears Incisions: healed midline incision Psych: normal speech, normal affect, no hallucinations, no dysarthria DS: Data Data Completed and Pending Labs on day of discharge: Labs from last 24 hours 04/06/23 07:15 WBC 7.8 RBC 2.82 L Hgb 8.3 L Hct 25.9 L MCV 91.8 MCH 29.4 MCHC 32.0 RDW 16.3 H Plt Count 202 MPV 9.2 Immature Gran % (Auto) 0.6 H Neut % (Auto) 81.1 H Lymph % (Auto) 10.6 L Potter % (Auto) 7.2 Eos % (Auto) 0.4 Baso % (Auto) 0.1 L Lymph # (Auto) 0.83 L Potter # (Auto) 0.6 Eos # (Auto) 0.0 Baso # (Auto) 0.0 Abs Immat Gran (auto) 0.05 H Absolute Neuts (auto) 6.4 Absolute Nucleated RBC 0.0 Nucleated RBC % 0.0 Sodium 132 L Potassium 3.0 L Chloride 110 H Carbon Dioxide 15 L Anion Gap 7 L BUN 17 D Creatinine 1.30 H Estim Creat Clear Calc 23 Estimated GFR 40 L Glucose 92 Calcium 6.9 L Discharge Plan Discharge Attending physician on discharge: Clive Lopez Consulting providers: Viktor Chappell Discharging Clinician: Clive Lopez Patient Disposition: Home Health Service
== END 2023-04-06 13:43 | disposition home health service (06) | DRG 682 ==
LOC: ANHED 13:41 → ANH3MEDSUR 16:55
PROVIDERS: Internal Medicine; Nurse Practitioner Acute Care; Admitting Provider Chiropractor; Emergency Provider Student in an Organized Health Care Education/Training Program; PCP Nurse Practitioner; Visit Provider Chiropractor
DX: N17.9 Acute kidney failure, unspecified (principal); E43 Unspecified severe protein-calorie malnutrition; E87.1 Hypo-osmolality and hyponatremia; Z68.1 Body mass index [BMI] 19.9 or less, adult; R18.8 Other ascites; R33.8 Other retention of urine; N13.30 Unspecified hydronephrosis; N18.9 Chronic kidney disease, unspecified; I48.0 Paroxysmal atrial fibrillation; R19.7 Diarrhea, unspecified; R93.5 Abnormal findings on diagnostic imaging of other abdominal regions, including retroperitoneum; E86.0 Dehydration; D64.9 Anemia, unspecified; F03.90 Unspecified dementia, unspecified severity, without behavioral disturbance, psychotic disturbance, mood disturbance, and anxiety; K21.9 Gastro-esophageal reflux disease without esophagitis; E03.9 Hypothyroidism, unspecified; R62.7 Adult failure to thrive; F17.210 Nicotine dependence, cigarettes, uncomplicated; Z86.73 Personal history of transient ischemic attack (TIA), and cerebral infarction without residual deficits; Z90.49 Acquired absence of other specified parts of digestive tract; Z79.01 Long term (current) use of anticoagulants
CPT/HCPCS: 36415; 74176; 80048; 80053; 81003; 83735; 84100; 84134; 84145; 85025; 85027; 85652; 86140; 87493; 92610; 96360; 99285; A9270; J7030